=== PATIENT | male | born 1960 | race Caucasian/White ===

== ENCOUNTER → 2022-10-30 11:16 | Outpatient (CLI) | payer OTHER, SELFPAY ==
--- NOTE | ~2022-10-30 | XR_ITS ---
XR elbow RT min 3V 10/30/2022 11:43 Indication: Right lateral elbow pain Procedure: 4 views right elbow Comparison: No prior studies for comparison. Findings: There are enthesophytes originating from the proximal ulna. There is an osteophyte originat ing from the distal lateral humerus. No acute fracture or traumatic malalignment. No foreign bodies. Mild dorsal soft tissue swelling. Impression: 1: No acute fracture. Reviewed, dictated and finalized at location A. UMER STUDIES PROFESSOR Impression: 1: No acute fracture.
== END ==
PROVIDERS: PCP Internal Medicine; Visit Provider Internal Medicine
DX: M25.519 Pain in unspecified shoulder (principal)
CPT/HCPCS: 73080

== ENCOUNTER 2022-11-05 11:21 | Inpatient (IN) | payer OTHER, SELFPAY ==
--- NOTE | ~2022-11-05 | XR_ITS ---
EXAMINATION: XR chest 1V portable DATE: 11/08/2022 07:30 INDICATION: Leukocytosis. New sputum production. TECHNIQUE: A single frontal view of the chest was obtained. COMPARISON: CT abdomen and pelvis 11/05/2022 FINDINGS: There is mild atelectasis in left lower lung zone. No pleural effusion or pneumothorax. The heart size is normal. IMPRESSION: 1. Mild atelectasis in left lower lung zone. Reviewed, dictated and finalized at location A. ESSIONAL SYSTEM ADMINISTRATOR
--- NOTE | ~2022-11-05 | XR_ITS ---
EXAMINATION: XR abdomen obstructive series DATE: 11/09/2022 11:59 INDICATION: Bloody stools, postoperative ileus TECHNIQUE: Upright and supine views of the abdomen were obtained. COMPARISON: 11/08/2022 FINDINGS: The nasogastric tube is been removed. There are multiple dilated small bowel loops in the m idabdomen. No free intraperitoneal gas is identified. A surgical staple line is noted in the lower ab domen. There is a trace volume of gas in the colon. IMPRESSION: 1. Dilated small bowel loops of the abdomen, likely postoperative ileus. Reviewed, dictated and finalized at location A. SMISSIONS SYSTEMS OPERATOR
--- NOTE | ~2022-11-05 | CT_ITS ---
EXAMINATION: CT abdomen pelvis w con DATE: 11/05/2022 17:07 INDICATION: abd pain, vomiting TECHNIQUE: Computed tomography (CT) of the abdomen and pelvis was performed with 100 mL Omnipaque-350 intravenous contrast. Automated exposure control and iterative reconstruction technique were employe d. The dose-length product was 1605.89 mGy-cm. COMPARISON: None. FINDINGS: Lower thorax: Bilateral atelectasis. Liver: Enlarged Biliary/Gallbladder: Gallbladder is normal. No bile duct dilation. Pancreas: No mass or duct dilation. Spleen: Enlarged. Adrenals:No mass. Kidneys: Left upper pole simple cyst. Left lower pole calcification. No suspicious mass. No obstructi ng calcification. No hydronephrosis. GI tract: Distal esophageal and gastric wall edema. Multiple loops of dilated small bowel with wall e hanna in the upper and right mid abdomen. No large bowel dilation. Normal appendix. Mesentery/Peritoneum: 2.2 cm stellate mass in the right mid abdominal mesentery adjacent to loops of ileum, with adjacent desmoplastic reaction in the mesentery. Trace fluid in the right paracolic gutte r. No free air. Retroperitoneum: No mass. Pelvis: Surgically absent uterus. Bladder wall thickening and inflammation. Soft Tissues: Soft tissues and body wall unremarkable. Bones: No acute osseous finding. IMPRESSION: 1. 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 No definite evidence of hepatic or regional lymp h node metastasis. Sclerosing mesentery right as could appear similarly. Consider nonemergent octreot lam nuclear medicine scan for further evaluation. 2. CT findings suggestive of cystitis, correlate with urinalysis. 3. Hepatosplenomegaly. Reviewed, dictated and finalized at location K. IMPRESSION: 1. 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 No d efinite evidence of hepatic or regional lymph node metastasis. Sclerosing mesen debra right as could appear similarly. Consider nonemergent octreotide nuclear m edicine scan for further evaluation. 2. CT findings suggestive of cystitis, correlate with urinalysis. 3. Hepatosplenomegaly.
--- NOTE | ~2022-11-05 | XR_ITS ---
Supine and upright views of the abdomen Clinical history: Nausea, bloating Findings: Surgical anirudh are noted vertically in the midline. Multiple dilated loops of small bowel are present. No definite free air. No abnormal mass lesion or calcification is seen. Osseous structu res are intact. Impression: Multiple dilated loops of small bowel. Findings are suspicious for small bowel obstruction, versus po ssibly postoperative ileus given evidence of recent surgery. Reviewed, dictated and finalized at location [] RINARY POULTRY INSPECTOR Impression: Multiple dilated loops of small bowel. Findings are suspicious for small bowel obstruction, versus possibly postoperative ileus given evidence of recent surge ry.
--- NOTE | ~2022-11-05 | XR_ITS ---
EXAMINATION: XR abdomen NG/feed tube insert DATE: 11/08/2022 22:00 INDICATION: Nasogastric tube placement TECHNIQUE: A supine view of the abdomen and lower chest was obtained for evaluation of feeding tube placement. COMPARISON: 11/08/2022 at 10:51 AM FINDINGS: Nasogastric tube tip in proximal side port in the body of the stomach. No visualized gas-filled loops of bowel in the visualized upper abdomen. Lung bases are clear. Heart size is normal. IMPRESSION: 1. Gastric tube in the stomach. Reviewed, dictated and finalized at location A. BOOTH OPERATOR
[2022-11-05 11:34] VITALS: BP 152/89; PULSE 77; RESP 16; TEMP 36.1; O2SAT 97
[2022-11-05 12:31] LABS: Basophils Percent Auto 0.2 % (0.2-1.2); Eosinophils Absolute Auto 0.1 K/mm3 (0-0.3); Eosinophils Percent Auto 0.5 % (0-4.4); Hematocrit 46.8 % (42.0-52.0); Immature Granulocyte Absolute 0.09 K/mm3 (0.00-0.031); Immature Granulocyte Percent A 0.6 % (0-0.5); Lymphocytes Absolute Auto 1.66 K/mm3 (0.9-3.2); Lymphocytes Percent Auto 11.5 % (18.3-44.2); Mean Corpuscular HGB Conc 32.1 g/dl (32-36); Mean Corpuscular Hemoglobin 31.1 pg (26-34); Mean Corpuscular Volume 96.9 fl (80-100); Mean Platelet Volume 10.9 fl (7.4-10.4); Monocytes Absolute Auto 1.1 K/mm3 (0.1-0.6); Monocytes Percent Auto 7.7 % (2.6-8.5); Neutrophils Absolute Auto 11.5 K/mm3 (1.3-6.7); Neutrophils Percent Auto 79.5 % (45.5-73.1); Platelet Count Result 257 k/mm3 (150-375); Red Blood Count 4.83 M/mm3 (4.6-6.20); Red Cell Distribution Width 15.6 % (11.5-14.5); White Blood Count 14.5 K/mm3 (4.5-10.0)
[2022-11-05 12:33] LABS: Alanine Aminotransferase 28 U/L (6-50); Albumin Level 4.4 g/dL (3.5-5.1); Alkaline Phosphatase 79 U/L (38-126); Anion Gap 7 mmol/L (8-16); Aspartate Amino Transferase 21 U/L (17-59); Bilirubin,Total 0.6 mg/dL (0.2-1.3); Blood Urea Nitrogen 17 mg/dL (9-20); Calcium 9.1 mg/dL (8.4-10.2); Carbon Dioxide 25 mmol/L (22-30); Chloride 103 mmol/L (98-107); Estimated CRCL calculation 80 ml/min; Estimated Glomerular Filt Rate > 60; Glucose 103 mg/dL (65-110); Lipase 63 U/L (23-300); Potassium 3.8 mmol/L (3.4-5.0); Sodium 135 mmol/L (137-145)
[2022-11-05 15:34] LABS: Appearance Urine Cloudy (Clear); Bilirubin Urine 1+ (Negative); Blood Urine Negative (Negative); Color Urine Yellow (Yellow); Glucose Urine UA Negative (Negative); Ketones Urine 4+ mg/dL (Negative); Leukocyte Esterase Ur Negative LEU/UL (Negative); Nitrate Urine Negative (Negative); Protein Urine 1+ mg/dL (Negative); Specific Grav Ur 1.025 (1.001-1.035)
[2022-11-05 15:38] LABS: Mucus Urine Heavy /lpf; RBC Urine 0-2 /hpf (0-2); Squamous Epithelial Cell Urine Many /hpf (Few)
[2022-11-05 15:44] LABS: Add Urine Microscopic? YES
[2022-11-05] MEDS: SODIUM CHLORIDE 0.9% IV 1,000 ML 999 ML IV CONT (16:43)
--- NOTE | 2022-11-05 17:14 | ED.ABDPAIN ---
HPI - Abdominal Pain General Chief Complaint: Abdominal Pain Stated Complaint: vomiting/abd pain Time Seen by Provider: 11/05/22 16:16 Source: patient Mode of arrival: ambulatory Limitations: no limitations History of Present Illness HPI narrative: This is a 62 year old male that presents to the ER for abdominal pain ongoing over the last couple of days. Associated with nausea and vomiting. Reports some loose stools. Reports the pain is intermittent and crampy in nature. In the mid to left abdomen. Denies fever, dysuria or hematuria. Related Data Allergies Allergy/AdvReac Type Severity Reaction Status Date / Time No Known Allergies Allergy Verified 11/05/22 16:42 Review of Systems Review of Systems: CONSTITUTIONAL: Denies fever GASTROINTESTINAL: Reports abdominal pain, nausea, vomiting, and diarrhea. GENITOURINARY: Denies dysuria or hematuria. All systems reviewed & are unremarkable except as noted in HPI and below PMFSH Past Medical History Medical History (Updated 11/05/22 @ 18:51 by Louisa Sullivan PA-C) Hyperlipidemia Hypertension Hypothyroidism Social History Social History (Updated 11/05/22 @ 17:47 by Louisa Sullivan PA-C) Social History: Surrogate medical decision maker: Code status: Full code. Smoking status: Never smoker Additional living arrangements comments: Lives with spouse in [place]. Additional occupation/education comments: [employer]. Exam Narrative: GENERAL: Well-appearing, well-nourished, and in no acute distress. HEAD: Normocephalic, atraumatic. EYES: EOMI. CHEST: Clear to auscultation. No respiratory distress. No wheezes rales or rhonchi HEART: Regular rate and rhythm. No murmur heard. Normal peripheral pulses. ABDOMEN: Soft, nondistended, normal active bowel sounds. Tender to palpation in the mid-left abdomen, without guarding. No CVA tenderness EXTREMITIES: Normal range of motion. No edema. SKIN: Warm, dry, no rash. NEURO: No focal deficits. Alert and oriented x3. PSYCH: Normal mood and affect Course Course Emergency Course: Patient and family updated on work-up Consultations Consultation #1: Spoke with Dr. Salinas about patient and workup who will consult. As patient has not had any vomiting today and he has had a bowel movement. Okay to hold off on NG tube for now. Patient will remain NPO to allow bowel rest Date: 11/05/22 Consultation #2: Spoke with hospitalist about patient and workup who accepts admission Date: 11/05/22 Vital Signs Vital signs: Vital Signs Temperature 97 F L 11/05/22 11:34 Pulse Rate 77 11/05/22 11:34 Respiratory Rate 16 11/05/22 11:34 Blood Pressure 152/89 H 11/05/22 11:34 Pulse Oximetry 97 11/05/22 11:34 Temperature 97 F L 11/05/22 11:34 Pulse Rate 77 11/05/22 11:34 Respiratory Rate 16 11/05/22 11:34 Blood Pressure 152/89 H 11/05/22 11:34 Pulse Oximetry 97 11/05/22 11:34 MDM - Abdominal Pain MDM Narrative Medical decision making narrative: Patient presents the emergency department for mid abdominal pain, nausea and vomiting ongoing over the last couple of days. Also reports some loose stools. Patient is afebrile and nontoxic-appearing. His vitals are stable. CBC with leukocytosis to 14.5. Metabolic panel without concerning findings. UA without evidence of infection. Influenza and COVID screens are negative. 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 No evidence of hepatic or regional lymph node metastasis. CT evidence of cystitis. There is no evidence of cystitis on UA. Hepatosplenomegaly. Patient and family were updated on case findings. Spoke with Dr. Salinas about patient and workup who will consult. As patient has not had any vomiting today and he has had a bowel movement. Okay to hold off on NG tube for now. Patient will remain NPO to allow bowel rest. Spoke with
[2022-11-05 17:37] LABS: Influenza A QL RT-PCR Negative (Negative); Influenza B QL RT-PCR Negative (Negative); SARS-CoV-2 RNA PCR Negative
--- NOTE | 2022-11-05 19:00 | PM.IMHP ---
H&P: HPI History of Present Illness Date/Time: 11/05/22 19:00 Chief Complaint: Abdominal pain. Narrative: This is a very pleasant 62-year-old male with hypertension, hyperlipidemia, and hypothyroidism who presented to the emergency department for evaluation of abdominal pain for the past 2 days. A couple of hours after eating a hot dog for dinner on Saturday he developed pain in the right middle quadrant that is cramping and occasionally sharp in nature. The pain does not radiate and it seems to be worse with food. He has not noticed any significant alleviating factors. Associated symptoms include bloating, hiccups, nausea, a couple of episodes of emesis after attempting to eat pudding, and dry heaves. He has also had couple of loose stools. He had 2 similar episodes in September which were self-limiting and he came in for evaluation today as his symptoms were more persistent. He denies fever, chills, and sweats. He has not noticed any blood or mucus in his stools. He denies sick contacts and recent antibiotic use. No history of abdominal surgery. He has no known history of gallbladder disease, peptic ulcers, or pancreatitis. CT of the abdomen and pelvis done on arrival to ER showed findings of at least a partial small-bowel obstruction and a 2.2 centimeter adjacent area concerning for possible carcinoid tumor. He is being admitted in this setting for further treatment and observation. No history of colonoscopy though he had a normal Cologuard 3 years ago. Review of Systems Review of Systems: Twelve systems were reviewed and are negative except for as per HPI. [facility] Past Medical History Medical History (Updated 11/05/22 @ 22:31 by Jo [place] PA-C) Hyperlipidemia Hypertension Hypothyroidism Kidney stones Surgical History Surgical History (Updated 11/05/22 @ 22:31 by Jo [place] PA-C) History of laser assisted in situ keratomileusis Family History Family History (Updated 11/05/22 @ 22:31 by Jo [place] PA-C) Other Hypertension Social History Social History (Updated 11/05/22 @ 22:31 by Jo [place] PA-C) Social History: Surrogate medical decision maker: Emilee Higgins, spouse. Code status: Full code. Smoking status: Never smoker Additional living arrangements comments: Lives with spouse in [place]. Additional occupation/education comments: [employer]. Meds Home Medications and Allergies Allergies Allergy/AdvReac Type Severity Reaction Status Date / Time No Known Allergies Allergy Verified 11/05/22 16:42 Vital Signs Vital Signs - 24 hr 11/05/22 11:34 Temperature 97 F L Pulse Rate 77 Respiratory Rate 16 Blood Pressure 152/89 H Pulse Oximetry 97 Exam Const: Other: Pleasant, well-developed, nontoxic-appearing male in the semi-[place] position in bed. Weight: 140 kilograms. BMI: 49.8. HENMT: Other: Normocephalic, atraumatic. Nares pain bilaterally. Tacky mucous membranes. Eyes: Other: Pupils are reactive. Extraocular motions intact. Sclerae anicteric. Small, bilateral subconjunctival hemorrhages. Neck: Other: Supple. Exam limited due to neck circumference. No obvious lymphadenopathy. Resp: Other: Respirations are nonlabored and lungs are clear to auscultation. Cardio: Other: Regular rate and rhythm with normal S1-S2. GI: Other: Abdomen is soft and obese with positive bowel sounds. He is tender to palpation in the right middle quadrant without voluntary guarding or rebound tenderness. No obvious organomegaly. Skin: Other: Warm and dry. Neuro: Other: Alert. Cranial nerves 2-12 are grossly intact. No gross focal deficits to casual conversation. Extrem: Other: No cyanosis, clubbing, or significant edema. Peripheral pulses intact. Psych: Other: Pleasant and cooperative. Appropriate mood and affect. H&P: Results Labs Labs: Short CBC 11/05/22 Range/Units 12:10 WBC 14.5 H (4.5-10.0) K/mm3 Hgb 15.0 (14.0-
[2022-11-05 19:29] VITALS: BP 152/87; PULSE 67; RESP 18; O2SAT 96
[2022-11-05 23:23] VITALS: BP 131/76; PULSE 66; PULSE 92; RESP 20; RESP 64; O2SAT 95
[2022-11-05 23:30] VITALS: BP 143/83; PULSE 66; RESP 18; TEMP 36.1; O2SAT 95; BMI 49.3
[2022-11-05] MEDS: LACTATED RINGERS 1,000 ML 125 ML IV CONT (23:33)
--- NOTE | 2022-11-05 23:40 | ADMGEN ---
This patient, Mayur Higgins, was admitted to [facility] Room 309[facility]01. Patient/family oriented to hospital policies and general routines including ID bracelet, bed and alarms, visiting hours, pain management, procedures, bathroom and other care routines, personal items, smoking policy, room service/diet, and visiting hours. Information on how to activate the Rapid Response Team has been discussed. Patient/Family are encouraged to report perceived risks to care and to ask questions if they do not understand what they are told or what they should do.
[2022-11-06] VITALS (16 sets, daily range): BP systolic 129–175; BP diastolic 62–94; PULSE 69–89; RESP 14–28; TEMP 35.9–37.7; O2SAT 93–98
[2022-11-06 06:49] LABS: Alanine Aminotransferase 26 U/L (6-50); Albumin Level 3.9 g/dL (3.5-5.1); Alkaline Phosphatase 80 U/L (38-126); Anion Gap 6 mmol/L (8-16); Aspartate Amino Transferase 18 U/L (17-59); Bilirubin,Total 0.8 mg/dL (0.2-1.3); Blood Urea Nitrogen 17 mg/dL (9-20); Carbon Dioxide 29 mmol/L (22-30); Chloride 104 mmol/L (98-107); Estimated CRCL calculation 80 ml/min; Estimated Glomerular Filt Rate > 60; Glucose 89 mg/dL (65-110); Magnesium 1.9 mg/dL (1.6-2.3); Potassium 3.7 mmol/L (3.4-5.0); Sodium 139 mmol/L (137-145)
[2022-11-06] MEDS: LACTATED RINGERS 1,000 ML 125 ML IV CONT ×2 (08:29→23:38)
[2022-11-06 09:54] LABS: Hematocrit 42.7 % (42.0-52.0); Hemoglobin 13.6 g/dL (14.0-18.0); Mean Corpuscular HGB Conc 31.9 g/dl (32-36); Mean Corpuscular Volume 97.3 fl (80-100); Mean Platelet Volume 11.2 fl (7.4-10.4); Platelet Count Result 226 k/mm3 (150-375); Red Blood Count 4.39 M/mm3 (4.6-6.20); Red Cell Distribution Width 15.4 % (11.5-14.5); White Blood Count 12.1 K/mm3 (4.5-10.0)
--- NOTE | 2022-11-06 11:43 | PM.CNGS ---
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 He has not been vomiting since admission, so will still defer NG tube for now unless vomiting returns. No signs of bowel function today. Discussed the case with Dr. Salinas, who recommends proceeding with an exploratory laparotomy, possible bowel resection today, under general anesthesia. Discussed CT findings with the patient as well as description of the procedure, risks, benefits, and expected recovery. Patient agrees to proceed. Will plan to proceed to the OR later today. (2) Partial small bowel obstruction: Code(s): K56.600 - Partial intestinal obstruction, unspecified as to cause Status: Acute Assessment and Plan: Keep NPO with IV fluids, analgesics as needed. See plan above regarding surgery today. (3) Hypertension: Code(s): I10 - Essential (primary) hypertension Status: Acute (4) Hyperlipidemia: Code(s): E78.5 - Hyperlipidemia, unspecified Status: Acute (5) Hypothyroidism: Code(s): E03.9 - Hypothyroidism, unspecified Status: Acute (6) Obesity, morbid, BMI 40.0-49.9: Code(s): E66.01 - Morbid (severe) obesity due to excess calories Status: Acute Assessment and Plan: Increases risks of surgery. (7) RAJEEV (obstructive sleep apnea): Code(s): G47.33 - Obstructive sleep apnea (adult) (pediatric) Status: Acute Assessment and Plan: Increases risks of surgery. Plan I have discussed the patient's case and plan of care with Dr. Salinas. Thank you for allowing us to see the patient in consultation and we will continue to follow along with you. History of Present Illness Consult details Consult date: 11/06/22 Reason for consult: other (Mesenteric abdominal mass with at least partal small bowel obstruction) Requesting physician: Sonja Park PA-C Narrative: This is a 62-year-old man with a history of hypertension, hyperlipidemia, and hypothyroidism who presented to the emergency department yesterday for evaluation of abdominal pain for 2 days. He developed right-sided mid abdominal pain a few hours after eating a hot dog on Saturday. He describes the pain as cramping and sharp in nature. He additionally reports bloating, nausea, dry heaves, and a few episodes of vomiting. He also reports a few loose stools on Saturday. Since then, he has not been passing any gas or had any further bowel movements. He had 2 similar episodes of pain in September that were mild and self-limiting. His recent pain has been more severe and persistent, therefore he presented to the ER for evaluation. 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 He was admitted to the Hospitalist service. He was not vomiting in the ER or since admission, therefore NG tube has been deferred. Our service has been consulted for surgical evaluation of a mesenteric mass causing at least a partial small bowel obstruction. He is now seen on the medical floor. No previous abdominal surgeries. Still denies passing any flatus or any BMs since admission. Review of Systems Review of Systems: All systems reviewed & are unremarkable except as noted in HPI and below Constitutional: Constitutional: Reports no additional constitutional complaints, Denies chills, Denies fatigue, Denies fever(s) and Denies headache(s) Eyes: Eyes: Reports no additional eye complaints ENT: Reports system reviewed and no additional complaints, except as documented and Denies dizziness
--- NOTE | 2022-11-06 13:19 | PM.IMPN ---
Progress Note: A&P Assessment and Plan (1) Partial small bowel obstruction: Code(s): K56.600 - Partial intestinal obstruction, unspecified as to cause Status: Acute Assessment and Plan: Presented with abdominal pain, nausea, and dry heaves Imaging revealed 2.2 cm mass of the right mid mesentery concerning for carcinoid tumor adjacent to loops of ileum resulting in partial small-bowel obstruction No need for NG decompression at this time as patient has no vomiting Continue with NPO diet Planning for exploratory laparotomy today with possible bowel resection Appreciate general surgery consultation (2) Abdominal mass: Code(s): R19.00 - Intra-abdominal and pelvic swelling, mass and lump, unspecified site Status: Acute Assessment and Plan: See plan above (3) Hypertension: Code(s): I10 - Essential (primary) hypertension Status: Acute Assessment and Plan: Blood pressures are stable. Last BP 136/66 Home in a bubble all is on hold while NPO IV hydralazine available as needed for systolic BP >165 (4) Hypothyroidism: Code(s): E03.9 - Hypothyroidism, unspecified Status: Acute Assessment and Plan: TSH is within normal limits IV levothyroxine while NPO (5) Hyperlipidemia: Code(s): E78.5 - Hyperlipidemia, unspecified Status: Acute Assessment and Plan: LFTs are within normal limits Atorvastatin will be resumed when diet is advanced and patient is able to tolerate p.o. meds (6) RAJEEV (obstructive sleep apnea): Code(s): G47.33 - Obstructive sleep apnea (adult) (pediatric) Status: Acute Assessment and Plan: Patient reports history of mild RAJEEV and is not maintained on CPAP Reports he has been trying to lose weight to improve symptoms Subjective Date/time seen: 11/06/22 13:19 Interval history: Date of service: 11/06/2022 Mayur Higgins is a 62-year-old male with a history of hypertension, hyperlipidemia, hypothyroidism, and RAJEEV who is seen in follow-up for small bowel obstruction. Patient reports he is doing okay today. His pain is pretty controlled at this time. Currently rates his pain about 2/10 states it has been up to 5/10. Describes as a crampy abdominal discomfort. Denies nausea or vomiting. He denies flatus. States his last bowel movement was 2 days ago. He denies fever, chills, dizziness, lightheadedness. No issues with urinating. No shortness breath, cough, chest pain, wheezing. He notes he popped a blood vessel in both of his eyes when he was dry heaving but has no pain or visual changes. He admits to being anxious for surgical procedure today Review of Systems Review of Systems: All systems reviewed & are unremarkable except as noted in HPI and below Exam Narrative: General: Obese, well-appearing 62-year-old male, sitting up in bed, comfortable, NARD Neuro: awake, alert and oriented x4, speech clear, no focal neuro deficits noted HEENMT: normocephalic, atraumatic, EOMI, sclerae anicteric, subconjunctival hemorrhage of medial aspect of bilateral eyes Respiratory: clear to auscultation bilaterally, nonlabored breathing Cardio: regular rate, regular rhythm with S1-S2 Abdomen: Abdomen is distended, hypoactive bowel sounds, soft, nontender to palpation Extremities: no edema, erythema, or tenderness to palpation, DP pulses 2+ bilaterally Skin: no rashes or lesions, warm and dry Psych: appropriate mood and affect, judgment and insight intact Objective Data Vital Signs Vital Signs: Vital Signs - 24 hr 11/05/22 19:29 11/05/22 23:23 11/05/22 23:23 Temperature Pulse Rate 67 92 66 Respiratory Rate 18 64 H 20 Blood Pressure 152/87 H 131/76 Pulse Oximetry 96 95 Oxygen Delivery 11/05/22 23:57 11/05/22 23:30 11/06/22 06:00 Temperature 96.9 F L 96.6 F L Pulse Rate 66 71 Respiratory Rate 18 16 Blood Pressure 143/83 H 136/66 Pulse Oximetry 95 94 O
[2022-11-06] MEDS: LACTATED RINGERS 1,000 ML 30 ML IV CONT ×2 (14:10→17:18)
--- NOTE | 2022-11-06 14:21 | WPDANESEPPF ---
Anes - Initial Pre Proc Eval Procedure: Operation Date: 11/06/22 16:15 Proposed Procedures p Exploratory Laparotomy, Possible Bowel Resection - Torres Salinas DO Date/Time: 11/06/22 14:21 Surgeon: Teresa Draper PA-C Pre Op Diagnosis: Carcinoid tumor, SBO Patient Data Age: 62 Gender: M Height: 1.68 m Weight: 139.5 kg Last Vital Signs Temp 36.8 C 11/06/22 14:10 Pulse 73 11/06/22 14:10 Resp 16 11/06/22 14:10 BP 155/82 H 11/06/22 14:10 Pulse Ox 98 11/06/22 14:10 O2 Del Method Room Air 11/06/22 14:10 Allergies Allergy/AdvReac Type Severity Reaction Status Date / Time No Known Allergies Allergy Verified 11/05/22 16:42 Home Medications Medication Instructions Recorded Confirmed Type atorvastatin 10 mg tablet 10 mg PO DAILY 11/05/22 11/05/22 History levothyroxine 175 mcg tablet 175 mcg PO DAILY 11/05/22 11/05/22 History nebivolol 5 mg tablet 5 mg PO DAILY 11/05/22 11/05/22 History Laboratory Tests 11/05/22 11/05/22 11/06/22 14:35 16:37 05:59 WBC RBC Hgb Hct MCV MCH MCHC RDW Plt Count MPV Sodium 139 mmol/L mmol/L (137-145) Potassium 3.7 mmol/L mmol/L (3.4-5.0) Chloride 104 mmol/L mmol/L (98-107) Carbon Dioxide 29 mmol/L mmol/L (22-30) Anion Gap 6 mmol/L L mmol/L (8-16) BUN 17 mg/dL mg/dL (9-20) Creatinine 1.10 mg/dL mg/dL (0.7-1.3) Estim Creat Clear Calc 80 ml/min ml/min Estimated GFR > 60 (59 - ) Glucose 89 mg/dL mg/dL (65-110) Calcium 9.0 mg/dL mg/dL (8.4-10.2) Magnesium 1.9 mg/dL mg/dL (1.6-2.3) Total Bilirubin 0.8 mg/dL mg/dL (0.2-1.3) AST 18 U/L U/L (17-59) ALT 26 U/L U/L (6-50) Alkaline Phosphatase 80 U/L U/L (38-126) Total Protein 7.0 g/dL g/dL (6.3-8.2) Albumin 3.9 g/dL g/dL (3.5-5.1) TSH (Reflex) Urine Color Yellow (Yellow) Urine Appearance Cloudy H (Clear) Urine pH 6.0 (5.0-9.0) Ur Specific Stanford 1.025 (1.001-1.035) Urine Protein 1+ mg/dL H mg/dL (Negative) Urine Glucose (UA) Negative mg/dL mg/dL (Negative) Urine Ketones 4+ mg/dL H mg/dL (Negative) Ur Blood (Man) Negative (Negative) Urine Nitrate Negative (Negative) Urine Bilirubin 1+ H (Negative) Urine Urobilinogen 4.0 mg/dL H mg/dL (<2.0) Leukocyte Esterase Rfl Negative FOSTER/UL FOSTER/UL (Negative) Urine RBC 0-2 /hpf /hpf (0-2) Urine WBC 4-6 /hpf H /hpf Ur Squamous Epith Cells Many /hpf H /hpf (Few) Urine Mucus Heavy /lpf H /lpf Influenza A (RT-PCR) Negative (Negative) Influenza B (RT-PCR) Negative (Negative) SARS-CoV-2 RNA (RT-PCR) Negative 11/06/22 11/06/22 05:59 05:59 WBC 12.1 K/mm3 H K/mm3 (4.5-10.0) RBC 4.39 M/mm3 L M/mm3 (4.6-6.20) Hgb 13.6 g/dL L g/dL (14.0-18.0) Hct 42.7 % % (42.0-52.0) MCV 97.3 fl fl (80-100) MCH 31.0 pg pg (26-34) MCHC 31.9 g/dl L g/dl (32-36) RDW 15.4 % H % (11.5-14.5) Plt Count 226 k/mm3 k/mm3 (150-375) MPV 11.2 fl H fl (7.4-10.4) Sodium Potassium Chloride Carbon Dioxide Anion Gap BUN Creatinine Estim Creat Clear Calc Estimated GFR Glucose Calcium Magnesium Total Bilirubin AST ALT Alkaline Phosphatase Total Protein Albumin TSH (Reflex) 2.550 uIU/mL uIU/mL (0.465-4.68) Urine Color Urine Appearance Urine pH
--- NOTE | 2022-11-06 14:42 | PCNEURO ---
To OR per bed, IV saline locked. Report given to ALLA Del Real.
--- NOTE | 2022-11-06 15:13 | WPDHPUPDATE1 ---
History and Physical Update Update Date/Time: 11/06/22 15:13 History and Physical has been reviewed, including an updated exam of the patient. There are NO changes in the patient's condition. Risks, benefits, and alternatives have been discussed and questions answered. Patient agrees to proceed with procedure.
[2022-11-06] MEDS: ceFAZolin 3 GM/D5W 100 ML 100 ML IVPB (15:20)
--- NOTE | 2022-11-06 17:03 | W.PM.PROC2 ---
Procedure Note - Detailed Date of Procedure 11/06/22 Pre-op Diagnosis Abdominal mass, small bowel obstruction Post-op Diagnosis Same Procedure Performed Exploratory laparotomy, ileal resection with [id number] ileal anastomosis Surgeon Torres Salinas DO Sourcing Analyst Jimmie Dey MD Anesthesia General Indications This is a 62-year-old man who presented to the emergency department last night with abdominal pain with nausea and vomiting. He had experienced a few episodes like this over past 6 weeks. He was feeling very bloated and could tolerate eating. He had a bowel movement 2 days ago, but has not had bowel movement or passed any flatus since. A CT in the emergency department showed evidence of a small-bowel mesenteric mass causing at least a partial obstruction. He is admitted to the hospital for further treatment. Discussions were made with the patient about treatment options and decision was made to proceed with exploratory laparotomy with small-bowel resection. Findings Exploratory laparotomy was performed. The patient was found to have a mesenteric mass causing couple loops of small bowel to be tethered to this area and causing a small-bowel obstruction. This appeared to be about 20 cm proximal to the ileocecal valve. The small bowel proximal to this appeared dilated. The mass appeared to be right at the distal mesentery near the small, but there was some mesenteric thickening proximal to this. A small bowel resection was performed including the loops of bowel that were adherent at the mass. A [id number] ileal anastomosis was performed. Dr. Dey was assisting with the procedure with the mobilization of the mass as well as the resection and anastomosis. The specimen was sent to the lab for pathology. No other intra-abdominal abnormalities were noted. Description of Procedure Procedure as well as risks, benefits, and alternatives were discussed with the patient. Written consent was obtained and placed in chart prior to procedure. Patient was brought back to surgical suite. He was placed supine on operating table. Time-out was done to confirm patient and procedure. He was then intubated by the anesthesia department. His abdomen was prepped and draped in sterile fashion using chlorhexidine prep. A 15 cm vertical midline incision was made centered on the umbilicus using a 10 blade scalpel. Electrocautery was used for hemostasis and for dissection through the subcutaneous tissue. The linea alba was identified and incised with electrocautery. The peritoneum was then entered with electrocautery and the fascial incision was extended throughout the length of the skin incision. A large Armando wound protector was then placed and the abdomen was carefully inspected. The small bowel was identified and carefully traced to where the small bowel mass was. The mass was able to be delivered through the Armando wound protector. The small bowel proximal and distal to this was identified and appeared healthy and viable. A window was created in the mesentery just proximal and distal to the mass using hemostat and GINO 75 mm blue load staplers were then advanced across the small bowel proximal and distal to the mass. The staplers were fired to transect the bowel proximal and distal. The mesentery was then carefully taken down using LigaSure bipolar cautery. Hemostasis was achieved along the way. Care was taken to continue down the mesentery to resect the mesentery of the involved segment. The specimen was completely removed and sent to the lab for pathology. The mesentery was then carefully inspected and hemostasis appeared adequate. There was about 20 cm of distal ileum before the ileocecal valve. This was somewhat tethered to the pelvis making it difficult to bring up for the anastomosis, therefore some of the lateral peritoneal attachments to the terminal ileum were taken down to mobilize the further. This then allowed the 2 ends of the bowel to come
[2022-11-06] MEDS: fentaNYL CITRATE INJ (*CRX) 100 MCG/2 ML VIAL 25 MCG IV PUSH ×4 (17:18→17:37)
--- NOTE | 2022-11-06 18:29 | PC.NURSE ---
Return from OR per bed. Report received from ALLA Partida @ [id number].
[2022-11-06] MEDS: HYDROmorphone HCL INJ (*CRX) 1 MG/ML SYR IV PUSH ×2 (20:24→23:39)
[2022-11-06] MEDS: ceFAZolin 2 GM/D5W 50 ML 2 GM/50 ML BAG IVPB (22:06)
[2022-11-07] VITALS (8 sets, daily range): BP systolic 120–160; BP diastolic 60–82; PULSE 66–85; RESP 13–20; TEMP 36.1–37.6; O2SAT 92–96
[2022-11-07] MEDS: LEVOTHYROXINE SODIUM INJ 100 MCG/5 ML VIAL 87.5 MCG IV PUSH (05:58)
[2022-11-07] MEDS: ceFAZolin 2 GM/D5W 50 ML 2 GM/50 ML BAG IVPB ×2 (05:59→16:16)
[2022-11-07 06:58] LABS: Hematocrit 40.6 % (42.0-52.0); Hemoglobin 13.2 g/dL (14.0-18.0); Mean Corpuscular HGB Conc 32.5 g/dl (32-36); Mean Corpuscular Hemoglobin 31.1 pg (26-34); Mean Corpuscular Volume 95.5 fl (80-100); Mean Platelet Volume 11.2 fl (7.4-10.4); Platelet Count Result 220 k/mm3 (150-375); Red Blood Count 4.25 M/mm3 (4.6-6.20); White Blood Count 14.4 K/mm3 (4.5-10.0)
[2022-11-07 07:16] LABS: Anion Gap 5 mmol/L (8-16); Blood Urea Nitrogen 20 mg/dL (9-20); Calcium 8.6 mg/dL (8.4-10.2); Carbon Dioxide 28 mmol/L (22-30); Chloride 99 mmol/L (98-107); Estimated CRCL calculation 80 ml/min; Estimated Glomerular Filt Rate > 60; Glucose 106 mg/dL (65-110); Potassium 4.6 mmol/L (3.4-5.0); Sodium 132 mmol/L (137-145)
[2022-11-07] MEDS: HYDROmorphone HCL INJ (*CRX) 1 MG/ML SYR IV PUSH ×2 (08:53→13:55)
[2022-11-07] MEDS: ENOXAPARIN 40 MG/0.4 ML SYRINGE SUB-Q (09:40)
--- NOTE | 2022-11-07 10:15 | PM.IMPN ---
Progress Note: A&P Assessment and Plan (1) Partial small bowel obstruction: Code(s): K56.600 - Partial intestinal obstruction, unspecified as to cause Status: Acute Assessment and Plan: Presented with abdominal pain, nausea, and dry heaves Imaging revealed 2.2 cm mass of the right mid mesentery concerning for carcinoid tumor adjacent to loops of ileum resulting in partial small-bowel obstruction Surgery to advance diet tumor removal performed 11/06/22 Appreciate general surgery consultation (2) Abdominal mass: Code(s): R19.00 - Intra-abdominal and pelvic swelling, mass and lump, unspecified site Status: Acute Assessment and Plan: See plan above (3) Hypertension: Code(s): I10 - Essential (primary) hypertension Status: Acute Assessment and Plan: Blood pressures are stable. Last BP 140/78 Home nebivolol is on currently on hold IV hydralazine available as needed for systolic BP >165 (4) Hypothyroidism: Code(s): E03.9 - Hypothyroidism, unspecified Status: Acute Assessment and Plan: TSH is within normal limits IV levothyroxine while NPO (5) Hyperlipidemia: Code(s): E78.5 - Hyperlipidemia, unspecified Status: Acute Assessment and Plan: LFTs are within normal limits Atorvastatin will be resumed when diet is advanced and patient is able to tolerate p.o. meds (6) RAJEEV (obstructive sleep apnea): Code(s): G47.33 - Obstructive sleep apnea (adult) (pediatric) Status: Acute Assessment and Plan: Patient reports history of mild RAJEEV and is not maintained on CPAP Reports he has been trying to lose weight to improve symptoms Time Spent With Patient Time with patient: Greater than 35 minutes Subjective Date/time seen: 11/07/22 1015 Interval history: 11/07/22 1015 patient was resting in bed comfortably. Rai is draining a good amount a urine. Patient does have anirudh in his midline abdomen which dressing is dry and intact. Patient did state that he was still having some pain especially when he coughs. Did tell him to splint with a pillow. He denies any chest pain, shortness a breath, nausea, vomiting, weakness or fatigue. He did state that he has not had a bowel movement nor does he have any gas. But he does have some hypo bowel sounds on the left. 11/06/22? 13:19 Mayur Higgins is a 62-year-old male with a history of hypertension, hyperlipidemia, hypothyroidism, and RAJEEV who is seen in follow-up for small bowel obstruction.? Patient reports he is doing okay today.? His pain is pretty controlled at this time.? Currently rates his pain about 2/10 states it has been up to 5/10.? Describes as a crampy abdominal discomfort.? Denies nausea or vomiting.? He denies flatus.? States his last bowel movement was 2 days ago.? He denies fever, chills, dizziness, lightheadedness.? No issues with urinating.? No shortness breath, cough, chest pain, wheezing.? He notes he popped a blood vessel in both of his eyes when he was dry heaving but has no pain or visual changes.? He admits to being anxious for surgical procedure today 11/05/22? 19:00 This is a very pleasant 62-year-old male with hypertension, hyperlipidemia, and hypothyroidism who presented to the emergency department for evaluation of abdominal pain for the past 2 days. A couple of hours after eating a hot dog for dinner on Saturday he developed pain in the right middle quadrant that is cramping and occasionally sharp in nature. The pain does not radiate and it seems to be worse with food. He has not noticed any significant alleviating factors. Associated symptoms include bloating, hiccups, nausea, a couple of episodes of emesis after attempting to eat pudding, and dry heaves. He has also had couple of loose stools. He had 2 similar episodes in September which were self-limiting and he came in
--- NOTE | 2022-11-07 13:07 | WPDANESPN ---
Anes - Prog Note Post-Op Date/Time: 11/07/22 13:07 Vital Signs: Last Vital Signs Temp 37.1 C 11/07/22 08:06 Pulse 75 11/07/22 08:06 Resp 16 11/07/22 08:06 BP 135/60 11/07/22 08:06 Pulse Ox 93 11/07/22 10:40 O2 Del Method Room Air 11/07/22 10:40 O2 Flow Rate 2 11/06/22 18:18 Pain Score (VAS): 0 I/O: Intake & Output 11/06/22 11/07/22 11/07/22 23:59 07:59 15:59 Intake Total 1500 900 480 Output Total 30 700 1400 Balance 1470 200 -920 Laboratory Tests 11/07/22 06:22 11/07/22 06:22 11/07/22 11/07/22 06:22 06:22 WBC 14.4 H RBC 4.25 L Hgb 13.2 L Hct 40.6 L MCV 95.5 MCH 31.1 MCHC 32.5 RDW 15.0 H Plt Count 220 MPV 11.2 H Sodium 132 L Potassium 4.6 Chloride 99 Carbon Dioxide 28 Anion Gap 5 L BUN 20 Creatinine 1.10 Estim Creat Clear Calc 80 Estimated GFR > 60 Glucose 106 Calcium 8.6 Patient Feedback: Patient satisfied with anesthetic care.
--- NOTE | 2022-11-07 14:13 | PM.PNGS ---
Progress Note: A&P Assessment and Plan (1) Abdominal mass: Qualifiers: Abdominal location: unspecified location Qualified Code(s): R19.00 - Intra-abdominal and pelvic swelling, mass and lump, unspecified site Code(s): R19.00 - Intra-abdominal and pelvic swelling, mass and lump, unspecified site Status: Acute Assessment and Plan: Doing well POD#1. Continue clear liquids today. Increase activity, await return of bowel function. Pathology pending. (2) Partial small bowel obstruction: Code(s): K56.600 - Partial intestinal obstruction, unspecified as to cause Status: Acute (3) RAJEEV (obstructive sleep apnea): Code(s): G47.33 - Obstructive sleep apnea (adult) (pediatric) Status: Acute Subjective Subjective Date/Time Seen: 11/07/22 14:13 Interval history: Tolerating clears. No nausea or vomiting. Pain controlled. Exam GI: Inspection: incision (dressing dry) GI Palp: Yes Soft to palpation and Yes Tenderness to palpation present (GI) (incisional) Auscultation: Hypoactive bowel sounds present Objective Data Vital Signs Vital Signs: Vital Signs - 24 hr 11/06/22 14:24 11/06/22 17:06 11/06/22 17:21 Temperature 36.3 C L 37.0 C Pulse Rate 69 74 75 Respiratory Rate 26 H 20 24 H Blood Pressure 143/62 H 170/87 H 165/94 H Pulse Oximetry 94 96 98 Oxygen Delivery Simple Face Mask Simple Face Mask Oxygen Flow Rate 6 6 11/06/22 17:35 11/06/22 17:50 11/06/22 18:05 Temperature Pulse Rate 74 71 73 Respiratory Rate 23 H 24 H 22 H Blood Pressure 166/92 H 161/88 H 160/86 H Pulse Oximetry 93 95 97 Oxygen Delivery Nasal Cannula Nasal Cannula Nasal Cannula Oxygen Flow Rate 5 3 3 11/06/22 18:18 11/06/22 18:21 11/06/22 18:36 Temperature 36.1 C L 36.2 C L Pulse Rate 79 78 73 Respiratory Rate 20 28 H 28 H Blood Pressure 154/87 H 157/79 H 153/77 H Pulse Oximetry 95 94 96 Oxygen Delivery Nasal Cannula Oxygen Flow Rate 2 11/06/22 19:06 11/06/22 20:06 11/06/22 20:00 Temperature 36.3 C L 37.7 C H Pulse Rate 80 89 Respiratory Rate 26 H 14 Blood Pressure 158/77 H 175/90 H Pulse Oximetry 94 95 95 Oxygen Delivery Room Air Oxygen Flow Rate 11/06/22 21:00 11/06/22 23:36 11/07/22 00:02 Temperature 36.5 C 37.6 C Pulse Rate 70 Respiratory Rate 13 Blood Pressure 168/89 H 129/69 148/76 H Pulse Oximetry 93 Oxygen Delivery Oxygen Flow Rate 11/07/22 04:06 11/07/22 10:40 11/07/22 08:06 Temperature 37.1 C 37.1 C Pulse Rate 66 75 Respiratory Rate 14 16 Blood Pressure 120/76 135/60 Pulse Oximetry 96 93 95 Oxygen Delivery Room Air Oxygen Flow Rate Intake/Output Intake/Output: Intake & Output 11/04/22 11/05/22 11/06/22 11/07/22 23:59 23:59 23:59 23:59 Intake Total 1000 2600 1380 Output Total 30 2100 Balance 1000 2570 -720 Meds/Results Medications: Active Medications Generic Name Dose Route Start Last Admin Trade Name Freq PRN Reason Stop Dose Admin Enoxaparin Sodium 40 mg 11/07/22 09:00 11/07/22 09:40 Enoxaparin 40 Mg/0.4 Ml Syringe SUB-Q 40 mg DAILY PRIYANK Administration Hydralazine HCl 10 mg 11/06/22 09:42 Hydralazine Hcl 20 Mg/Ml Vial IV PUSH Q8H PRN Systolic BP >165 Hydromorphone HCl 0.5 mg 11/06/22 18:21 11/07/22 13:54 Hydromorphone Hcl Inj (*Crx) 1 Mg/Ml Syr IV PUSH 0.5 mg Q2H PRN Administration Pain Rated 4-6 Hydromorphone HCl 1 mg 11/06/22 18:21 11/07/22 08:53 Hydromorphone Hcl Inj (*Crx) 1 Mg/Ml Syr IV PUSH 1 mg Q2H PRN Administration Pain Rated 7-10 Lactated Ringer's 1,000 mls @ 75 mls/hr 11/05/22 22:40 11/06/22 23:38 Lr - Lactated Ringers Iv IV CONT 125 mls/hr .[id number] PRIYANK Administration Cefazolin Sodium 2 gm in 50 mls @ 100 mls/hr 11/06/22 23:00 11/07/22 06:29 Ancef 2 Gm/D5w 50 Ml IVPB 11/07/22 15:29 Infused Q8H PRIYANK Infusion Levothyroxine Sodium 87.5 mcg 11/07/22 06:30 11/07/22 05:58 Levothyroxin
[2022-11-07] MEDS: LACTATED RINGERS 1,000 ML 125 ML IV CONT (16:19)
[2022-11-07] MEDS: ONDANSETRON INJ 4 MG/2 ML VIAL IV PUSH (18:05)
[2022-11-07 19:24] LABS: Glucose Point of Care 108 mg/dl (65-105)
--- NOTE | 2022-11-07 20:05 | PC.NURSE ---
Pt had been tolerating clear liquid diet throughout day. Pt called out after eating dinner that he was feeling nauseated. Gave zofran. Pt also stated he felt dizzy. Checked pt vitals and charted. BP slightly high, told pt I would return to check on him in 15-30 minutes to see if nausea resolved and dizziness improved. At 1900, pt continues to feel dizzy. Vitals as charted. This RN working with another pt, oncoming RN saw pt. BS checked and was WNL. Pt c/o dizziness and not feeling right continues. Night RN states belly distended and firm. Pt also appears slightly sweaty. Gen surgery exchange called. All info relayed. Orders received from Tiburcio to change to NPO status. Continue fluids. No radiography at this time. Night RN returned to room, along with pulpwood buyer to relay info, as well as encourage pt to ambulate to help with potentially developing ileus. Night RN will continue to monitor.
--- NOTE | 2022-11-07 22:25 | PC.NURSE ---
Pt. with c/o of not feeling right at beginning of shift. Pt's belly distended, bowel sounds hypoactive and diaphoretic. oracle technical developer and this RN went to room to assess patient and discuss findings. Pt. encouraged to ambulate in hallways and sit up to chair to help promote return of bowel function. Pt. has been up to chair since 20:00 and has ambulated x1 down the hallway with walker and nurse assist. Pt. coughing up yellow sputum as more movement is performed and incentive spirometry encouraged. Pt. states he is feeling better than previously in the shift. Plan of care continues.
[2022-11-07] MEDS: HYDROmorphone HCL INJ (*CRX) 1 MG/ML SYR 0.5 MG IV PUSH (23:20)
--- NOTE | 2022-11-07 23:27 | PC.NURSE ---
Pt. ambulated again with RN and is now back in bed with alarms on. Pt. educated on IV fluid hydration, NPO status, ambulation, pain management, and blood pressure control. Pt. instructed to call nursing station if symptoms return.
[2022-11-08] VITALS (8 sets, daily range): BP systolic 157–168; BP diastolic 82–94; PULSE 78–90; RESP 18–23; TEMP 36.1–37.4; O2SAT 93–99
[2022-11-08] MEDS: LACTATED RINGERS 1,000 ML 75 ML IV CONT ×2 (05:26→17:03)
[2022-11-08] MEDS: LEVOTHYROXINE SODIUM INJ 100 MCG/5 ML VIAL 87.5 MCG IV PUSH (05:28)
[2022-11-08 06:40] LABS: Hematocrit 45.1 % (42.0-52.0); Hemoglobin 14.4 g/dL (14.0-18.0); Mean Corpuscular HGB Conc 31.9 g/dl (32-36); Mean Corpuscular Hemoglobin 30.8 pg (26-34); Mean Corpuscular Volume 96.6 fl (80-100); Mean Platelet Volume 10.9 fl (7.4-10.4); Platelet Count Result 238 k/mm3 (150-375); Red Blood Count 4.67 M/mm3 (4.6-6.20); Red Cell Distribution Width 15.4 % (11.5-14.5); White Blood Count 14.3 K/mm3 (4.5-10.0)
--- NOTE | 2022-11-08 06:46 | PC.NURSE ---
Pt. woke up with c/o of chills, hiccups, and heartburn. Ambulated pt x2 up and down nursing unit hallway with relief of symptoms. Pt. up to chair now and states to nurse that he just passed gas. Plan of care continues.
--- NOTE | 2022-11-08 08:30 | PM.IMPN ---
Progress Note: A&P Assessment and Plan (1) Partial small bowel obstruction: Code(s): K56.600 - Partial intestinal obstruction, unspecified as to cause Status: Acute Assessment and Plan: Presented with abdominal pain, nausea, and dry heaves Imaging revealed 2.2 cm mass of the right mid mesentery concerning for carcinoid tumor adjacent to loops of ileum resulting in partial small-bowel obstruction Abd xray indicated possible obstruction vs ileus Surgery to advance diet Diet decreased back to NPO Activity increased and encouraged tumor removal performed 11/06/22 Appreciate general surgery consultation (2) Abdominal mass: Code(s): R19.00 - Intra-abdominal and pelvic swelling, mass and lump, unspecified site Status: Acute Assessment and Plan: See plan above (3) Hypertension: Code(s): I10 - Essential (primary) hypertension Status: Acute Assessment and Plan: Blood pressures are stable. Last BP 167/94 Home nebivolol is on currently on hold IV hydralazine available as needed for systolic BP >165 (4) Hypothyroidism: Code(s): E03.9 - Hypothyroidism, unspecified Status: Acute Assessment and Plan: TSH is within normal limits IV levothyroxine while NPO (5) Hyperlipidemia: Code(s): E78.5 - Hyperlipidemia, unspecified Status: Acute Assessment and Plan: LFTs are within normal limits Atorvastatin will be resumed when diet is advanced and patient is able to tolerate p.o. meds (6) RAJEEV (obstructive sleep apnea): Code(s): G47.33 - Obstructive sleep apnea (adult) (pediatric) Status: Acute Assessment and Plan: Patient reports history of mild RAJEEV and is not maintained on CPAP Reports he has been trying to lose weight to improve symptoms (7) Leukocytosis: Code(s): D72.829 - Elevated white blood cell count, unspecified Status: Acute Assessment and Plan: WBC continued to be elevated at 14.3 Chest xray shows atelectasis Abd xray shows possible obstruction Continue to trend labs Consider antibiotics if continues to elevate Time Spent With Patient Time with patient: Greater than 35 minutes Subjective Date/time seen: 11/08/22829 Interval history: 11/08/22829 patient stated that he did not have a good night last night he stated that he got very hot and sweaty was having chills. He also stated that he got very nauseous. He did state that he had passed gas twice. His abdomen is hard and distended. He denies any chest pain, shortness of breath, vomiting, diarrhea, or constipation. He did state that he is having a new cough That he did state was productive. 11/07/22 1015 patient was resting in bed comfortably. Rai is draining a good amount a urine. Patient does have anirudh in his midline abdomen which dressing is dry and intact. Patient did state that he was still having some pain especially when he coughs. Did tell him to splint with a pillow. He denies any chest pain, shortness a breath, nausea, vomiting, weakness or fatigue. He did state that he has not had a bowel movement nor does he have any gas. But he does have some hypo bowel sounds on the left. 11/06/22? 13:19 Mayur Higgins is a 62-year-old male with a history of hypertension, hyperlipidemia, hypothyroidism, and RAJEEV who is seen in follow-up for small bowel obstruction.? Patient reports he is doing okay today.? His pain is pretty controlled at this time.? Currently rates his pain about 2/10 states it has been up to 5/10.? Describes as a crampy abdominal discomfort.? Denies nausea or vomiting.? He denies flatus.? States his last bowel movement was 2 days ago.? He denies fever, chills, dizziness, lightheadedness.? No issues with urinating.? No shortness breath, cough, chest pain, wheezing.? He notes he popped a blood vessel i
[2022-11-08] MEDS: ENOXAPARIN 40 MG/0.4 ML SYRINGE SUB-Q (09:02)
[2022-11-08] MEDS: ONDANSETRON INJ 4 MG/2 ML VIAL IV PUSH ×2 (09:05→17:06)
[2022-11-08 10:08] LABS: Anion Gap 7 mmol/L (8-16); Blood Urea Nitrogen 19 mg/dL (9-20); Calcium 9.4 mg/dL (8.4-10.2); Carbon Dioxide 28 mmol/L (22-30); Chloride 98 mmol/L (98-107); Estimated CRCL calculation 74 ml/min; Estimated Glomerular Filt Rate > 60; Glucose 120 mg/dL (65-110); Magnesium 1.8 mg/dL (1.6-2.3); Potassium 4.1 mmol/L (3.4-5.0); Sodium 133 mmol/L (137-145)
--- NOTE | 2022-11-08 10:41 | PM.PNGS ---
Progress Note: A&P Assessment and Plan (1) Abdominal mass: Qualifiers: Abdominal location: unspecified location Qualified Code(s): R19.00 - Intra-abdominal and pelvic swelling, mass and lump, unspecified site Code(s): R19.00 - Intra-abdominal and pelvic swelling, mass and lump, unspecified site Status: Acute Assessment and Plan: Last night began having nausea, bloating, and chills. Likely related to an ileus, but will get a KUB to evaluate. Keep NPO for now and increase IV fluids. Await return of bowel function, he did pass flatus this morning. Discussed with the patient that if he begins vomiting, then we may need to consider NG tube. Encouraged increasing activity and walking the halls today Pathology pending. (2) Partial small bowel obstruction: Code(s): K56.600 - Partial intestinal obstruction, unspecified as to cause Status: Acute (3) RAJEEV (obstructive sleep apnea): Code(s): G47.33 - Obstructive sleep apnea (adult) (pediatric) Status: Acute Plan I have discussed the patient's case and plan of care with Dr. Salinas. Subjective Subjective Date/Time Seen: 11/08/22 10:41 Post Op day: 2 (Ex lap, ileal resection) Patient reports: flatus, no bowel movement, nausea and afebrile Interval history: Patient seen and examined. He reports started around 6 pm last night he began having bloating, nausea, dizziness, and chills. He tried walking laps in the halls and felt better through the night. This morning his symptoms again worsened. He is complaining of bloating, nausea, hiccups, belching, and still chills. No vomiting and reports Zofran has helped his nausea. He has expected incisional pain but tolerable and not really generalized abdominal pain. Last dose of Dilaudid was around 2300 last night. He has been up and moving almost all morning and reports he has passed a good amount of flatus twice this morning. He also complains that he does not feel like he is emptying his bladder this morning. He was voiding well yesterday after Rai was removed, but through the night and into the morning he feels it has gotten worse and his urine is dark. No dysuria. Review of Systems Review of Systems: All systems reviewed & are unremarkable except as noted in HPI and below Constitutional: Constitutional: Reports as per HPI and Reports no additional constitutional complaints Cardiovascular: Cardiovascular: Reports no additional cardiovascular complaints and Denies chest pain Respiratory: Respiratory: Reports no additional respiratory complaints and Denies dyspnea Gastrointestinal: Gastrointestinal: Reports as per HPI and Reports no additional gastrointestinal complaints Exam Const: General: uncomfortable Nutritional Appearance: obese Orientation/consciousness: patient oriented x3 Resp: Effort & Inspection: normal respiratory effort Auscultation: clear to auscultation bilaterally Cardio: Rate: regular rate Rhythm: regular rhythm GI: Inspection: distended and incision (incision dry and intact) GI Palp: Yes Soft to palpation, Yes Tenderness to palpation present (GI) (incisional) and No Guarding due to palpation present (GI) Percussion: Yes tympanic to percussion Auscultation: Hypoactive bowel sounds present Neuro: General: moves all extremities and no focal motor deficits Extrem: General: no calf tenderness and no edema Psych: Mental Status: mental status grossly normal Insight: Good insight present (Psych) Objective Data Vital Signs Vital Signs: Vital Signs - 24 hr 11/07/22 12:06 11/07/22 18:08 11/07/22 19:02 Temperature 98.8 F 98.5 F 98.4 F Pulse Rate 73 76 81 Respiratory Rate 16 20 20 Blood Pressure 140/78 160/66 H 146/75 H Pulse Oximetry 92 92 94 Oxygen Delivery 11/07/22 20:00 11/07/22 22:00 11/08/22 08:00 Temperature 97 F L 98.1 F Pulse Rate 85 90 Respiratory Rate 16 23 H Blood Pressure 153/82 H 168/84 H Pulse Oximetry 94 94 Oxygen Delivery Arianna
[2022-11-08] MEDS: hydrALAZINE HCL 20 MG/ML VIAL 10 MG IV PUSH (14:19)
--- NOTE | 2022-11-08 19:53 | PC.NURSE ---
pt continue to feel nauseous vomited greenish bile, bp 162/86, 88, 20, 100% ra temp 97.6 day shift Rn Paradise called MD Bullock, Md Bullock returned call, dressing changed 1939 per Paradise no blood present on dressing. pt stated changed x3 on day shift. Md Bullock to access pt at bedside soon per Md Bullock.
--- NOTE | 2022-11-08 20:08 | PC.NURSE ---
at 530 HUMAN SERVICE WORKER told this nurse that pt was feeling nauseated. This nurse immediately assesses patient. Zofran was administered approx 1735. At 1800 pt states he has a bowel movement to the HUMAN SERVICE WORKER and HUMAN SERVICE WORKER tells nurse. Nurse assesses the bowel movement and notes that there is a small mount of formed stool and the water in the toilet has a small amount of bright red blood. At 1830, nurse hears pt dry heaving from his room. Nurse then called surgeon's cell phone number at approx 1840 to inform of these new findings. At approx 1900 nurse goes into pt room sees pt sitting on side of bed with emesis bag in hand. Nurse then notices pt has blood on the lower part on the front his gown and pt states he has some red vomit in his emesis bag. Nurse also notes there is a 6in diameter pool of blood on floor beneath pt. It is then assessed that the midline abdominal incision was leaking red/sersosanguinous fluid from incision, but anirudh intact. Nurse immediately calls the surgeon's exchange number and tell the rock drill operator what she has witnessed. Nurse tells rock drill operator that the manner is urgent. Nurse then gives bedside report to incoming night nurse. Day nurse then redresses midline incision and tells night nurse that she called the surgeon's exchange and night nurse should expect a call back from the exchange.
--- NOTE | 2022-11-08 20:10 | PM.PNGS ---
Progress Note: A&P Assessment and Plan (1) Partial small bowel obstruction: Code(s): K56.600 - Partial intestinal obstruction, unspecified as to cause Status: Acute Assessment and Plan: most likely postop ileus. Will have NG tube placed. Re-dress abdominal wound but bleeding is nothing significant. Continue postop care. (2) Obesity, morbid, BMI 40.0-49.9: Code(s): E66.01 - Morbid (severe) obesity due to excess calories Status: Acute Subjective Subjective Date/Time Seen: 11/08/22 20:10 Patient reports: vomiting, afebrile and other (Called to see patient for abdominal wound dressing bloody, vomitting, and bloody stools) Exam Const: General: no acute distress Nutritional Appearance: obese GI: Inspection: distended, incision ( minimal bloody drainage, no dehiscence or evisceration) and obesity ( extremely obese) GI Palp: Yes Firmness to palpation present (GI) and Yes Tenderness to palpation present (GI) Auscultation: absent bowel sounds Objective Data Vital Signs Vital Signs: Vital Signs - 24 hr 11/07/22 22:00 11/08/22 08:00 11/08/22 08:00 Temperature 36.1 C L 36.7 C Pulse Rate 85 90 Respiratory Rate 16 23 H Blood Pressure 153/82 H 168/84 H Pulse Oximetry 94 94 Oxygen Delivery Room Air 11/08/22 10:28 11/08/22 13:54 11/08/22 19:55 Temperature 36.6 C 36.1 C L 36.4 C Pulse Rate 78 88 Respiratory Rate 21 H 20 Blood Pressure 167/94 H 162/86 H Pulse Oximetry 95 99 Oxygen Delivery Intake/Output Intake/Output: Intake & Output 11/05/22 11/06/22 11/07/22 11/08/22 23:59 23:59 23:59 23:59 Intake Total 1000 2600 3600 2000 Output Total 30 2100 900 Balance 1000 2570 1500 1100 Meds/Results Medications: Active Medications Generic Name Dose Route Start Last Admin Trade Name Freq PRN Reason Stop Dose Admin Enoxaparin Sodium 40 mg 11/07/22 09:00 11/08/22 09:02 Enoxaparin 40 Mg/0.4 Ml Syringe SUB-Q 40 mg DAILY PRIYANK Administration Hydralazine HCl 10 mg 11/06/22 09:42 11/08/22 14:19 Hydralazine Hcl 20 Mg/Ml Vial IV PUSH 10 mg Q8H PRN Administration Systolic BP >165 Hydromorphone HCl 0.5 mg 11/06/22 18:21 11/07/22 23:20 Hydromorphone Hcl Inj (*Crx) 1 Mg/Ml Syr IV PUSH 0.5 mg Q2H PRN Administration Pain Rated 4-6 Hydromorphone HCl 1 mg 11/06/22 18:21 11/07/22 13:55 Hydromorphone Hcl Inj (*Crx) 1 Mg/Ml Syr IV PUSH 1 mg Q2H PRN Administration Pain Rated 7-10 Lactated Ringer's 1,000 mls @ 125 mls/hr 11/05/22 22:40 11/08/22 17:03 Lr - Lactated Ringers Iv IV CONT 75 mls/hr .Q8H PRIYANK Administration Levothyroxine Sodium 87.5 mcg 11/07/22 06:30 11/08/22 05:28 Levothyroxine Sodium Inj 100 Mcg/5 Ml Vial IV PUSH 87.5 mcg DAILY@0630 PRIYANK Administration Ondansetron HCl 4 mg 11/05/22 22:37 11/08/22 17:06 Ondansetron Inj 4 Mg/2 Ml Vial IV PUSH 4 mg Q6H PRN Administration Nausea And Vomiting Radiology Results: ITS Impressions Abdomen/Pelvis CT 11/05/22 17:11 IMPRESSION: 1. 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 No definite evidence of hepatic or regional lymph node metastasis. Sclerosing mesentery right as could appear similarly. Consider nonemergent octreotide nuclear medicine scan for further evaluation. 2. CT findings suggestive of cystitis, correlate with urinalysis. 3. Hepatosplenomegaly. Chest X-Ray 11/08/22 07:42 IMPRESSION: 1. Mild atelectasis in left lower lung zone. Abdomen X-Ray 11/08/22 11:02 Impression: Multiple dilated loops of small bowel. Findings are suspicious for small bowel obstruction, versus possibly postoperative ileus given evidence of recent surgery. Labs Labs: Laboratory Results - last 24 hr 11/08/22 11/08/22 06:07 09:38 WBC 14.3 H RBC 4.67 Hgb 14.4 Hct 45.1 MCV 96.6 MCH 30.8 MCHC 31
[2022-11-08] MEDS: HYDROmorphone HCL INJ (*CRX) 1 MG/ML SYR IV PUSH (20:24)
--- NOTE | 2022-11-08 21:32 | PC.NURSE ---
ng in place, KUB ordered to verify placement
--- NOTE | 2022-11-08 21:33 | PC.NURSE ---
informed xr of order for KUB for ng placement, will be up shortly for kub
[2022-11-08] MEDS: LORazepam INJ (*CRX) 2 MG/ML VIAL 0.5 MG IV PUSH (21:57)
[2022-11-09] MEDS: HYDROmorphone HCL INJ (*CRX) 1 MG/ML SYR IV PUSH ×5 (02:23→18:55)
[2022-11-09 04:01] VITALS: BP 157/86; PULSE 97; RESP 20; TEMP 36.8; O2SAT 91
[2022-11-09] MEDS: LEVOTHYROXINE SODIUM INJ 100 MCG/5 ML VIAL 87.5 MCG IV PUSH (05:42)
[2022-11-09 07:08] LABS: Basophils Percent Auto 0.1 % (0.2-1.2); Eosinophils Absolute Auto 0.1 K/mm3 (0-0.3); Eosinophils Percent Auto 0.3 % (0-4.4); Hematocrit 39.7 % (42.0-52.0); Hemoglobin 12.8 g/dL (14.0-18.0); Immature Granulocyte Absolute 0.08 K/mm3 (0.00-0.031); Immature Granulocyte Percent A 0.5 % (0-0.5); Lymphocytes Absolute Auto 0.73 K/mm3 (0.9-3.2); Lymphocytes Percent Auto 4.7 % (18.3-44.2); Mean Corpuscular HGB Conc 32.2 g/dl (32-36); Mean Corpuscular Hemoglobin 30.8 pg (26-34); Mean Corpuscular Volume 95.4 fl (80-100); Mean Platelet Volume 11.3 fl (7.4-10.4); Monocytes Absolute Auto 1.8 K/mm3 (0.1-0.6); Monocytes Percent Auto 11.4 % (2.6-8.5); Neutrophils Absolute Auto 12.8 K/mm3 (1.3-6.7); Platelet Count Result 207 k/mm3 (150-375); Red Blood Count 4.16 M/mm3 (4.6-6.20); Red Cell Distribution Width 15.2 % (11.5-14.5); White Blood Count 15.5 K/mm3 (4.5-10.0)
[2022-11-09 07:35] LABS: Alanine Aminotransferase 15 U/L (6-50); Albumin Level 3.5 g/dL (3.5-5.1); Alkaline Phosphatase 62 U/L (38-126); Anion Gap 4 mmol/L (8-16); Aspartate Amino Transferase 19 U/L (17-59); Bilirubin,Total 0.5 mg/dL (0.2-1.3); Blood Urea Nitrogen 20 mg/dL (9-20); Carbon Dioxide 33 mmol/L (22-30); Chloride 96 mmol/L (98-107); Estimated CRCL calculation 83 ml/min; Estimated Glomerular Filt Rate > 60; Glucose 108 mg/dL (65-110); Magnesium 1.7 mg/dL (1.6-2.3); Potassium 4.2 mmol/L (3.4-5.0); Sodium 133 mmol/L (137-145)
--- NOTE | 2022-11-09 09:45 | PM.IMPN ---
Progress Note: A&P Assessment and Plan (1) Partial small bowel obstruction: Code(s): K56.600 - Partial intestinal obstruction, unspecified as to cause Status: Acute Assessment and Plan: Presented with abdominal pain, nausea, and dry heaves Imaging revealed 2.2 cm mass of the right mid mesentery concerning for carcinoid tumor adjacent to loops of ileum resulting in partial small-bowel obstruction Abd xray indicated post surgical ileus Surgery to advance diet Diet decreased back to NPO with ice chips Activity increased and encouraged tumor removal performed 11/06/22 Appreciate general surgery consultation (2) Abdominal mass: Code(s): R19.00 - Intra-abdominal and pelvic swelling, mass and lump, unspecified site Status: Acute Assessment and Plan: See plan above (3) Hypertension: Code(s): I10 - Essential (primary) hypertension Status: Acute Assessment and Plan: Blood pressures are stable. Last BP 139/62 Home nebivolol is on currently on hold IV hydralazine available as needed for systolic BP >165 (4) Hypothyroidism: Code(s): E03.9 - Hypothyroidism, unspecified Status: Acute Assessment and Plan: TSH is within normal limits IV levothyroxine while NPO (5) Hyperlipidemia: Code(s): E78.5 - Hyperlipidemia, unspecified Status: Acute Assessment and Plan: LFTs are within normal limits Atorvastatin will be resumed when diet is advanced and patient is able to tolerate p.o. 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 Did get a call from the nurses stated that he did pull out his NG tube. Talked to surgery who stated they will get a small-bowel follow-through which looks to be like he still has ileus. Patient is also complaining of back pain that is new thinking that is kidney stones however has been relieved with pain medicine. White count is up to 15.5. Currently patient denies any chest pain, shortness a breath, nausea, vomiting, diarrhea or constipation. While I was in there patient did have a loose bowel movement. 11/08/22 0830 patient stated that he did not have a good night last night he stated that he got very hot and sweaty was having chills. He also stated that he got very nauseous. He did state that he had passed gas twice. His abdomen is hard and distended. He denies any chest pain, shortness of breath, vomiting, diarrhea, or constipation. He did state that he is having a new cough That he did state was productive. 11/07/22 1015 patient was resting in bed comfortab
--- NOTE | 2022-11-09 09:45 | P.PNIM_ITS ---
Progress Note: A&P Assessment and Plan (1) Partial small bowel obstruction: Code(s): K56.600 - Partial intestinal obstruction, unspecified as to cause Status: Acute Assessment and Plan: * Presented with abdominal pain, nausea, and dry heaves * Imaging revealed 2.2 cm mass of the right mid mesentery concerning for carcinoid tumor adjacent to loops of ileum resulting in partial small-bowel obstruction * Abd xray indicated post surgical ileus * Surgery to advance diet * Diet decreased back to NPO with ice chips * Activity increased and encouraged * tumor removal performed 11/06/22 * Appreciate general surgery consultation (2) Abdominal mass: Code(s): R19.00 - Intra-abdominal and pelvic swelling, mass and lump, unspecified site Status: Acute Assessment and Plan: See plan above (3) Hypertension: Code(s): I10 - Essential (primary) hypertension Status: Acute Assessment and Plan: * Blood pressures are stable. Last BP 139/62 * Home nebivolol is on currently on hold * IV hydralazine available as needed for systolic BP >165 (4) Hypothyroidism: Code(s): E03.9 - Hypothyroidism, unspecified Status: Acute Assessment and Plan: TSH is within normal limits * IV levothyroxine while NPO (5) Hyperlipidemia: Code(s): E78.5 - Hyperlipidemia, unspecified Status: Acute Assessment and Plan: LFTs are within normal limits * Atorvastatin will be resumed when diet is advanced and patient is able to tolerate p.o. 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 Did get a call from the nurses stated that he did pull out his NG tube. Talked to surgery who stated they will get a small- bowel follow-through which looks to be like he still has ileus. Patient is also complaining of back pain that is new thinking that is kidney stones however has been relieved with pain medicine. White count is
[2022-11-09] MEDS: ENOXAPARIN 40 MG/0.4 ML SYRINGE SUB-Q (10:15)
--- NOTE | 2022-11-09 11:40 | PM.PNGS ---
Progress Note: A&P Assessment and Plan (1) Primary malignant neuroendocrine tumor of small intestine: Code(s): C7A.8 - Other malignant neuroendocrine tumors Status: Acute Assessment and Plan: pathology shows T4 N1 neuroendocrine tumor with 4/20 lymph nodes positive bowels moving, will get obstructive series today, possibly resume clear liquids today unsure if back pain is bowel related, musculoskeletal, or urinary--could consider repeat imaging if pain persists (2) Partial small bowel obstruction: Code(s): K56.600 - Partial intestinal obstruction, unspecified as to cause Status: Acute (3) RAJEEV (obstructive sleep apnea): Code(s): G47.33 - Obstructive sleep apnea (adult) (pediatric) Status: Acute (4) Hypertension: Code(s): I10 - Essential (primary) hypertension Status: Acute Subjective Subjective Date/Time Seen: 11/09/22 11:40 Interval history: NG placed overnight do to persistent nausea and having dry heaves. NG came out accidentally this morning. Patient is moving his bowels now. Mostly complaining of mid lower back pain. Urinating without difficulty. No fevers. No more nausea or vomiting. Exam GI: Inspection: non-distended and incision ( Serosanguinous drainage from incision, no redness or purulence drainage) GI Palp: Yes Soft to palpation, Yes Tenderness to palpation present (GI) ( incisional) and No Guarding due to palpation present (GI) Objective Data Vital Signs Vital Signs: Vital Signs - 24 hr 11/08/22 13:54 11/08/22 19:55 11/08/22 19:40 Temperature 36.1 C L 36.4 C 36.4 C Pulse Rate 78 88 88 Respiratory Rate 21 H 20 20 Blood Pressure 167/94 H 162/86 H 162/86 H Pulse Oximetry 95 99 99 Oxygen Delivery Room Air 11/08/22 21:44 11/08/22 20:00 11/08/22 22:38 Temperature 36.4 C 37.4 C Pulse Rate 88 86 Respiratory Rate 20 18 Blood Pressure 162/86 H 157/82 H Pulse Oximetry 99 99 93 Oxygen Delivery Room Air Room Air 11/09/22 04:01 Temperature 36.8 C Pulse Rate 97 Respiratory Rate 20 Blood Pressure 157/86 H Pulse Oximetry 91 Oxygen Delivery Intake/Output Intake/Output: Intake & Output 11/06/22 11/07/22 11/08/22/16/22 23:59 23:59 23:59 23:59 Intake Total 2600 3600 2000 Output Total 30 2100 900 1352 Balance 2570 1500 1100 -1352 Meds/Results Medications: Active Medications Generic Name Dose Route Start Last Admin Trade Name Freq PRN Reason Stop Dose Admin Enoxaparin Sodium 40 mg 11/07/22 09:00 11/09/22 10:15 Enoxaparin 40 Mg/0.4 Ml Syringe SUB-Q 40 mg DAILY PRIYANK Administration Hydralazine HCl 10 mg 11/06/22 09:42 11/08/22 14:19 Hydralazine Hcl 20 Mg/Ml Vial IV PUSH 10 mg Q8H PRN Administration Systolic BP >165 Hydromorphone HCl 0.5 mg 11/06/22 18:21 11/07/22 23:20 Hydromorphone Hcl Inj (*Crx) 1 Mg/Ml Syr IV PUSH 0.5 mg Q2H PRN Administration Pain Rated 4-6 Hydromorphone HCl 1 mg 11/06/22 18:21 11/09/22 10:51 Hydromorphone Hcl Inj (*Crx) 1 Mg/Ml Syr IV PUSH 1 mg Q2H PRN Administration Pain Rated 7-10 Lactated Ringer's 1,000 mls @ 125 mls/hr 11/05/22 22:40 11/08/22 17:03 Lr - Lactated Ringers Iv IV CONT 75 mls/hr .Q8H PRIYANK Administration Levothyroxine Sodium 87.5 mcg 11/07/22 06:30 11/09/22 05:42 Levothyroxine Sodium Inj 100 Mcg/5 Ml Vial IV PUSH 87.5 mcg DAILY@0630 PRIYANK Administration Ondansetron HCl 4 mg 11/05/22 22:37 11/08/22 17:06 Ondansetron Inj 4 Mg/2 Ml Vial IV PUSH 4 mg Q6H PRN Administration Nausea And Vomiting Radiology Results: ITS Impressions Abdomen/Pelvis CT 11/05/22 17:11 IMPRESSION: 1. 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 No definite evidence of hepatic or regional lymph node metastasis. Sclerosing mesentery right as could appear similarly. Consider nonemergent octreotide
[2022-11-09 14:00] VITALS: BP 139/62; PULSE 85; RESP 18; TEMP 36.6; O2SAT 92
[2022-11-09] MEDS: IBUPROFEN IV 800 MG/200 ML 800 MG/200 ML BAG 400 MG IVPB ×2 (15:48→20:19)
[2022-11-09] MEDS: LACTATED RINGERS 1,000 ML 75 ML IV CONT (15:48)
[2022-11-09] MEDS: BENZONATATE 100 MG CAPSULE 200 MG PO (17:24)
--- NOTE | 2022-11-09 17:53 | PDONCCN ---
HPI - Date of Consult Date/Time: 11/09/22 17:53 Requesting Physician: Teresa Draper PA-C Primary Care Provider: Ye Novak, - Consult Narrative Reason for consult: Neuroendocrine tumor Narrative: Mayur Higgins is a 62 year old obese male with history of hypertension, hyperlipidemia and hypothyroidism came into the hospital with abdominal pain and cramping for last couple of days along with dry heaves. He has constipation for 3 days as well. He denies any previous history of malignancy. He lost about [address] abdomen and pelvis done in the ER showed partial small bowel obstruction with 2.2 cm just an area concerning for possible carcinoid tumor. He did not have any previous colonoscopy. Patient had exploratory laparotomy with the ileal resection and [id number] ileal anastomosis done on November 06, 2022 and pathology showed well differentiated neuroendocrine tumor. Are grade 1 with Ki 67 of less than 3%. Lymphovascular and perineural invasion was present. /20 lymph node had metastatic disease. He was diagnosed with T4 N1 M0 disease. He is recovering well from the surgery. He denies any diarrhea and facial flushing. Denies any other new complaints. Review of Systems - Review of Systems All systems reviewed & are unremarkable except as noted in HPI and bel - Neurologic Reports system reviewed and no additional complaints, except as documented, Denies abnormal gait, Denies headache(s), Denies focal weakness, Denies numbness, Denies tingling PMFSH Medical History: Medical History (Last Reviewed 11/06/22 @ 14:23 by Mata Pro MD) Hyperlipidemia Hypertension Hypothyroidism Kidney stones RAJEEV (obstructive sleep apnea) Reports having mild RAJEEV but has never required a CPAP Surgical History: Surgical History (Last Reviewed 11/06/22 @ 14:23 by Mata Pro MD) History of laser assisted in situ keratomileusis Family History: Family History (Last Reviewed 11/06/22 @ 14:23 by Mata Pro MD) Sibling Diabetes mellitus Bladder cancer - Social History Social History: Social History (Last Reviewed 11/06/22 @ 14:23 by Mata Pro MD) Alcohol Use: Alcohol intake: never Substance Use: Substance use: never Others: Spiritual care concerns: No Smoking Status: Smoking status: Never smoker Social Determinants of Health: Has the Lack of Transportation Kept You From Medical Appointments or From Getting Medications?: No Within the Past 12 Months, Were You Worried Whether Your Food Would Run Out Before You Got Money to Buy More?: Never True What is Your Housing Situation Today?: I Have Housing Are You Worried That in the Next 2 Months, You May Not Have Your Own Housing to Live In?: No Do You Have Trouble Paying Your Heating Or Electricity Bill?: No Do You Have Trouble Paying For Medicines?: No Are You Currently Unemployed and Looking for Work?: No Highest Level of Education Completed: High School Diploma/GED Do You Have Trouble With Childcare or the Care of a Family Member?: No Exam - Vital Signs Vital Signs - 24 hr 11/08/22 19:55 11/08/22 19:40 11/08/22 21:44 Temperature 36.4 C 36.4 C 36.4 C Pulse Rate 88 88 88 Respiratory Rate 20 20 20 Blood Pressure 162/86 H 162/86 H 162/86 H Pulse Oximetry 99 99 99 Oxygen Delivery Room Air Room Air 11/08/22 20:00 11/08/22 22:38 11/09/22 04:01 Temperature 37.4 C 36.8 C Pulse Rate 86 97 Respiratory Rate 18 20 Blood Pressure 157/82 H 157/86 H Pulse Oximetry 99 93 91 Oxygen Delivery Room Air 11/09/22 09:50 11/09/22 14:00 Temperature 36.6 C Pulse Rate 85 Respiratory Rate 18 Blood Pressure 139/62 Pulse Oximetry 92 Oxygen Delivery Room Air - Exam HEENT: PERRLA, sclera clear Neck: supple. No: JVD Lungs: clear to auscultation, normal air movement Heart: no murmurs, gallops, or rubs, regular rhythm, r
[2022-11-09 21:11] VITALS: BP 124/70; PULSE 74; RESP 20; TEMP 36.2; O2SAT 96
[2022-11-10] MEDS: IBUPROFEN IV 800 MG/200 ML 800 MG/200 ML BAG 400 MG IVPB ×4 (02:27→22:06)
[2022-11-10] MEDS: LACTATED RINGERS 1,000 ML 125 ML IV CONT ×2 (02:27→16:10)
[2022-11-10] MEDS: HYDROmorphone HCL INJ (*CRX) 1 MG/ML SYR IV PUSH ×3 (02:28→18:09)
[2022-11-10 06:00] VITALS: BP 127/63; PULSE 71; RESP 20; TEMP 36.3; O2SAT 94
[2022-11-10] MEDS: LEVOTHYROXINE SODIUM INJ 100 MCG/5 ML VIAL 87.5 MCG IV PUSH (06:02)
[2022-11-10 06:16] LABS: Hematocrit 35.7 % (42.0-52.0); Hemoglobin 11.3 g/dL (14.0-18.0); Mean Corpuscular HGB Conc 31.7 g/dl (32-36); Mean Corpuscular Hemoglobin 30.8 pg (26-34); Mean Corpuscular Volume 97.3 fl (80-100); Mean Platelet Volume 11.2 fl (7.4-10.4); Platelet Count Result 175 k/mm3 (150-375); Red Blood Count 3.67 M/mm3 (4.6-6.20); Red Cell Distribution Width 15.1 % (11.5-14.5); White Blood Count 12.5 K/mm3 (4.5-10.0)
[2022-11-10 06:34] LABS: Anion Gap 2 mmol/L (8-16); Blood Urea Nitrogen 21 mg/dL (9-20); Calcium 8.7 mg/dL (8.4-10.2); Carbon Dioxide 34 mmol/L (22-30); Chloride 96 mmol/L (98-107); Estimated CRCL calculation 83 ml/min; Estimated Glomerular Filt Rate > 60; Glucose 95 mg/dL (65-110); Sodium 132 mmol/L (137-145)
[2022-11-10] MEDS: ENOXAPARIN 40 MG/0.4 ML SYRINGE SUB-Q (09:37)
[2022-11-10] MEDS: BENZONATATE 100 MG CAPSULE 200 MG PO ×3 (09:37→20:02)
--- NOTE | 2022-11-10 10:45 | PM.IMPN ---
Progress Note: A&P Assessment and Plan (1) Partial small bowel obstruction: Code(s): K56.600 - Partial intestinal obstruction, unspecified as to cause Status: Acute Assessment and Plan: Presented with abdominal pain, nausea, and dry heaves Imaging revealed 2.2 cm mass of the right mid mesentery concerning for carcinoid tumor adjacent to loops of ileum resulting in partial small-bowel obstruction Abd xray indicated post surgical ileus Surgery to advance diet Diet increased to clear liquid, increase per general surgery Activity increased and encouraged tumor removal performed 11/06/22 Appreciate general surgery consultation (2) Abdominal mass: Code(s): R19.00 - Intra-abdominal and pelvic swelling, mass and lump, unspecified site Status: Acute Assessment and Plan: See plan above (3) Hypertension: Code(s): I10 - Essential (primary) hypertension Status: Acute Assessment and Plan: Blood pressures are stable. Last BP 127/63 Home nebivolol is on currently on hold IV hydralazine available as needed for systolic BP >165 (4) Hypothyroidism: Code(s): E03.9 - Hypothyroidism, unspecified Status: Acute Assessment and Plan: TSH is within normal limits IV levothyroxine while NPO (5) Hyperlipidemia: Code(s): E78.5 - Hyperlipidemia, unspecified Status: Acute Assessment and Plan: LFTs are within normal limits Atorvastatin will be resumed when diet is advanced and patient is able to tolerate p.o. meds (6) RAJEEV (obstructive sleep apnea): Code(s): G47.33 - Obstructive sleep apnea (adult) (pediatric) Status: Acute Assessment and Plan: Patient reports history of mild RAJEEV and is not maintained on CPAP Reports he has been trying to lose weight to improve symptoms (7) Leukocytosis: Code(s): D72.829 - Elevated white blood cell count, unspecified Status: Acute Assessment and Plan: WBC down to t 12.5 Chest xray shows atelectasis Abd xray shows post obstructive ileus Continue to trend labs Consider antibiotics if continues to elevate (8) Primary malignant neuroendocrine tumor of small intestine: Code(s): C7A.8 - Other malignant neuroendocrine tumors Status: Acute Assessment and Plan: pathology revealed tumor as a metastatic neuroendocrine tumor in 4 of 20 lymph nodes consult oncology Will need to follow up with oncology outpatient (9) Cough: Code(s): R05.9 - Cough, unspecified Status: Acute Assessment and Plan: Noted productive cough WBCs are trending down Tessalon Perles add azithromycin added sputum culture ordered Time Spent With Patient Time with patient: Greater than 35 minutes Subjective Date/time seen: 11/10/221044 Interval history: 11/10/221044 Patient seems to be doing well. His and a friend of his was present. He is tolerating clear liquids however he is clammy he is having a pain proximal the gluteal cleft. Reassured him that this is not kidney stones as the kidneys are mostly the middle of the back. Also explained that the surgery was lower. Talked to them about oncologist also explained to them next steps going forward. Currently patient denies any chest pain, shortness a breath, nausea, vomiting, diarrhea, constipation, weakness fatigue. Patient did state that his cough is better and that the Tessalon Perles are working. Reviewed labs with the who is a nurse 11/09/22 [id number] patient seems to be doing okay. Did get a call from the nurses stated that he did pull out his NG tube. Talked to surgery who stated they will get a small-bowel follow-through which looks to be like he still has ileus. Patient is also complaining of back pain that is new thinking that is kidney stone
--- NOTE | 2022-11-10 10:45 | P.PNIM_ITS ---
Progress Note: A&P Assessment and Plan (1) Partial small bowel obstruction: Code(s): K56.600 - Partial intestinal obstruction, unspecified as to cause Status: Acute Assessment and Plan: * Presented with abdominal pain, nausea, and dry heaves * Imaging revealed 2.2 cm mass of the right mid mesentery concerning for carcinoid tumor adjacent to loops of ileum resulting in partial small-bowel obstruction * Abd xray indicated post surgical ileus * Surgery to advance diet * Diet increased to clear liquid, increase per general surgery * Activity increased and encouraged * tumor removal performed 11/06/22 * Appreciate general surgery consultation (2) Abdominal mass: Code(s): R19.00 - Intra-abdominal and pelvic swelling, mass and lump, unspecified site Status: Acute Assessment and Plan: See plan above (3) Hypertension: Code(s): I10 - Essential (primary) hypertension Status: Acute Assessment and Plan: * Blood pressures are stable. Last BP 127/63 * Home nebivolol is on currently on hold * IV hydralazine available as needed for systolic BP >165 (4) Hypothyroidism: Code(s): E03.9 - Hypothyroidism, unspecified Status: Acute Assessment and Plan: TSH is within normal limits * IV levothyroxine while NPO (5) Hyperlipidemia: Code(s): E78.5 - Hyperlipidemia, unspecified Status: Acute Assessment and Plan: LFTs are within normal limits * Atorvastatin will be resumed when diet is advanced and patient is able to tolerate p.o. meds (6) RAJEEV (obstructive sleep apnea): Code(s): G47.33 - Obstructive sleep apnea (adult) (pediatric) Status: Acute Assessment and Plan: Patient reports history of mild RAJEEV and is not maintained on CPAP * Reports he has been trying to lose weight to improve symptoms (7) Leukocytosis: Code(s): D72.829 - Elevated white blood cell count, unspecified Status: Acute Assessment and Plan: * WBC down to t 12.5 * Chest xray shows atelectasis * Abd xray shows post obstructive ileus * Continue to trend labs * Consider antibiotics if continues to elevate (8) Primary malignant neuroendocrine tumor of small intestine: Code(s): C7A.8 - Other malignant neuroendocrine tumors Status: Acute Assessment and Plan: * pathology revealed tumor as a metastatic neuroendocrine tumor in 4 of 20 lymph nodes * consult oncology * Will need to follow up with oncology outpatient (9) Cough: Code(s): R05.9 - Cough, unspecified Status: Acute Assessment and Plan: * Noted productive cough * WBCs are trending down * Grey Ritter add * azithromycin added * sputum culture ordered Time Spent With Patient Time with patient: Greater than 35 minutes Subjective Date/time seen: 11/10/221044 Interval history: 11/10/221044 Patient seems to be doing well. His and a friend of his was present. He is tolerating clear liquids however he is clammy he is having a pain proximal the gluteal cleft. Reassured him that this is not kidney stones as the kidneys are mostly the middle of the back. Also explained that the surge
--- NOTE | 2022-11-10 11:18 | PM.PNGS ---
Progress Note: A&P Assessment and Plan (1) Primary malignant neuroendocrine tumor of small intestine: Code(s): C7A.8 - Other malignant neuroendocrine tumors Status: Acute Assessment and Plan: s/p resection, ileus resolving, will ADAT, encourage OOB/IS Subjective Subjective Date/Time Seen: 11/10/22 11:18 feels better, vane clears, +bowel fxn Review of Systems Review of Systems: All systems reviewed & are unremarkable except as noted in HPI and below Exam Const: General: cooperative, comfortable and no acute distress Resp: Auscultation: clear to auscultation bilaterally Cardio: Rate: regular rate Rhythm: regular rhythm GI: Inspection: normal to inspection, distended and incision GI Palp: Yes abdominal tenderness, Yes Soft to palpation, Yes Tenderness to palpation present (GI), No Guarding due to palpation present (GI) and No Rigid due to palpation Objective Data Vital Signs Vital Signs: Vital Signs - 24 hr 11/09/22 14:00 11/09/22 21:11 11/09/22 20:00 Temperature 36.6 C 36.2 C L Pulse Rate 85 74 Respiratory Rate 18 20 Blood Pressure 139/62 124/70 Pulse Oximetry 92 96 Oxygen Delivery Room Air 11/10/22 06:00 Temperature 36.3 C L Pulse Rate 71 Respiratory Rate 20 Blood Pressure 127/63 Pulse Oximetry 94 Oxygen Delivery Intake/Output Intake/Output: Intake & Output 11/07/22 11/08/22 11/09/22 11/10/22 23:59 23:59 23:59 23:59 Intake Total 3600 2000 2150 1410 Output Total 2100 900 2227 400 Balance 1500 1100 -77 1010 Meds/Results Medications: Active Medications Generic Name Dose Route Start Last Admin Trade Name Freq PRN Reason Stop Dose Admin Benzonatate 200 mg 11/09/22 17:00 11/10/22 09:37 Benzonatate 100 Mg Capsule PO 200 mg TID PRIYANK Administration Enoxaparin Sodium 40 mg 11/07/22 09:00 11/10/22 09:37 Enoxaparin 40 Mg/0.4 Ml Syringe SUB-Q 40 mg DAILY PRIYANK Administration Hydralazine HCl 10 mg 11/06/22 09:42 11/08/22 14:19 Hydralazine Hcl 20 Mg/Ml Vial IV PUSH 10 mg Q8H PRN Administration Systolic BP >165 Hydromorphone HCl 0.5 mg 11/06/22 18:21 11/07/22 23:20 Hydromorphone Hcl Inj (*Crx) 1 Mg/Ml Syr IV PUSH 0.5 mg Q2H PRN Administration Pain Rated 4-6 Hydromorphone HCl 1 mg 11/06/22 18:21 11/10/22 09:52 Hydromorphone Hcl Inj (*Crx) 1 Mg/Ml Syr IV PUSH 1 mg Q2H PRN Administration Pain Rated 7-10 Lactated Ringer's 1,000 mls @ 125 mls/hr 11/05/22 22:40 11/10/22 09:38 Lr - Lactated Ringers Iv IV CONT Not Given .Q8H PRIYANK Ibuprofen 800 mg in 200 mls @ 400 mls/hr 11/09/22 14:50 11/10/22 09:36 Caldolor 800 Mg/200 Ml IVPB 11/10/22 21:19 400 mls/hr Q6H PRIYANK Administration Azithromycin 500 mg in 250 mls @ 250 mls/hr 11/09/22 17:00 11/09/22 18:24 Zithromax IVPB Infused Q24H PRIYANK Infusion Levothyroxine Sodium 87.5 mcg 11/07/22 06:30 11/10/22 06:02 Levothyroxine Sodium Inj 100 Mcg/5 Ml Vial IV PUSH 87.5 mcg DAILY@0630 PRIYANK Administration Ondansetron HCl 4 mg 11/05/22 22:37 11/08/22 17:06 Ondansetron Inj 4 Mg/2 Ml Vial IV PUSH 4 mg Q6H PRN Administration Nausea And Vomiting Radiology Results: ITS Impressions Abdomen/Pelvis CT 11/05/22 17:11 IMPRESSION: 1. 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 No definite evidence of hepatic or regional lymph node metastasis. Sclerosing mesentery right as could appear similarly. Consider nonemergent octreotide nuclear medicine scan for further evaluation. 2. CT findings suggestive of cystitis, correlate with urinalysis. 3. Hepatosplenomegaly. Chest X-Ray 11/08/22 07:42 IMPRESSION: 1. Mild atelectasis in left lower lung zone. Abdomen X-Ray 11/09/22 12:03 IMPRESSION: 1. Dilated small bowel loops of the abdomen, likely postoperative ileus. Labs Labs: Laboratory Results - la
[2022-11-10 14:00] VITALS: BP 128/62; PULSE 68; RESP 14; TEMP 35.9; O2SAT 94
[2022-11-10 20:00] VITALS: PULSE 65; RESP 18; O2SAT 94
[2022-11-10 21:55] VITALS: BP 124/70; PULSE 65; RESP 18; TEMP 36.2; O2SAT 94
[2022-11-11] MEDS: LACTATED RINGERS 1,000 ML 125 ML IV CONT (02:56)
[2022-11-11 06:00] VITALS: BP 147/80; PULSE 71; RESP 19; TEMP 36.2; O2SAT 94
[2022-11-11 08:17] LABS: Hematocrit 34.1 % (42.0-52.0); Mean Corpuscular HGB Conc 32.3 g/dl (32-36); Mean Corpuscular Hemoglobin 30.4 pg (26-34); Mean Corpuscular Volume 94.2 fl (80-100); Mean Platelet Volume 11.3 fl (7.4-10.4); Platelet Count Result 173 k/mm3 (150-375); Red Blood Count 3.62 M/mm3 (4.6-6.20); White Blood Count 8.8 K/mm3 (4.5-10.0)
[2022-11-11 08:34] LABS: Anion Gap 2 mmol/L (8-16); Blood Urea Nitrogen 16 mg/dL (9-20); Calcium 8.7 mg/dL (8.4-10.2); Carbon Dioxide 34 mmol/L (22-30); Chloride 98 mmol/L (98-107); Estimated CRCL calculation 89 ml/min; Estimated Glomerular Filt Rate > 60; Glucose 87 mg/dL (65-110); Potassium 3.7 mmol/L (3.4-5.0); Sodium 134 mmol/L (137-145)
[2022-11-11] MEDS: LEVOTHYROXINE SODIUM INJ 100 MCG/5 ML VIAL 87.5 MCG IV PUSH (09:16)
[2022-11-11] MEDS: BENZONATATE 100 MG CAPSULE 200 MG PO ×3 (09:16→17:58)
[2022-11-11] MEDS: ENOXAPARIN 40 MG/0.4 ML SYRINGE SUB-Q (09:16)
[2022-11-11] MEDS: HYDROmorphone HCL INJ (*CRX) 1 MG/ML SYR IV PUSH (10:18)
--- NOTE | 2022-11-11 10:30 | PM.IMPN ---
Progress Note: A&P Assessment and Plan (1) Partial small bowel obstruction: Code(s): K56.600 - Partial intestinal obstruction, unspecified as to cause Status: Acute Assessment and Plan: Presented with abdominal pain, nausea, and dry heaves Imaging revealed 2.2 cm mass of the right mid mesentery concerning for carcinoid tumor adjacent to loops of ileum resulting in partial small-bowel obstruction Abd xray indicated post surgical ileus Surgery to advance diet Diet increased to full liquid, increase per general surgery Activity increased and encouraged tumor removal performed 11/06/22 Appreciate general surgery consultation (2) Abdominal mass: Code(s): R19.00 - Intra-abdominal and pelvic swelling, mass and lump, unspecified site Status: Acute Assessment and Plan: See plan above (3) Hypertension: Code(s): I10 - Essential (primary) hypertension Status: Acute Assessment and Plan: Blood pressures are stable. Last BP 147/80 Home nebivolol continued since diet has been advanced IV hydralazine available as needed for systolic BP >165 (4) Hypothyroidism: Code(s): E03.9 - Hypothyroidism, unspecified Status: Acute Assessment and Plan: TSH is within normal limits IV levothyroxine DC, and converted to PO since diet has been advanced (5) Hyperlipidemia: Code(s): E78.5 - Hyperlipidemia, unspecified Status: Acute Assessment and Plan: LFTs are within normal limits Atorvastatin resumed (6) RAJEEV (obstructive sleep apnea): Code(s): G47.33 - Obstructive sleep apnea (adult) (pediatric) Status: Acute Assessment and Plan: Patient reports history of mild RAJEEV and is not maintained on CPAP Reports he has been trying to lose weight to improve symptoms (7) Leukocytosis: Code(s): D72.829 - Elevated white blood cell count, unspecified Status: Acute Assessment and Plan: WBC down to 8.8 Chest xray shows atelectasis Abd xray shows post obstructive ileus Continue to trend labs convert azithromycin to PO resolved (8) Primary malignant neuroendocrine tumor of small intestine: Code(s): C7A.8 - Other malignant neuroendocrine tumors Status: Acute Assessment and Plan: pathology revealed tumor as a metastatic neuroendocrine tumor in 4 of 20 lymph nodes consult oncology Will need to follow up with oncology outpatient (9) Cough: Code(s): R05.9 - Cough, unspecified Status: Acute Assessment and Plan: Noted productive cough WBCs are trending down Tatiannasalon Stone add azithromycin changed to PO sputum culture ordered Time Spent With Patient Time with patient: Greater than 35 minutes Subjective Date/time seen: 11/11/22 103 Interval history: 11/11/22 103 Patient stated that he has been a bowel movement overnight. He did state that he still having that pain in the lower middle back. He denies any chest pain or shortness of breath. He does still have a cough however he did state that was better. He also is on full liquids and doing well with liquids at this time. He denies any other sweats, fevers, chills, nausea or vomiting. 11/10/22 104 Patient seems to be doing well. His and a friend of his was present. He is tolerating clear liquids however he is clammy he is having a pain proximal the gluteal cleft. Reassured him that this is not kidney stones as the kidneys are mostly the middle of the back. Also explained that the surgery was lower. Talked to them about oncologist also explained to them next steps going forward. Currently patient denies any chest pain, shortness a breath, nausea, vomiting, diarrhea, constipation, weakness fatigue. Patient did state that his cough is better and that the Tatiannasalon Alie
--- NOTE | 2022-11-11 10:30 | P.PNIM_ITS ---
Progress Note: A&P Assessment and Plan (1) Partial small bowel obstruction: Code(s): K56.600 - Partial intestinal obstruction, unspecified as to cause Status: Acute Assessment and Plan: * Presented with abdominal pain, nausea, and dry heaves * Imaging revealed 2.2 cm mass of the right mid mesentery concerning for carcinoid tumor adjacent to loops of ileum resulting in partial small-bowel obstruction * Abd xray indicated post surgical ileus * Surgery to advance diet * Diet increased to full liquid, increase per general surgery * Activity increased and encouraged * tumor removal performed 11/06/22 * Appreciate general surgery consultation (2) Abdominal mass: Code(s): R19.00 - Intra-abdominal and pelvic swelling, mass and lump, unspecified site Status: Acute Assessment and Plan: See plan above (3) Hypertension: Code(s): I10 - Essential (primary) hypertension Status: Acute Assessment and Plan: * Blood pressures are stable. Last BP 147/80 * Home nebivolol continued since diet has been advanced * IV hydralazine available as needed for systolic BP >165 (4) Hypothyroidism: Code(s): E03.9 - Hypothyroidism, unspecified Status: Acute Assessment and Plan: TSH is within normal limits * IV levothyroxine DC, and converted to PO since diet has been advanced (5) Hyperlipidemia: Code(s): E78.5 - Hyperlipidemia, unspecified Status: Acute Assessment and Plan: LFTs are within normal limits * Atorvastatin resumed (6) RAJEEV (obstructive sleep apnea): Code(s): G47.33 - Obstructive sleep apnea (adult) (pediatric) Status: Acute Assessment and Plan: Patient reports history of mild RAJEEV and is not maintained on CPAP * Reports he has been trying to lose weight to improve symptoms (7) Leukocytosis: Code(s): D72.829 - Elevated white blood cell count, unspecified Status: Acute Assessment and Plan: * WBC down to 8.8 * Chest xray shows atelectasis * Abd xray shows post obstructive ileus * Continue to trend labs * convert azithromycin to PO * resolved (8) Primary malignant neuroendocrine tumor of small intestine: Code(s): C7A.8 - Other malignant neuroendocrine tumors Status: Acute Assessment and Plan: * pathology revealed tumor as a metastatic neuroendocrine tumor in 4 of 20 lymph nodes * consult oncology * Will need to follow up with oncology outpatient (9) Cough: Code(s): R05.9 - Cough, unspecified Status: Acute Assessment and Plan: * Noted productive cough * WBCs are trending down * Grey Ritter add * azithromycin changed to PO * sputum culture ordered Time Spent With Patient Time with patient: Greater than 35 minutes Subjective Date/time seen: 11/11/22 103 Interval history: 11/11/221029 Patient stated that he has been a bowel movement overnight. He did state that he still having that pain in the lower middle back. He denies any chest pain or shortness of breath. He does still have a cough however he did state that was better. He also is on full liquids and doing well with liquids at this time. He de
[2022-11-11 12:19] VITALS: PULSE 71
[2022-11-11] MEDS: ATORVASTATIN 10 MG TABLET PO (12:19)
[2022-11-11] MEDS: NEBIVOLOL HCL 5 MG TABLET PO (12:19)
--- NOTE | 2022-11-11 12:23 | PM.PNGS ---
Progress Note: A&P Assessment and Plan (1) Primary malignant neuroendocrine tumor of small intestine: Code(s): C7A.8 - Other malignant neuroendocrine tumors Status: Acute Assessment and Plan: benign exam, vane clears, +bowel fxn, ADAT, encourage OOB/IS Subjective Subjective Date/Time Seen: 11/11/22 12:23 feels better today, bowel movt yest, vane clears Review of Systems Review of Systems: All systems reviewed & are unremarkable except as noted in HPI and below Exam Const: General: cooperative, comfortable and no acute distress GI: Inspection: normal to inspection, distended and incision GI Palp: Yes abdominal tenderness, Yes Soft to palpation, Yes Tenderness to palpation present (GI), No Guarding due to palpation present (GI) and No Rigid due to palpation Objective Data Vital Signs Vital Signs: Vital Signs - 24 hr 11/10/22 14:00 11/10/22 21:55 11/10/22 20:00 Temperature 35.9 C L 36.2 C L Pulse Rate 68 65 65 Respiratory Rate 14 18 18 Blood Pressure 128/62 124/70 Pulse Oximetry 94 94 94 Oxygen Delivery Room Air 11/11/22 06:00 11/11/22 09:15 11/11/22 12:19 Temperature 36.2 C L Pulse Rate 71 71 Respiratory Rate 19 Blood Pressure 147/80 H Pulse Oximetry 94 Oxygen Delivery Room Air Intake/Output Intake/Output: Intake & Output 11/08/22 11/09/22 11/10/22 11/11/22 23:59 23:59 23:59 23:59 Intake Total 1999 2150 3940 1240 Output Total 900 2227 1300 300 Balance 1100 -77 2640 940 Meds/Results Medications: Active Medications Generic Name Dose Route Start Last Admin Trade Name Freq PRN Reason Stop Dose Admin Hydrocodone Bitart/Acetaminophen 1 tab 11/11/22 10:36 Hydrocodone/Acetaminophen (*Crx) 5-325 Mg Tablet PO Q4H PRN Pain Rated 4-6 Atorvastatin Calcium 10 mg 11/11/22 09:35 11/11/22 12:19 Atorvastatin 10 Mg Tablet PO 10 mg DAILY PRIYANK Administration Azithromycin 500 mg 11/11/22 17:00 Azithromycin 250 Mg Tablet PO DAILY@1700 [facility] Benzonatate 200 mg 11/09/22 17:00 11/11/22 12:13 Benzonatate 100 Mg Capsule PO 200 mg TID PRIYANK Administration Enoxaparin Sodium 40 mg 11/07/22 09:00 11/11/22 09:16 Enoxaparin 40 Mg/0.4 Ml Syringe SUB-Q 40 mg DAILY PRIYANK Administration Levothyroxine Sodium 100 mcg 11/12/22 06:30 Levothyroxine Sodium 100 Mcg Tablet PO DAILY@0630 PRIYANK Levothyroxine Sodium 75 mcg 11/12/22 06:30 Levothyroxine Sodium 75 Mcg Tablet PO DAILY@0630 [facility] Nebivolol 5 mg 11/11/22 09:35 11/11/22 12:19 Nebivolol Hcl 5 Mg Tablet PO 5 mg DAILY PRIYANK Administration Ondansetron HCl 4 mg 11/05/22 22:37 11/08/22 17:06 Ondansetron Inj 4 Mg/2 Ml Vial IV PUSH 4 mg Q6H PRN Administration Nausea And Vomiting Radiology Results: ITS Impressions Abdomen/Pelvis CT 11/05/22 17:11 IMPRESSION: 1. 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 No definite evidence of hepatic or regional lymph node metastasis. Sclerosing mesentery right as could appear similarly. Consider nonemergent octreotide nuclear medicine scan for further evaluation. 2. CT findings suggestive of cystitis, correlate with urinalysis. 3. Hepatosplenomegaly. Chest X-Ray 11/08/22 07:42 IMPRESSION: 1. Mild atelectasis in left lower lung zone. Abdomen X-Ray 11/09/22 12:03 IMPRESSION: 1. Dilated small bowel loops of the abdomen, likely postoperative ileus. Labs Labs: Laboratory Results - last 24 hr 11/11/22 11/11/22 07:37 07:37 WBC 8.8 RBC 3.62 L Hgb 11.0 L Hct 34.1 L MCV 94.2 MCH 30.4 MCHC 32.3 RDW 15.0 H Plt Count 173 MPV 11.3 H Sodium 134 L Potassium 3.7 Chloride 98 Carbon Dioxide 34 H Anion Gap 2 L BUN 16 Creatinine 1.00 Estim Creat Clear Calc 89 Estimated GFR > 60 Glucose 87 Calcium 8.7
[2022-11-11 14:00] VITALS: BP 144/71; PULSE 68; RESP 18; TEMP 36.7; O2SAT 95
[2022-11-11] MEDS: HYDROcodone/acetaminophen (*CRX) 5-325 MG TABLET 1 TAB PO ×2 (16:15→20:42)
[2022-11-11] MEDS: AZITHROMYCIN 250 MG TABLET 500 MG PO (17:57)
[2022-11-11 19:59] VITALS: O2SAT 95
[2022-11-11 22:00] VITALS: BP 145/70; PULSE 78; RESP 18; TEMP 36.8; O2SAT 94
[2022-11-12] MEDS: LEVOTHYROXINE SODIUM 75 MCG TABLET PO (05:14)
[2022-11-12] MEDS: HYDROcodone/acetaminophen (*CRX) 5-325 MG TABLET 1 TAB PO (05:14)
[2022-11-12] MEDS: LEVOTHYROXINE SODIUM 100 MCG TABLET PO (05:14)
[2022-11-12 06:00] VITALS: BP 136/74; PULSE 68; RESP 20; TEMP 35.8; O2SAT 96
[2022-11-12 06:40] LABS: Hematocrit 36.3 % (42.0-52.0); Hemoglobin 11.6 g/dL (14.0-18.0); Mean Corpuscular Hemoglobin 30.8 pg (26-34); Mean Corpuscular Volume 96.3 fl (80-100); Mean Platelet Volume 11.5 fl (7.4-10.4); Platelet Count Result 196 k/mm3 (150-375); Red Blood Count 3.77 M/mm3 (4.6-6.20); White Blood Count 10.9 K/mm3 (4.5-10.0)
[2022-11-12 07:18] LABS: Anion Gap 3 mmol/L (8-16); Blood Urea Nitrogen 12 mg/dL (9-20); Carbon Dioxide 32 mmol/L (22-30); Chloride 98 mmol/L (98-107); Estimated CRCL calculation 81 ml/min; Estimated Glomerular Filt Rate > 60; Glucose 101 mg/dL (65-110); Potassium 3.6 mmol/L (3.4-5.0); Sodium 133 mmol/L (137-145)
[2022-11-12 09:08] VITALS: PULSE 72
[2022-11-12] MEDS: ATORVASTATIN 10 MG TABLET PO (09:08)
[2022-11-12] MEDS: NEBIVOLOL HCL 5 MG TABLET PO (09:08)
[2022-11-12] MEDS: BENZONATATE 100 MG CAPSULE 200 MG PO ×3 (09:08→17:37)
[2022-11-12] MEDS: ENOXAPARIN 40 MG/0.4 ML SYRINGE SUB-Q (09:09)
--- NOTE | 2022-11-12 09:55 | PM.PNGS ---
Progress Note: A&P Assessment and Plan (1) Primary malignant neuroendocrine tumor of small intestine: Code(s): C7A.8 - Other malignant neuroendocrine tumors Status: Acute Assessment and Plan: Bowels moving. Having regular diet for breakfast. OK to discharge today or tomorrow if tolerating solid diet. f/u in office in 1 week for staple removal and wound check. Subjective Subjective Date/Time Seen: 11/12/22 09:55 Interval history: Bowels moved last night even though nothing charted for the past 3 days. Tolerating diet. No nausea or vomiting. Still c/o low back pain but improving. Exam GI: Inspection: non-distended, incision (scant serosanguinous drainage, anirudh intact), Pannus present and obesity GI Palp: Yes Soft to palpation, Yes Tenderness to palpation present (GI) (incisional) and No Guarding due to palpation present (GI) Objective Data Vital Signs Vital Signs: Vital Signs - 24 hr 11/11/22 12:19 11/11/22 14:00 11/11/22 19:59 Temperature 36.7 C Pulse Rate 71 68 Respiratory Rate 18 Blood Pressure 144/71 H Pulse Oximetry 95 95 Oxygen Delivery Room Air 11/11/22 22:00 11/12/22 06:00 11/12/22 09:08 Temperature 36.8 C 35.8 C L Pulse Rate 78 68 72 Respiratory Rate 18 20 Blood Pressure 145/70 H 136/74 Pulse Oximetry 94 96 Oxygen Delivery Intake/Output Intake/Output: Intake & Output 11/09/22 11/10/22 11/11/22 11/12/22 23:59 23:59 23:59 23:59 Intake Total 2150 3940 1970 Output Total 2227 1300 300 Balance -77 2640 1670 Meds/Results Medications: Active Medications Generic Name Dose Route Start Last Admin Trade Name Freq PRN Reason Stop Dose Admin Hydrocodone Bitart/Acetaminophen 1 tab 11/11/22 10:36 11/12/22 05:14 Hydrocodone/Acetaminophen (*Crx) 5-325 Mg Tablet PO 1 tab Q4H PRN Administration Pain Rated 4-6 Atorvastatin Calcium 10 mg 11/11/22 09:35 11/12/22 09:08 Atorvastatin 10 Mg Tablet PO 10 mg DAILY PRIYANK Administration Azithromycin 500 mg 11/11/22 17:00 11/11/22 17:57 Azithromycin 250 Mg Tablet PO 500 mg DAILY@1700 PRIYANK Administration Benzonatate 200 mg 11/09/22 17:00 11/12/22 09:08 Benzonatate 100 Mg Capsule PO 200 mg TID PRIYANK Administration Enoxaparin Sodium 40 mg 11/07/22 09:00 11/12/22 09:09 Enoxaparin 40 Mg/0.4 Ml Syringe SUB-Q 40 mg DAILY PRIYANK Administration Levothyroxine Sodium 100 mcg 11/12/22 06:30 11/12/22 05:14 Levothyroxine Sodium 100 Mcg Tablet PO 100 mcg DAILY@0630 PRIYNAK Administration Levothyroxine Sodium 75 mcg 11/12/22 06:30 11/12/22 05:14 Levothyroxine Sodium 75 Mcg Tablet PO 75 mcg DAILY@0630 PRIYANK Administration Nebivolol 5 mg 11/11/22 09:35 11/12/22 09:08 Nebivolol Hcl 5 Mg Tablet PO 5 mg DAILY PRIYANK Administration Ondansetron HCl 4 mg 11/05/22 22:37 11/08/22 17:06 Ondansetron Inj 4 Mg/2 Ml Vial IV PUSH 4 mg Q6H PRN Administration Nausea And Vomiting Radiology Results: ITS Impressions Abdomen/Pelvis CT 11/05/22 17:11 IMPRESSION: 1. 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 No definite evidence of hepatic or regional lymph node metastasis. Sclerosing mesentery right as could appear similarly. Consider nonemergent octreotide nuclear medicine scan for further evaluation. 2. CT findings suggestive of cystitis, correlate with urinalysis. 3. Hepatosplenomegaly. Chest X-Ray 11/08/22 07:42 IMPRESSION: 1. Mild atelectasis in left lower lung zone. Abdomen X-Ray 11/09/22 12:03 IMPRESSION: 1. Dilated small bowel loops of the abdomen, likely postoperative ileus. Labs Labs: Laboratory Results - last 24 hr 11/12/22 11/12/22 05:57 06:58 WBC 10.9 H RBC 3.77 L Hgb 11.6 L Hct 36.3 L MCV 96.3 MCH 30.8 MCHC 32.0 RDW 15.0 H Plt Count 196 MPV 11.5 H Sodium 133 L
--- NOTE | 2022-11-12 10:15 | P.DS_ITS ---
DS: Admitting Diagnosis Discharge Date 11/12/22 1015 Admitting Diagnosis Small-bowel obstruction related to intra-abdominal mass DS: Discharge Diagnosis Discharge Diagnosis (1) Partial small bowel obstruction: Code(s): K56.600 - Partial intestinal obstruction, unspecified as to cause Status: Acute Assessment and Plan: * Presented with abdominal pain, nausea, and dry heaves * Imaging revealed 2.2 cm mass of the right mid mesentery concerning for carcinoid tumor adjacent to loops of ileum resulting in partial small-bowel obstruction * Abd xray indicated post surgical ileus * Surgery to advance diet * Diet increased to heart healthy and is able to tolerate * Activity increased and encouraged * tumor removal performed 11/06/22 * Appreciate general surgery consultation (2) Abdominal mass: Code(s): R19.00 - Intra-abdominal and pelvic swelling, mass and lump, unspecified site Status: Acute Assessment and Plan: See plan above (3) Hypertension: Code(s): I10 - Essential (primary) hypertension Status: Acute Assessment and Plan: * Blood pressures are stable. Last BP 136/74 * Home nebivolol continued since diet has been advanced * IV hydralazine available as needed for systolic BP >165 (4) Hypothyroidism: Code(s): E03.9 - Hypothyroidism, unspecified Status: Acute Assessment and Plan: TSH is within normal limits * IV levothyroxine DC, and converted to PO since diet has been advanced (5) Hyperlipidemia: Code(s): E78.5 - Hyperlipidemia, unspecified Status: Acute Assessment and Plan: LFTs are within normal limits * Atorvastatin resumed (6) RAJEEV (obstructive sleep apnea): Code(s): G47.33 - Obstructive sleep apnea (adult) (pediatric) Status: Acute Assessment and Plan: Patient reports history of mild RAJEEV and is not maintained on CPAP * Reports he has been trying to lose weight to improve symptoms (7) Leukocytosis: Code(s): D72.829 - Elevated white blood cell count, unspecified Status: Acute Assessment and Plan: * WBC down to 8.8 * Chest xray shows atelectasis * Abd xray shows post obstructive ileus * Continue to trend labs * convert azithromycin to PO * resolved (8) Primary malignant neuroendocrine tumor of small intestine: Code(s): C7A.8 - Other malignant neuroendocrine tumors Status: Acute Assessment and Plan: * pathology revealed tumor as a metastatic neuroendocrine tumor in 4 of 20 lymph nodes * consult oncology * Will need to follow up with oncology outpatient (9) Cough: Code(s): R05.9 - Cough, unspecified Status: Acute Assessment and Plan: * Noted productive cough * WBCs are trending down * Grey Ritter add * azithromycin changed to PO * sputum culture ordered DS: Summary Hospital Course Hospital Course: patient is a 62-year-old male with past medical history of hypertension, hyperlipidemia, hypothyroidism presented the ED for complaints of abdominal pain that has been present for [address] of the abdomen and pelvis did show a 2.2 cm mass concerning for carcinoid tumor along wi
--- NOTE | 2022-11-12 10:15 | PM.DS ---
DS: Admitting Diagnosis Discharge Date 11/12/22 1015 Admitting Diagnosis Small-bowel obstruction related to intra-abdominal mass DS: Discharge Diagnosis Discharge Diagnosis (1) Partial small bowel obstruction: Code(s): K56.600 - Partial intestinal obstruction, unspecified as to cause Status: Acute Assessment and Plan: Presented with abdominal pain, nausea, and dry heaves Imaging revealed 2.2 cm mass of the right mid mesentery concerning for carcinoid tumor adjacent to loops of ileum resulting in partial small-bowel obstruction Abd xray indicated post surgical ileus Surgery to advance diet Diet increased to heart healthy and is able to tolerate Activity increased and encouraged tumor removal performed 11/06/22 Appreciate general surgery consultation (2) Abdominal mass: Code(s): R19.00 - Intra-abdominal and pelvic swelling, mass and lump, unspecified site Status: Acute Assessment and Plan: See plan above (3) Hypertension: Code(s): I10 - Essential (primary) hypertension Status: Acute Assessment and Plan: Blood pressures are stable. Last BP 136/74 Home nebivolol continued since diet has been advanced IV hydralazine available as needed for systolic BP >165 (4) Hypothyroidism: Code(s): E03.9 - Hypothyroidism, unspecified Status: Acute Assessment and Plan: TSH is within normal limits IV levothyroxine DC, and converted to PO since diet has been advanced (5) Hyperlipidemia: Code(s): E78.5 - Hyperlipidemia, unspecified Status: Acute Assessment and Plan: LFTs are within normal limits Atorvastatin resumed (6) RAJEEV (obstructive sleep apnea): Code(s): G47.33 - Obstructive sleep apnea (adult) (pediatric) Status: Acute Assessment and Plan: Patient reports history of mild RAJEEV and is not maintained on CPAP Reports he has been trying to lose weight to improve symptoms (7) Leukocytosis: Code(s): D72.829 - Elevated white blood cell count, unspecified Status: Acute Assessment and Plan: WBC down to 8.8 Chest xray shows atelectasis Abd xray shows post obstructive ileus Continue to trend labs convert azithromycin to PO resolved (8) Primary malignant neuroendocrine tumor of small intestine: Code(s): C7A.8 - Other malignant neuroendocrine tumors Status: Acute Assessment and Plan: pathology revealed tumor as a metastatic neuroendocrine tumor in 4 of 20 lymph nodes consult oncology Will need to follow up with oncology outpatient (9) Cough: Code(s): R05.9 - Cough, unspecified Status: Acute Assessment and Plan: Noted productive cough WBCs are trending down Grey Ritter add azithromycin changed to PO sputum culture ordered DS: Summary Hospital Course Hospital Course: patient is a 62-year-old male with past medical history of hypertension, hyperlipidemia, hypothyroidism presented the ED for complaints of abdominal pain that has been present for [address] of the abdomen and pelvis did show a 2.2 cm mass concerning for carcinoid tumor along with a partial small-bowel obstruction. general surgery was consulted and patient was taken OR for mass removal. Upon arrival back to the floor the patient was able to eat however then the abdomen started getting very hard and patient was reversed back to NPO and NG tube was placed for intermittent suction. Patient had done well and diet has been increased slowly. Currently patient is on a heart healthy diet is tolerating well. He also had a bowel movement yesterday and stated that he felt better afterwards. He was also complaining of a pain in his lower mid back that comes with gas or when he has to have a bowel movement goes away after the gas is releas
[2022-11-12 14:05] VITALS: BP 143/68; PULSE 57; RESP 16; TEMP 36.4; O2SAT 96
[2022-11-12] MEDS: AZITHROMYCIN 250 MG TABLET 500 MG PO (15:38)
[2022-11-25 16:01] LABS: Serotonin 125 ng/mL (56-244)
== END 2022-11-12 17:50 | disposition home or self-care (01) | DRG 330 ==
LOC: ANHED 18:51 → ANH3MEDSUR 22:54
PROVIDERS: Emergency Medicine; Internal Medicine Hematology & Oncology; Physician Assistant; Surgery; Admitting Provider Family Medicine; Emergency Provider Emergency Medicine; PCP Internal Medicine; Visit Provider Nurse Practitioner
PROC: 0DBB0ZZ Excision of Ileum, Open Approach (ICD-10-PCS; CPT 49000; principal; 2022-11-06 16:15)
DX: K56.600 Partial intestinal obstruction, unspecified as to cause (principal); C7A.8 Other malignant neuroendocrine tumors; Z68.43 Body mass index [BMI] 50.0-59.9, adult; I10 Essential (primary) hypertension; E03.9 Hypothyroidism, unspecified; E78.5 Hyperlipidemia, unspecified; E66.01 Morbid (severe) obesity due to excess calories; G47.33 Obstructive sleep apnea (adult) (pediatric); Z20.822 Contact with and (suspected) exposure to COVID-19
CPT/HCPCS: 36415; 71045; 74018; 74019; 74177; 80048; 80053; 81001; 82948; 83690; 83735; 84260; 84443; 85025; 85027; 86316; 87636; 88309; 96360; 96361; 96365; 99285; A9270; G0378; J0131; J0330; J0360; J0456; J0690; J1100; J1170; J1650; J1741; J2060; J2405; J2704; J3010; J7030; J7120; Q9967

== ENCOUNTER → 2023-06-05 09:08 | Outpatient (CLI) | payer OTHER, SELFPAY ==
--- NOTE | ~2023-06-05 | CT_ITS ---
EXAMINATION: CT abdomen pelvis w con INDICATION: Metastatic neuroendocrine tumor of the small bowel TECHNIQUE: Computed tomographic images of the abdomen and pelvis were obtained after the administrati on of 100 cc of Omnipaque 350 intravenous contrast. The dose-length product (DLP) was 1097.73 mGy-cm. Automated exposure control and iterative reconstruction technique were employed. COMPARISON: 11/05/2022 FINDINGS: Minimal dependent atelectasis is present in the lung bases. The heart size is normal. The l iver, spleen, pancreas, gallbladder, and adrenal glands are normal. There is an 8 mm nonobstructing s tone of the left kidney lower pole. The right kidney is unremarkable. There has been interval resecti on of the previously described mass of the small bowel mesentery. There is a midline infraumbilical v entral hernia containing nonobstructed sigmoid colon and small bowel. No pathologically enlarged abdo shiela or pelvic lymph nodes are identified. No free intraperitoneal gas or evidence of bowel obstruct ion. There are bilateral inguinal hernias containing fat. There is mild lumbar spondylosis. IMPRESSION: 1. Interval resection of the previously described mass of the small bowel mesentery. No metastatic di sease identified. 2. Midline infraumbilical ventral hernia containing nonobstructed sigmoid colon and small bowel. 3. Nonobstructing left nephrolithiasis. Reviewed, dictated and finalized at location B. IMPRESSION: 1. Interval resection of the previously described mass of the small bowel mesen debra. No metastatic disease identified. 2. Midline infraumbilical ventral hernia containing nonobstructed sigmoid colon and small bowel. 3. Nonobstructing left nephrolithiasis.
[2023-06-05 09:29] LABS: Estimated Glomerular Filt Rate 56
== END ==
PROVIDERS: PCP Internal Medicine; Visit Provider Internal Medicine Medical Oncology
DX: C7A.8 Other malignant neuroendocrine tumors (principal); C7B.8 Other secondary neuroendocrine tumors; N20.0 Calculus of kidney
CPT/HCPCS: 74177; Q9967

== ENCOUNTER 2023-11-07 07:54 | Outpatient (CLI) | payer OTHER, SELFPAY ==
--- NOTE | ~2023-11-07 | CT_ITS ---
CT of the Abdomen and Pelvis: Indication: Neuroendocrine tumor small intestine Technique: 2.5 mm axial scans were obtained through the abdomen and pelvis following intravenous adm inistration of 100 cc of Omnipaque 350. Dose reduction technique was used on this scan by utilizing a utomated exposure control and iterative reconstruction technique. The dose-length product (DLP) was 1 629.64 mGy-cm. COMPARISON: 06/05/2023 Findings: Scans through the lung bases are unremarkable. There is probable diffuse fatty infiltration of liver. The spleen, pancreas, gallbladder, adrenals an d right kidney are within normal limits. Nonobstructing left lower pole renal stone is unchanged. No evidence of aortic aneurysm. No lymphadenopathy. There is a large ventral hernia just inferior to the umbilicus, containing portion of redundant sigmo id colon as well as small bowel loops. No bowel wall thickening or obstruction seen. No abnormal mass lesion identified. Images through the pelvis were performed. Urinary bladder unremarkable. No pelvic mass seen. No ascit es. Impression: No change from prior exam. No evidence for active malignancy or metastatic disease. Large ventral hernia containing sigmoid colon and small bowel loops. No bowel obstruction or bowel wa ll thickening. Stable nonobstructing left nephrolithiasis. Probable diffuse hepatic steatosis. Reviewed, dictated and finalized at location . ER CLEANER Impression: No change from prior exam. No evidence for active malignancy or metastatic dise ase. Large ventral hernia containing sigmoid colon and small bowel loops. No bowel o bstruction or bowel wall thickening. Stable nonobstructing left nephrolithiasis. Probable diffuse hepatic steatosis.
[2023-11-07 08:22] LABS: Estimated Glomerular Filt Rate 51
== END 2023-11-07 07:55 | disposition home or self-care (01) ==
LOC: ANHIMG 07:55
PROVIDERS: PCP Internal Medicine; Visit Provider Internal Medicine Medical Oncology
DX: C7A.8 Other malignant neuroendocrine tumors (principal); C7B.8 Other secondary neuroendocrine tumors; K43.9 Ventral hernia without obstruction or gangrene; N20.0 Calculus of kidney
CPT/HCPCS: 74177; Q9967

== ENCOUNTER 2023-12-11 09:40 | Outpatient (CLI) | payer OTHER, SELFPAY ==
--- NOTE | ~2023-12-11 | US_ITS ---
EXAMINATION: US venous doppler [facility] DATE: 12/11/2023 10:12 INDICATION: Left lower limb pain, swelling and erythema TECHNIQUE: Grayscale ultrasound images without and with compression and Doppler ultrasound images of the left lower extremity veins were obtained. COMPARISON: None. FINDINGS: The visualized portions of left common femoral vein, profunda (deep) femoral vein, femoral vein, popl iteal vein, peroneal veins, posterior tibial veins, gastrocnemius vein and greater saphenous vein out flow are patent. There is a 1.9 x 1.7 x 1.3 cm heterogeneously hypoechoic mass within one of the musc les at the medial left lower leg. There is no evident internal vascular flow or surrounding hyperemia on color Doppler. IMPRESSION: 1. No deep venous thrombosis in the left lower limb. 2. Nonspecific 1.9 x 1.7 x 1.3 cm hypoechoic intramuscular mass at the medial left lower leg with dif ferential including neoplasm either benign or malignant, hematoma or abscess in the appropriate clini juan pablo setting. Consider pre and postcontrast MRI for further evaluation. Dr. Herr discussed these f indings with Dr. Salinas at 11:00 AM. Reviewed, dictated and finalized at location A. OPERATOR IMPRESSION: 1. No deep venous thrombosis in the left lower limb. 2. Nonspecific 1.9 x 1.7 x 1.3 cm hypoechoic intramuscular mass at the medial l eft lower leg with differential including neoplasm either benign or malignant, hematoma or abscess in the appropriate clinical setting. Consider pre and postc ontrast MRI for further evaluation. Dr. Herr discussed these findings with Dr. Salinas at 11:00 AM.
== END 2023-12-11 09:41 ==
PROVIDERS: PCP Internal Medicine Medical Oncology; Visit Provider Surgery
DX: M79.89 Other specified soft tissue disorders (principal)
CPT/HCPCS: 93971

== ENCOUNTER 2023-12-20 15:39 | Outpatient (CLI) | payer OTHER, SELFPAY ==
--- NOTE | ~2023-12-20 | MR_ITS ---
EXAMINATION: MR lower leg LT wo/w con DATE: 12/20/2023 17:03 INDICATION: Other specified soft tissue disorders. Mass in left lower leg. TECHNIQUE: Magnetic resonance imaging (MRI) of the left lower leg was performed without and with 20 m L MultiHance intravenous contrast. COMPARISON: Ultrasound 12/11/23 FINDINGS: Bone alignment is normal. No fracture. In the medial head of gastrocnemius, there is a 19 m m mass that demonstrates heterogenous signal intensity including increased T1-weighted signal intensi ty and ring enhancement. IMPRESSION: 1. 19 mm mass in medial head of gastrocnemius, consistent with a subacute hematoma. Reviewed, dictated and finalized at location E. DING MOTHER IMPRESSION: 1. 19 mm mass in medial head of gastrocnemius, consistent with a subacute hemat david.
== END 2023-12-20 15:40 | disposition home or self-care (01) ==
PROVIDERS: PCP Internal Medicine Medical Oncology; Visit Provider Surgery
DX: M79.89 Other specified soft tissue disorders (principal)
CPT/HCPCS: 73720; A9577

== ENCOUNTER 2024-02-24 09:41 | Outpatient (CLI) | payer OTHER, SELFPAY ==
--- NOTE | ~2024-02-24 | CT_ITS ---
EXAMINATION: CT abdomen pelvis w con DATE: 02/24/2024 11:18 INDICATION: Primary malignant neuroendocrine tumor of small intestine TECHNIQUE: Computed tomography (CT) of the abdomen and pelvis was performed with 100 CC Omnipaque 350 intravenous contrast. Automated exposure control and iterative reconstruction technique were employe d. Exam dose: 1570.41 mGy-cm total exam DLP. COMPARISON: 11/07/2023 CT abdomen pelvis FINDINGS: There is a small fat-containing left foramen of Bochdalek hernia Adjacent mild atelectasis at the left lung base, left lower lobe. The lung bases are otherwise clear. Cardiomegaly. No pericardial or pleural effusion. Diffuse hepatic steatosis. No hepatic, splenic, pancreatic, adrenal space-occupying mass lesion. The gallbladder is present. No bile duct or pancreatic duct dilatation. Approximately 7 mm upper pole left renal cyst. Approximately 4 x 9 mm nonobstructing lower pole left renal calculus. No other urinary tract calculus or hydroureteronephrosis is evident. The urinary blad tomas is relatively evacuated which may account for mild diffuse prominence of the bladder wall. The pr ostate gland is unremarkable. There is an up to 11.8 cm wide 11.5 cm vertical up to 6.3 cm deep umbilical hernia containing nonobst ructed nonstrangulated sigmoid colon and small bowel. Postoperative changes noted at the right colon with an ileocolic anastomosis. No bowel obstruction, bowel wall thickening, pneumatosis or intraperit ortega free air is detected. Normal caliber of the abdominal aorta. No intraperitoneal or retroperitoneal or pelvic mass lesion or adenopathy or ascites. Diffuse idiopathic skeletal hyperostosis of the thoracic spine. No suspicious osteolytic or osteoblas tic lesions are noted. IMPRESSION: Large nonobstructed bowel containing umbilical hernia Ileocolic anastomosis; no bowel obstruction or free air Hepatic steatosis 7 mm left renal cyst 4 x 9 mm nonobstructing lower pole left renal calculus Diffuse thickening of the urinary bladder wall; cystitis is not excluded Cardiomegaly Reviewed, dictated and finalized at Location A. Reviewed, dictated and finalized at location B.
[2024-02-25 08:54] LABS: Estimated Glomerular Filt Rate > 60
== END 2024-02-24 09:42 | disposition home or self-care (01) ==
LOC: ANHIMG 09:44
PROVIDERS: PCP Internal Medicine Medical Oncology; Visit Provider Internal Medicine Medical Oncology
DX: C7A.8 Other malignant neuroendocrine tumors (principal); K76.0 Fatty (change of) liver, not elsewhere classified; N28.1 Cyst of kidney, acquired; N20.0 Calculus of kidney; I51.7 Cardiomegaly; K42.9 Umbilical hernia without obstruction or gangrene
CPT/HCPCS: 74177; Q9967

== ENCOUNTER 2024-04-01 08:36 | Outpatient (CLI) | payer OTHER, SELFPAY ==
--- NOTE | 2024-04-01 | ECHO_ITS ---
Patient Info Name: Mayur Higgins Age: 63 years : 1960 Gender: Male Ht: 66 in Wt: 300 lbs BSA: 2.60 m2 HR: 63 bpm BP: 161 / 90 mmHg Technical Quality: Fair Exam Date: 04/01/2024 8:56 AM Exam Location: Echo Lab Patient Status: Outpatient Admit Date: 04/01/2024 Staff Ordering Physician: Hamlet, Devan Birmingham DO Stunt Double: Axel Franco RDCS Attending Provider: Hamlet, Devan Birmingham DO Referring Physician: Hamlet CHÁVEZ; Exam Type: CA echo dop color flow w con Study Info Indications I51.7 - Cardiomegaly Complete two-dimensional, color flow and Doppler transthoracic echocardiogram is performed with contrast to opacify the left ventricle and to improve the deliniation of the left ventricle endocardial borders. Contrast/Agitated Saline Contrast/Ag. Saline: Definity Amount: 3.00 ml IV Access Condition: patent with no signs of infiltration Summary 1. Definity contrast administered improved wall motion interpretation. 2. Left ventricular chamber dimension is normal. 3. Left ventricular systolic function is normal, estimated at 65-70%. 4. The left ventricular diastolic function is grade I diastolic dysfunction. 5. E/e' 10 is mildly elevated. 6. There is mild mitral valve regurgitation. 7. No pulmonary hypertension, estimated pulmonary arterial systolic pressure is 27 mmHg. Left Ventricle E/e' 10 is mildly elevated. Definity contrast administered improved wall motion interpretation. Left ventricular chamber dimension is normal. Left ventricular systolic function is normal, estimated at 65-70%. The left ventricular diastolic function is grade I diastolic dysfunction. Right Ventricle Right ventricular systolic function is normal and with normal TAPSE 1.9 cm. Right ventricular chamber dimension is normal. Left Atria Left atrial chamber dimension is normal. Right Atria Right atrial chamber dimension is normal. Aortic Valve The aortic valve is trileaflet. There is no aortic valve stenosis. There is no aortic valve regurgitation. Pulmonic Valve There is no pulmonic regurgitation. Mitral Valve There is no mitral valve stenosis. There is mild mitral valve regurgitation. Tricuspid Valve There is no tricuspid valve regurgitation. No pulmonary hypertension, estimated pulmonary arterial systolic pressure is 27 mmHg. Pericardium/Pleural There is no pericardial effusion. Inferior Vena Cava Normal inferior vena cava with >50% collapse upon inspiration consistent with normal right atrial pressure, 5 mmHg. Aorta The aortic root size at the sinus of Valsalva is normal. Left Ventricular Outflow Tract Name Value Normal LVOT 2D LVOT Diameter 2.02 cm LVOT Doppler LVOT Peak Gradient 5 mmHg LVOT Mean Gradient 2 mmHg LVOT VTI 25.44 cm LVOT VTI/AV VTI Ratio 0.95 LVOT Stroke Volume 81.41 ml LVOT CO 4.77 l/min LVOT CI 1.84 L/min/m2 Pulmonic Valve Name
[2024-04-01] MEDS: PERFLUTREN LIPID MICROSPHERES 1.5 ML VIAL DILUTED TO 10 ML TOTAL VOLUME IV PUSH (09:40)
--- NOTE | 2024-04-01 10:40 | IVDEFINITY ---
Prior to administration of IV Definity the patient was educated on the risks and benefits of the imaging enhancing agent including potential adverse side effects. The patient verbalized understanding. Allergies were verified. No exclusion criteria were identified and at least one of the following inclusion criteria were met: 1) physician request, 2) patient technically difficult to image (per the [place] [employer]ch[employer] guidelines of two or more segments not discernable within the apical view), or 3) questionable left ventricular function. ?
== END 2024-04-01 08:37 | disposition home or self-care (01) ==
LOC: ANHCARD 08:37
PROVIDERS: PCP Internal Medicine; Visit Provider Internal Medicine Medical Oncology
DX: I51.89 Other ill-defined heart diseases (principal)
CPT/HCPCS: C8929; Q9957

== ENCOUNTER 2024-05-29 11:19 | Outpatient (CLI) | payer OTHER, SELFPAY ==
--- NOTE | ~2024-05-29 | CT_ITS ---
CT abdomen pelvis w con Ordering provider: Devan Mcnulty, DO History: 63 years Male with . Restaging of metastatic neuroendocrine ca . Comparison: February 24, 2024 Technique: CT abdomen and pelvis with IV and without oral contrast. Automated exposure control and it erative reconstruction technique were employed. The dose-length product was 1112.93 mGy-cm. 100 mL of Omnipaque 350 was given IV. Findings: VISUALIZED LOWER CHEST: Dependent atelectatic changes UPPER ABDOMINAL ORGANS: Liver: Fat infiltration. Hepatomegaly. Gallbladder: Normal. Spleen: Normal. Stomach/duodenum: Normal. Pancreas: Normal. Adrenals: Tiny nodule in the left adrenal gland measuring 1 cm. Kidneys: Tiny cyst in the left kidney upper pole. Stone in the left kidney lower pole measuring 0.9 c m. PELVIC ORGANS: The bladder is normal. BOWEL AND MESENTERY: Colon: No evidence of diverticulitis. Appendix is not demonstrated. Small Bowel: Normal. No obstruction. Postoperative changes in the small bowel. Peritoneum/mesentery: No free air or free fluid. No mesenteric lymphadenopathy. RETROPERITONEUM: Normal aorta. No retroperitoneal lymphadenopathy. MUSCULOSKELETAL: Superficial soft tissues: Anterior abdominal wall hernia with bowel content which measures 11 cm. Oth erwise The superficial soft tissues are normal. Bones: Age appropriate degenerative changes of the spine. Bilateral sacroiliacs. IMPRESSION: 1. Anterior abdominal wall with bowel content. No evidence of strangulation or obstruction or incarc eration. 2. Left kidney lower pole a stone. 3. Tiny nodule in the left adrenal. 4. Fat infiltration of the liver with hepatomegaly. Reviewed, dictated and finalized at location A. IMPRESSION: 1. Anterior abdominal wall with bowel content. No evidence of strangulation or obstruction or incarceration. 2. Left kidney lower pole a stone. 3. Tiny nodule in the left adrenal. 4. Fat infiltration of the liver with hepatomegaly.
[2024-05-29 12:06] LABS: Estimated Glomerular Filt Rate > 60
== END 2024-05-29 11:20 ==
LOC: MICIMG 11:20
PROVIDERS: PCP Internal Medicine; Visit Provider Internal Medicine Medical Oncology
DX: C7A.8 Other malignant neuroendocrine tumors (principal); C7B.8 Other secondary neuroendocrine tumors
CPT/HCPCS: 74177; Q9967

== ENCOUNTER 2024-08-31 09:40 | Outpatient (CLI) | payer OTHER, SELFPAY ==
--- NOTE | ~2024-08-31 | CT_ITS ---
CLINICAL INDICATION: Personal history of small bowel neuroendocrine tumor. COMPARISON: Examination was compared with multiple prior studies, performed most recently on 05/29/2024 and dating back to 11/05/2022 TECHNIQUE: Computed tomography (CT) of the abdomen and pelvis was performed with 100 CC Omnipaque 35 0 intravenous contrast. Automated exposure control and iterative reconstruction technique were employ ed. Exam dose: 1588 mGy-cm total exam DLP. FINDINGS/OBSERVATIONS: Visualized lower thorax:Trace left basilar atelectasis persists, unchanged from prior. No discrete nodularity is present within the visualized lung bases. The heart is of normal size, without pericardial effusion. Liver: The liver is enlarged measuring 20 cm in longitudinal dimension. Increased attenuation within the liver, suggesting fatty infiltration. The liver enhances homogeneously, without a discrete mass. Gallbladder and biliary system: Multiple stones are identified within the gallbladder, which is other gann unremarkable. Pancreas: The pancreas enhances homogeneously, without ductal dilatation. Spleen: The spleen enhances homogeneously, but remains enlarged measuring 14 cm in longitudinal dimen archie. Kidneys: No hydronephrosis or obstructing renal calculi. Redemonstration of a 9 mm calculus within the lower pole of the left kidney. Interval development of a 2 to 3 mm calculus within the interpolar region of the left kidney, also no nobstructing. Redemonstration of a subcentimeter focus of decreased attenuation within the upper pole of the left k idney, measuring 9.4 mm on the previous study, now measuring 10 mm, likely related to patient positio romeo within the gantry, and statistically a cyst. Adrenal glands: Trace enlargement of the medial limb of the left adrenal gland, measuring 9.6 mm, unc hanged from prior. Remainder of the bilateral adrenal glands are unremarkable in course and contour. Gastrointestinal tract: Colonic diverticulosis without surrounding inflammatory change. Enteric staple line to the right of midline, consistent with patient's history. Appendix:The appendix is not visualized. Vasculature: The abdominal aorta is nonaneurysmal. Lymph nodes: Scattered nonpathologically enlarged or morphologically suspicious lymph nodes within th e bilateral groins, the retroperitoneum and the root of the mesentery. Pelvic structures:The bladder is decompressed, and otherwise unremarkable. Bones: No lytic or blastic lesions are identified within the visualized osseous structures. Body wall and musculoskeletal: Bowel containing, nonobstructing infraumbilical hernia, which projects to the right of midline. Fat-containing right inguinal hernia. Multiple reniform shaped foci within the soft tissues of the bilateral flanks, unchanged from prior. IMPRESSION: Persistent hepatosplenomegaly. Stable left adrenal nodule. Stable focus of decreased attenuation within the upper pole of the left kidney. Two nonobstructing left renal calculi. Cholelithiasis. No cross-sectional imaging evidence of recurrent or residual disease. Reviewed, dictated and finalized at location A.
[2024-08-31 10:20] LABS: Estimated Glomerular Filt Rate 55
== END 2024-08-31 09:41 | disposition home or self-care (01) ==
PROVIDERS: PCP Internal Medicine; Visit Provider Internal Medicine Medical Oncology
DX: C7A.8 Other malignant neuroendocrine tumors (principal); K80.20 Calculus of gallbladder without cholecystitis without obstruction; D35.02 Benign neoplasm of left adrenal gland; N20.0 Calculus of kidney
CPT/HCPCS: 74177; Q9967

== ENCOUNTER 2024-11-27 09:14 | Outpatient (CLI) | payer OTHER, SELFPAY ==
--- NOTE | ~2024-11-27 | CT_ITS ---
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 Automated exposure control and iterative reconstruction technique were employe d. The dose-length product was 1112.93 mGy-cm. COMPARISON: None FINDINGS: Mild dependent atelectasis in bilateral lower lungs. Heart size is normal. No pericardial or pleural effusion. Peripherally calcified gallstone in the dependent aspect of the normal-appearing gallbladde r. Liver, spleen, pancreas, bilateral adrenal glands and right kidney are normal. 1 cm nonobstructing stone at a lower pole calyx of the left kidney. Bladder is normal. Portions of the sigmoid colon and the couple loops of small bowel extend into a [place] moderate-sized ventral hernia. No bowel obst ruction. Ileocolic anastomosis in the right lower quadrant. No free intraperitoneal gas or fluid. No pathologically enlarged abdominal or pelvic lymphadenopathy. Moderate thoracic and mild lumbar spondy losis. IMPRESSION: 1. Cholelithiasis. 2. Nonobstructing 1 cm left renal stone. 3. Moderate-sized widemouthed ventral hernia containing nonobstructed bowel. Reviewed, dictated and finalized at location B. TENSION TESTER
[2024-11-27 09:42] LABS: Estimated Glomerular Filt Rate 55
== END 2024-11-27 09:15 | disposition home or self-care (01) ==
PROVIDERS: PCP Internal Medicine; Visit Provider Internal Medicine Medical Oncology
DX: C7A.8 Other malignant neuroendocrine tumors (principal); C7B.8 Other secondary neuroendocrine tumors; N20.0 Calculus of kidney; K43.9 Ventral hernia without obstruction or gangrene
CPT/HCPCS: 74177; Q9967

== ENCOUNTER 2025-02-11 02:05 | Day surgery (SDC) | payer OTHER, SELFPAY ==
[2025-02-05 09:49] VITALS: BMI 49.2
--- OUTSIDE RECORDS SUMMARY | 2025-02-11 02:09 | XMS_ITS | Clinical Summary ---
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
--- OUTSIDE RECORDS SUMMARY | 2025-02-11 02:09 | XMS_ITS | Data Portability ---
Author Organization [place] - [employer], Main Office Address [address] [place] [address] Care Team Providers Care Nuclear Medicine Officer Name Role Phone LUCILA NOVAK Primary Care Provider [phone] Assessment Encounter Date Assessment Date Assessment LastModified by Organization Details LastModified Time 03/18/2023 03/18/2023 Blood work ordered continue current therapy follow-up in 3 months [email or web address] Not available 03/18/2023 20:57:21 06/17/2023 06/17/2023 Continue current therapy follow-up in 4 months caloric restriction regular exercise Not available 06/22/2023 14:46:25 10/07/2023 10/07/2023 Blood work ordered continue current therapy appears to be doing well continues to follow with specialist see me back 4 months he states he will call to make appointment [email or web address] Not available 10/07/2023 22:21:13 Plan of Treatment Reminders Order Date Submit Date Provider Last Modified By Organization Details Last Modified Time Details Appointments None recorded . Lab PSA, total, serum or plasma 023 10/07/[address], [address] [place] [address], [address], 4 18:49:16 T3, free, serum or plasma 023 10/07/[address], [address] [place] [address], [address], 4 18:49:15 TSH, serum or plasma 023 10/07/[address], [address] [place], [address], 4 18:49:15 T4, free, serum 023 10/07/[address], [address] [place], [address], 4 18:49:15 CMP, serum or plasma 023 10/07/[address], [address] [place], [address], 4 18:49:16 CBC w/ auto diff 023 10/07/[address], [address] [place], [address], 4 18:49:16 lipid panel, serum 023 10/07/20 23 [facility], [address] [place], [address], 3 10:45:44 T4, free, serum 023 03/18/20 23 [facility] (Lab), [address] [place], [address], 3 09:23:04 TSH, serum or plasma 023 03/18/20 23 [facility] (Lab), [address] [place], [address], 3 09:23:04 lipid panel, serum 023 03/18/20 23 [facility] (Lab), [address] [place], [address], 3 09:22:48 CMP, serum or plasma 023 03/18/20 23 [facility] (Lab), [address] [place], [address], 3 09:23:04 CBC w/ auto diff 023 03/18/20 [facility] (Lab), [address] [place], [address], 3 09:23:04 T3, free, serum or plasma 023 03/18/20 [facility] (Lab), [address] [place], [address], 3 09:23:05 Referral None recorded . Procedures None recorded . Surgeries None recorded . Imaging None recorded . Medication Orders None recorded . Patient TargetsNo targets recorded. Patient InstructionsNo instructions recorded. Reason for Referral None Reported. Results Created Date Observation Date Name Description Value Unit Range Abnormal Flag Note LastModifiedBy Organization Detail LastModifiedTime 10/30/20 22 10/30/2022 XR, elbow , 3 or more view No observ ation record ed. MIGRATION. [facility] [address], [place], [address], 01/23/2023 03:26:14 10/30/20 22 10/30/2022 XR, elbow , 3 or more view No observ ation record ed. MIGRATION. [facility] [address], [place], [address], 01/23/2023 03:26:14 11/05/20 22 11/05/2022 CT, abdom en + pelvi s, w/ contr ast No observ ation record ed. MIGRATION. [address], [place], [address], 01/23/2023 03:26:14 11/08/20 22 11/08/2022 XR, abdom en No observ ation record ed. MIGRATION. [address], [place], [address], 01/23/2023 03:26:14 11/08/20 22 11/08/2022 XR, chest No observ ation record ed. [id number], [place], [address], 01/23/2023 03:26:14 11/08/20 22 11/08/2022 XR, kidne y + urete r + bladd er No observ ation record ed. [id number], [place], [address], 01/23/2023 03:26:14 11/09/20 22 11/09/2022 XR, abdom en No observ ation record ed. [id number] [address], [place], [address], 01/23/2023 03:26:14 12/28/19 23 12/17/2022 PET-C T, skull base to mid-t high scan No observ ation record ed. [id number] Not Available 01/23/2023 03:26:14 06/05/20 23 06/05/2023 CT, abdom en + pelvi s, w/ contr ast No observ ation record ed. [email or web address] [facility] [address], [place], [address], 06/18/2023 09:28:06 06/05/20 23 06/05/2023 CT, abdom en + pelvi s, w/ contr ast No observ ation record ed. [email or web address] [facility] [address], [place], [address], 06/18/2023 09:28:30 11/07/20 23 11/07/2023 CT, abdom en + pelvi s, w/ contr ast No observ ation record ed. [address], [place], [address], 11/20/2023 08:54:09 05/30/20 24 05/29/2024 CT, abdom en + pelvi s, w/ contr ast No observ ation record ed. [email or web address] [facility] [address], [place], [address], 06/07/2024 10:53:47 Result Notes None recorded. Problems Name Problem SNOMED Code Status Onset Date Resolution Date Notes Provider Name and Address Organization Details Recorded Time Hyperlipid emia 31505697 Active 2022 Taya Flanagan null, [facility] 3 12:50:42 Foot pain 46661183 Active 2022 Taya Flanagan null, [facility] 3 12:52:34 Pain of left wrist 3260717306775 02 Active 2022 Hui Coronado RN null, [facility] 3 10:56:48 Benign essential hypertensi on 8495297 Active Not Available [facility] 3 03:16:26 Rectal hemorrhage 39225724 Active Not Available [facility] 3 03:16:26 Hyperchole sterolemia 54297573 Active Not Available [facility] 3 03:16:26 Disorder of thyroid gland 11690413 Active Not Available [facility] 3 03:16:26 Standard chest X-ray abnormal 569026598 Active 2021 Not Available [facility] 3 03:16:27 Abdominal pain 62513962 Active Not Available [facility] 3 03:16:27 Venous insufficie ncy of leg 064986013 Active 2017 Not Available [facility] 3 03:16:27 Morbid obesity 064519754 Active Not Available [facility] 3 03:16:27 Left Achilles tendinitis 7669459149074 02 Active 2018 Not Available [facility] 3 03:16:27 Pain in left foot 8946692073775 07 Active 2022 Not Available [facility] 3 03:16:27 Pain in right foot 2101969887372 07 Active 2022 Not Available [facility] 3 03:16:27 Hypertensi ve disorder 97027284 Active 2021 Not Available [facility] 3 03:16:27 Osteoarthr itis 663463011 Active Not Available [facility] 3 03:16:27 Hypothyroi dism 71976308 Active Not Available [facility] 3 03:16:27 Shoulder pain 96765005 Active 2021 Not Available [facility] 3 03:16:27 Cough 93524791 Active 2021 Not Available [facility] 3 03:16:27 Hand pain 51309779 Active Not Available [facility] 3 03:16:27 Essential hypertensi on 16325085 Active 2021 Not Available [facility] 3 03:16:27 Hypercalce josé 85903592 Active Not Available [facility] 3 03:16:28 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 Not Available [facility] 3 03:16:28 Epicondyli tis 63968989 Active Not Available [facility] 3 03:16:28 Pain in elbow 26803059 Active 2021 Not Available [facility] 3 03:16:28 Obstructiv e sleep apnea syndrome 31045402 Active Not Available [facility] 3 03:16:28 Fatigue 69280736 Active Not Available [facility] 3 03:16:28 Skin lesion 53779730 Active 2021 Not Available [facility] 3 03:16:28 Hyperglyce josé 40924821 Active 2022 Sendy healy, [facility] 3 13:38:20 Arthritis 1798557 Active 2022 PAULA Hammond, [facility] 3 11:24:41 Notes:Medical History: Obesi ty with mild OSAHS, AHI = 10, 06/27/22, on autoCPAP c/o [employer] Hypothyroidism Hyperlipidemia Hypertension Left hemidiaphragm eventration Mild thoracic dextroscoliosis Thoracic degenerative disc disease. 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 Procedures Surgical History Date Name Laterality Status Provider Name and Address Organization Details Recorded Time Lasik completed Not Available [facility] 11/2022 03:08:08 Imaging Results Imaging Date Name Status LastModified by Organiz ation Details LastModified Time 11/08/2022 XR, abdomen completed [id number] [facility], [place], [address], 01/23/2023 03:26:14 11/09/2022 XR, abdomen completed [id number] [facility], [place], [address], 01/23/2023 03:26:14 11/08/2022 XR, chest completed [id number] [facility], [place], [address], 01/23/2023 03:26:14 11/08/2022 XR, kidney + ureter + bladder completed [id number] [facility], [place], [address], 01/23/2023 03:26:14 12/17/2022 PET-CT, skull base to mid-thigh scan completed [id number] Information not available 01/23/2023 03:26:14 11/05/2022 CT, abdomen + pelvis, w/ contrast completed [id number], [place], [address], 01/23/2023 03:26:14 10/30/2022 XR, elbow, 3 or more view completed [id number] [facility] [address], [place], [address], 01/23/2023 03:26:14 10/30/2022 XR, elbow, 3 or more view completed [id number] [facility] [address], [place], [address], 01/23/2023 03:26:14 06/05/2023 CT, abdomen + pelvis, w/ contrast completed [email or web address] [facility] [address], [place], [address], 06/18/2023 09:28:06 06/05/2023 CT, abdomen + pelvis, w/ contrast completed [email or web address] [facility] [address], [place], [address], 06/18/2023 09:28:30 11/07/2023 CT, abdomen + pelvis, w/ contrast completed [facility] [address], [place], [address], 11/20/2023 08:54:09 05/29/2024 CT, abdomen + pelvis, w/ contrast completed [email or web address] [facility] [address], [place], [address], 06/07/2024 10:53:47 Procedure Notes None recorded. Medical Equipment None Reported. Allergies Allergen ID Allergen Name Allergen Category Reaction Reaction Severity Criticality Documentation Date Start Date Code Code System Note Provider Name and Address Organization Details Recorded Time 5806 nifedipin e medicatio n rash Not available Not available 01/23/2023 7417 RxNorm Not Available [facility] 3 03:25:46 5807 lisinopri l medicatio n facial swelling Not available Not available 01/23/2023 32565 RxNorm Not Available [facility] 3 03:25:46 5808 Coreg medicatio n rash Not available Not available 01/23/2023 09173 1 RxNorm Not Available [facility] 3 03:25:46 Medications Name Sig Start Date Stop Date Status Note LastModified by Organization Details LastModified Time cyclobenz aprine 10 mg tablet TK 1 T PO QHS 05/20 completed Not Available Not Available Not Available levothyro xine 175 mcg tablet TAKE 1 TABLET BY MOUTH ONCE DAILY active Not Available Not Available No t Available doxycycli ne hyclate 100 mg capsule Take 1 capsule twice a day by oral route for 7 days. active Not Available Not Available No t Available atorvasta tin 10 mg tablet TAKE 1 TABLET BY MOUTH ONCE DAILY active Not Available Not Available No t Available azithromy eleanor 250 mg tablet TAKE 2 TABLETS (500 MG) BY ORAL ROUTE ONCE DAILY FOR 1 DAY THEN 1 TABLET (250 MG) BY ORAL ROUTE ONCE DAILY FOR 4 DAYS 04/12 completed Not Available Not Available Not Available benzonata te 200 mg capsule Take 1 capsule 3 times a day by oral route for 7 days. active Not Available Not Available No t Available hydrocodo ne 5 mg-acetam inophen 325 mg tablet TAKE 1 TABLET BY MOUTH EVERY 4 HOURS NEEDED FOR PAIN RATED 4-6 11/30 completed Not Available Not Available Not Available prednison e 20 mg tablet Take 2 tablets every day by oral route for 5 days. active Not Available Not Available No t Available nifedipin e ER 30 mg tablet,ex tended release Take 1 tablet every day by oral route. active Not Available Not Available No t Available acetamino phen 300 mg-codein e 30 mg tablet TK 1 T PO Q 4-6 H PRN 09/14 completed Not Available Not Available Not Available tramadol 50 mg tablet TAKE 1 TABLET BY MOUTH EVERY 4 TO 6 HOURS NEEDED FOR PAIN 06/17 completed Not Available Not Available Not Available Diovan 320 mg tablet one tablet qd 12/29 completed Not Available Not Available Not Available carvedilo l 3.125 mg tablet Take 1 tablet twice a day by oral route. 10/11 completed Not Available Not Available Not Available Mobic 15 mg tablet Take 1 tablet every day by oral route with meals for 30 days. active Not Available Not Available No t Available amoxicill in 875 mg tablet TAKE 1 TABLET BY MOUTH NOW 1 TWICE DAILY UNTIL GONE 06/17 completed Not Available Not Available Not Available benzonata te 100 mg capsule TAKE 2 CAPSULES BY MOUTH THREE TIMES DAILY 12/28 completed Not Available Not Available Not Available hydrocodo ne 7.5 mg-acetam inophen 325 mg tablet TAKE 1 TABLET BY MOUTH EVERY 4 TO 6 HOURS NEEDED FOR PAIN 06/17 completed Not Available Not Available Not Available cephalexi n 500 mg capsule TAKE 1 CAPSULE BY MOUTH EVERY 12 HOURS FOR 10 DAYS 11/30 completed Not Available Not Available Not Available levothyro xine 125 mcg tablet take one tablet qd 06/15 completed Not Available Not Available Not Available levothyro xine 150 mcg tablet TAKE 1 TABLET BY MOUTH EVERY DAY 02/24 completed Not Available Not Available Not Available diclofena c sodium 75 mg tablet,de layed release Take 1 tablet twice a day by oral route. active Not Available Not Available No t Available cephalexi n 500 mg tablet TAKE 1 TABLET BY MOUTH THREE TIMES DAILY active Not Available Not Available No t Available levothyro xine 200 mcg tablet TAKE 1 TABLET BY MOUTH ONCE DAILY active Not Available Not Available No t Available hydrochlo rothiazid e 25 mg tablet TAKE 1 TABLET BY MOUTH ONCE DAILY active Not Available Not Available No t Available methylpre dnisolone 4 mg tablets in a dose pack TAKE BY MOUTH DIRECTED ON INSIDE OF PACKAGE active Not Available Not Available No t Available albuterol sulfate HFA 90 mcg/actua tion aerosol inhaler INHALE 2 PUFFS BY MOUTH EVERY 4 HOURS 03/18 completed Not Available Not Available Not Available lisinopri l 40 mg tablet TAKE 1 TABLET BY MOUTH TWICE DAILY 09/[address] Novak stoped med and started him on nifedipi ne Not Available Not Available Not Available amoxicill in 875 mg-potass ium clavulana te 125 mg tablet TK 1 T PO Q 12 H active Not Available Not Available No t Available tobramyci n 0.3 %-dexamet hasone 0.1 % eye drops,pam pension 06/15 completed Not Available Not Available Not Available Crestor 10 mg tablet 01/20 completed changed from crestor Not Available Not Available Not Available lanreotid e 120 mg/0.5 mL subcutane ous syringe Inject 0.5 mL every 4 weeks by subcutan eous route. 05/07 completed Not Available Not Available Not Available nebivolol 10 mg tablet Take 1 tablet every day by oral route. 10/07 completed Not Available Not Available Not Available nebivolol 5 mg tablet TAKE 2 TABLETS BY MOUTH ONCE DAILY active Not Available Not Available No t Available Besivance 0.6 % eye drops,pam pension active Not Available Not Available Not Available Prolensa 0.07 % eye drops active Not Available Not Available No t Available Lotemax SM 0.38 % eye gel drops active Not Available Not Available Not Available Vitals Date Recorded Heart rate Systolic blood pressure Diastolic blood pressure Provider Name and Address Organization Details Last Updated DateTime 02/21/2023 63 /min 138 mm[Hg] 82 mm[Hg] PAULA Hammond [place] [employer] [facility] [employer] [facility] 02/21/2023 11:27:40 Date Recorded Body height Body mass index (BMI) Body weight Body temperature Heart rate Systolic blood pressure Diastolic blood pressure Provider Name and Address Organization Details Last Updated DateTime 3 167.64 cm 48.4 kg/m2 649800. 71 g 97.9 [degF] 61 /min 130 mm[Hg] 86 mm[Hg] PAULA Hammond [employer] [facility] [employer] [facility] 3 14:10:21 Date Recorded Heart rate Heart rate Systolic blood pressure Diastolic blood pressure Systolic blood pressure Diastolic blood pressure Provider Name and Address Organization Details Last Updated DateTime 3 60 /min 60 /min 152 mm[Hg] 90 mm[Hg] 150 mm[Hg] 82 mm[Hg] PAULA Hammond [employer] [facility] 3 16:20:05 Date Recorded Body height Body mass index (BMI) Body weight Body temperature Heart rate Systolic blood pressure Diastolic blood pressure Provider Name and Address Organization Details Last Updated DateTime 3 167.64 cm 47.6 kg/m2 226734. 75 g 98.3 [degF] 73 /min 126 mm[Hg] 72 mm[Hg] Hui acevedo RN [facility] [employer] [facility] 3 14:31:29 Date Recorded Body height Body mass index (BMI) Body weight Body temperature Heart rate Systolic blood pressure Diastolic blood pressure Provider Name and Address Organization Details Last Updated DateTime 3 167.64 cm 48.3 kg/m2 222782. 12 g 97.8 [degF] 63 /min 128 mm[Hg] 86 mm[Hg] PAULA Hammond [place] [employer] [facility] [employer] [facility] 3 10:39:26 Date Recorded Body mass index (BMI) Body height Heart rate Body temperature Body weight Systolic blood pressure Diastolic blood pressure Provider Name and Address Organization Details Last Updated DateTime 3 47.9 kg/m2 167.64 cm 70 /min 97.6 [degF] 733193. 93 g 122 mm[Hg] 86 mm[Hg] Not Available [facility] 3 03:14:42 Date Recorded Body mass index (BMI) Body height Heart rate Body temperature Body weight Systolic blood pressure Diastolic blood pressure Provider Name and Address Organization Details Last Updated DateTime 3 48.4 kg/m2 167.64 cm 68 /min 97.6 [degF] 621480. 71 g 120 mm[Hg] 80 mm[Hg] Not Available [facility] 3 03:14:42 Social History Question Answer Notes LastModified by Organization Details LastModified Time Tobacco Smoking Status Never Smoker Not Available [facility] 01/23/2023 03:04:50 Do You Have An Advance Directive? No [id number].[id number] [id number] Information not available 01/23/2023 What Is Your Level Of Alcohol Consumption? None MIGRATION.0301 [id number] Information not available 01/23/2023 Are You Blind Or Do You Have Difficulty Seeing? No Information not available 06/17/2023 What Is Your Level Of Caffeine Consumption? Occasional [id number].0301 [id number] Information not available 01/23/2023 How Much Tobacco Do You Chew? None MIGRATION.0301 [id number] Information not available 01/23/2023 In The 14 Days Before Symptom Onset, Have You Had Close Contact With A Laboratory-confi rmed COVID-19 While That Case Was Ill? No MIGRATION.0301 [id number] Information not available 01/23/2023 In The 14 Days Before Symptom Onset, Have You Had Close Contact With A Person Who Is Under Investigation For COVID-19 While That Person Was Ill? No MIGRATION.0301 [id number] Information not available 01/23/2023 Are You Currently Employed? Yes Information not available 06/17/2023 Are You Deaf Or Do You Have Serious Difficulty Hearing? No Information not available 06/17/2023 What Type Of Diet Are You Following? REGULAR MIGRATION.0301 [id number] Information not available 01/23/2023 Which Illicit Or Recreational Drugs Have You Used? None MIGRATION.0301 [id number] Information not available 01/23/2023 Do You Or Have You Ever Used E-cigarettes Or Vape? Never Used Electronic Cigarettes MIGRATION.0301 [id number] Information not available 01/23/2023 What Is The Highest Grade Or Level Of School You Have Completed Or The Highest Degree You Have Received? 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 No MIGRATION.0301 [id number] Information not available 01/23/2023 What Is The Fluoride Status Of Your Home? Unknown MIGRATION.0301 [id number] Information not available 01/23/2023 Are There Any Guns Present In Your Home? No MIGRATION.0301 [id number] Information not available 01/23/2023 Do You Use Insect Repellent Routinely? No MIGRATION.0301 [id number] Information not available 01/23/2023 Where Do You Live? [facility] MIGRATION.0301 [id number] Information not available 01/23/2023 Do You Have A Medical Power Of Tube Laser Operator? No MIGRATION.0301 204420 Information not available 01/23/2023 What Was The Date Of Your Most Recent Tobacco Screening? 10/07/2023 Information not available 10/07/2023 Do You Have Any Pets? Yes MIGRATION.0301 [id number] Information not available 01/23/2023 What Is Your Relationship Status? Information not available 06/17/2023 Do You Use Your Seat Belt Or Car Seat Routinely? Yes MIGRATION.0301 [id number] Information not available 01/23/2023 Do You Have Smoke And Carbon Monoxide Detectors In Your Home? Yes MIGRATION.0301 [id number] Information not available 01/23/2023 Are You Passively Exposed To Smoke? No MIGRATION.0301 851006 Information not available 01/23/2023 Do You Or Have You Ever Used Smokeless Tobacco? Never Used Smokeless Tobacco MIGRATION.0301 974140 Information not available 01/23/2023 Are There Any Smokers In Your House? No MIGRATION.0301 235039 Information not available 01/23/2023 How Much Tobacco Do You Smoke? No MIGRATION.0301 046074 Information not available 01/23/2023 What Types Of Sporting Activities Do You Participate In? None MIGRATION.0301 [id number] Information not available 01/23/2023 Do You Feel Stressed (tense, Restless, Nervous, Or Anxious, Or Unable To Sleep At Night)? [id number] MIGRATION.0301 [id number] Information not available 01/23/2023 Do You Use Any Illicit Or Recreational Drugs? No MIGRATION.0301 934878 Information not available 01/23/2023 Do You Use Sunscreen Routinely? No MIGRATION.0301 351950 Information not available 01/23/2023 Has Tobacco Cessation Counseling Been Provided? No Not Needed-ne guy Smoked MIGRATION.0301 059117 Information not available 01/23/2023 How Many Years Have You Smoked Tobacco? 0 MIGRATION.0301 034045 Information not available 01/23/2023 Have You Recently Traveled Abroad? No MIGRATION.0301 [id number] Information not available 01/23/2023 Do You Have Any Dietary Restrictions? No MIGRATION.0301 [id number] Information not available 01/23/2023 Do You Or Have You Ever Used Any Other Forms Of Tobacco Or Nicotine? No MIGRATION.0301 277861 Information not available 01/23/2023 Sex: Male Functional Status Question Answer Note LastModified by Organizat ion Details LastModified Time Do you have difficulty walking or climbing stairs? No Information not available 06/17/2023 Do you have transportation difficulties? No Information not available 06/17/2023 Are you able to walk? YESWOREST Information not available 06/17/2023 Do you have difficulty doing errands alone? No Information not available 06/17/2023 Are you able to care for yourself? Yes Information n ot available 06/17/2023 Do you have difficulty dressing or bathing? No Information not available 06/17/2023 What is your exercise level? Occasional [id number] 026 Information not available 01/23/2023 Mental Status Question Answer Note LastModified by Organization D etails LastModified Time Do you have difficulty concentrating, remembering or making decisions? No Information no t available 06/17/2023 Family History Relationship Description Onset Age of this Age Resolved Age Notes LastModified by Organization Details LastModified Time Father Dementia [id number] Not available 01/23/2023 03:08:14 Mother Rheumatoid arthritis [id number].637 [id number] Not available 01/23/2023 03:08:14 Brother Carcinoma of urinary bladder MIGRATION.589 [id number] Not available 01/23/2023 03:08:15 Medical History Condition Response BLINDNESS N NERVE DISEASE N RHEUMATIC FEVER N BLADDER PROBLEMS N KIDNEY STONES N MRSA N OTHER # 1 Y POLIO N LUNG DISEASE/DISORDER N RADIATION / CHEMOTHERAPY N COPD N Other # 2 Y BLOOD DISEASES N SURGERY N EAR OR HEARING PROBLEMS N MUMPS N BOWEL PROBLEMS N DEPRESSION (INCLUDING POST ) N STROKE/TIA N ULCERS N BENIGN PROSTATIC HYPERPLASIA N MEASLES N MYOCARDIAL INFARCTION N OBESITY Y GERD/NAUSEA N ANEURYSM N URINARY/BLADDER/KIDNEY PROBLEMS N CORONARY ARTERY DISEASE (CAD) N ADDICTION CONCERNS N Impotence N ENDOMETRIOSIS N USE OF BLOOD THINNERS N SKIN PROBLEMS N GASTROINTESTINAL DISORDER N PERIPHERAL VASCULAR DISEASE N MUSCLE,JOINT OR BONE PROBLEMS N GASTROINTESTINAL BLEEDING N BLOOD CLOTS N ASTHMA N CATARACTS N ERECTILE DYSFUNCTION N VARICOSITIES N GI PROBLEMS N Low Testosterone N INFERTILITY N AIDS/HIV N CHEMOTHERAPY / RADIATION N LIVER DISEASE N MALE HYPOGONADISM N HYPERTENSION Y Deficiency N ANXIETY DISORDER N BLOOD TRANSFUSION N ANEMIA/BLOOD DISORDER N CHRONIC EAR INFECTIONS N BRONCHITIS N TUBERCULOSIS N GLAUCOMA N FOOT PROBLEM N DIVERTICULITIS N SLEEP APNEA Y CHICKENPOX N INFECTIOUS DISEASE N PROSTATE N HEART ARRHYTHMIA N INSOMNIA N HIGH CHOLESTEROL / HYPERLIPIDEMIA Y EYE PROBLEMS N HYPERTHYROIDISM N NEUROLOGICAL PROBLEMS N EDEMA N CHRONIC PAIN SYNDROME N HYPOTHYROIDISM Y CAROTID BLOCKAGE N CONSTIPATION N BACK / NECK PROBLEMS N HAVE YOU BEEN HOSPITALIZED OR SEEN IN [facility] IN THE PAST YEAR ? N ATHEROSCLEROSIS N BREAST PROBLEMS N DIALYSIS N ECZEMA N OSTEOPOROSIS N ARTHRITIS N NO SIGNIFICANT PAST MEDICAL HISTORY N APPENDICITIS N DIABETES, TYPE N BAD TEETH N ENT N HEARTBURN / REFLUX N AUTISM SPECTRUM DISORDER (ASD) N HEPATITIS / LIVER DISEASE N GOUT N SLEEP DISORDER N ALZHEIMER'S DISEASE N Brain Problems N DEMENTIA N HERPES N SEIZURES/EPILEPSY N HEADACHES/MIGRAINES N VASCULAR DISEASE N PACEMAKER N Blood Disorder N DIZZINESS N HEART DISEASE/HEART PROBLEMS N KIDNEY DISEASE N MULTIPLE SCLEROSIS N CANCER: SPECIFY N CARDIAC ARRHYTHMIA N ATRIAL FIBRILLATION N Gall Stones N PULMONARY EMBOLISM N AUTOIMMUNE DISEASE N Past Encounters Encounter ID Performer Location Encounter Start Date Encounter Closed Date Diagnosis/Indication Diagnosis SNOMED-CT Code Diagnosis ICD10 Code Diagnosis Note [id number] [facility] Masha talamantes [address] [facility] keon [address], [place] [address] 04/27/2021 00:00:00 04/27/2021 21:12:10 [id number] [facility] [address] , [address] [address] 10/30/2021 00:00:00 11/26/2021 12:39:32 [id number] [facility] Masha talamantes [address] [facility], [place] [address] 04/12/2022 00:00:00 05/05/2022 16:01:50 [id number] [facility] [address], [address] [address] 04/19/2022 00:00:00 04/19/2022 17:14:39 [id number] [facility] [address], [address] [address] 06/22/2022 00:00:00 06/22/2022 18:11:36 [id number] [facility] [address], [address] [address] 07/20/2022 00:00:00 07/21/2022 18:20:36 [id number] [facility] Pulmonolo [address] [address] 07/26/2022 00:00:00 07/26/2022 16:13:54 [id number] [facility] [address] [address] 09/13/2022 00:00:00 09/13/2022 22:51:56 [id number] [facility] [address] [address] 10/30/2022 00:00:00 11/17/2022 09:25:40 [id number] [facility] Internal Med [facility] [address] [place], [place] [address]e., [address] [address] 11/30/2022 00:00:00 12/02/2022 16:22:06 [id number] S_G Internal Med [facility] [address] [place], [place] [address]e., [address] [address] 12/28/2022 00:00:00 12/28/2022 23:11:52 [id number] Lucila Novak MD [facility] Internal Med [facility] [address] [place], [place] [address]., [address] [address] 03/18/2023 13:57:52 03/18/2023 14:55:39 Benign essential hypertension 3592535 I10 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 Venous ins ufficiency of leg 371373598 I87.2 Hyperlipidemia 95334172 E78.5 [id number] Lucila Novak MD [facility] Internal Med [facility] [address] [address] 06/17/2023 14:18:04 06/17/2023 14:53:13 Venous insufficiency of leg 342633330 I87.2 Benign ess ential hypertension 8360680 I10 Hypercholesterolemia 136 84952 E78.00 Hypothyroidism 24554583 E03.9 Morbid obesity 509948904 E66.01 [id number] Lucila Novak MD [facility] Internal Med [facility] [address] [place] [address] [address] [address] 10/07/2023 10:24:47 10/07/2023 11:26:25 Benign essential hypertension 2268352 I10 Screening for malignant neoplasm of prostate 855524967 Z12.5 Venous ins ufficiency of leg 909779240 I87.2 Health Concerns Section Related Observation LastModified by Organization Detai ls LastModified Time None Recorded Concern Status LastModified by Organization Details LastModified Time None Recorded Advance Directives Directive N: Payers Encounter Date Sequence Insurance Name Policy Number Policy Garcia Covered Member ID Garcia Member ID Guarantor Name 03/18/2023 1 [facility] [id number] Mayur Higgins [id number] Mayur Higgins 06/17/2023 1 [facility] [id number] Mayur Higgins [id number] Mayur Higgins 10/07/2023 1 [facility] [id number] Mayur Higgins [id number] 1 Mayur Higgins 10/07/2023 2 [place] Mayur Higgins [id number] Mayur Higgins Notes Date Note Type Note Provider Name and Address Organization Details Recorded Time 3 text/html Interval history his in her sleep he is doing as good as can be expectedNeuroendocrine neoplasm of appendix following with Oncology no abdominal painHypertension no headache no dizzinessVenous insufficiency legs about the sameHyperlipidemia trying to watch diet Lucila Novak MD [address], [place], [address], [employer] 03/18/2023 20:57:44 3 text/html Hypertension no headache no dizziness. Dyslipidemia try to lose weight. Hypothyroid: Dullness. Heart obesity try to cut back on calories. Venous insufficiency legs he tries to stay active. Neuro endocrine tumor GI tract follows with specialist Lucila Novak MD [address], [place], [address], [employer] 06/22/2023 14:46:54 3 text/html Hypertension no headache or dizziness sleep apnea using CPAP venous insufficiency about the same. Obesity trying to lose weight foot pain from spur Lucila Novak MD [address], [place], [address], [employer] 10/07/2023 22:21:32
--- OUTSIDE RECORDS SUMMARY | 2025-02-11 02:09 | XMS_ITS | Referral Summary ---
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); 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) 12/02/2024 1:30 PM PHYSICIAN ASSISTANT CERTIFIED Office Visit [facility] On[facility] [address] [place] [address] [address] [place] [address] Devan Mcnulty DO 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); 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) 12/01/2024 Orders Only [facility] [address] [place] [phone] Provider, MD Nick from Last 3 Months Allergies Active Allergy Reactions Criticality Noted Date Comments Lisinopril Swelling Medium 09/16/2023 Medications atorvastatin (LIPITOR) 10 mg tablet atorvastatin 10 mg tablet TAKE 1 TABLET BY MOUTH DAILY Active levothyroxine (SYNTHROID) 150 mcg tablet levothyroxine 150 mcg tablet TK 1 T PO QD 5 Active NIFEdipine CC 30 mg 24 hr tablet Take 1 tablet (30 mg total) by mouth daily 2 Active hydroCHLOROthi azide (HYDRODIURIL) 25 mg tablet Take 1 tablet (25 mg total) by mouth daily 3 Active nebivoloL (BYSTOLIC) 5 mg tablet Take 2 tablets (10 mg total) by mouth daily 4 Active Active Problems Problem Noted Date Diagnosed Date Primary malignant neuroendocrine tumor of small intestine 12/06/2022 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 Monthly or less 12/08/2022 Q2: How many drinks containi ng alcohol do you have on a typical day when you are drinking? 1 or 2 12/08/2022 Q3: How often do you have si x or more drinks on one occasion? 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 Not on file Not on file Not on file Last Filed Vital Signs Vital Sign Reading Time Taken Comments Blood Pressure 146/83 12/02/2024 1:35 PM PHYSICIAN ASSISTANT CERTIFIED Pulse 59 12/02/2024 1:35 PM PHYSICIAN ASSISTANT CERTIFIED Temperature 36.7 C (98 F) 12/02/2024 1:35 PM PHYSICIAN ASSISTANT CERTIFIED Respiratory Rate 16 12/02/2024 1:35 PM PHYSICIAN ASSISTANT CERTIFIED Oxygen Saturation 97% 12/02/2024 1:35 PM PHYSICIAN ASSISTANT CERTIFIED Inhaled Oxygen Concentration - - Weight 142.4 kg (314 lb) 12/02/2024 1:35 PM PHYSICIAN ASSISTANT CERTIFIED Height 167.6 cm (5' 6 ) 06/03/2024 12:59 PM CDT Body Mass Index 50.68 06/03/2024 12:59 PM CDT Plan of Treatment Not on file Procedures Procedure Name Priority Date/Time Associated Diagnosis Comments EGFR Routine 12/02/2024 1:20 PM PHYSICIAN ASSISTANT CERTIFIED 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) DIFFERENTIAL AUTO Routine 12/02/2024 1:2 0 PM PHYSICIAN ASSISTANT CERTIFIED 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) CBC WITH AUTO DIFFERENTIAL Routine 12/02/2024 1:20 PM PHYSICIAN ASSISTANT CERTIFIED 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) COMPREHENSIVE METABOLIC PANEL Routine 12/02/2024 1:20 PM PHYSICIAN ASSISTANT CERTIFIED 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 73 m2 Comment: Interpretive Data Reference Interval Normal >/= 90 mL/min/1.73m2 Mildly decreased* 60 - 89 mL/min/1.73m2 Mildly to moderately decreased 45 - 59 mL/min/1.73m2 Moderately to severely decreased 30 - 44 mL/min/1.73m2 Severely decreased 15 - 29 mL/min/1.73m2 Kidney Failure < 15 mL/min/1.73m2 *Relative to young adult level Estimated glomerular filtration rate is determined by the 2020 CKD-EPI equation recommended by the National Kidney Foundation (A Unifying Approach to GFR Estimation: Recommendations of the NKF-ASK Task Force on Reassessing the Inclusion of Race in Diagnosing Kidney Disease, JASN 2020). The CKD-EPI equation should not be used for patients with unstable renal function and has not been validated in children and those over 70. Current interpretive data was last reviewed 2021. Testing performed by: [address] [address] Blood 12/02/2024 1:20 PM PHYSICIAN ASSISTANT CERTIFIED 12/02/2024 1:26 PM PHYSICIAN ASSISTANT CERTIFIED Nahun [facility] LAB BLOOD ORDERABLES Ashley l Result [facility] [address] [facility] Department [place] [address] * (ABNORMAL) Differential, auto (12/02/2024 1:20 PM PHYSICIAN ASSISTANT CERTIFIED) Neutrophil abs 7.1(H) 1.5 - 6.5 K/cumm Comment:Testing performed by : [address] [address] Imm gran abs 0.0 0.0 - 0.1 K/cumm TIO Comment:Testing performed by : [address] [address] Lymphocyte abs 1.4 0.8 - 3.3 K/cumm TIO Comment:Testing performed by : [address] [address] Monocyte abs 0.9(H) 0.2 - 0.8 K/cumm TIO Comment:Testing performed by : [address] [address] Eosinophil abs 0.0 0.0 - 0.5 K/cumm TIO Comment:Testing performed by : [address] [address] Basophil abs 0.0 0.0 - 0.1 K/cumm TIO Comment:Testing performed by : [address] [address] Neutrophil pct 75.1 % TIO Comment: Interpretive Data Percent cell count reference ranges are not reported, since discordance with absolute values may lead to misinterpretation of CBC data. Current Interpretive Data was last revised on 2018. Testing performed by: [address] [address] Imm gran pct 0.3 % [facility] Comment: Interpretive Data Percent cell count reference ranges are not reported, since discordance with absolute values may lead to misinterpretation of CBC data. Current Interpretive Data was last revised on 2018. Testing performed by: [address] [address] Lymphocyte pct 15.2 % [facility] Comment: Interpretive Data Percent cell count reference ranges are not reported, since discordance with absolute values may lead to misinterpretation of CBC data. Current Interpretive Data was last revised on 2018. Testing performed by: [address] [address] Monocyte pct 9.0 % [facility] Comment: Interpretive Data Percent cell count reference ranges are not reported, since discordance with absolute values may lead to misinterpretation of CBC data. Current Interpretive Data was last revised on 2018. Testing performed by: [address] [address] Eosinophil pct 0.2 % [facility] Comment: Interpretive Data Percent cell count reference ranges are not reported, since discordance with absolute values may lead to misinterpretation of CBC data. Current Interpretive Data was last revised on 2018. Testing performed by: [address] [address] Basophil pct 0.2 % [facility] Comment: Interpretive Data Percent cell count reference ranges are not reported, since discordance with absolute values may lead to misinterpretation of CBC data. Current Interpretive Data was last revised on 2018. Testing performed by: [address] [address] Blood 12/02/2024 1:20 PM PHYSICIAN ASSISTANT CERTIFIED 12/02/2024 1:26 PM PHYSICIAN ASSISTANT CERTIFIED Nahun [facility] BLOOD ORDERABLES Ashley l Result [facility] [address] [facility] Department [place] [address] * Chromogranin A (12/02/2024 1:20 PM PHYSICIAN ASSISTANT CERTIFIED) Pathologist [facility] Chromogranin A 80 <93 ng/mL [place] [facility] Comment: ADDITIONAL INFORMATION The testing method is a homogeneous time-resolved immunofluorescent assay manufactured by [employer] and performed on the [employer] Kryptor Compact Plus. Values obtained with different assay methods or kits may be different and cannot be used interchangeably. Test results cannot be interpreted as absolute evidence for the presence or absence of malignant disease. In some immunoassays, the presence of unusually high concentrations of analyte may result in a high-dose hook effect. This may result in a lower or even normal measured analyte concentration. If the reported result is inconsistent with the clinical presentation, the laboratory should be alerted for troubleshooting. For diagnostic purposes, these immunoassay results should always be assessed in conjunction with the patients medical history, clinical examination and other findings. Test Performed by: [place] [address] Dock Supervisor: Marissa Campbell Ph.D.; CLIA# [id number] Testing performed by: [address] [address] Blood 12/02/2024 1:20 PM PHYSICIAN ASSISTANT CERTIFIED 12/02/2024 1:26 PM PHYSICIAN ASSISTANT CERTIFIED Nahun [facility] LAB BLOOD ORDERABLES Ashley l Result Performing Organization Address City/State/[facility] Co de Phone Number [facility] [address] [facility] Department [place] [address] [facility] * CBC with auto differential (12/02/2024 1:20 PM PHYSICIAN ASSISTANT CERTIFIED) Pathologist [facility] WBC 9.5 3.8 - 9.9 K/cumm Comment:Testing performed by : [address] [address] Hgb 14.3 13.0 - 17.5 g/dL [facility] Comment:Testing performed by : [address] [address] Hct 42.6 38.9 - 50.3 % [facility] Comment:Testing performed by : [address], [address] Plt 169 150 - 400 K/cumm TIO Comment:Testing performed by : [address] [address] MPV 11.4 9.1 - 12.3 fL [facility]IO Comment:Testing performed by : [address] [address] RBC 4.81 4.30 - 5.80 M/cumm TIO Comment:Testing performed by : [address] [address] MCV 88.6 81.3 - 96.4 fL [facility] Comment:Testing performed by : [address] [address] MCH 29.7 27.1 - 33.3 pg [facility]IO Comment:Testing performed by : [address] [address] MCHC 33.6 32.3 - 35.7 g/dL [facility] Comment:Testing performed by : [address], [address] RDW CV 13.9 11.1 - 14.9 % [facility]IO Comment:Testing performed by : [address], [address] RDW SD 45.1 35.7 - 48.1 fL [facility] Comment:Testing performed by : [address] [address] NRBC abs 0.00 0.00 - 0.01 K/cumm TIO Comment:Testing performed by : [address] [address] Blood 12/02/2024 1:20 PM PHYSICIAN ASSISTANT CERTIFIED 12/02/2024 1:26 PM PHYSICIAN ASSISTANT CERTIFIED us Nahun [facility] LAB BLOOD ORDERABLES Ashley l Result [facility] [address] [facility] Department [place] [address] * Comprehensive metabolic panel (12/02/2024 1:20 PM PHYSICIAN ASSISTANT CERTIFIED) Sodium 140 135 - 145 mmol/L Comment:Testing performed by : [address] [address] Potassium, pl 4.2 3.3 - 4.9 mmol/L [facility] Comment:Testing performed by : [address] [address] Chloride 105 97 - 110 mmol/L [facility] Comment:Testing performed by : [address], [place]., [address] CO2 24 22 - 32 mmol/L [facility] Comment:Testing performed by : [address] [address] Anion gap 11 2 - 15 mmol/L [facility] Comment:Testing performed by : [address] [address] BUN 15 6 - 25 mg/dL [facility] Comment:Testing performed by : [address], [place]., [address] Creatinine 1.10 0.80 - 1.30 mg/dL [facility] Comment:Testing performed by : [address] [address] Glucose 99 70 - 199 mg/dL [facility] Comment: Interpretive Data Fasting glucose >/= 126 mg/dl is diagnostic for diabetes. Fasting is defined as no caloric intake for at least 8 hours. Fasting glucose between 100 mg/dl to 125 mg/dl is diagnostic of prediabetes. In a patient with classic symptoms of hyperglycemia or hyperglycemic crisis, a random glucose >/= 200 mg/dl is diagnostic for diabetes. In the absence of unequivocal hyperglycemia, results should be confirmed by repeat testing. The classification and Diagnosis of Diabetes Diabetes Care 202; 46: S19-S40. Current interpretive data was last revised 2022. Testing performed by: [address] [address] Calcium 9.3 8.5 - 10.3 mg/dL [facility] Comment:Testing performed by : [address] [address] Bilirubin, total 0.5 0.1 - 1.2 mg/dL [facility] Comment:Testing performed by : [address] [address] Protein, pl 7.4 6.5 - 8.5 g/dL [facility] Comment:Testing performed by : [address] [address] Albumin 4.2 3.5 - 5.0 g/dL [facility] Comment:Testing performed by : [address] [address] Alk phos 88 40 - 130 Units/L [facility] Comment:Testing performed by : [address] [address] ALT 34 7 - 55 Units/L [facility] Comment:Testing performed by : [address] [address] AST 27 10 - 50 Units/L [facility] Comment:Testing performed by : [address] [address] Blood 12/02/2024 1:20 PM PHYSICIAN ASSISTANT CERTIFIED 12/02/2024 1:26 PM PHYSICIAN ASSISTANT CERTIFIED Nahun [facility] LAB BLOOD ORDERABLES Ashley l Result Performing Organization Address [facility]/State/[facility] Co de Phone Number [facility] [address] [facility] Department [place] [address] * CT Abdomen Pelvis W Contrast (11/27/2024 10:30 AM PHYSICIAN ASSISTANT CERTIFIED) Anatomical Region Laterality Modality Body N/A Computed Tomogra phy Historical Provider MD [place] CT PROCEDURES Final R esult from Last 3 Months Insurance [employer] P[employer] Care Teams Reach Truck Operator Relationship Specialty Start Date End Date Ye Novak MD [address] [facility] [address] [place] [address] PCP - General Internal Medicine 12/06/22 Devan Mcnulty DO [address] [place] [address] MEDICAL ONCOLOGY, [facility] [address] [place] [address] Medical Oncologist/Turnstile Attendant Hematology and Oncology 12/06/22 Torres Salinas DO [address] [facility] [address] [place], [place] [id number] Surgeon Surgery 12/06/22
--- OUTSIDE RECORDS SUMMARY | 2025-02-11 02:09 | XMS_ITS | Data Portability ---
Author Organization [facility] Address [address] [place] [address] Care Team Providers Care Scarfer Name Role Phone LUCILA NOVAK Primary Care Provider Unavailabl e Assessment Encounter Date Assessment Date Assessment LastModified by Organization Details LastModified Time 01/30/2024 01/30/2024 Pressures up to some family crisis going on with regards to custody of a grandchild. I will try to get him GLP-1 agent to get some of this weight off other medicines will continue caloric restriction regular exercise follow-up 4 months. [email or web address] Not available 02/09/2024 18:27:42 09/09/2024 09/09/2024 blood pressure controlled. Healthy lifestyle care instructions. Dyslipidemia atorvastatin. Hypothyroid levothyroxine. We will follow up with me in 4 months. [email or web address] Not available 10/03/2024 21:37:20 01/13/2025 01/13/2025 blood pressure controlled he will continue with the hydrochlorothiazide and nebivolol. Clinically euthyroid levothyroxine we will continue .dyslipidemia atorvastatin .stay active regular walking see me back in about 4 months with regards to neuroendocrine tumor he follows with Oncology [email or web address] Not available 01/13/2025 22:30:43 Plan of Treatment Reminders Order Date Submit Date Provider Last Modified By Organization Details Last Modified Time Details Appointments ANY 15 2024 02:30P Judd Novak MD Not available Not available Not available Lab HbA1c (hemoglob in A1c), blood 2023 0307/ 024 [facility], [address] [address], [place], [address], 01/31/2024 08:28:39 CBC w/ auto diff 2023 024 [facility], [address], [place], [address], 01/31/2024 08:28:41 lipid panel, serum 2023 024 [place] [facility], [address], [place], [address], 01/31/2024 08:28:38 CMP, serum or plasma 2023 024 [facility], [address], [place], [address], 01/31/2024 08:28:39 TSH, ultra-sen sitive, serum 2023 [facility], [address], [place], [address], 01/31/2024 08:28:40 T4, free, serum 2023 024 [facility], [address], [place], [address], 01/31/2024 08:28:42 T3, free, serum or plasma 2023 [facility], [address], [place], [address], 01/31/2024 08:28:42 Referral None recorded. Procedures None recorded. Surgeries None recorded. Imaging None recorded. Medication Orders Zepbound 2.5 mg/0.5 mL subcutane ous pen injector 2023 024 [facility] [address] [place], [address], 10/03/2024 21:32:09 Patient TargetsNo targets recorded. Patient Instructions Encounter Date Encounter Id Patient Instructions Last Modified By Organization Details Last Modified Time 09/09/2024 [id number] A healthy lifestyle: care instructions Not available 10/03/2024 21:37:56 01/13/2025 [id number] A healthy lifestyle: care instructions [email or web address] Not available 01/13/2025 21:09:31 Reason for Referral None Reported. Results Created Date Observation Date Name Description Value Unit Range Abnormal Flag Note LastModifiedBy Organization Detail LastModifiedTime 01/30/20 24 01/31/2024 LIPID PANEL cholesterol, total 106 mg/dL 100-19 9 Not Available [facility] ([facility]) [address] [place], [address], 01/31/2024 08:28:38 01/30/20 24 01/31/2024 LIPID PANEL triglyceride s 88 mg/dL 0-149 Not Available [facility] ([facility]) [address] [place], [address], 01/31/2024 08:28:38 01/30/20 24 01/31/2024 LIPID PANEL HDL cholesterol 40 mg/dL >39 Not Available [facility] [address] [place], [address], 01/31/2024 08:28:38 01/30/20 24 01/31/2024 LIPID PANEL VLDL cholesterol juan pablo 17 mg/dL 5-40 Not Available [facility] ([facility]) [address] [place], [address], 01/31/2024 08:28:38 01/30/20 24 01/31/2024 LIPID PANEL LDL chol calc ([facility]) 49 mg/dL 0-99 Not Available [facility]) [address] [place], [address], 01/31/2024 08:28:38 01/30/20 24 01/31/2024 COMP. METAB OLIC PANEL (14) glucose 98 mg/dL 70-99 Not Available [facility] ([facility]) [address] [place], [address], 01/31/2024 08:28:38 01/30/20 24 01/31/2024 COMP. METAB OLIC PANEL (14) BUN 17 mg/dL 8-27 Not Available [facility] ([facility]) [address] [place], [address], 01/31/2024 08:28:38 01/30/20 24 01/31/2024 COMP. METAB OLIC PANEL (14) creatinine 1.21 mg/dL 0.76-1 .27 Not Available [facility] ([facility]) [address] [place], [address], 01/31/2024 08:28:38 01/30/20 24 01/31/2024 COMP. METAB OLIC PANEL (14) eGFR 66 mL/mi n/1.7 3 >59 Not Available [facility] ([facility]) [address] [place], [address], 01/31/2024 08:28:38 01/30/20 24 01/31/2024 COMP. METAB OLIC PANEL (14) BUN/creatini ne ratio 14 10-24 Not Available [facility] ([facility]) [address] [facility], [place], [address], 01/31/2024 08:28:38 01/30/20 24 01/31/2024 COMP. METAB OLIC PANEL (14) sodium 143 mmol/ L 134-14 4 Not Available [facility] ([facility]) [address] [facility] [place], [address], 01/31/2024 08:28:38 01/30/20 24 01/31/2024 COMP. METAB OLIC PANEL (14) potassium 4.6 mmol/ L 3.5-5. 2 Not Available [facility] ([facility]) [address] [facility] [place], [address], 01/31/2024 08:28:38 01/30/20 24 01/31/2024 COMP. METAB OLIC PANEL (14) chloride 105 mmol/ L 96-106 Not Available [facility] ([facility]) [address] [place], [address], 01/31/2024 08:28:38 01/30/20 24 01/31/2024 COMP. METAB OLIC PANEL (14) carbon dioxide, total 25 mmol/ L 20-29 Not Available [facility] ([facility]) [address] [place], [address], 01/31/2024 08:28:38 01/30/20 24 01/31/2024 COMP. METAB OLIC PANEL (14) calcium 9.1 mg/dL 8.6-10 .2 Not Available [facility] ([facility]) [address] [place], [address], 01/31/2024 08:28:38 01/30/20 24 01/31/2024 COMP. METAB OLIC PANEL (14) protein, total 7.0 g/dL 6.0-8. 5 Not Available [facility] ([facility]) [address] [place], [address], 01/31/2024 08:28:38 01/30/20 24 01/31/2024 COMP. METAB OLIC PANEL (14) albumin 4.4 g/dL 3.9-4. 9 Not Available [facility] ([facility]) [address] [place], [address], 01/31/2024 08:28:38 01/30/20 24 01/31/2024 COMP. METAB OLIC PANEL (14) globulin, total 2.6 g/dL 1.5-4. 5 Not Available [facility] ([facility]) [address] [place], [address], 01/31/2024 08:28:38 01/30/20 24 01/31/2024 COMP. METAB OLIC PANEL (14) A/G ratio 1.7 1.2-2. 2 Not Available [facility] ([facility]) [address] [place], [address], 01/31/2024 08:28:38 01/30/20 24 01/31/2024 COMP. METAB OLIC PANEL (14) bilirubin, total 0.4 mg/dL 0.0-1. 2 Not Available [facility] ([facility]) [address] [place], [address], 01/31/2024 08:28:38 01/30/20 24 01/31/2024 COMP. METAB OLIC PANEL (14) alkaline phosphatase 80 IU/L 44-121 Not Available [facility]) [address] [facility], [place], [address], 01/31/2024 08:28:38 01/30/20 24 01/31/2024 COMP. METAB OLIC PANEL (14) AST (SGOT) 25 IU/L 0-40 Not Available [facility] ([facility]) [address] [facility], [place], [address], 01/31/2024 08:28:38 01/30/20 24 01/31/2024 COMP. METAB OLIC PANEL (14) ALT (SGPT) 27 IU/L 0-44 Not Available [facility] ([facility]) [address] [place], [address], 01/31/2024 08:28:38 01/30/20 24 01/31/2024 HEMOG LOBIN A1C hemoglobin A1C 6.5 % 4.8-5. 6 above high normal Predi abete s: 5.7 - 6.4 Diabe asif: >6.4 Glyce ciro contr ol for adult s with diabe asif: <7.0 Not Available [facility] ([facility]) [address] [place], [address], 01/31/2024 08:28:39 01/30/20 24 01/31/2024 TSH TSH 4.260 uIU/m L 0.450- 4.500 Not Available [facility] ([facility]) [address] [facility], [place], [address], 01/31/2024 08:28:40 01/30/20 24 01/31/2024 CBC WITH DIFFE RENTI AL/PL ATELE T WBC 9.2 x10e3 /uL 3.4-10 .8 Not Available [facility] ([facility]) [address] [facility], [place], [address], 01/31/2024 08:28:41 01/30/20 24 01/31/2024 CBC WITH DIFFE RENTI AL/PL ATELE T RBC 4.47 x10e6 /uL 4.14-5 .80 Not Available [facility] ([facility]) [address] [facility], [place], [address], 01/31/2024 08:28:41 01/30/20 24 01/31/2024 CBC WITH DIFFE RENTI AL/PL ATELE T hemoglobin 13.6 g/dL 13.0-1 7.7 Not Available [facility] ([facility]) [address] [facility], [place], [address], 01/31/2024 08:28:41 01/30/20 24 01/31/2024 CBC WITH DIFFE RENTI AL/PL ATELE T hematocrit 41.8 % 37.5-5 1.0 Not Available [facility] ([facility]) [address] [facility], [place], [address], 01/31/2024 08:28:41 01/30/20 24 01/31/2024 CBC WITH DIFFE RENTI AL/PL ATELE T MCV 94 fL 79-97 Not Available [facility] ([facility]) [address] [facility], [place], [address], 01/31/2024 08:28:41 01/30/20 24 01/31/2024 CBC WITH DIFFE RENTI AL/PL ATELE T MCH 30.4 pg 26.6-3 3.0 Not Available [facility] ([facility]) [address] [facility], [place], [address], 01/31/2024 08:28:41 01/30/20 24 01/31/2024 CBC WITH DIFFE RENTI AL/PL ATELE T MCHC 32.5 g/dL 31.5-3 5.7 Not Available [facility] ([facility]) [address] [facility], [place], [address], 01/31/2024 08:28:41 01/30/20 24 01/31/2024 CBC WITH DIFFE RENTI AL/PL ATELE T RDW 14.9 % 11.6-1 5.4 Not Available [facility] ([facility]) [address] [facility], [place], [address], 01/31/2024 08:28:41 01/30/20 24 01/31/2024 CBC WITH DIFFE RENTI AL/PL ATELE T platelets 163 x10e3 /uL 150-45 0 Not Available [facility] ([facility]) [address] [place], [address], 01/31/2024 08:28:41 01/30/20 24 01/31/2024 CBC WITH DIFFE RENTI AL/PL ATELE T neutrophils 72 % notest ab. Not Available [facility] ([facility]) [address] [place], [address], 01/31/2024 08:28:41 01/30/20 24 01/31/2024 CBC WITH DIFFE RENTI AL/PL ATELE T lymphs 17 % notest ab. Not Available [facility] ([facility]) [address] [place], [address], 01/31/2024 08:28:41 01/30/20 24 01/31/2024 CBC WITH DIFFE RENTI AL/PL ATELE T monocytes 10 % notest ab. Not Available [facility] ([facility]) [address] [facility], [place], [address], 01/31/2024 08:28:41 01/30/20 24 01/31/2024 CBC WITH DIFFE RENTI AL/PL ATELE T eos 1 % notest ab. Not Available [facility] ([facility]) [address] [facility], [place], [address], 01/31/2024 08:28:41 01/30/20 24 01/31/2024 CBC WITH DIFFE RENTI AL/PL ATELE T basos 0 % notest ab. Not Available [facility] ([facility]) [address] [facility], [place], [address], 01/31/2024 08:28:41 01/30/20 24 01/31/2024 CBC WITH DIFFE RENTI AL/PL ATELE T neutrophils (absolute) 6.6 x10e3 /uL 1.4-7. 0 Not Available [facility] ([facility]) [address] [facility], [place], [address], 01/31/2024 08:28:41 01/30/20 24 01/31/2024 CBC WITH DIFFE RENTI AL/PL ATELE T lymphs (absolute) 1.6 x10e3 /uL 0.7-3. 1 Not Available [facility] ([facility]) [address] [place], [address], 01/31/2024 08:28:41 01/30/20 24 01/31/2024 CBC WITH DIFFE RENTI AL/PL ATELE T monocytes(ab solute) 0.9 x10e3 /uL 0.1-0. 9 Not Available [facility] ([facility]) [address] [facility], [place], [address], 01/31/2024 08:28:41 01/30/20 24 01/31/2024 CBC WITH DIFFE RENTI AL/PL ATELE T eos (absolute) 0.1 x10e3 /uL 0.0-0. 4 Not Available [facility] ([facility]) [address] [place], [address], 01/31/2024 08:28:41 01/30/20 24 01/31/2024 CBC WITH DIFFE RENTI AL/PL ATELE T baso (absolute) 0.0 x10e3 /uL 0.0-0. 2 Not Available [facility] ([facility]) [address] [place], [address], 01/31/2024 08:28:41 01/30/20 24 01/31/2024 CBC WITH DIFFE RENTI AL/PL ATELE T immature granulocytes 0 % notest ab. Not Available [facility] ([facility]) [address] [place], [address], 01/31/2024 08:28:41 01/30/20 24 01/31/2024 CBC WITH DIFFE RENTI AL/PL ATELE T immature grans (abs) 0.0 x10e3 /uL 0.0-0. 1 Not Available [facility] ([facility]) [address] [place], [address], 01/31/2024 08:28:41 01/30/20 24 01/31/2024 TRIIO DOTHY AFSHAN E (T3), FREE triiodothyro nine (T3), free 2.6 pg/mL 2.0-4. 4 Not Available [facility] ([facility]) [address] [place], [address], 01/31/2024 08:28:42 01/30/20 24 01/31/2024 T4,FR EE(DI RECT) T4,free(dire ct) 1.16 NG/dL 0.82-1 .77 Not Available [facility] ([facility]) [address] [place], [address], 01/31/2024 08:28:42 10/16/20 24 10/16/2024 COLOG UARD cologuard result reportable POSITI VE negati ve abnormal POSIT JERSON TEST RESUL T. A posit jerson Colog uard resul t shoul d be follo wed with a colon oscop y or visua l exami natio n of the colon . The jesus l value (refe rence range ) for this assay is negat jerson. TEST DESCR IPTIO N: [facility] site algor ithmi c fernando sis of stool DNA-b ioblanche bolivar with hemog lobin immun oassa y. Quant itati ve value s of indiv idual bioma rkers are not repor table and are not assoc iated with [facility] idual bioma rker resul t refer ence range s. Colog uard is inten ded for color ectal cance r scree romeo of adult s of eithe r sex, 45 years or older , who are at [facility] for color ectal cance r (CRC) . Colog uard has been appro jasmeet for use by the U.[place]. FDA. The perfo rmanc e of Colog uard was estab lishe d in a cross secti onal study of [facility] adult s aged 50-84 . Colog uard perfo rmanc e in patie nts ages 45 to 49 years was estim ated by sub-g roup fernando sis of near- age group s. Colon oscop ies perfo rmed for a posit jerson resul t may find as the most clini katherin signi dayanna t lesio n: color ectal cance r [4.0% ], advan eva adeno ma (incl uding sessi le kemar ramses polyp s great er than or equal to 1cm diame ter) [20%] or non- advan eva adeno ma [31%] ; or no color ectal neopl malou [45%] . These estim ates are deriv ed from a prosp ectiv e cross -sect ional scree romeo study of 10,00 0 indiv idual s at [facility] risk for color ectal cance r who were scree leonora with both Colog uard and colon oscop y. (Wilner Garcia et al, N Engl J Med 2014; 370(1 4):12 86-12 97.) Colog uard may produ ce a false negat jerson or false posit jerson resul t (no color ectal cance r or preca ncero us polyp prese nt at colon oscop y follo w up). A negat jerson Colog uard test resul t does not guara ntee the absen ce of CRC or advan eva adeno ma (pre- cance r). The curre nt Colog uard scree romeo inter kermit is every 3 years . (Amer ican Cance r Socie ty and U.S. Multi -Soci ety Task Force ). Colog uard perfo rmanc e data in a 10,00 0 patie nt pivot al study using colon oscop y as the refer ence metho d can be acces sed at the follo wing locat ion: www.e xactl abs.c om/re kianna . Addit ional descr iptio n of the Colog uard test proce ss, warni ngs and preca ution s can be found at www.c ologu pedro.c om. Not Available [facility] (Cologuard Orders Only) [address] [facility] [address], [place], [address], 10/25/2024 22:10:33 04/01/20 24 04/01/2024 US, echoc ardio gram, trans thora cic, compl ete, w/ color flow No observ ation record ed. [facility] [address], [place], [address], 04/03/2024 14:13:58 05/29/20 24 05/29/2024 CT, abdom en + pelvi s, w/ contr ast No observ ation record ed. [facility] [address], [place], [address], 06/09/2024 17:04:33 08/31/20 24 08/31/2024 CT, abdom en + pelvi s, w/ contr ast No observ ation record ed. [email or web address] [facility] [address], [place], [address], 09/02/2024 22:40:06 11/28/19 25 11/27/2024 CT, abdom en + pelvi s, w/ contr ast No observ ation record ed. [facility] [address], [place], [address], 12/15/2024 13:28:38 Result Notes None recorded. Problems Name Problem SNOMED Code Status Onset Date Resolution Date Notes Provider Name and Address Organization Details Recorded Time Essential hypertension 80453384 Active 2023 Lucila Novak MD Attn: Darian stone,[address] [facility], [place], [address], [place] [facility] 21:37:20 Obesity 386134458 Active 2023 Lucila Novak MD Attn: Darian ritter,[address] [facility], [place], [address], [place] [facility] 21:37:23 Hyperlipidemia 69404566 Active 2023 Lucila Novak MD Attn: Darian ritter,[address] [facility], [place], [address], [place] [facility] 4 21:37:26 Peripheral venous insufficiency 19728453 Active 2023 Lucila Novak MD Attn: Darian g,[address] [facility], [place], [address], [place] [facility] 4 21:37:27 Neuroendocrine neoplasm, malignant Active 2023 Lucila Novak MD Attn: Darian g,[address] [facility], [place], [address], [place] [facility] 4 21:37:28 Umbilical hernia 056843186 Active 2023 Lucila Novak MD Attn: Darian g,[address] [facility], [place], [address], [place] [facility] 21:37:31 Problem Notes None recorded. Procedures Surgical History Date Name Laterality Status Provider Name and Address Organization Details Recorded Time Cataract surg w/iol 1 stage completed Donna Pickett [place] - [facility] 01/30/2024 11:51:19 Imaging Results Imaging Date Name Status LastModified by Organiz ation Details LastModified Time 04/01/2024 US, echocardiogra m, transthoracic , complete, w/ color flow completed [address] [facility] [address], [place], [address], 04/03/2024 14:13:58 05/29/2024 CT, abdomen + pelvis, w/ contrast completed [facility] [address], [place], [address], 06/09/2024 17:04:33 08/31/2024 CT, abdomen + pelvis, w/ contrast completed [address] [id number] [facility] [address], [place], [address], 09/02/2024 22:40:06 11/27/2024 CT, abdomen + pelvis, w/ contrast completed [facility] [address], [place], [address], 12/15/2024 13:28:38 Procedure Notes None recorded. Medical Equipment None Reported. Allergies Allergen ID Allergen Name Allergen Category Reaction Reaction Severity Criticality Documentation Date Start Date Code Code System Note Provider Name and Address Organization Details Recorded Time 059102 lisinopri l medicatio n rash moderate Not available 01/30/2024 73097 RxNorm Not Available Not Available Not Available Medications Name Sig Start Date Stop Date Status Note LastModified by Organization Details LastModified Time levothyroxi ne 175 mcg tablet Take 1 tablet by mouth once daily 2024 active Not Available Not Available Not Avai lable atorvastati n 10 mg tablet Take 1 tablet by mouth once daily 2024 active Not Available Not Available Not Avai lable hydrocodone 5 mg-acetamin ophen 325 mg tablet TAKE 1 TABLET BY MOUTH EVERY 4 TO 6 HOURS NEEDED FOR PAIN 10/03 completed Not Available Not Available Not Available tramadol 50 mg tablet TAKE 1 TABLET BY MOUTH EVERY 4 TO 6 HOURS NEEDED FOR PAIN 01/29 completed Not Available Not Available Not Available amoxicillin 875 mg tablet TAKE 1 TABLET BY MOUTH NOW, THEN 1 TAB TWICE DAILY UNTIL ALL TAKEN. 10/03 completed Not Available Not Available Not Available hydrocodone 7.5 mg-acetamin ophen 325 mg tablet TAKE 1 TABLET BY MOUTH EVERY 4 TO 6 HOURS NEEDED FOR PAIN 10/03 completed Not Available Not Available Not Available levothyroxi ne 200 mcg tablet TAKE 1 TABLET BY MOUTH ONCE DAILY 01/29 completed Not Available Not Available Not Available hydrochloro thiazide 25 mg tablet take 1 tablet by mouth once daily 2023 active Not Available Not Available Not Avai lable methylpredn isolone 4 mg tablets in a dose pack TAKE BY MOUTH DIRECTED ON INSIDE OF PACKAGE 01/29 completed Not Available Not Available Not Available nebivolol 5 mg tablet TAKE 2 TABLETS BY MOUTH ONCE DAILY active Not Available Not Available No t Available Lotemax SM 0.38 % eye gel drops 01/29 completed Not Available Not Available Not Available Zepbound 2.5 mg/0.5 mL subcutaneou s pen injector inject 2.5wkly for 4wks then go to 5mg weekly for 4wks 10/03 completed Not Available Not Available Not Available Vitals Date Recorded Body weight Body mass index (BMI) Body height Body temperature Oxygen saturation Oxygen saturation in Arterial blood by Pulse oximetry Heart rate Systolic blood pressure Diastolic blood pressure Provider Name and Address Organization Details Last Updated DateTime 4 319474. 3 g 48.6 kg/m2 167.64 cm 97.9 [degF] 97 % 97 % 62 /min 154 mm[Hg] 82 mm[Hg] Donna Pickett [place] - [facility] 4 11:57:46 Date Recorded Body height Body mass index (BMI) Body weight Heart rate Oxygen saturation Oxygen saturation in Arterial blood by Pulse oximetry Systolic blood pressure Diastolic blood pressure Provider Name and Address Organization Details Last Updated DateTime 4 167.64 cm 50.5 kg/m2 751626. 41 g 64 /min 96 % 96 % 128 mm[Hg] 68 mm[Hg] Donna Valentine KOMAL [place] - [facility] 4 14:31:43 Date Recorded Body height Body mass index (BMI) Body weight Heart rate Oxygen saturation Oxygen saturation in Arterial blood by Pulse oximetry Systolic blood pressure Diastolic blood pressure Provider Name and Address Organization Details Last Updated DateTime 5 167.64 cm 51.5 kg/m2 691247. 25 g 66 /min 96 % 96 % 130 mm[Hg] 80 mm[Hg] Patria KOMAL [place] - [facility] 5 14:57:57 Social History Question Answer Notes LastModified by Organizat ion Details LastModified Time Tobacco Smoking Status Never Smoker Donna Pickett MA [place], [place] - [facility] 01/30/2024 11:48:11 Do You Have An Advance Directive? No Information n ot available 01/30/2024 What Is Your Level Of Alcohol Consumption? Occasional Information not available 01/30/2024 Are You Blind Or Do You Have Difficulty Seeing? No Information n ot available 01/30/2024 What Is Your Level Of Caffeine Consumption? Heavy Soda Information not available 01/30/2024 In The 14 Days Before Symptom Onset, Have You Had Close Contact With A Laboratory-confirm ed COVID-19 While That Case Was Ill? No Information n ot available 01/13/2025 In The 14 Days Before Symptom Onset, Have You Had Close Contact With A Person Who Is Under Investigation For COVID-19 While That Person Was Ill? No Information not available 01/13/2025 Have You Been To An Area Known To Be High Risk For COVID-19? No Information not available 01/13/2025 Are You Currently Employed? Yes Information not available 01/30/2024 Are You Deaf Or Do You Have Serious Difficulty Hearing? No Information not available 01/30/2024 What Type Of Diet Are You Following? 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 01/13/2025 Information not available 01/13/2025 What Is Your Relationship Status? Information not available 01/30/2024 Do You Use Your Seat Belt Or Car Seat Routinely? Yes Information not available 01/30/2024 Do You Have Smoke And Carbon Monoxide Detectors In Your Home? Yes Information not available 01/30/2024 Do You Use Any Illicit Or Recreational Drugs? No Information not available 01/30/2024 Do You Use Sunscreen Routinely? No Information not available 01/30/2024 Has Tobacco Cessation Counseling Been Provided? Yes Information not available 01/30/2024 On What Date Was Tobacco Cessation Counseling Provided? 09/09/2024 [email or web address] Information not available 09/09/2024 Do You Or Have You Ever Used Any Other Forms Of Tobacco Or Nicotine? No Information not available 01/30/2024 Sex: Male Functional Status Question Answer Note LastModified by Organizat ion Details LastModified Time Are you able to care for yourself? Yes Information not available 01/30/2024 What is your exercise level? Occasional Information not available 01/30/2024 Mental Status None recorded. Family History Relationship Description Onset Age of this Age Resolved Age Notes LastModified by Organization Details LastModified Time Brother Diabetes mellitus [email or web address] Not available 05/2024 11:47:14 Brother Suspected malignant neoplasm of urinary bladder [email or web address] Not available 05/2024 11:47:28 Medical History Condition Response Coronary Artery Disease N High Blood Pressure Y Atrial Fibrillation N Kidney or Bladder Problems N Thyroid Problems Y Blood Clots N COPD N Depression N GI Problems N Anemia N Heart Attack ([place]) N Anxiety Disorder N Diabetes N Seizures/Epilepsy N Cancer Y Stroke N Asthma N Allergies N High Cholesterol Y Hepatitis N Liver Disease N Heart Failure N Past Encounters Encounter ID Performer Location Encounter Start Date Encounter Closed Date Diagnosis/Indication Diagnosis SNOMED-CT Code Diagnosis ICD10 Code Diagnosis Note [id number] Lucila Novak MD [facility] (Adult Med) [address] [place] [phone] 01/30/2024 11:33:03 01/30/2024 12:50:10 Essential hypertension 69115212 I10 Overweight 797301581 E66 .3 Hyperlipidemia 43311819 E78.5 Obesity 239782240 E66.9 Peripheral venous insufficiency 73057652 I87.2 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 [id number] MD [facility] (Adult Med) [address] [place] [phone] 09/09/2024 14:19:07 09/09/2024 15:20:08 Body mass index 30+ - obesity 827322858 Z68.43 Obesity 107882301 E66.9 Essential hypertension 01278561 I10 Hyperlipidemia 34912271 E78.5 Peripheral venous insufficiency 87419217 I87.2 Neuroendoc rine neoplasm, malignant 9221928990 C7A.8 Umbilical hernia 0235878 07 K42.9 [id number] MD [facility] (Adult Med) [address] [place] [address] [phone] 01/13/2025 14:25:18 01/13/2025 15:13:17 Body mass index 40+ - severely obese 190268502 Z68.43 Morbid obesity 435429720 E66.01 Essential hypertension 43225685 I10 Hyperlipidemia 26846487 E78.5 Obesity 395020698 E66.9 Peripheral venous insufficiency 12231980 I87.2 Health Concerns Section Related Observation LastModified by Organization Detai ls LastModified Time None Recorded Concern Status LastModified by Organization Details LastModified Time None Recorded Advance Directives Directive N: Payers Encounter Date Sequence Insurance Name Policy Number Policy Garcia Covered Member ID Garcia Member ID Guarantor Name 01/30/2024 1 [facility] [id number] Mayur Higgins [id number] Mayur Hendricksonervefren 01/30/2024 2 [place] Mayur Higgins [id number] Mayur Higgins 09/09/2024 1 *SELF PAY* Th omas Tinervia 01/13/2025 1 *SELF PAY* Th omas Tinervia Notes Date Note Type Note Provider Name and Address Organization Details Recorded Time 01/30/2024 text/html Hypertension no headache or dizziness. Hypothyroid no heat or cold intolerance hyperlipidemia to do better with diet venous insufficiency legs needs to wear his compression socks carcinoid tumor followed by Dr. Mcnulty has been getting good check ups Lucila Novak MD Attn: Accounting,[address], [place], [address], [place] [facility] 02/09/2024 18:28:54 09/09/2024 text/html hypertension no headache no dizziness. Hyperlipidemia does try to follow low-fat diet peripheral venous insufficiency needs to wear his stockings more hypothyroid denies heat or cold intolerance neuroendocrine tumor GI tract follows with Oncology Lucila Novak MD Attn: Accounting,[address], [place], [address], [place] [facility] 10/03/2024 21:37:59 01/13/2025 text/html hypertension blo od pressure controlled hypothyroid no heat or cold intolerance dyslipidemia he was taking the atorvastatin but he is not really losing a whole lot of weight . Venous insufficiency he is about the same still reluctant to go to pursue any GLP 1 agents for weight loss Lucila Novak MD Attn: Accounting,[address], [place], [address], [place] [facility] 01/13/2025 22:31:03
--- OUTSIDE RECORDS SUMMARY | 2025-02-11 02:09 | XMS_ITS | Encounter Summary ---
Author Organization [facility] Address [address] [place] [address] Phone Care Team Providers Care Cell Room Operator Name Role Phone Devan Mcnulty DO Unavailable [phone] Torres Salinas DO Unavailable [phone] Ye Novak MD Primary Care Provider [phone] Encounter Details Date Type Department Care Team (Late st Contact Info) Description 02/10/2025 Telephone [facility] Physicians [facility] Oncology [address] [facility] [address] [place] [phone] Deyanira Polanco CMA Social History Tobacco Use Types Packs/Day Years Used Date Smoking Tobacco: Never AUDIT-C Answer Date Recorded Q1: How often [...] on file Legal Sex Male 1:35 PM QUARRYING SPECIALIST Gender Identity Not on file Sexual Orientation Not on file 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 Not on file Not on file documented as of this encounter Miscellaneous Notes * Telephone Encounter - Deyanira Polanco CMA - 02/10/2025 3:42 PM CDT Patient called, [facility] rescheduled his CT scan to 03/22/2025 so needs to reschedule his lab/ROV with Dr Mcnulty; rescheduled from 03/04/2025 to 03/25/2025 documented in this encounter Plan of Treatment Not on file documented as of this encounter Visit Diagnoses Not on filedocumented in this encounter Care Teams Cell Room Operator Relationship Specialty Start Date End Date Ye Novak MD [address] [place] [address] PCP - General Internal Medicine 12/06/22 Devan Mcnulty DO [address] [place] [address] MEDICAL ONCOLOGY, [facility] [address] [place] [address] Medical Oncologist/Peanut Roaster Hematology and Oncology 12/06/22 Torres Salinas DO [address] [place] [address] Surgeon Surgery 12/06/22 documented as of this encounter
--- OUTSIDE RECORDS SUMMARY | 2025-02-11 02:09 | XMS_ITS | Clinical Summary ---
Author Organization [facility] Address [address] [place] [address] Care Team Providers Care Fancy Stitcher Name Role Phone Unavailable Primary Care Provider Unavailabl e Source Comments [facility],non-owned Affiliates and Associated Physician Practices is amultiple site organization consisting of ambulatory clinics and hospital sitesin [place], [place], [place] and [place]. This disclosure is being madepursuant to the Care Everywhere program and may not contain all information available regarding this patient. Last updated 18.[facility] [employer] Social History Tobacco Use Types Packs/Day Years Used Date Smoking Tobacco: Never Assessed Sex and Gender Information Value Date Recorded Sex Assigned at Not on file Gender Identity Not on file Sexual Orientation Not on file Plan of Treatment Health Maintenance Due Date Last Done Comments COLOGUARD (AGES 45-75) - COL ON CA SCREENING 1958 COLON MONITORING 1958 COLONOSCOPY - COLON CA SCREENING 1958 CT COLONOGRAPHY - COLON CA SCREENING 1958 Colorectal Cancer Screening 1958 FIT - COLON CA SCREENING 1958 FLEX SIG - COLON CA SCREENING 1958 LIPID TESTING 1958 HEPATITIS C SCREENING 06/11/1976 DTAP/TDAP/TD VACCINES (1 - Tdap) 1977 PNEUMOCOCCAL VACCINE 50+ (1 of 1 - PCV) 2008 ZOSTER VACCINE (1 of 2) 2008 COVID-19 VACCINE ( - 2023-2 5 season) 2024 INFLUENZA VACCINE (#1) 2024 DEPRESSION SCREENING 11/25/2024 Respiratory Syncytial Virus (RSV) Vaccine Pt: or over 60 yrs (1 - 1-dose 75+ series) 2033 HEPATITIS B VACCINE Aged Out No longe r eligible based on patient's age to complete this topic HIB VACCINE Aged Out No longer eligi ble based on patient's age to complete this topic HPV VACCINE Aged Out No longer eligi ble based on patient's age to complete this topic MENINGOCOCCAL (Group B) VACC INE SHARED DECISION-MAKING Aged Out No longer eligibl e based on patient's age to complete this topic MENINGOCOCCAL GROUPS A/C/Y/W VACCINE Aged Out No longer eligible b ased on patient's age to complete this topic
--- OUTSIDE RECORDS SUMMARY | 2025-02-11 02:10 | XMS_ITS | Clinical Summary ---
Author Organization [facility] Address [address] [place] [address] Care Team Providers Care Human Resources Recruiter Name Role Phone Devan Mcnulty DO Unavailable [phone] BradTorres Jairo DO Unavailable [phone] Ye Novak MD Primary Care Provider [phone] Allergies Active Allergy Reactions Criticality Noted Date [...] neuroendocrine tumor to lym ph node 12/06/2022 Encounters Date Type Department Care Team Description 02/10/2025 Telephone [facility] Oncology [address] [place] [phone] Deyanira Polanco CMA 12/02/2024 1:30 PM POWDERER Office Visit [facility] Oncology [address] [facility] [address] [place] [phone] Devan Mcnulty, DO 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); 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) 12/02/2024 1:00 PM POWDERER Lab [facility] [address] [place] [address] 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); 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) 12/01/2024 Orders Only [facility] Physicians [facility] Oncology [facility] [facility] [address] [place] [phone] Provider, MD Nick from Last 3 Months Surgical History Surgery Date Site/Laterality Comments BOWEL RESECTION Medical History Medical History Date Comments Hypercholesteremia Hypertension Family History Medical History Relation Name Comments Bladder Cancer Brother Alzheimer's disease Father No Known Problems Maternal Grandfather No Known Problems Maternal Grandmother Septic shock Mother No Known Problems Paternal Grandfather Skin cancer Paternal Grandmother No Known Problems Sister Relation Name Status Comments Brother Alive Father Maternal Grandfather Maternal Grandmother Mother Paternal Grandfather Paternal Grandmother Sister Alive Social History Tobacco Use Types Packs/Day Years [...] on file Legal Sex Male 1:35 PM POWDERER Gender Identity Not on file Sexual Orientation Not on file 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 Not on file Not on file Obstetrics History Last Filed Vital Signs Vital Sign Reading Time Taken Comments Blood Pressure 146/83 12/02/2024 1:35 PM POWDERER Pulse 59 12/02/2024 1:35 PM POWDERER Temperature 36.7 C (98 F) 12/02/2024 1:35 PM POWDERER Respiratory Rate 16 12/02/2024 1:35 PM POWDERER Oxygen Saturation 97% 12/02/2024 1:35 PM POWDERER Inhaled Oxygen Concentration - - Weight 142.4 kg (314 lb) 12/02/2024 1:35 PM POWDERER Height 167.6 cm (5' 6 ) 06/03/2024 12:59 PM CDT Body Mass Index 50.68 06/03/2024 12:59 PM CDT Plan of Treatment Health Maintenance Due Date Last Done Comments Colon Cancer Screening-Colonoscopy 1958 Depression Screening 1958 Fall Risk Assessment 1958 Hepatitis C Screening 1958 Prostate Cancer Screening-PSA 1958 DTaP/Tdap/Td Vaccine (1 - Tdap) 1969 Hepatitis B Screening 1976 Pneumococcal vaccine 65+ (1 of 2 - PCV) 1977 Zoster Vaccine (1 of 2) 1977 Well Visit 65+ 2023 Influenza Vaccine (#1) 2024 Procedures Procedure Name Priority Date/Time Associated Diagnosis Comments EGFR Routine 12/02/2024 1:20 PM POWDERER 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) DIFFERENTIAL AUTO Routine 12/02/2024 1:2 0 PM POWDERER 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) CBC WITH AUTO DIFFERENTIAL Routine 12/02/2024 1:20 PM POWDERER 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 73 m2 Comment: [...] was last reviewed 2021. Testing performed by: [address] [address] Blood 12/02/2024 1:20 PM POWDERER 12/02/2024 1:26 PM POWDERER Nahun [facility] BLOOD ORDERABLES Ashley l Result [facility] [address] [facility] Department [place] [address] * (ABNORMAL) Differential, auto (12/02/2024 1:20 PM POWDERER) Neutrophil abs 7.1(H) 1.5 - 6.5 K/cumm Comment:Testing performed by : [address] [address] Imm gran abs 0.0 0.0 - 0.1 K/cumm TIO Comment:Testing performed by : [address] [address] Lymphocyte abs 1.4 0.8 - 3.3 K/cumm TOI Comment:Testing performed by : [address] [address] Monocyte abs 0.9(H) 0.2 - 0.8 K/cumm TIO Comment:Testing performed by : [address] [address] Eosinophil abs 0.0 0.0 - 0.5 K/cumm TIO Comment:Testing performed by : [address] [address] Basophil abs 0.0 0.0 - 0.1 K/cumm [facility] Comment:Testing performed by : [address] [address] Neutrophil pct 75.1 % [facility] Comment: Interpretive Data Percent cell count reference ranges are not reported, since discordance with absolute values may lead to misinterpretation of CBC data. Current Interpretive Data was last revised on 2018. Testing performed by: [address] [address] Imm gran pct 0.3 % [facility] Comment: Interpretive Data Percent cell count reference ranges are not reported, since discordance with absolute values may lead to misinterpretation of CBC data. Current Interpretive Data was last revised on 2018. Testing performed by: [address] [address] Lymphocyte pct 15.2 % [facility] Comment: Interpretive Data Percent cell count reference ranges are not reported, since discordance with absolute values may lead to misinterpretation of CBC data. Current Interpretive Data was last revised on 2018. Testing performed by: [address] [address] Monocyte pct 9.0 % [facility] Comment: Interpretive Data Percent cell count reference ranges are not reported, since discordance with absolute values may lead to misinterpretation of CBC data. Current Interpretive Data was last revised on 2018. Testing performed by: [address] [address] Eosinophil pct 0.2 % [facility] Comment: Interpretive Data Percent cell count reference ranges are not reported, since discordance with absolute values may lead to misinterpretation of CBC data. Current Interpretive Data was last revised on 2018. Testing performed by: [address] [address] Basophil pct 0.2 % [facility] Comment: Interpretive Data Percent cell count reference ranges are not reported, since discordance with absolute values may lead to misinterpretation of CBC data. Current Interpretive Data was last revised on 2018. Testing performed by: [address] [address] Blood 12/02/2024 1:20 PM POWDERER 12/02/2024 1:26 PM POWDERER us Nahun [facility] BLOOD ORDERABLES Ashley acevedo Result [facility] [address] [facility] Department [place] [address] * Chromogranin A (12/02/2024 1:20 PM POWDERER) Chromogranin A 80 <93 ng/mL [facility] Comment: ADDITIONAL INFORMATION The testing method is a homogeneous time-resolved immunofluorescent assay manufactured by [employer] and performed on the Morning [employer] Kryptor Compact Plus. Values obtained with different [...] examination and other findings. Test Performed by: [address] [address] Paper Box Maker: Marissa Campbell Ph.D.; CLIA# [id number] Testing performed by: [address] [place]., [address] Blood 12/02/2024 1:20 PM POWDERER 12/02/2024 1:26 PM POWDERER Nahun [facility] BLOOD ORDERABLES Ashley kristina Result [facility] [address] [facility] Department [place] [address] [facility] * CBC with auto differential (12/02/2024 1:20 PM POWDERER) WBC 9.5 3.8 - 9.9 K/cumm Comment:Testing performed by : [address] [address] Hgb 14.3 13.0 - 17.5 g/dL TIO Comment:Testing performed by : [address] [address] Hct 42.6 38.9 - 50.3 % [facility] Comment:Testing performed by : [address] [address] Plt 169 150 - 400 K/cumm [facility] Comment:Testing performed by : [address] [address] MPV 11.4 9.1 - 12.3 fL [facility] Comment:Testing performed by : [address] [address] RBC 4.81 4.30 - 5.80 M/cumm [facility] Comment:Testing performed by : [address] [address] MCV 88.6 81.3 - 96.4 fL [facility] Comment:Testing performed by : [address] [address] MCH 29.7 27.1 - 33.3 pg [facility] Comment:Testing performed by : [address] [address] MCHC 33.6 32.3 - 35.7 g/dL [facility] Comment:Testing performed by : [address] [address] RDW CV 13.9 11.1 - 14.9 % [facility]IO Comment:Testing performed by : [address] [address] RDW SD 45.1 35.7 - 48.1 fL [facility] Comment:Testing performed by : [address], [place]., [address] NRBC abs 0.00 0.00 - 0.01 K/cumm [facility] Comment:Testing performed by : [address] [address] Blood 12/02/2024 1:20 PM POWDERER 12/02/2024 1:26 PM POWDERER Nahun [facility] BLOOD ORDERABLES Ashley l Result [facility] Department [place] [address] * Comprehensive metabolic panel (12/02/2024 1:20 PM POWDERER) Sodium 140 135 - 145 mmol/L Comment:Testing performed by : [address] [address] Potassium, pl 4.2 3.3 - 4.9 mmol/L [facility] Comment:Testing performed by : [address] [address] Chloride 105 97 - 110 mmol/L [facility] Comment:Testing performed by : [address] [address] CO2 24 22 - 32 mmol/L TIO Comment:Testing performed by : [address] [address] Anion gap 11 2 - 15 mmol/L [facility] Comment:Testing performed by : [address] [address] BUN 15 6 - 25 mg/dL [facility] Comment:Testing performed by : [address] [address] Creatinine 1.10 0.80 - 1.30 mg/dL [facility] Comment:Testing performed by : [address] [address] Glucose 99 70 - 199 mg/dL [facility] Comment: Interpretive Data Fasting glucose >/= 126 [...] classification and Diagnosis of Diabetes Diabetes Care 2021; 46: S19-S40. Current interpretive data was last revised 2022. Testing performed by: [address] [address] Calcium 9.3 8.5 - 10.3 mg/dL [facility] Comment:Testing performed by : [address] [address] Bilirubin, total 0.5 0.1 - 1.2 mg/dL [facility] Comment:Testing performed by : [address] [address] Protein, pl 7.4 6.5 - 8.5 g/dL [facility]IO Comment:Testing performed by : [address] [address] Albumin 4.2 3.5 - 5.0 g/dL TIO Comment:Testing performed by : [address] [address] Alk phos 88 40 - 130 Units/L TIO Comment:Testing performed by : [address] [address] ALT 34 7 - 55 Units/L [facility]IO Comment:Testing performed by : [address] [address] AST 27 10 - 50 Units/L TIO Comment:Testing performed by : [address] [address] Blood 12/02/2024 1:20 PM POWDERER 12/02/2024 1:26 PM POWDERER Nahun [facility] BLOOD ORDERABLES Ashley l Result [facility] [address] [facility] Department [place] [address] * CT Abdomen Pelvis W Contrast (11/27/2024 10:30 AM POWDERER) Anatomical Region Laterality Modality Body N/A Computed Tomogra phy Historical Provider MD [facility] CT PROCEDURES Final R esult from Last 3 Months Insurance [employer] PPO Member Subscriber Plan / Payer (Ef fective 2024-Present) Name:Mayur Higgins Relation to Subscriber:Self Name:Mayur Higgins Payer ID:[id number] (NAIC) Type:MEDICARE RISK OTHER Address: [place] [id number] [employer] PPO Member Subscriber Plan / Payer (Ef fective 2024-Present) Name:Mayur Higgins Relation to Subscriber:Self Name:Mayur Higgins Payer ID:[id number] (NAIC) Type:MEDICARE RISK OTHER Address: [place] [phone] Care Teams Human Resources Recruiter Relationship Specialty Start Date End Date Ye Novak MD [address] [facility] [[email or web address] [address] [place] [address] PCP - General Internal Medicine 12/06/22 Devan Mcnulty DO [facility]8 [facility], [facility] [[email or web address]] [address] [place] [address] Medical Oncologist/Grades 7 And 8 Teacher Hematology and Oncology 12/06/22 Torres Salinas DO [address] [facility] [[email or web address]] [address] [place] [address] Surgeon Surgery 12/06/22
--- OUTSIDE RECORDS SUMMARY | 2025-02-11 02:10 | XMS_ITS | Clinical Summary ---
Author Organization [facility] Address [address] [place] [address] Care Team Providers Care Emblem Drawer In Name Role Phone Joey Mccarty MD Primary Care Pro vider Social History Tobacco Use Types Packs/Day Years Used Date Smoking Tobacco: Never Assessed Sex and Gender Information Value Date Recorded Sex Assigned at Not on file Legal Sex Male 8:15 PM CDT Gender Identity Not on file Sexual Orientation Not on file Plan of Treatment Health Maintenance Due Date Last Done Comments Colorectal Cancer Screening Colonoscopy (10 Years) 1958 Hepatitis C 1976 DTaP, Tdap and Td Vaccines ( 1 - Tdap) 1977 Zoster Vaccines (1 of 2) 2008 Pneumococcal Vaccine: 65+ Ye ars (1 of 1 - PCV) 2023 COVID-19 Vaccine ( - 2023-2 5 season) 2024 Influenza Adult (#1) 2024 RSV Immunization or 60+ Years (1 - 1-dose 75+ series) 2033 Meningococcal B Vaccine Aged Out No l onger eligible based on patient's age to complete this topic Meningococcal Vaccine Aged Out No sherry yudy eligible based on patient's age to complete this topic RSV Immunizations Under 20 Months Aged Out No longer eligible based on patient's age to complete this topic Care Teams Emblem Drawer In Relationship Specialty Start Date End Date Joey Mccarty MD PCP - General 05/05/12
--- OUTSIDE RECORDS SUMMARY | 2025-02-11 02:10 | XMS_ITS ---
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 Past Treatment and Therapy Plans Oncology Chemotherapy Treatment Plan Name Start Date Discontinue Date Treatment Medications Discontinue Reason Plan Provider Cycles Lanreotide 28 Day Cycles - Carcinoid 3 03/04/2024 lanreotide (SOMATULINE DEPOT) Therapy Complete Devan Mcnulty DO 13 of 16 cycles started
[2025-02-11 10:18] VITALS: BP 141/76; PULSE 62; RESP 20; TEMP 36.2; O2SAT 96
--- NOTE | 2025-02-11 10:21 | P.PNAN_ITS ---
Anes - Initial Pre Proc Eval Procedure: Operation Date: 02/11/25 11:30 Proposed Procedures p Colonoscopy - Jan Coon MD Date/Time: 02/11/25 10:21 Surgeon: Jan Coon MD Pre Op Diagnosis: hx of cancer, fecal abnormalities Patient Data Age: 64 Gender: M Height: 1.68 m Weight: 141.8 kg Last Vital Signs Temp 36.2 C L 02/11/25 10:18 Pulse 62 02/11/25 10:18 Resp 20 02/11/25 10:18 BP 141/76 H 02/11/25 10:18 Pulse Ox 96 02/11/25 10:18 O2 Del Method Room Air 02/11/25 10:18 Allergies Allergy/AdvReac Type Severity Reaction Status Date / Time No Known Allergies Allergy Verified 02/11/25 10:17 Home Medications ?Medication ?Instructions ?Recorded ?Confirmed ?Type atorvastatin 10 mg tablet 10 mg PO DAILY 11/05/22 02/11/25 History levothyroxine 175 mcg tablet 175 mcg PO DAILY 11/05/22 02/11/25 History nebivolol 5 mg tablet 5 mg PO DAILY 11/05/22 02/11/25 History Patient hx anesthesia problems: none Family hx anesthesia problems: none Results Review: All pre-operative results and documents have been reviewed as part of the pre- operative evaluation. [facility] Past Medical History Medical History RAJEEV (obstructive sleep apnea) Reports having mild RAJEEV but has never required a CPAP Kidney stones Hypothyroidism Hyperlipidemia Hypertension Surgical History Surgical History History of exploratory laparotomy 11/06/22 Exploratory laparotomy, ileal resection with [id number] ileal anastomosis History of laser assisted in situ keratomileusis Family History Family History Sibling Diabetes mellitus Bladder cancer Social History Social History Social History: Surrogate medical decision maker: Emilee Higgins, spouse. Code status: Full code. Smoking status: Never smoker Alcohol intake: never Substance use: never Substance use type: does not use Lack of Transportation: No Lack of Food: Never True Current Housing: I Have Housing Concerned About Future Housing: No Difficulty Paying Gas/Electric Bills: No Difficulty Paying for Meds: No Currently Unemployed: No Education: High School Diploma/GED Difficulty w/ Childcare or Family Care: No Living arrangements: with family Additional living arrangements comments: Lives with spouse in [place]. Additional occupation/education comments: [employer]. Spiritual care concerns: No Anes - Eval Final PreProcedure Day of Procedure 02/11/25 10:21 Patient weight: super morbidly obese Heart: regular rate and rhythm Lungs: decreased breath sounds Airway: Mallampati scale class III Neurological: alert and oriented Last oral intake: >/= 8 hours ASA classification: III Emergent: no Anesthetic plan: proceed Anesthesia type and monitoring: general GIVS and standard monitoring Results Review: All pre-operative results and documents have been reviewed as part of the pre- operative evaluation. Informed Consent: The patient's anesthetic plan and its attendant risks and benefits were discussed with the patient/family/POA. Questions were solicited and answers provided to the satisfaction of the patient/family/POA.
[2025-02-11 10:25] VITALS: BP 109/57; PULSE 71; RESP 35; O2SAT 94
[2025-02-11] MEDS: LACTATED RINGERS 1,000 ML 150 ML IV CONT (10:30)
--- NOTE | 2025-02-11 11:02 | P.HP_ITS ---
History of Present Illness History of Present Illness Consent: Risks, benefits, and alternatives have been discussed and questions answered. Patient agrees to proceed with procedure. Chief complaint: hx of cancer, fecal abnormalities Narrative: Mayur Higgins is a 64 year old male here for first colonoscopy, had + cologuard. 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 Review of Systems Review of Systems: All systems reviewed & are unremarkable except as noted in HPI and below PMFSH Past Medical History Medical History (Updated 02/11/25 @ 11:04 by Jan Coon MD) Positive colorectal cancer screening using Cologuard test RAJEEV (obstructive sleep apnea) Reports having mild RAJEEV but has never required a CPAP Kidney stones Hypothyroidism Hyperlipidemia Hypertension Surgical History Surgical History History of exploratory laparotomy 11/06/22 Exploratory laparotomy, ileal resection with [id number] ileal anastomosis History of laser assisted in situ keratomileusis Family History Family History Sibling Diabetes mellitus Bladder cancer Social History Social History Social History: Surrogate medical decision maker: Emilee Higgins, spouse. Code status: Full code. Smoking status: Never smoker Alcohol intake: never Substance use: never Substance use type: does not use Lack of Transportation: No Lack of Food: Never True Current Housing: I Have Housing Concerned About Future Housing: No Difficulty Paying Gas/Electric Bills: No Difficulty Paying for Meds: No Currently Unemployed: No Education: High School Diploma/GED Difficulty w/ Childcare or Family Care: No Living arrangements: with family Additional living arrangements comments: Lives with spouse in [place]. Additional occupation/education comments: [employer]. Spiritual care concerns: No Meds Home Medications and Allergies Home Medications ?Medication ?Instructions ?Recorded ?Confirmed ?Type atorvastatin 10 mg tablet 10 mg PO DAILY 11/05/22 02/11/25 History levothyroxine 175 mcg tablet 175 mcg PO DAILY 11/05/22 02/11/25 History nebivolol 5 mg tablet 5 mg PO DAILY 11/05/22 02/11/25 History Allergies Allergy/AdvReac Type Severity Reaction Status Date / Time No Known Allergies Allergy Verified 02/11/25 10:17 Vital Signs Vital Signs - 24 hr 02/11/25 10:18 Temperature 97.1 F L Pulse Rate 62 Respiratory Rate 20 Blood Pressure 141/76 H Pulse Oximetry 96 Oxygen Delivery Room Air Exam Const: General: comfortable and no acute distress HENMT: Face/Nose/Sinus: Normal nares present Eyes: General: appearance normal, both eyes and all related structures Neck: Neck: no JVD Resp: Auscultation: clear to auscultation bilaterally Cardio: Rate: regular rate Rhythm: regular rhythm GI: Inspection: non-distended GI Palp: Yes Soft to palpation Skin: General skin exam: normal color Neuro: Speech: normal speech Extrem: General: normal to inspection Psych: Mental Status: mental status grossly normal Assessment and Plan Assessment and plan (1) Positive colorectal cancer screening using Cologuard test: Code(s): R19.5 - Other fecal abnormalities Status: Acute Assessment and Plan: colonoscopy
[2025-02-11 11:35] VITALS: BP 105/56; PULSE 68; RESP 22; O2SAT 96
[2025-02-11 11:45] VITALS: BP 125/80; PULSE 75; RESP 22; O2SAT 96
== END 2025-02-11 11:51 | disposition home or self-care (01) ==
PROVIDERS: PCP Internal Medicine; Referring Provider Internal Medicine; Visit Provider Internal Medicine Gastroenterology
PROC: 0DJD8ZZ Inspection of Lower Intestinal Tract, Via Natural or Artificial Opening Endoscopic (ICD-10-PCS; CPT 45378; principal; 2025-02-11 11:30)
DX: R19.5 Other fecal abnormalities (principal); E03.9 Hypothyroidism, unspecified; E78.5 Hyperlipidemia, unspecified; I10 Essential (primary) hypertension; G47.33 Obstructive sleep apnea (adult) (pediatric); E66.01 Morbid (severe) obesity due to excess calories; Z68.43 Body mass index [BMI] 50.0-59.9, adult; Z98.890 Other specified postprocedural states; Z90.49 Acquired absence of other specified parts of digestive tract; Z98.0 Intestinal bypass and anastomosis status; Z87.442 Personal history of urinary calculi; Z85.038 Personal history of other malignant neoplasm of large intestine; Z80.52 Family history of malignant neoplasm of bladder
CPT/HCPCS: 45378; J2003; J2704; J7120

== ENCOUNTER 2025-03-22 13:41 | Outpatient (CLI) | payer OTHER, SELFPAY ==
--- NOTE | ~2025-03-22 | CT_ITS ---
CT of the Abdomen and Pelvis: Indication: Metastatic neuroendocrine tumor Technique: 2.5 mm axial scans were obtained through the abdomen and pelvis following intravenous adm inistration of 100 cc of Omnipaque 350. Dose reduction technique was used on this scan by utilizing a utomated exposure control and iterative reconstruction technique. The dose-length product (DLP) was 1 112.93 mGy-cm. COMPARISON: 325 Findings: Scans through the lung bases are unremarkable. The liver, spleen, pancreas, adrenals and right kidney are within normal limits. Cholelithiasis noted . 10 mm nonobstructing left renal stone present. No evidence of aortic aneurysm. No lymphadenopathy. Large umbilical hernia present, containing a portion of the mid sigmoid colon as well as small bowel loops and mesenteric fat. No bowel obstruction or bowel wall thickening. Small bowel anastomosis note d. Images through the pelvis were performed. Urinary bladder unremarkable. No pelvic mass seen. No ascit es. Impression: No evidence for active malignancy or metastatic disease. Large umbilical hernia containing large and small bowel. No bowel obstruction or bowel wall thickenin g. Cholelithiasis and nephrolithiasis, as detailed above. Reviewed, dictated and finalized at location . Impression: No evidence for active malignancy or metastatic disease. Large umbilical hernia containing large and small bowel. No bowel obstruction o r bowel wall thickening. Cholelithiasis and nephrolithiasis, as detailed above.
[2025-03-22 14:01] LABS: Estimated Glomerular Filt Rate 55
== END 2025-03-22 13:42 | disposition home or self-care (01) ==
LOC: MICIMG 13:42
PROVIDERS: PCP Internal Medicine; Visit Provider Nurse Practitioner Family
DX: C7A.8 Other malignant neuroendocrine tumors (principal); C7B.8 Other secondary neuroendocrine tumors; K42.9 Umbilical hernia without obstruction or gangrene; K80.20 Calculus of gallbladder without cholecystitis without obstruction
CPT/HCPCS: 74177; Q9967

== ENCOUNTER 2025-08-02 13:46 | Outpatient (CLI) | payer OTHER, SELFPAY ==
--- NOTE | ~2025-08-02 | CT_ITS ---
EXAMINATION: CT abdomen pelvis w con DATE: 08/02/2025 14:19 INDICATION: Primary malignant neuroendocrine tumor of small intestine. TECHNIQUE: Computed tomography (CT) of the abdomen and pelvis was performed with 100 mL Omnipaque 350 intravenous contrast. Automated exposure control and iterative reconstruction technique were employed. The dose-length product was 1150.95 mGy-cm. COMPARISON: CT abdomen and pelvis 03/22/2025 FINDINGS: The visualized portions of the lung bases demonstrate mild atelectasis. No pleural effusion. Cardiomegaly is noted. No pericardial effusion. The liver and spleen are normal. There is a gallstone in the gallbladder, which is normal in size. The pancreas, adrenal glands, and right kidney are normal. There is an 8 mm cyst in left kidney. There is a 10 mm stone in left kidney. The prostate is mildly enlarged. There is an infraumbilical ventral hernia containing nonobstructed large and small bowel. There is an anastomosis in the distal small bowel. The appendix is not visualized. There are no pathologically enlarged lymph nodes. There is no free intraperitoneal fluid. There are bilateral inguinal hernias containing fat. There is mild thoracic and lumbar spondylosis. IMPRESSION: 1. No evidence of metastatic disease. 2. Infraumbilical ventral hernia containing nonobstructed small and large bowel. Reviewed, dictated and finalized at location E. IMPRESSION: 1. No evidence of metastatic disease. 2. Infraumbilical ventral hernia containing nonobstructed small and large bowel .
[2025-08-02 14:09] LABS: Estimated Glomerular Filt Rate 55
== END 2025-08-02 13:47 | disposition home or self-care (01) ==
LOC: MICIMG 13:47
PROVIDERS: PCP Internal Medicine; Visit Provider Internal Medicine Medical Oncology
DX: C7A.8 Other malignant neuroendocrine tumors (principal); C7B.8 Other secondary neuroendocrine tumors; K42.9 Umbilical hernia without obstruction or gangrene; K43.9 Ventral hernia without obstruction or gangrene
CPT/HCPCS: 74177; Q9967

== ENCOUNTER 2025-10-05 18:58 | Inpatient (IN) | payer OTHER, SELFPAY ==
--- OUTSIDE RECORDS SUMMARY | 2013-07-18 03:30 | XMS_ITS | Continuity of Care Document ---
Author Organization [employer] [facility] Address [address] [place] [address] Dr Dykes [address] [place] [phone] Phone Care Team Providers Care Manager Game Name Role Phone Marah OD OD, Link Unavailable Unavailabl e Allergies, Adverse Reactions, Alerts Substance Reaction Status Criticality No Known allergies Medications Medication Instructions Dosage Effective Dates (start - stop) Status Comments Diovan 40 mg tablet take 1 tablet (40MG) by oral route 2 times every day 40 MG - Active Procedures Procedure Date Office/outpatient Visit, Est Refraction Visual Field Examination(s) SCODI, Posterior Segment VEP Testing Special Eye Evaluation QuantifEye/Optomap Office/outpatient Visit, Est Visual Field Examination(s) SCODI, Posterior Segment Special Eye Evaluation Fundus Photography W/ Report Refraction QuantifEye Eye Exam Established Pt Eye [facility] Supplements Medical Tax Eye Exam Established Pt Eye Exam & Treatment Refraction QuantifEye/Optomap [facility] Tax - Medical QuantifEye Post-op Follow-up Visit Post-op Follow-up Visit Corneal Topography Post-op Follow-up Visit Corneal Topography Post-op Follow-up Visit Post-op Follow-up Visit Aug- Post-op Follow-up Visit Post-op Follow-up Visit Post-op Follow-up Visit Post-op Follow-up Visit Post-op Follow-up Visit Post-op Follow-up Visit Post-op Follow-up Visit Post-op Follow-up Visit Post-op Follow-up Visit Post-op Follow-up Visit Autonomous -Lasik Comanaged Autonomous -Lasik Comanaged No Charge Refractive Evaluation 007 [employer] Sales Tax Advance Directives Directive Yes / No Effective Date File Name Resuscitation Not Answered N/A N/A Life Support Not Answered N/A N/A Intubation Not Answered N/A N/A Antibiotics Not Answered N/A N/A IV Fluid Support Not Answered N/A N/A Tube Feed Not Answered N/A N/A Other Directive N/A N/A WARNING:The information contained in this section is historical and is provided for information only and does not constitute a legal document or any assurance that the information is still accurate. Please verify the information with the maynard of the legal document before using it for clinical purposes. Encounters Encounter Description Practice Location Reason(s) For Visit Diagnoses Date Provider Providers Copied on Encounter Office/outpat ient Visit, Est [facility], [address], [place], [place], [id number], [place] tel:[phone] [facility] [place] CUPPING OF OPTIC DISCOPN ANGL W BORDERLN FIND Low Risk Marah Maza. [address] [place], [place], [address], [place]. tel:[phone] Referring Provider: Link Combs, [address] [place], [address] . tel:[phone] Office/outpat ient Visit, Est [facility], [address], [place], [place], [address], [place] tel:[phone] [facility] [place] No Information Amory OD Link. [address] [facility], [place], [place], [address], [place]. tel:[phone] Referring Provider: Link Crystal OD P, [address] [facility], [place], [address] . tel:[phone] [facility], [address], [place], [place], [address], [place] tel:[phone] [facility] [place] No Information Amory OD Link. [address], [place], [address], [place]. tel:[phone] Referring Provider: Link Crystal OD P, [address] [facility], [place], [address] . tel:[phone] [facility], [address], [place], [place], [address], [place] tel:[phone] [facility] [place] No Information Romaneny OD Link. [address] [facility], [place], [place], [address], [place]. tel:[phone] Referring Provider: Link Crystal OD P, [address] [facility], [place], [address] . tel:[phone] [facility], [address], [place], [place], [address], [place] tel:[phone] [facility] [place] No Information Amory OD Link. [address] [facility], [place], [place], [address], [place]. tel:[phone] Referring Provider: Link Crystal OD P, [address] [facility], [place], [address] . tel:[phone] [facility], [address], [place], [place], [address], [place] tel:[phone] SEC [place] [facility] No Information Romaneny OD Link. [address] [facility], [place], [id number], [place]. tel:[phone] Referring Provider: Link Crystal OD P, [address] [facility], [place], [address] . tel:[phone] [facility], [address], [place], [place], [address], [place] tel:[phone] [facility] [place] No Information Romaneny OD Link. [address] [facility], [place], [address], [place]. tel:[phone] Referring Provider: Link Crystal OD P, [address] [facility], [place], [address] . tel:[phone] [facility], [address], [place], [place], [address], [place] tel:[phone] [facility] [place] No Information Hermesqueeny OD Link. [address] [facility], [place], [address], [place]. tel:[phone] Referring Provider: Link Crystal OD P, [address] [facility], [place], [address] . tel:[phone] [facility], [address], [place], [place], [address], [place] tel:[phone] [facility] No Information Mulqueeny OD Link. [address] [facility], [place], [place], [address], [place]. tel:[phone] Referring Provider: Link Crystal OD P, [address] [facility], [place], [address] . tel:[phone] [facility], [address], [place], [place], [address], [place] tel:[phone] [facility] No Information Romaneny OD Link. [address] [place], [place], [address], [place]. tel:[phone] Referring Provider: Link Crystal OD P, [address] [place], [address] . tel:[phone] [facility], [address], [place], [place], [address], [place] tel:[phone] [facility] No Information Romaneny OD Link. [address] [facility], [place], [place], [address], [place]. tel:[phone] Referring Provider: Link Crystal OD P, [address] [facility], [place], [address] . tel:[phone] [facility], [address], [place], [place], [address], [place] tel:[phone] [facility] No Information Hermesqueeny OD Link. [address] [place], [place], [address], [place]. tel:[phone] [facility], [address], [place], [place], [address], [place] tel:[phone] [facility] No Information Mulqueeny OD Link. [address] [place], [place], [address], [place]. tel:[phone] [facility], [address], [place], [place], [address], [place] tel:[phone] [facility] No Information Mulqueeny OD Link. [address] [facility], [place], [place], [address], [place]. tel:[phone] [facility], [address], [place], [place], [address], [place] tel:[phone] [facility] No Information Mulqueeny OD Link. [address] [place], [place], [address], [place]. tel:[phone] [facility], [address], [place], [place], [address], [place] tel:[phone] [facility] No Information Mulqueeny OD Link. [address] [place], [place], [address], [place]. tel:[phone] [facility], [address], [place], [place], [address], [place] tel:[phone] [facility] No Information Mulqueeny OD Link. [address] [place], [place], [address], [place]. tel:[phone] [facility], [address], [place], [place], [address], [place] tel:[phone] [facility] No Information Mulqueeny OD Link. [address] [place], [place], [address], [place]. tel:[phone] [facility], [address], [place], [place], [address], [place] tel:[phone] [facility] No Information Marah OD Link. [address] [place], [place], [address], [place]. tel:[phone] [facility], [address], [place], [place], [address], [place] tel:[phone] [facility] No Information Marah OD Link. [address], [place], [address], [place]. tel:[phone] [facility], [address], [place], [place], [address], [place] tel:[phone] [facility] No Information Amory OD Link. [address] [place], [place], [address], [place]. tel:[phone] [facility], [address], [place], [place], [address], [place] tel:[phone] [facility] No Information [facility] . [address] [place], [place], [address], [place]. tel:[phone] Referring Provider: Link Crystal OD P, [address] [place], [address] . tel:[phone] [facility], [address], [place], [place], [address], [place] tel:[phone] [facility] No Information Marah OD Link. [address] [facility] [place], [place], [address], [place]. tel:[phone] Family History Family Member Type Diagnosis Age At Onset Brother Problem (finding) diabetes brandoni maryann in first degree relative Payers Payer name Insurance type Covered democrat ID Lennie grewal(s) KATHERINE BERRY Out Of State BL [id number] Social History Type Description Quantity Date Captured Comments Alcohol Use Details No Caffeine Use Details No Tobacco Use Status No Information Smoking Status Never smoker Non-Smoking Tobacco Use Details : No Details Available : No Details Available Sex Male Chief Complaint And Reason For Visit No Information Reason For Referral Reason For Referral No Information History Of Present Illness Encounter Date Complaint History Of Prese nt Illness No Information Functional Status Date Functional Assessmen t No Information Instructions Date Instruction Additional Infor matheus - Repeat visual field in 1 year OU. Related to Central 24-2 test performed. MJ FAST strategy used. Fixation losses within normal limit. - Return in 1 year w isabela Crystal O.D. for Complete Exam. Related to OPN ANGL W BORDERLN FIND Low Risk CUPPING OF OPTIC DIS C OPN ANGL W BORDERLN FIND Low Risk - disc findingsrec annual monitoring due to lg cd ratiocont at prn ou-Systane Balance givendisc potential MELODY in futurerepeat VEP at next CEE. unreliable today. Related to OPN ANGL W BORDERLN FIND Low Risk Assessments Type Assessment Date No Information Patient Care Teams Name Effective Dates (start - stop) Status Members No Information
--- NOTE | ~2025-10-05 | XR_ITS ---
EXAM/PROCEDURE: XR abdomen/kub 1V HISTORY: SBO COMPARISON: None available. TECHNIQUE: KUB IMPRESSION: 1. Nonspecific bowel gas pattern with scattered loops of gas dilated bowel throughout the abdomen and pelvis with mildly distended small bowel in the right hemiabdomen. 2. No large amount of free air. 3. Gastric catheter in the upper body or fundal portion of the stomach. Reviewed, dictated and finalized at location A. SURE STEAMER TENDER IMPRESSION: 1. Nonspecific bowel gas pattern with scattered loops of gas dilated bowel thro ughout the abdomen and pelvis with mildly distended small bowel in the right he miabdomen. 2. No large amount of free air. 3. Gastric catheter in the upper body or fundal portion of the stomach.
--- NOTE | ~2025-10-05 | XR_ITS ---
Examination: XR abdomen gastric tube insert Clinical History: ng placement Comparison: CT abdomen pelvis earlier same day Technique: Portable AP upright abdomen Findings/impression: 1. NG tube within gastric fundus. 2. Persistent gaseous dilated small bowel loops. Reviewed, dictated and finalized at location R. [employer]
--- NOTE | ~2025-10-05 | CT_ITS ---
CT abdomen pelvis w con INDICATION:lower abd pain, n/v/d, hx partial colectomy . COMPARISON: None. TECHNIQUE: Axial images of the abdomen and pelvis were obtained following infusion of 100 mL Isovue 300. Dose optimization technique was utilized. FINDINGS: The lung bases are clear. The liver parenchyma is unremarkable. No intrahepatic mass or ductal dilatation is evident. Cholelithiasis is noted. There is no CT evidence of acute cholecystitis. The pancreas and spleen are normal in appearance. The adrenal glands are symmetric in size. Kidneys enhance symmetrically. Nonobstructive left intrarenal stone is noted. No cystic mass is evident. 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 There is no hydronephrosis. Fluid-filled distended proximal small bowel loops with decompressed distal small bowel loops suggestive of a partial to early small bowel obstruction with transition point in the ventral wall hernia. Prior partial colectomy with anastomotic suture in the right lower quadrant of the abdomen. Bladder is unremarkable. No free intraperitoneal fluid or air is evident. There is no significant retroperitoneal lymphadenopathy. The aorta, visceral vessels and renal arteries demonstrate normal caliber and patency. The lower thoracic and lumbar vertebrae are in normal alignment. IMPRESSION: Findings suggestive of a partial to early small bowel obstruction with transition The ventral wall hernia. Cholelithiasis without evidence of acute cholecystitis. All CT scans at this facility are performed using low dose modulation techniques as appropriate to perform exam including the following: automated exposure control; use of iterative reconstruction technique; adjustment of the mA and/or kV according to patient size (this includes techniques or standardized protocols for targeted exams where dose is matched to indication/reason for exam). Reviewed, dictated and finalized at location S. CORE ASSEMBLER IMPRESSION: Findings suggestive of a partial to early small bowel obstruction with transiti on The ventral wall hernia. Cholelithiasis without evidence of acute cholecystitis. All CT scans at this facility are performed using low dose modulation techniqu es as appropriate to perform exam including the following: automated exposure c ontrol; use of iterative reconstruction technique; adjustment of the mA and/or kV according to patient size (this includes techniques or standardized protocol s for targeted exams where dose is matched to indication/reason for exam).
--- NOTE | ~2025-10-05 | XR_ITS ---
EXAM/PROCEDURE: XR sm bowel follow through WS HISTORY: SBO COMPARISON: CT examination from yesterday TECHNIQUE: Standard technique for small bowel follow-through was performed Gastrografin used. 350 mL of Gastrografin use. Number of images: 11 FINDINGS: On the forestry engineer image, gastric catheter is present as well as distended loops of small bowel. Following administration of contrast, contrast is seen in the distal portion of the duodenum almost immediately. On the 15 minute image, contrast is present through the mid jejunum. On the 30 minute image, contrast extends to the ileum. Contrast appears to be in the large bowel within 1 hour. On the 1.5 hour images, contrast is seen throughout the large intestine. No extravasation of contrast seen. No large amount of free air seen. IMPRESSION: No evidence of obstruction. Contrast extends throughout the large bowel at 1.5 hours. RECOMMENDATION: Correlate with follow-up KUB later this evening or tomorrow morning. Reviewed, dictated and finalized at location A. RVISOR INSPECTION ROOM IMPRESSION: No evidence of obstruction. Contrast extends throughout the large bowel at 1.5 hours. RECOMMENDATION: Correlate with follow-up KUB later this evening or tomorrow gabriela demarco
--- NOTE | ~2025-10-05 | XR_ITS ---
EXAM/PROCEDURE: XR abdomen/kub 1V HISTORY: SBO COMPARISON: October 06 TECHNIQUE: KUB FINDINGS: Multiple loops of significantly distended small bowel remain in the abdomen and pelvis. Small amount of contrast is present in the rectosigmoid region. No large amount of free air seen. Bones appear intact. Lung bases appear stable. IMPRESSION: Numerous loops of distended small bowel again noted. Correlate with follow-up CT of the abdomen and pelvis examination as clinically indicated. Reviewed, dictated and finalized at location A. CHER IMPRESSION: Numerous loops of distended small bowel again noted. Correlate with follow-up C T of the abdomen and pelvis examination as clinically indicated.
[2025-10-05 19:07] VITALS: BP 141/77; PULSE 74; RESP 20; TEMP 36.6; O2SAT 97
[2025-10-05 19:47] VITALS: BP 130/78; PULSE 71; RESP 24; O2SAT 94
[2025-10-05 19:47] LABS: Hematocrit 47.5 % (42.0-52.0); Hemoglobin 15.4 g/dL (14.0-18.0); Immature Granulocyte Percent A 0.4 % (0-0.5); Lymphocytes Absolute Auto 1.05 K/mm3 (0.9-3.2); Mean Corpuscular HGB Conc 32.4 g/dl (32-36); Mean Corpuscular Hemoglobin 29.4 pg (26-34); Mean Corpuscular Volume 90.6 fl (80-100); Nucleated Red Blood Cells Absolute Auto 0.000 K/mm3 (0.0-0.012); Nucleated Red Blood Cells Perc 0.0 % (0.0-0.2); Platelet Count Result 197 k/mm3 (150-375); Red Blood Count 5.24 M/mm3 (4.6-6.20); White Blood Count 12.8 K/mm3 (4.5-10.0)
[2025-10-05 19:58] LABS: Alanine Aminotransferase 35 U/L (6-50); Albumin Level 4.5 g/dL (3.5-5.1); Alkaline Phosphatase 98 U/L (38-126); Anion Gap 7 mmol/L (4-12); Aspartate Amino Transferase 30 U/L (17-59); Bilirubin,Total 0.9 mg/dL (0.2-1.3); Blood Urea Nitrogen 16 mg/dL (9-20); Calcium 9.2 mg/dL (8.4-10.2); Carbon Dioxide 27 mmol/L (22-30); Chloride 104 mmol/L (98-107); Estimated CRCL calculation 74 ml/min; Estimated Glomerular Filt Rate > 60; Glucose 115 mg/dL (65-110); Lipase 57 U/L (23-300); Potassium 4.1 mmol/L (3.4-5.0); Sodium 138 mmol/L (137-145); Total Protein 8.2 g/dL (6.3-8.2)
--- OUTSIDE RECORDS SUMMARY | 2025-10-05 20:18 | XMS_ITS | Data Portability ---
Author Organization [place] - S [employer], Main Office Address [address] [place] [address] Care Team Providers Care Personal Loan Specialist Name Role Phone LUCILA NOVAK Primary Care Provider [phone] Assessment Encounter Date Assessment Date Assessment LastModified by Organization Details LastModified Time 03/18/2023 03/18/2023 Blood work ordered continue current therapy follow-up in 3 months [email or web address] Not available 03/18/2023 20:57:21 06/17/2023 06/17/2023 Continue current therapy follow-up in 4 months caloric restriction regular exercise [email or web address] Not available 06/22/2023 14:46:25 10/07/2023 10/07/2023 Blood work ordered continue current therapy appears to be doing well continues to follow with specialist see me back 4 months he states he will call to make appointment [email or web address] Not available 10/07/2023 22:21:13 Plan of Treatment Reminders Order Date Submit Date Provider Last Modified By Organization Details Last Modified Time Details Appointments None recorded . Lab PSA, total, serum or plasma 023 10/07/[address], [address] [place] [address], [address], 4 18:49:16 T3, free, serum or plasma 023 10/07/[address], [address] [place] [address], [address], 4 18:49:15 TSH, serum or plasma 023 10/07/[address], [address] [place] [address], [address], 4 18:49:15 T4, free, serum 023 10/07/[address], [address] [place], [address], 4 18:49:15 CMP, serum or plasma 023 10/07/[address], [address] [place], [address], 4 18:49:16 CBC w/ auto diff 023 10/07/[address], [address] [place], [address], 4 18:49:16 lipid panel, serum 023 10/07/20 23 [facility], [address] [place], [address], 3 10:45:44 T4, free, serum 023 03/18/20 23 [facility] (Lab), [address] [place], [address], 3 09:23:04 TSH, serum or plasma 023 03/18/20 23 [facility] (Lab), [address] [place], [address], 3 09:23:04 lipid panel, serum 023 03/18/20 23 [facility] (Lab), [address] [place], [address], 3 09:22:48 CMP, serum or plasma 023 03/18/20 23 [facility] (Lab), [address] [place], [address], 3 09:23:04 CBC w/ auto diff 023 03/18/20 [facility] (Lab), [address] [place], [address], 3 09:23:04 T3, free, serum or plasma 023 03/18/20 [facility] (Lab), [address] [place], [address], 3 09:23:05 Referral None recorded . Procedures [...] view No observ ation record ed. MIGRATION. [facility] [address], [place], [address], 01/23/2023 03:26:14 10/30/20 22 10/30/2022 XR, elbow , 3 or more view No observ ation record ed. MIGRATION. [facility] [address], [place], [address], 01/23/2023 03:26:14 11/05/20 22 11/05/2022 CT, abdom en + pelvi s, w/ contr ast No observ ation record ed. [id number], [place], [address], 01/23/2023 03:26:14 11/08/20 22 11/08/2022 XR, abdom en No observ ation record ed. [id number], [place], [address], 01/23/2023 03:26:14 11/08/20 22 11/08/2022 XR, chest No observ ation record ed. [id number], [place], [address], 01/23/2023 03:26:14 11/08/20 22 11/08/2022 XR, kidne y + urete r + bladd er No observ ation record ed. [id number], [place], [address], 01/23/2023 03:26:14 11/09/20 22 11/09/2022 XR, abdom en No observ ation record ed. [id number] [place] [address] [address], [place], [address], 01/23/2023 03:26:14 12/28/19 23 12/17/2022 PET-C T, skull base to mid-t high scan No observ ation record ed. [id number] Not Available 01/23/2023 03:26:14 06/05/20 23 06/05/2023 CT, abdom en + pelvi s, w/ contr ast No observ ation record ed. [email or web address] [facility] [address], [place], [address], 06/18/2023 09:28:06 06/05/20 23 06/05/2023 CT, abdom en + pelvi s, w/ contr ast No observ ation record ed. [email or web address] [facility] [address], [place], [address], 06/18/2023 09:28:30 11/07/20 23 11/07/2023 CT, abdom en + pelvi s, w/ contr ast No observ ation record ed. [address], [place], [address], 11/20/2023 08:54:09 05/30/20 24 05/29/2024 CT, abdom en + pelvi s, w/ contr ast No observ ation record ed. [email or web address] [facility] [address], [place], [address], 06/07/2024 10:53:47 Result Notes None recorded. Problems Name Problem SNOMED Code Status Onset Date Resolution Date Notes Provider Name and Address Organization Details Recorded Time Benign essential hypertensi on 2385080 Active Not Available [facility] 3 03:16:26 Rectal hemorrhage 53078926 Active Not Available [facility] 3 03:16:26 Hyperchole sterolemia 38363781 Active Not Available [facility] 3 03:16:26 Disorder of thyroid gland 31579339 Active Not Available [facility] 3 03:16:26 Abdominal pain 28625483 Active Not Available [facility] 3 03:16:27 Morbid obesity 795379896 Active Not Available [facility] 3 03:16:27 Osteoarthr itis 426735042 Active Not Available [facility] 3 03:16:27 Hypothyroi dism 40708005 Active Not Available [facility] 3 03:16:27 Hand pain 91918192 Active Not Available [facility] 3 03:16:27 Hypercalce josé 72173158 Active Not Available [facility] 3 03:16:28 Elbow tendinopat hy 90101615 Active Not Available [facility] 3 03:16:28 Obstructiv e sleep apnea syndrome 98629223 Active Not Available [facility] 3 03:16:28 Fatigue 47106406 Active Not Available [facility] 3 03:16:28 Venous insufficie ncy of lower limb 188188199 Active 2017 Not Available [facility] 3 03:16:27 Left Achilles tendinitis 9542195960727 02 Active 2018 Not Available [facility] 3 03:16:27 Cough 75089093 Active 2021 Not Available [facility] 3 03:16:27 Standard chest X-ray abnormal 488688703 Active 2021 Not Available [facility] 3 03:16:27 Skin lesion 33831174 Active 2021 Not Available [facility] 3 03:16:28 Hypertensi ve disorder 51609177 Active 2021 Not Available [facility] 3 03:16:27 Essential hypertensi on 72524605 Active 2021 Not Available [facility] 3 03:16:27 Pain of shoulder region 96359611 Active 2021 Not Available [facility] 3 03:16:27 Pain of elbow region 31259515 Active 2021 Not Available [facility] 3 03:16:28 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 Not Available [facility] 3 03:16:28 Pain in left foot 3448705257906 07 Active 2022 Not Available [facility] 3 03:16:27 Pain in right foot 5137455266140 07 Active 2022 Not Available [facility] 3 03:16:27 Hyperlipid emia 71929187 Active 2022 Taya Flanagan null, [place] [facility] [place] [facility] 3 12:50:42 Foot pain 94530182 Active 2022 Taya Flanagan null, [place] [facility] [place] [facility] 3 12:52:34 Pain of left wrist 4098581722186 02 Active 2022 Hui Coronado RN null, [place] [facility] 3 10:56:48 Hyperglyce josé 40330220 Active 2022 Sendy Briggs null, [place] [facility] 3 13:38:20 Arthritis 5774622 Active 2022 PAULA Hammond null, [place] [facility] 3 11:24:41 Notes:Medical History: Obesi ty with mild OSAHS, AHI = 10, 06/27/22, on autoCPAP c/o [employer] Hypothyroidism Hyperlipidemia Hypertension Left hemidiaphragm eventration Mild thoracic dextroscoliosis Thoracic degenerative disc disease. 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 Procedures Surgical History Date Name Laterality Status Provider Name and Address Organization Details Recorded Time Lasik completed Not Available [facility] 11/2022 03:08:08 Imaging Results None recorded. Procedure Notes None recorded. Medical Equipment None Reported. Allergies Allergen ID Allergen Name Allergen Category Reaction Reaction Severity Criticality Documentation Date Start Date Code Code System Note Provider Name and Address Organization Details Recorded Time 5806 nifedipin e medicatio n rash Not available Not available 01/23/2023 7417 RxNorm Not Available [facility] 3 03:25:46 5807 lisinopri l medicatio n facial swelling Not available Not available 01/23/2023 72685 RxNorm Not Available [facility] 3 03:25:46 5808 Coreg medicatio n rash Not available Not available 01/23/2023 59637 1 RxNorm Not Available [facility] 3 03:25:46 Medications Name Sig Start [...] No t Available Besivance 0.6 % eye drops,[facility] active Not Available Not Available Not Available Prolensa 0.07 % eye drops active Not Available Not Available No t Available Lotemax SM 0.38 % eye gel drops active Not Available Not Available Not Available Vitals Date Recorded Body mass index (BMI) Body height Heart rate Body temperature Body weight Systolic And Diastolic Provider Name and Address Organization Details Last Updated DateTime 3 47.9 kg/m2 167.64 cm 70 /min 97.6 [degF] 468368. 93 g 122/86 mm[Hg] Not Available [facility] 3 03:14:42 Date Recorded Body mass index (BMI) Body height Heart rate Body temperature Body weight Systolic And Diastolic Provider Name and Address Organization Details Last Updated DateTime 3 48.4 kg/m2 167.64 cm 68 /min 97.6 [degF] 159958. 71 g 120/80 mm[Hg] Not Available [facility] 3 03:14:42 Date Recorded Heart rate Systolic And Diastolic Provider Name and Address Organization Details Last Updated DateTime 02/21/2023 63 /min 138/82 mm[Hg] Virginia Alvarado [facility] [employer] [facility] 02/21/2023 11:27:40 Date Recorded Body height Body mass index (BMI) Body weight Body temperature Heart rate Systolic And Diastolic Provider Name and Address Organization Details Last Updated DateTime 3 167.64 cm 48.4 kg/m2 318836. 71 g 97.9 [degF] 61 /min 130/86 mm[Hg] Virginia Alvarado JACINTALiana [facility] [employer] [facility] 3 14:10:21 Date Recorded Heart rate Heart rate Systolic And Diastolic Systolic And Diastolic Provider Name and Address Organization Details Last Updated DateTime 05/21/2023 60 /min 60 /min 152/90 mm[Hg] 150/82 mm[Hg] Virginia Alvarado [facility] [employer] [facility] 05/21/2023 16:20:05 Date Recorded Body height Body mass index (BMI) Body weight Body temperature Heart rate Systolic And Diastolic Provider Name and Address Organization Details Last Updated DateTime 3 167.64 cm 47.6 kg/m2 972089. 75 g 98.3 [degF] 73 /min 126/72 mm[Hg] Hui acevedo RN [facility] [employer] [facility] 3 14:31:29 Date Recorded Body height Body mass index (BMI) Body weight Body temperature Heart rate Systolic And Diastolic Provider Name and Address Organization Details Last Updated DateTime 3 167.64 cm 48.3 kg/m2 866335. 12 g 97.8 [degF] 63 /min 128/86 mm[Hg] Virginia Alvarado Liana [facility] [employer] [facility] 3 10:39:26 Social History Question Answer Notes LastModified by Organizat ion Details LastModified Time Tobacco Smoking Status Never Smoker Not Available [facility] 01/23/2023 03:04:50 Do You Have An Advance Directive? No [id number].46371 [id number] Information not available 01/23/2023 Are You Blind Or Do You Have Difficulty Seeing? No Information not available 06/17/2023 What Is Your Level Of Caffeine Consumption? Occasional MIGRATION.81213 54948 Information not available 01/23/2023 How Much Tobacco Do You Chew? None MIGRATION.39805 18150 Information not available 01/23/2023 In The 14 Days Before Symptom Onset, Have You Had Close Contact With A Laboratory-confi rmed COVID-19 While That Case Was Ill? No MIGRATION.37596 09795 Information not available 01/23/2023 In The 14 Days Before Symptom Onset, Have You Had Close Contact With A Person Who Is Under Investigation For COVID-19 While That Person Was Ill? No MIGRATION.81181 85309 Information not available 01/23/2023 Are You Deaf Or Do You Have Serious Difficulty Hearing? No Information not available 06/17/2023 What Type Of Diet Are You Following? REGULAR MIGRATION.25720 83444 Information not available 01/23/2023 Which Illicit Or Recreational Drugs Have You Used? None MIGRATION.39884 84306 Information not available 01/23/2023 What Is The Highest Grade Or Level Of School You Have Completed Or The Highest Degree You Have Received? [id number] MIGRATION.21814 48078 Information not available 01/23/2023 Have There Been Any Changes To Your Family Or Social Situation? No MIGRATION.78460 29971 Information not available 01/23/2023 What Is The Fluoride Status Of Your Home? Unknown MIGRATION.34539 28582 Information not available 01/23/2023 Are There Any Guns Present In Your Home? No MIGRATION.47643 72244 Information not available 01/23/2023 Do You Use Insect Repellent Routinely? No MIGRATION.78948 59853 Information not available 01/23/2023 Where Do You Live? [place] MIGRATION.81761 76947 Information not available 01/23/2023 Do You Have A Medical Power Of Tooth Cutter Spur? No MIGRATION.74147 91146 Information not available 01/23/2023 What Was The Date Of Your Most Recent Tobacco Screening? 10/07/2023 [email or web address] Information not available 10/07/2023 Do You Have Any Pets? Yes MIGRATION.18134 87272 Information not available 01/23/2023 What Is Your Relationship Status? Information not available 06/17/2023 Do You Use Your Seat Belt Or Car Seat Routinely? Yes MIGRATION.61848 04856 Information not available 01/23/2023 Do You Have Smoke And Carbon Monoxide Detectors In Your Home? Yes MIGRATION.54880 28714 Information not available 01/23/2023 Are You Passively Exposed To Smoke? No MIGRATION.36217 76342 Information not available 01/23/2023 Are There Any Smokers In Your House? No MIGRATION.39544 11474 Information not available 01/23/2023 How Much Tobacco Do You Smoke? No MIGRATION.73054 77175 Information not available 01/23/2023 What Types Of Sporting Activities Do You Participate In? None MIGRATION.51690 57129 Information not available 01/23/2023 Do You Use Sunscreen Routinely? No MIGRATION.95784 04183 Information not available 01/23/2023 Has Tobacco Cessation Counseling Been Provided? No Not Needed-ne guy Smoked MIGRATION.61229 85417 Information not available 01/23/2023 How Many Years Have You Smoked Tobacco? 0 MIGRATION.15772 88594 Information not available 01/23/2023 Have You Recently Traveled Abroad? No MIGRATION.25914 28404 Information not available 01/23/2023 Do You Have Difficulty Walking Or Climbing Stairs? No Information not available 06/17/2023 Do You Have Any Dietary Restrictions? No MIGRATION.80496 65557 Information not available 01/23/2023 Sex: Male Functional Status Question Answer Note LastModified by Organizat ion Details LastModified Time Do you or have you ever used smokeless tobacco? Never used smokeless tobacco MIGRATION.749614 0353 Information not available 01/23/2023 Are you currently employed? Yes Information not available 06/17/2023 Do you have transportation difficulties? No Information not available 06/17/2023 Are you able to care for yourself independently? Yes Information not available 06/17/2023 Do you have difficulty dressing, bathing, grooming, or toileting? No Information not available 06/17/2023 Do you or have you ever used e-cigarettes or vape? Never used electronic cigarettes MIGRATION.320804 9567 Information not available 01/23/2023 What is your exercise level? Occasional MIGRATION.385377 9921 Information not available 01/23/2023 Do you use any illicit or recreational drugs? No MIGRATION.509678 6331 Information not available 01/23/2023 Do you or have you ever used any other forms of tobacco or nicotine? No MIGRATION.953288 3250 Information not available 01/23/2023 What is your level of alcohol consumption? None MIGRATION.573054 7936 Information not available 01/23/2023 Are you able to walk independently without assistance or assistive devices? YESWOREST Information not available 06/17/2023 Do you have difficulty doing errands alone? 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 [id number] MIGRATION.[id number] 26 Information not available 01/23/2023 Do you have difficulty concentrating, remembering or making decisions? No Information no t available 06/17/2023 Family History Relationship Description Onset Age of this Age Resolved Age Notes LastModified by Organization Details LastModified Time Father Dementia MIGRATION.591 [id number] Not available 01/23/2023 03:08:14 Mother Rheumatoid arthritis MIGRATION.746 [id number] Not available 01/23/2023 03:08:14 Brother Carcinoma of urinary bladder MIGRATION.048 [id number] Not available 01/23/2023 03:08:15 Medical History Condition Response NERVE DISEASE N BLINDNESS N RHEUMATIC FEVER N KIDNEY STONES N BLADDER PROBLEMS N MRSA N OTHER # 1 Y POLIO N LUNG DISEASE/DISORDER N COPD N RADIATION / CHEMOTHERAPY N Other # 2 Y BLOOD DISEASES N SURGERY N EAR OR HEARING PROBLEMS N MUMPS N DEPRESSION (INCLUDING POST ) N BOWEL PROBLEMS N STROKE/TIA N ULCERS N BENIGN PROSTATIC [...] INSOMNIA N HIGH CHOLESTEROL / HYPERLIPIDEMIA Y HYPERTHYROIDISM N EYE PROBLEMS N NEUROLOGICAL PROBLEMS N EDEMA N CHRONIC PAIN SYNDROME N HYPOTHYROIDISM Y CONSTIPATION N CAROTID BLOCKAGE N BACK / NECK PROBLEMS N HAVE YOU BEEN HOSPITALIZED OR SEEN IN [facility] ER IN THE PAST YEAR ? N ATHEROSCLEROSIS N BREAST PROBLEMS N DIALYSIS N ECZEMA N OSTEOPOROSIS N ARTHRITIS N NO SIGNIFICANT PAST MEDICAL HISTORY N APPENDICITIS N DIABETES, TYPE N BAD TEETH N ENT N HEARTBURN / REFLUX N AUTISM SPECTRUM DISORDER (ASD) N HEPATITIS / LIVER DISEASE N GOUT N SLEEP DISORDER N ALZHEIMER'S DISEASE N Brain Problems N HERPES N DEMENTIA N SEIZURES/EPILEPSY N HEADACHES/MIGRAINES N VASCULAR DISEASE N PACEMAKER N Blood Disorder N DIZZINESS N KIDNEY DISEASE N HEART DISEASE/HEART PROBLEMS N MULTIPLE SCLEROSIS N CARDIAC ARRHYTHMIA N CANCER: SPECIFY N Gall Stones N ATRIAL FIBRILLATION N PULMONARY EMBOLISM N AUTOIMMUNE DISEASE N Past Encounters Encounter ID Performer Location Encounter Start Date Encounter Closed Date Diagnosis/Indication Diagnosis SNOMED-CT Code Diagnosis ICD10 Code Diagnosis IMO Codes Diagnosis Note [id number] Lucila Novak MD [facility] Internal Med [facility] [address] [place] [address] [place] [place] [address] 04/27/2021 00:00:00 04/27/2021 21:12:[id number] [facility] Internal Med [facility] [address] [address] 10/30/2021 00:00:00 11/26/2021 12:39:[id number] [facility] Internal Med Masha ash [address] [place] [address] [place] [address] 04/12/2022 00:00:00 05/05/2022 16:01:[id number] [facility] Internal Med [facility] [address] [address] 04/19/2022 00:00:00 04/19/2022 17:14:39 [id number] Lucila Novak MD [facility] Internal Med [facility] [address] [place], [place] [address]., [address] [address] 06/22/2022 00:00:00 06/22/2022 18:11:36 [id number] Lucila Novak MD [facility] Internal Med [facility] [address] [place] [address], [address] [address] 07/20/2022 00:00:00 07/21/2022 18:20:36 [id number] Dawood Franco [facility] [address] [place] [address] 07/26/2022 00:00:00 07/26/2022 16:13:54 [id number] Lucila Novak MD [facility] Internal Med [facility] [address] [place] [address], [address] [address] 09/13/2022 00:00:00 09/13/2022 22:51:56 [id number] Lucila Novak MD [facility] Internal Med [facility] [address] [place] [address], [address] [address] 10/30/2022 00:00:00 11/17/2022 09:25:40 [id number] Lucila Novak MD [facility] Internal Med [facility] [address] [place] [address], [address] [address] 11/30/2022 00:00:00 12/02/2022 16:22:06 [id number] Lucila Novak MD [facility] Internal Med [facility] [address] [place] [address], [address] [address] 12/28/2022 00:00:00 12/28/2022 23:11:52 [id number] Lucila Novak MD [facility] Internal Med [facility] [address] [place] [address]., [address] [address] 03/18/2023 13:57:52 03/18/2023 14:55:39 Benign essential hypertension 7258715 I10 Neuroendoc rine neoplasm of appendix 946234393 D3A.8 Venous ins ufficiency of lower limb 014467398 I87.2 Hyperlipidemia 61740671 E78.[id number] [facility] Internal Med [facility] [address] [facility] [address] [address] [place] [address] 06/17/2023 14:18:04 06/17/2023 14:53:13 Venous insufficiency of lower limb 623615527 I87.2 Benign ess ential hypertension 6357154 I10 Hypercholesterolemia 136 63847 E78.00 Hypothyroidism 00311314 E03.9 Morbid obesity 347353850 E66.[id number] [facility] Internal Med [facility] [address] [facility], [facility] [address] [place] [address] 10/07/2023 10:24:47 10/07/2023 11:26:25 Benign essential hypertension 7309561 I10 Screening for malignant neoplasm of prostate 227211136 Z12.5 Venous ins ufficiency of lower limb 290388509 I87.2 Health Concerns Section Related Observation LastModified by Organization Detai ls LastModified Time None Recorded Concern Status LastModified by Organization Details LastModified Time None Recorded Advance Directives Directive N: Payers Insurance Date Sequence Insurance Name Policy Number Policy Garcia Covered Member ID Garcia Member ID Guarantor Name 10/04/2023 1 [facility] [id number] Mayur Lomas Tinervia [id number] Mayur Lomas Tinervia 10/07/2023 2 MEDICARE-ND (MEDICARE) Mayur Lomas Tinervia [id number] Mayur Lomas Tinervia Notes Date Note Type Note Provider Name and Address Organization Details Recorded Time 3 text/html Interval history his in her sleep he is doing as good as can be expectedNeuroendocrine neoplasm of appendix following with Oncology no abdominal painHypertension no headache no dizzinessVenous insufficiency legs about the sameHyperlipidemia trying to watch diet Lucila Novak MD [address] [facility], [address], [place], [address], [place] - [place] [employer] 03/18/2023 20:57:44 3 text/html Hypertension no headache no dizziness. Dyslipidemia try to lose weight. Hypothyroid: Dullness. Heart obesity try to cut back on calories. Venous insufficiency legs he tries to stay active. Neuro endocrine tumor GI tract follows with specialist Lucila Novak MD [address], [place], [address], [employer] [facility] 06/22/2023 14:46:54 3 text/html Hypertension no headache or dizziness sleep apnea using CPAP venous insufficiency about the same. Obesity trying to lose weight foot pain from spur Lucila Novak MD [address], [place], [address], [employer] [facility] 10/07/2023 22:21:32
--- OUTSIDE RECORDS SUMMARY | 2025-10-05 20:18 | XMS_ITS | Clinical Summary ---
Author Organization [facility] Address [address] [place] [address] Care Team Providers Care Consulting Actuary Name Role Phone Unavailable Primary Care Provider Unavailabl e Source Comments [facility],non-owned Affiliates and Associated Physician Practices is amultiple site organization consisting of ambulatory clinics and hospital sitesin [place], [place], [place] and [place]. This disclosure is being madepursuant to the Care Everywhere program and may not contain all information available regarding this patient. 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
--- OUTSIDE RECORDS SUMMARY | 2025-10-05 20:19 | XMS_ITS ---
Author Organization [facility] Address [address] [place] [address] Care Team Providers Care Manufacturing Applications Engineer Name Role Phone Devan Mcnulty DO Unavailable [phone] Torres Salinas DO Unavailable [phone] Ye Novak MD Primary Care Provider [phone] Active Problems Problem Noted Date Diagnosed Date [...]
--- OUTSIDE RECORDS SUMMARY | 2025-10-05 20:19 | XMS_ITS | Clinical Summary ---
Author Organization [facility] Address [address] [place] [address] Care Team Providers Care Head Counselor Name Role Phone Devan Mcnulty DO Unavailable [phone] BradTorres DO Unavailable [phone] Ye Novak MD Primary Care Provider [phone] Allergies Active Allergy Reactions Criticality Noted Date Comments Lisinopril Swelling,Rash Medium 09/16/2023 Medications atorvastatin (LIPITOR) 10 mg [...] Encounters Date Type Department Care Team Description 09/02/2025 Telephone 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); 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) 08/11/2025 [facility] [address] [place] [address] [address] [place] [phone] Myranda Leon RN 08/11/2025 Orders Only [facility] [address] [place] [address] [address] [place] [phone] Nick Champagne MD 08/02/2025 - 08/02/2025 11:59 PM CDT Hospital Encounter [facility] [employer] [address] [place] [address] Discharge Disposition: Discharge to home or self care 08/02/2025 Orders Only [facility] [address] [place] [address] [address] [place] [address] Nick Champagne MD 07/15/2025 Telephone [facility] [address] [place] [address] [address] [place] [phone] Yulisa Roche, KELLY from Last 3 Months Surgical History Surgery [...] Given: Not Answered AUDIT-C Answer Date Recorded Frequency of Alcohol Consumption Not on file 08/11/2025 Q2: How many drinks containi ng alcohol do you have on a typical day when you are drinking? 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 Not on file Not on file Not on file Last Filed Vital Signs Vital Sign Reading Time Taken Comments Blood Pressure 145/79 08/11/2025 10:14 AM CDT Pulse 59 08/11/2025 10:14 AM CDT Temperature 36.6 C (97.8 F) 08/11/2025 10:14 AM CDT Respiratory Rate 18 08/11/2025 10:1 4 AM CDT Oxygen Saturation 94% 08/11/2025 10: 14 AM CDT Inhaled Oxygen Concentration - - Weight 144.6 kg (318 lb 12.6 oz) 2024 10:14 AM CDT Height 165.1 cm (5' 5) 03/25/2025 10:5 8 AM CDT no shoes Body Mass Index 53.05 03/25/2025 10:58 AM CDT Plan of Treatment Health Maintenance Due Date Last Done Comments Colon Cancer Screening-Colonoscopy 1958 Depression Screening 1958 Fall Risk Assessment 1958 Hepatitis C Screening 1958 Prostate Cancer Screening-PSA 1958 DTaP/Tdap/Td Vaccine (1 - Tdap) 1969 Hepatitis B Screening 1976 Pneumococcal vaccine 65+ (1 of 2 - PCV) 1977 Zoster Vaccine (1 of 2) 1977 Well Visit 65+ 2023 Influenza Vaccine (#1) 2025 Procedures Procedure Name Priority Date/Time Associated Diagnosis Comments EGFR Routine 08/11/2025 9:28 AM CDT 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) DIFFERENTIAL AUTO Routine 08/11/2025 9:2 8 AM CDT 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) CBC WITH AUTO DIFFERENTIAL Routine 08/11/2025 9:28 AM CDT 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) COMPREHENSIVE METABOLIC PANEL Routine 08/11/2025 9:28 AM CDT 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 73 m2 Comment: Interpretive Data [...] was last reviewed 2021. Testing performed by: [facility], [address] [place] [address]., [address] Blood 08/11/2025 9:28 AM CDT 08/11/2025 9:30 AM CDT Devan Mcnulty DO LAB BLOOD ORDERABLES Final R esult [facility] [address] [facility] Department [place] [address] * (ABNORMAL) Differential, auto (08/11/2025 9:28 AM CDT) Neutrophil abs 7.42(H) 1.50 - 6.50 K/cumm Comment:Testing performed by : [address] [address] Imm gran abs 0.03 0.00 - 0.10 K/cumm TIO Comment:Testing performed by : [address] [address] Lymphocyte abs 1.31 0.80 - 3.30 K/cumm TIO Comment:Testing performed by : [address] [address] Monocyte abs 0.83(H) 0.20 - 0.80 K/cumm TIO Comment:Testing performed by : [address] [address] Eosinophil abs 0.04 0.00 - 0.50 K/cumm TIO Comment:Testing performed by : [address] [address] Basophil abs 0.02 0.00 - 0.10 K/cumm TIO Comment:Testing performed by : [address] [address] Neutrophil pct 76.9 % TIO Comment: Interpretive Data Percent cell count reference ranges are not reported, since discordance with absolute values may lead to misinterpretation of CBC data. Current Interpretive Data was last revised on 2018. Testing performed by: [address] [address] Imm gran pct 0.3 % TIO Comment: Interpretive Data Percent cell count reference ranges are not reported, since discordance with absolute values may lead to misinterpretation of CBC data. Current Interpretive Data was last revised on 2018. Testing performed by: [address] [address] Lymphocyte pct 13.6 % TIO Comment: Interpretive Data Percent cell count reference ranges are not reported, since discordance with absolute values may lead to misinterpretation of CBC data. Current Interpretive Data was last revised on 2018. Testing performed by: [address] [address] Monocyte pct 8.6 % TIO Comment: Interpretive Data Percent cell count reference ranges are not reported, since discordance with absolute values may lead to misinterpretation of CBC data. Current Interpretive Data was last revised on 2018. Testing performed by: [address] [address] Eosinophil pct 0.4 % TIO Comment: Interpretive Data Percent cell count reference ranges are not reported, since discordance with absolute values may lead to misinterpretation of CBC data. Current Interpretive Data was last revised on 2018. Testing performed by: [address] [address] Basophil pct 0.2 % TIO Comment: Interpretive Data Percent cell count reference ranges are not reported, since discordance with absolute values may lead to misinterpretation of CBC data. Current Interpretive Data was last revised on 2018. Testing performed by: [address] [address] Blood 08/11/2025 9:28 AM CDT 08/11/2025 9:30 AM CDT us Devan Mcnulty DO LAB BLOOD ORDERABLES Final R esult [facility] [address] [facility] Department [place] [address] * Chromogranin A (08/11/2025 9:28 AM CDT) Chromogranin A 87 <93 ng/mL [facility] ref Lab Comment: ADDITIONAL INFORMATION The testing method is a homogeneous time-resolved immunofluorescent assay manufactured by [employer] and performed on the [employer] Kryptor Compact Plus. Values obtained with different [...] examination and other findings. Test Performed by: [place] [address] Harbor Tug Captain: Marissa Campbell Ph.D.; CLIA# [id number] Testing performed by: [address] [address] Blood 08/11/2025 9:28 AM CDT 08/11/2025 9:30 AM CDT us Devan Mcnulty DO LAB BLOOD ORDERABLES Final R esult [facility] [address] [facility] Department [place] [address] [facility] * (ABNORMAL) CBC with auto differential (08/11/2025 9:28 AM CDT) Pathologist [facility] WBC 9.65 3.80 - 9.90 K/cumm Comment:Testing performed by : [address] [address] Hgb 13.7 13.0 - 17.5 g/dL [facility] Comment:Testing performed by : [address] [address] Hct 41.2 38.9 - 50.3 % TIO Comment:Testing performed by : [address] [address] Plt 169 150 - 400 K/cumm TIO Comment:Testing performed by : [address] [address] MPV 11.5 9.1 - 12.3 fL TIO Comment:Testing performed by : [address] [address] RBC 4.61 4.30 - 5.80 M/cumm TIO Comment:Testing performed by : [address] [address] MCV 89.4 81.3 - 96.4 fL TIO Comment:Testing performed by : [address] [address] MCH 29.7 27.1 - 33.3 pg TIO Comment:Testing performed by : [address] [address] MCHC 33.3 32.3 - 35.7 g/dL TIO Comment:Testing performed by : [address] [address] RDW CV 14.6 11.1 - 14.9 % TIO Comment:Testing performed by : [address] [address] RDW SD 47.1 35.7 - 48.1 fL TIO Comment:Testing performed by : [address] [address] NRBC abs 0.00 0.00 - 0.01 K/cumm TIO Comment:Testing performed by : [address] [address] ANC Prelim 7.42(H) 1.50 - 6.50 K/cumm TIO Comment: Interpretive Data The rapid ANC is a preliminary automated count and may vary from the final ANC (Neut Abs) reported in the WBC differential that follows. Current interpretive data was last revised 2025. Testing performed by: [address], [address] Blood 08/11/2025 9:28 AM CDT 08/11/2025 9:30 AM CDT Devan Mcnulty DO LAB BLOOD ORDERABLES Final R esult [facility] [address] [facility] Department [place] [address] * Comprehensive metabolic panel (08/11/2025 9:28 AM CDT) Sodium 140 135 - 145 mmol/L Comment:Testing performed by : [address] [address] Potassium, pl 3.7 3.3 - 4.9 mmol/L TIO Comment:Testing performed by : [address] [address] Chloride 107 97 - 110 mmol/L TIO Comment:Testing performed by : [address] [address] CO2 22 22 - 32 mmol/L TIO Comment:Testing performed by : [address] [address] Anion gap 11 2 - 15 mmol/L TIO Comment:Testing performed by : [address] [address] BUN 17 6 - 25 mg/dL TIO Comment:Testing performed by : [address] [address] Creatinine 1.20 0.80 - 1.30 mg/dL TIO Comment:Testing performed by : [address] [address] Glucose 117 70 - 199 mg/dL TIO Comment: Interpretive [...] was last revised 2022. Testing performed by: [address] [address] Calcium 9.0 8.5 - 10.3 mg/dL TIO Comment:Testing performed by : [address] [address] Bilirubin, total 0.5 0.1 - 1.2 mg/dL TIO Comment:Testing performed by : [address] [address] Protein, pl 7.2 6.5 - 8.5 g/dL TIO Comment:Testing performed by : [address] [address] Albumin 4.1 3.5 - 5.0 g/dL TIO Comment:Testing performed by : [address] [address] Alk phos 93 40 - 130 Units/L TIO Comment:Testing performed by : [address] [address] ALT 23 7 - 55 Units/L TIO Comment:Testing performed by : [address] [address] AST 20 10 - 50 Units/L [facility] Comment:Testing performed by : [address] [address] Blood 08/11/2025 9:28 AM CDT 08/11/2025 9:30 AM CDT Devan Mcnulty DO LAB BLOOD ORDERABLES Final R esult [facility] [address] [facility] Department [place] [address] * POCT creatinine for contrast evaluation (08/02/2025 3:27 PM CDT) Blood Historical Provider POINT OF CARE TEST ORDERA BLES Final Result * CT Abdomen Pelvis W Contrast (08/02/2025 10:45 AM CDT) Anatomical Region Laterality Modality Body N/A Computed Tomogra phy Historical Provider MD IMG CT PROCEDURES Final R esult * CT Body Outside Reference (08/02/2025 12:00 AM CDT) Narrative EMANUEL_MHB_MHE - 08/12/2025 12:00 PM CDT This order has been auto-finalized and does not contain a result. us Provider Transcribed Order IMG CT PROCEDURES Fin al Result RAD_MARIA ALEJANDRA_MHB_MHE from Last 3 Months Insurance Schoology PPO Schoology PPO Care Teams Head Counselor Relationship Specialty Start Date End Date Ye Novak MD [address] [facility] [address] [facility] [address] [place] [address] PCP - General Internal Medicine 12/06/22 Devan Mcnulty DO [address] [place] [address] MEDICAL ONCOLOGY, [address] [address] Medical Oncologist/Paleontology Teacher Hematology and Oncology 12/06/22 Torres Salinas DO [address] [facility] [address] [facility] [address] [place] [address] Surgeon Surgery 12/06/22
--- OUTSIDE RECORDS SUMMARY | 2025-10-05 20:19 | XMS_ITS | Clinical Summary ---
Author Organization [facility] Address [address] [place] [address] Care Team Providers Care Professor/Nurse Anesthetist Name Role Phone Joey Mccarty MD Primary [...] Td Vaccines ( 1 - Tdap) 1977 Pneumococcal Vaccine: 50+ Ye ars (1 of 1 - PCV) 2008 Zoster Vaccines (1 of 2) 2008 COVID-19 Vaccine (1 - 2024-2 6 season) 2025 Influenza Adult (#1) 2025 RSV Immunization or 60+ Years (1 - 1-dose 75+ series) 2033 Hepatitis A Vaccines Aged Out No long er eligible based on patient's age to complete this topic Meningococcal B Vaccine Aged Out No l onger eligible based on patient's age to complete this topic Meningococcal Vaccine Aged Out No sherry yudy eligible based on patient's age to complete this topic RSV Immunizations Under 20 Months Aged Out No longer eligible based on patient's age to complete this topic Care Teams Professor/Nurse Anesthetist Relationship Specialty Start Date End Date Joey Mccarty MD PCP - General 05/05/12
--- NOTE | 2025-10-05 20:27 | ED.NAVMDI ---
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 Patient reports he has been having intermittent cramping pain throughout his abdomen for the past 1 month. Has also been having persistent diarrhea for the past 1 month. Last had a bowel movement this morning. States he has not been passing any gas throughout the day today since his last BM. Began having nausea, vomiting around 10 a.m. which has persisted throughout the day today. Has been unable to keep down any food or drink. Denies rectal bleeding, melena, hematemesis, fevers. <SELINA Solano Last Filed: 10/06/25 00:49> Related Data Home medications: Home Medications ?Medication ?Instructions ?Recorded ?Confirmed ?Last Taken ?Type atorvastatin 10 mg tablet 10 mg PO DAILY 11/05/22 10/06/25 10/05/25 History levothyroxine 175 mcg tablet 175 mcg PO DAILY 11/05/22 10/06/25 10/05/25 History nebivolol 5 mg tablet 5 mg PO DAILY 11/05/22 10/06/25 10/05/25 History <SELINA Solano Last Filed: 10/06/25 00:49> Allergies/Adverse reactions: Allergies Allergy/AdvReac Type Severity Reaction Status Date / Time lisinopril Allergy Intermediate Rash Verified 10/06/25 01:02 <Sonja Park PA-C - Last Filed: 10/06/25 00:49> Review of Systems Review of Systems: All systems reviewed & are unremarkable except as noted in HPI. 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) RAJEEV (obstructive sleep apnea) Reports having mild RAJEEV but has never required a CPAP Kidney stones Hypothyroidism Hyperlipidemia Hypertension <Sonja Park PA-C - Last Filed: 10/06/25 00:49> Surgical History Surgical History: Surgical History History of exploratory laparotomy 11/06/22 Exploratory laparotomy, ileal resection with [id number] ileal anastomosis History of laser assisted in situ keratomileusis <Sonja Park PA-C - Last Filed: 10/06/25 00:49> Family History Family History: Family History Sibling Diabetes mellitus Bladder cancer <Sonja Park PA-C - Last Filed: 10/06/25 00:49> Social History Social History: Social History (Updated 10/06/25 @ 07:33 by Anushka Givens DO) Social History: He lives with his of 40 years. They have 2 sons. He is a lifelong nonsmoker and does not drink alcohol. He denies illicit substance use. Surrogate medical decision maker: Emilee Higgins, spouse. Code status: Full code. Smoking status: Never smoker Second hand tobacco smoke exposure: No Alcohol intake: never Substance use: never Substance use type: does not use Do You Feel Safe in your Home?: Yes Lack of Transportation: No Lack of Food: Never True Current Housing: I Have Housing Concerned About Future Housing: No Difficulty Paying Gas/Electric Bills: No Difficulty Paying for Meds: No Currently Unemployed: No Education: High School Diploma/GED Difficulty w/ Childcare or Family Care: No Living arrangements: with family Additional living arrangements comments: Lives with spouse in [place]. Additional occupation/education comments: [employer]. Spiritual care concerns: No <Sonja Park PA-C - Last Filed: 10/06/25 00:49> Exam Narrative: GENERAL: Well appearing, morbidly obese with BMI of 49.9, non-toxic, in no acute distress. HEAD: Normocephalic, atraumatic. RESPIRATORY: Airway patent, respirations nonlabored. Clear to auscultation bilaterally, no rales, rhonchi, wheezing. CARDIOVASCULAR: Regular rate and rhythm without murmurs, rubs, or gallops. ABDOMINAL: Soft, large ventral wall hernia with diffuse tenderness in mid abdomen, nondistended. Hyperactive BS. MUSCULOSKELETAL: Moves all extremities. No gross deformities. SKIN: Warm, dry, normal color. NEURO: A&O X3. Speech clear. Cranial nerves II-XII grossly intact. Steady gait. No ataxic movements. PSYCHIATRIC: Appropriate mood and affect. Normal interaction. <Sonja Park PA-C - Last Filed: 10/06/25 00:49> Course FRENCH EDGE OPERATOR/PA Physician Supervision I was aware this patient was being admitted for diagnosis listed. Physician temporary administrative assistant discussing patient general surgeon hospitalist admission. Dose of consultation patient was in the emergency department but did not directly assess them and was not directly involved in their care otherwise. <Rhiannon Perez MD - Last Filed: 10/06/25 18:00> Vital Signs Vital signs: Vital Signs Temperature 97.9 F 10/05/25 19:07 Pulse Rate 74 10/05/25 19:07 Respiratory Rate 20 10/05/25 19:07 Blood Pressure 141/77 H 10/05/25 19:07 Pulse Oximetry 97 10/05/25 19:07 Oxygen Delivery Room Air 10/05/25 19:07 Temperature 97.5 F L 10/06/25 15:48 Pulse Rate 75 10/06/25 15:48 Respiratory Rate 20 10/06/25 15:48 Blood Pressure 151/82 H 10/06/25 15:48 Pulse Oximetry 94 10/06/25 15:48 Oxygen Delivery Room Air 10/06/25 08:00 <Sonja Park PA-C - Last Filed: 10/06/25 00:49> Vital Signs Temperature 97.9 F 10/05/25 19:07 Pulse Rate 74 10/05/25 19:07 Respiratory Rate 20 10/05/25 19:07 Blood Pressure 141/77 H 10/05/25 19:07 Pulse Oximetry 97 10/05/25 19:07 Oxygen Delivery Room Air 10/05/25 19:07 Temperature 97.5 F L 10/06/25 15:48 Pulse Rate 75 10/06/25 15:48 Respiratory Rate 20 10/06/25 15:48 Blood Pressure 151/82 H 10/06/25 15:48 Pulse Oximetry 94 10/06/25 15:48 Oxygen Delivery Room Air 10/06/25 08:00 <Rhiannon Perez MD - Last Filed: 10/06/25 18:00> MDM - Nausea/Vomiting/Diarrhea MDM Narrative Medical decision making narrative: Patient presented to ED with abdominal pain, nausea, vomiting, diarrhea. Vital signs are stable upon arrival. Patient is in no acute distress. History of carcinoid tumor which required small bowel resection via ex lap in 2021. Laboratory studies here show white blood cell count of 12.8. Neutrophil predominance. No bandemia. CMP is unremarkable. Kidney function stable. Lactic acid 1.0. UA with trace ketones, no signs of infection. CT scan of abdomen/pelvis was obtained: IMPRESSION: Findings suggestive of a partial to early small bowel obstruction with transition point in the ventral wall hernia. On exam, ventral wall hernia is very large, not able to be reduced. Discussed lab and imaging findings with patient. This is consistent with clinical picture. Discussed case with Dr. Salinas, gen surg, advised to admit to hospitalist, will consult, recommended NG tube. Patient in agreement this plan and admission. Discussed case with Dr. Givens, hospitalist, accepted patient for admission. <WINSTON SolanoC - Last Filed: 10/06/25 00:49> Medical Records Attestation: I reviewed the patient's medical records. <Sonja Park PA-C - Last Filed: 10/06/25 00:49> Lab Data Attestation: I reviewed the patient's lab results. <Sonja Park PA-C - Last Filed: 10/06/25 00:49> Result diagrams: 10/05/25 19:42 10/05/25 19:42 <Sonja Park PA-C - Last Filed: 10/06/25 00:49> Labs: Lab Results 10/05/25 10/05/25 Range/Units 19:42 20:35 WBC 12.8 H (4.5-10.0) K/mm3 RBC 5.24 (4.6-6.20) M/mm3 Hgb 15.4 D (14.0-18.0) g/dL Hct 47.5 (42.0-52.0) % MCV 90.6 (80-100) fl MCH 29.4 (26-34) pg MCHC 32.4 (32-36) g/dl RDW 14.6 H (11.5-14.5) % Plt Count 197 (150-375) k/mm3 MPV 10.8 H (7.4-10.4) fl Immature Gran % (Auto) 0.4 (0-0.5) % Neut % (Auto) 85.2 H (45.5-73.1) % Lymph % (Auto) 8.2 L (18.3-44.2) % [place] % (Auto) 5.8 (2.6-8.5) % Eos % (Auto) 0.2 (0-4.4) % Baso % (Auto) 0.2 (0.2-1.2) % Lymph # (Auto) 1.05 (0.9-3.2) K/mm3 [place] # (Auto) 0.7 H (0.1-0.6) K/mm3 Eos # (Auto) 0.0 (0-0.3) K/mm3 Baso # (Auto) 0.0 (0.0-0.1) K/mm3 Abs Immat Gran (auto) 0.05 H (0.00-0.031) K/mm3 Absolute Neuts (auto) 10.9 H (1.3-6.7) K/mm3 Absolute Nucleated RBC 0.000 (0.0-0.012) K/mm3 Nucleated RBC % 0.0 (0.0-0.2) % Sodium 138 (137-145) mmol/L Potassium 4.1 (3.4-5.0) mmol/L Chloride 104 (98-107) mmol/L Carbon Dioxide 27 (22-30) mmol/L Anion Gap 7 (4-12) mmol/L BUN 16 (9-20) mg/dL Creatinine 1.15 (0.7-1.3) mg/dL Estim Creat Clear Calc 74 ml/min Estimated GFR > 60 (59 - ) Glucose 115 H (65-110) mg/dL Lactic Acid 1.0 (0.7-2.0) mmol/L Calcium 9.2 (8.4-10.2) mg/dL Total Bilirubin 0.9 (0.2-1.3) mg/dL AST 30 (17-59) U/L ALT 35 (6-50) U/L Alkaline Phosphatase 98 (38-126) U/L Total Protein 8.2 (6.3-8.2) g/dL Albumin 4.5 (3.5-5.1) g/dL Lipase 57 (23-300) U/L Urine Color Dark yellow (Yellow) Urine Appearance Cloudy H (Clear) Urine pH 5.5 (5.0-9.0) Ur Specific [place] 1.027 (1.001-1.035) Urine Protein 3+ H (Negative) mg/dL Urine Glucose (UA) Negative (Negative) mg/dL Urine Ketones Trace H (Negative) mg/dL Ur Blood (Man) Negative (Negative) Urine Nitrate Negative (Negative) Urine Bilirubin Negative (Negative) Urine Urobilinogen 1.0 (<2.0) mg/dL Leukocyte Esterase Rfl Negative (Negative) FOSTER/UL Urine RBC 0-2 (0-2) /hpf Urine WBC 0-5 (0-3) /hpf Ur Squamous Epith Cells None seen (Few) /hpf Urine Bacteria None seen /hpf Urine Casts 3-5 <Sonja Park PA-C - Last Filed: 10/06/25 00:49> Lab Results 10/05/25 10/05/25 Range/Units 19:42 20:35 WBC 12.8 H (4.5-10.0) K/mm3 RBC 5.24 (4.6-6.20) M/mm3 Hgb 15.4 D (14.0-18.0) g/dL Hct 47.5 (42.0-52.0) % MCV 90.6 (80-100) fl MCH 29.4 (26-34) pg MCHC 32.4 (32-36) g/dl RDW 14.6 H (11.5-14.5) % Plt Count 197 (150-375) k/mm3 MPV 10.8 H (7.4-10.4) fl Immature Gran % (Auto) 0.4 (0-0.5) % Neut % (Auto) 85.2 H (45.5-73.1) % Lymph % (Auto) 8.2 L (18.3-44.2) % [place] % (Auto) 5.8 (2.6-8.5) % Eos % (Auto) 0.2 (0-4.4) % Baso % (Auto) 0.2 (0.2-1.2) % Lymph # (Auto) 1.05 (0.9-3.2) K/mm3 [place] # (Auto) 0.7 H (0.1-0.6) K/mm3 Eos # (Auto) 0.0 (0-0.3) K/mm3 Baso # (Auto) 0.0 (0.0-0.1) K/mm3 Abs Immat Gran (auto) 0.05 H (0.00-0.031) K/mm3 Absolute Neuts (auto) 10.9 H (1.3-6.7) K/mm3 Absolute Nucleated RBC 0.000 (0.0-0.012) K/mm3 Nucleated RBC % 0.0 (0.0-0.2) % Sodium 138 (137-145) mmol/L Potassium 4.1 (3.4-5.0) mmol/L Chloride 104 (98-107) mmol/L Carbon Dioxide 27 (22-30) mmol/L Anion Gap 7 (4-12) mmol/L BUN 16 (9-20) mg/dL Creatinine 1.15 (0.7-1.3) mg/dL Estim Creat Clear Calc 74 ml/min Estimated GFR > 60 (59 - ) Glucose 115 H (65-110) mg/dL Lactic Acid 1.0 (0.7-2.0) mmol/L Calcium 9.2 (8.4-10.2) mg/dL Total Bilirubin 0.9 (0.2-1.3) mg/dL AST 30 (17-59) U/L ALT 35 (6-50) U/L Alkaline Phosphatase 98 (38-126) U/L Total Protein 8.2 (6.3-8.2) g/dL Albumin 4.5 (3.5-5.1) g/dL Lipase 57 (23-300) U/L Urine Color Dark yellow (Yellow) Urine Appearance Cloudy H (Clear) Urine pH 5.5 (5.0-9.0) Ur Specific [place] 1.027 (1.001-1.035) Urine Protein 3+ H (Negative) mg/dL Urine Glucose (UA) Negative (Negative) mg/dL Urine Ketones Trace H (Negative) mg/dL Ur Blood (Man) Negative (Negative) Urine Nitrate Negative (Negative) Urine Bilirubin Negative (Negative) Urine Urobilinogen 1.0 (<2.0) mg/dL Leukocyte Esterase Rfl Negative (Negative) FOSTER/UL Urine RBC 0-2 (0-2) /hpf Urine WBC 0-5 (0-3) /hpf Ur Squamous Epith Cells None seen (Few) /hpf Urine Bacteria None seen /hpf Urine Casts 3-5 <Rhiannon Perez MD - Last Filed: 10/06/25 18:00> Imaging Data Attestation: I personally reviewed and interpreted this imaging study as follows: <Sonja Park PA-C - Last Filed: 10/06/25 00:49> Radiologist's impression: ITS Impressions Abdomen/Pelvis CT 10/05/25 20:52 IMPRESSION: Findings suggestive of a partial to early small bowel obstruction with transition The ventral wall hernia. Cholelithiasis without evidence of acute cholecystitis. All CT scans at this facility are performed using low dose modulation techniques as appropriate to perform exam including the following: automated exposure control; use of iterative reconstruction technique; adjustment of the mA and/or kV according to patient size (this includes techniques or standardized protocols for targeted exams where dose is matched to indication/reason for exam). <Sonja Park PA-C - Last Filed: 10/06/25 00:49> Discharge Plan Discharge Clinical Impression: Small bowel obstruction, Ventral hernia with bowel obstruction <Sonja Park PA-C - Last Filed: 10/06/25 00:49> Patient Disposition: Still a Patient <SELINA Solano Last Filed: 10/06/25 00:49> Condition: Stable <SELINA Solano Last Filed: 10/06/25 00:49>
[2025-10-05 20:45] LABS: Add Urine Microscopic? YES; Appearance Urine Cloudy (Clear); Glucose Urine UA Negative (Negative); Leukocyte Esterase Ur Negative LEU/UL (Negative); Nitrate Urine Negative (Negative); Specific Grav Ur 1.027 (1.001-1.035)
[2025-10-05] MEDS: SODIUM CHLORIDE 0.9% IV 1,000 ML 999 ML IV CONT (20:58)
[2025-10-05 21:32] VITALS: BP 116/61; PULSE 70; RESP 22; O2SAT 95
[2025-10-05] MEDS: SODIUM CHLORIDE 0.9% IV 1,000 ML 100 ML IV CONT (23:52)
[2025-10-06 00:04] VITALS: BP 135/85; PULSE 67; RESP 24; O2SAT 98
--- NOTE | 2025-10-06 00:17 | WPCEDHO ---
ED Hand Off Checklist All vitals saved:yes IV Site documented:yes All med administrations documented:yes Triage Note Triage Note PATIENT C/O VOMITING WHICH 10/05/25 19:25 STARTED TODAY. C/O A LOT OF DIARRHEA. C/O MID ABDOMEN CRAMPING. UNKNOWN FEVER. agree with triage. Pt states he has lower abd surgical hernia. Allergies lisinopril Allergy (Intermediate, Verified 10/05/25 19:16) Rash Family History (Last Reviewed 10/05/25 @ 21:12 by Sonja Park PA-C) Sibling Diabetes mellitus Bladder cancer Active Medications including assessments/comments Sodium Chloride (Normal Saline Iv) 1,000 mls @ 100 mls/hr IV CONT .Q10H PRIYANK Last Admin: 10/05/25 23:52 Dose: 100 mls/hr Documented By: LIA Infusion/Titration Document 10/05/25 23:52 DANNIW (Rec: 10/05/25 23:52 EMW [id number]) Intake IV Site Peripheral Access Left Antecubital Container Volume 1,000 Waste Amount 0 Dosing Infusion Rate 100 Cumulative Dose Not Applicable Increase/Decrease Started Elapsed Time Elapsed Time ( 0m minutes) Ondansetron HCl (Ondansetron Inj 4 Mg/2 Ml Vial) 4 mg IV PUSH Q4H PRN PRN Reason: Nausea Last Admin: 10/06/25 00:00 Dose: 4 mg Documented By: EMW Administered/Completed Medications Discontinued Medications Sodium Chloride (Normal Saline Iv) 1,000 mls @ 999 mls/hr IV CONT .Q1H1M STA Stop: 10/05/25 21:28 Last Infusion: 10/05/25 22:39 Dose: Infused Documented By: Admin: 10/05/25 20:58 Dose: 999 mls/hr Documented By: EMW Interventions/Assessments IV / Saline Lock, Insert Start: 10/05/25 19:41 Freq: STAT Status: Active Protocol: Document 10/05/25 19:49 EMW (Rec: 10/05/25 19:49 EMW [id number]) IV Assessment Peripheral Access Left Antecubital IV Catheter Access Initiated IV Insertion Date 10/05/25 IV Insertion Time 19:49 Catheter Gauge 18 IV Site Assessment WNL IV Care and WNL Maintenance PA: Gastrointestinal Assessment Start: 10/05/25 18:58 Freq: Status: Active Protocol: Document 10/05/25 19:24 EMW (Rec: 10/05/25 19:25 EMW [id number]) Nausea/Vomiting Assessment Nausea Frequency Intermittent Emesis Frequency Intermittent GI Assessment Gastrointestinal Appetite Changes,Cramping,Nausea,Pain,Vomiting Symptoms Description Round,Tender Pattern Diarrhea Last Vital Signs Temperature 97.9 F 10/05/25 19:07 Pulse Rate 67 10/06/25 00:04 Respiratory Rate 24 H 10/06/25 00:04 Pulse Oximetry 98 10/06/25 00:04 Blood Pressure 135/85 10/06/25 00:04 Blood Pressure Mean 101 10/06/25 00:04 Blood Pressure Position Sitting 10/06/25 00:04 Oxygen Delivery Room Air 10/05/25 19:07 Weight 140.1 kg 10/05/25 19:25 Last Result - Abnormals Only WBC 12.8 K/mm3 (4.5-10.0) H 10/05/25 19:42 RDW 14.6 % (11.5-14.5) H 10/05/25 19:42 MPV 10.8 fl (7.4-10.4) H 10/05/25 19:42 Neut % (Auto) 85.2 % (45.5-73.1) H 10/05/25 19:42 Lymph % (Auto) 8.2 % (18.3-44.2) L 10/05/25 19:42 [place] # (Auto) 0.7 K/mm3 (0.1-0.6) H 10/05/25 19:42 Abs Immat Gran (auto) 0.05 K/mm3 (0.00-0.031) H 10/05/25 19:42 Absolute Neuts (auto) 10.9 K/mm3 (1.3-6.7) H 10/05/25 19:42 Glucose 115 mg/dL (65-110) H 10/05/25 19:42 Urine Appearance Cloudy (Clear) H 10/05/25 20:35 Urine Protein 3+ mg/dL (Negative) H 10/05/25 20:35 Urine Ketones Trace mg/dL (Negative) H 10/05/25 20:35 Most Recent Suicide Severity Rating Suicide Severity Rating NO RISK INDICATED 10/05/25 19:25
[2025-10-06 00:22] VITALS: BMI 49.8
--- NOTE | 2025-10-06 00:22 | ADMGEN ---
This patient, Mayur Higgins, was admitted to [facility] Surg Room 321-01. Patient/family oriented to hospital policies and general routines including ID bracelet, bed and alarms, visiting hours, pain management, procedures, bathroom and other care routines, personal items, smoking policy, room service/diet, and visiting hours. Information on how to activate the Rapid Response Team has been discussed. Patient/Family are encouraged to report perceived risks to care and to ask questions if they do not understand what they are told or what they should do.
[2025-10-06 00:42] VITALS: BP 134/85; PULSE 68; RESP 24; O2SAT 100
[2025-10-06 00:57] VITALS: BP 148/77; PULSE 75; RESP 18; TEMP 36.7; O2SAT 93
[2025-10-06 05:13] VITALS: BP 152/82; PULSE 68; TEMP 36.6; O2SAT 91
[2025-10-06] MEDS: MORPHINE SULFATE (*CRX) 4 MG/ML INJ IV PUSH ×2 (05:25→15:52)
--- NOTE | 2025-10-06 06:23 | PM.IMHP ---
H&P: HPI History of Present Illness Date/Time: 10/06/25 06:23 Chief Complaint: Vomiting and ?a lot of diarrhea? Narrative: 65-year-old male with a past medical history of morbid obesity, obstructive sleep apnea, essential hypertension, hypothyroidism and prior bowel resection for carcinoid to mild with subsequent ventral wall hernia presented to the ER with vomiting and a lot of diarrhea. The patient reported mid abdominal cramping just above the area of his ventral wall hernia. He has been having intermittent episodes of cramping in this area that would occur an hour so after eating for the last month or so. It would be accompanied by intermittent diarrheal watery stools. It would be interspersed with intervals of normal bowel movements. He was not all that worried about the symptoms and just attributed to his hernia until yesterday morning. At that time he began having vomiting with bilious emesis and multiple watery brown stools. He reported that the pain that he usually has in abdomen with his diarrhea is usually at 3/6 out of 10 or less. But his pain became acutely worse in was a 6/10 in intensity. He also noticed significant a ?gurgling? from his abdomen. He reports that the symptoms were similar to when he had his 1st bowel obstruction requiring resection of metastatic carcinoid tumor in October of 2022. He reports that he has had a hernia at is umbilicus that developed a few months after the his initial surgery. His biggest complaint is that he cannot sleep with the NG in his nose. He is already asking for when the NG will be removed. He denies any chest pain or shortness of breath. He has not had any fevers or chills. He denies any recent ill contacts. He reports that he has obstructive sleep apnea but states that the symptoms are not that bad since he sleeps in a adjustable bed. He does not use a CPAP or BiPAP. He reports that his urine has been darker than usual for the last 24 hours. He denies any dysuria, hematuria changes in urinary frequency or sensation of incomplete bladder emptying. Review of Systems Review of Systems: 12 systems were reviewed with pertinent positives and negatives per HPI. Except as documented in the HPI, all other systems were reviewed and are negative. 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 They have 2 sons. He is a lifelong nonsmoker and does not drink alcohol. He denies illicit substance use. Surrogate medical decision maker: Emilee Higgins, spouse. Code status: Full code. Second hand tobacco smoke exposure: No Alcohol intake: never Substance use: never Substance use type: does not use Do You Feel Safe in your Home?: Yes Lack of Transportation: No Lack of Food: Never True Current Housing: I Have Housing Concerned About Future Housing: No Difficulty Paying Gas/Electric Bills: No Difficulty Paying for Meds: No Currently Unemployed: No Education: High School Diploma/GED Difficulty w/ Childcare or Family Care: No Living arrangements: with family Additional living arrangements comments: Lives with spouse in [place]. Additional occupation/education comments: [employer]. Spiritual care concerns: No Meds Home Medications and Allergies Home Medications ?Medication ?Instructions ?Recorded ?Confirmed ?Type atorvastatin 10 mg tablet 10 mg PO DAILY 11/05/22 10/06/25 History levothyroxine 175 mcg tablet 175 mcg PO DAILY 11/05/22 10/06/25 History nebivolol 5 mg tablet 5 mg PO DAILY 11/05/22 10/06/25 History Allergies Allergy/AdvReac Type Severity Reaction Status Date / Time lisinopril Allergy Intermediate Rash Verified 10/06/25 01:02 Vital Signs Vital Signs - 24 hr 10/05/25 19:07 10/05/25 19:47 10/05/25 21:32 Temperature 97.9 F Pulse Rate 74 71 70 Respiratory Rate 20 24 H 22 H Blood Pressure 141/77 H 130/78 116/61 Pulse Oximetry 97 94 95 Oxygen Delivery Room Air 10/06/25 00:04 10/06/25 00:42 10/06/25 00:57 Temperature 98.1 F Pulse Rate 67 68 75 Respiratory Rate 24 H 24 H 18 Blood Pressure 135/85 134/85 148/77 H Pulse Oximetry 98 100 93 Oxygen Delivery 10/06/25 05:13 Temperature 97.9 F Pulse Rate 68 Respiratory Rate Blood Pressure 152/82 H Pulse Oximetry 91 Oxygen Delivery Exam Narrative: Weight 140 kg BMI 49.8 Const: Other: No acute distress, morbidly obese, disheveled HENMT: Other: NG in the right nares with bilious drainage, 200 mL in the VAC canister, head is normocephalic atraumatic, mucous membranes are tacky, no oral pharyngeal erythema, crowded posterior oropharynx Eyes: Other: Pupils are equal and reactive, no scleral icterus, no conjunctival pallor Neck: Other: Large neck circumference, no JVD Resp: Other: Clear to auscultation bilaterally, no increased work of breathing Cardio: Other: Regular rate, regular rhythm, 2+ bilateral radial pedal pulses, no murmur GI: Other: Distended abdomen with generalized tenderness to palpation, hypoactive bowel sounds, ventral abdominal hernia with somewhat soft palpable bowel, when pressure is applied to the area of hernia bowel does seem to reduce partially Skin: Other: Normal temperature to touch, non jaundice, no pallor Neuro: Other: Alert oriented, speech is clear, no facial asymmetry Extrem: Other: Chronic venous stasis changes bilateral lower extremities, no clubbing, no cyanosis Psych: Other: Appropriate mood and affect, pleasant and cooperative, judgment and insight H&P: Results Labs Labs: Laboratory Tests 10/05/25 19:42 10/05/25 19:42 10/05/25 10/05/25 19:42 20:35 WBC 12.8 H RBC 5.24 Hgb 15.4 D Hct 47.5 MCV 90.6 MCH 29.4 MCHC 32.4 RDW 14.6 H Plt Count 197 MPV 10.8 H Immature Gran % (Auto) 0.4 Neut % (Auto) 85.2 H Lymph % (Auto) 8.2 L [place] % (Auto) 5.8 Eos % (Auto) 0.2 Baso % (Auto) 0.2 Lymph # (Auto) 1.05 [place] # (Auto) 0.7 H Eos # (Auto) 0.0 Baso # (Auto) 0.0 Abs Immat Gran (auto) 0.05 H Absolute Neuts (auto) 10.9 H Absolute Nucleated RBC 0.000 Nucleated RBC % 0.0 Sodium 138 Potassium 4.1 Chloride 104 Carbon Dioxide 27 Anion Gap 7 BUN 16 Creatinine 1.15 Estim Creat Clear Calc 74 Estimated GFR > 60 Glucose 115 H Lactic Acid 1.0 Calcium 9.2 Total Bilirubin 0.9 AST 30 ALT 35 Alkaline Phosphatase 98 Total Protein 8.2 Albumin 4.5 Lipase 57 Urine Color Dark yellow Urine Appearance Cloudy H Urine pH 5.5 Ur Specific [place] 1.027 Urine Protein 3+ H Urine Glucose (UA) Negative Urine Ketones Trace H Ur Blood (Man) Negative Urine Nitrate Negative Urine Bilirubin Negative Urine Urobilinogen 1.0 Leukocyte Esterase Rfl Negative Urine RBC 0-2 Urine WBC 0-5 Ur Squamous Epith Cells None seen Urine Bacteria None seen Urine Casts 3-5 Impressions Abdomen/Pelvis CT 10/05/25 20:52 IMPRESSION: Findings suggestive of a partial to early small bowel obstruction with transition The ventral wall hernia. Cholelithiasis without evidence of acute cholecystitis. Assessment and Plan Assessment and plan (1) Ventral hernia with bowel obstruction: Code(s): K43.6 - Other and unspecified ventral hernia with obstruction, without gangrene Status: Acute (2) Incisional hernia with obstruction: Code(s): K43.0 - Incisional hernia with obstruction, without gangrene Status: Acute (3) Dehydration: Code(s): E86.0 - Dehydration Status: Acute (4) Leukocytosis: Qualifiers: Leukocytosis type: leukemoid reaction Qualified Code(s): D72.823 - Leukemoid reaction Code(s): D72.829 - Elevated white blood cell count, unspecified Status: Acute (5) Hypothyroidism: Qualifiers: Hypothyroidism type: acquired Qualified Code(s): E03.9 - Hypothyroidism, unspecified Code(s): E03.9 - Hypothyroidism, unspecified Status: Acute Plan The patient has incisional/ventral hernia with small-bowel obstruction without evidence of ischemia. Patient has NG tube in place to low intermittent suction. General surgery has been consulted. Will repeat KUB in a.m. to re-evaluate bowel gas pattern. Patient does have some ketones in his urine and some hemoconcentration of his labs with mild leukocytosis and elevated hemoglobin above baseline. He did receive 1 L fluid bolus in the ER. Will continue IV fluid hydration with normal saline at 100 mL an hour and will repeat CBC and electrolyte panel in a.m.. Will provide incentive spirometry pulmonary toilet. Morphine 4 mg q.4 hours has been ordered for severe pain and Zofran as needed for nausea. Will also provide Protonix for ulcer prophylaxis. Will transition patient to IV levothyroxine while NPO. Patient has been admitted as observation status. MEDICAL DECISION MAKING NARRATIVE -Spoke with the ED provider in detail regarding patient's evaluation, workup and management -Patient seen and examined at bedside -Collaborated with patient's nurse at the bedside in detail and addressed all concerns -Labs, electrolytes, radiology, investigations and test results personally reviewed and interpreted unless otherwise specified -ED/Consult/Nursing/Ancilliary notes on the chart reviewed and appreciated -Spoke with patient at bedside and diagnosis and plan of care was discussed. All questions answered. Quality VTE Prophylaxis VTE prophylaxis: pharmacologic ordered (Lovenox 40 mg subQ daily.) Hospitalist [facility] Advance Care Plan I have confirmed that the patient's Advanced Care Plan is present, code status is documented, or surrogate decision maker is listed in patient medical record.: Yes Medication Reconciliation I have utilized all available resources to obtain, update and review the patients current medications (includes all prescriptions, OTC, herbals, cannabis, and nutritional supplements).: Yes
--- NOTE | 2025-10-06 08:25 | P.PNIM_ITS ---
Progress Note: A&P Assessment and Plan (1) Ventral hernia with bowel obstruction: Code(s): K43.6 - Other and unspecified ventral hernia with obstruction, without gangrene Status: Acute Assessment and Plan: - presented with nausea, vomiting, intermittent diarrhea - CT A/P with finding suggestive partial to early small-bowel obstruction with transition point in the ventral hernia - WBC 12 - likely reactive - NG to LIWS -continue IV fluids, pain control, NPO. - general surgery consulted - planning to continue NG suction and IV fluids. Small bowel series ordered. (2) Dehydration: Code(s): E86.0 - Dehydration Status: Acute Assessment and Plan: - continue IV fluids (3) Hypothyroidism: Qualifiers: Hypothyroidism type: acquired Qualified Code(s): E03.9 - Hypothyroidism, unspecified Code(s): E03.9 - Hypothyroidism, unspecified Status: Acute Assessment and Plan: - Synthroid held. Resume IV Synthroid is patient is NPO for prolonged period of time. Plan DVT prophylaxis: Lovenox Code status: full code Dispo: home in 2-3 days pending surgical recs Subjective Date/time seen: 10/06/25 08:25 Interval history: Patient seen and examined up in chair. Patient reports improvement in abdominal pain and nausea this AM. No BM or flatus yet. NG in place and tolerating well. Discussed plan of care with general surgery SELINA, Margie Llanos. Review of Systems Review of Systems: All systems reviewed & are unremarkable except as noted in HPI and below Exam Narrative: General: NAD Eyes: EOMI ENT: neck supple Cardiovascular: Regular rate and rhythm Respiratory: Clear to auscultation, respirations even and unlabored on RA Gastrointestinal: Soft, non tender, ventral hernia reduced, NG tube in place with bilious output, Bowel sounds hypoactive Genitourinary: no suprapubic tenderness Musculoskeletal: No edema Skin: warm, dry Neuro: Alert. Psych: Mood appropriate Objective Data Vital Signs Vital Signs: Vital Signs - 24 hr 10/05/25 19:07 10/05/25 19:47 10/05/25 21:32 Temperature 97.9 F Pulse Rate 74 71 70 Respiratory Rate 20 24 H 22 H Blood Pressure 141/77 H 130/78 116/61 Pulse Oximetry 97 94 95 Oxygen Delivery Room Air 10/06/25 00:04 10/06/25 00:42 10/06/25 00:57 Temperature 98.1 F Pulse Rate 67 68 75 Respiratory Rate 24 H 24 H 18 Blood Pressure 135/85 134/85 148/77 H Pulse Oximetry 98 100 93 Oxygen Delivery 10/06/25 05:13 Temperature 97.9 F Pulse Rate 68 Respiratory Rate Blood Pressure 152/82 H Pulse Oximetry 91 Oxygen Delivery Intake/Output Intake/Output: Intake & Output 10/03/25 10/04/25 10/05/25 10/06/25 23:59 23:59 23:59 23:59 Intake Total 1000 0 Output Total 25 700 Balance 975 -700 Meds/Results Medications: Active Medications Generic Name Dose Route Start Last Admin Trade Name Freq PRN Reason Stop Dose Admin Acetaminophen 650 mg 10/05/25 23:35 Acetaminophen 650 Mg Suppository RECTAL Q6H PRN Mild Pain (1-3) or Fever Enoxaparin Sodium 40 mg 10/06/25 09:00 Enoxaparin 40 Mg/0.4 Ml Syringe SUB-Q DAILY PRIYANK Sodium Chloride 1,000 mls @ 100 mls/hr 10/05/25 23:35 10/05/25 23:52 Normal Saline Iv IV CONT 100 mls/hr .Q10H [facility] Administration Levothyroxine Sodium 87.5 mcg 10/06/25 06:30 Levothyroxine Sodium Inj 100 Mcg/5 Ml Vial IV PUSH DAILY@0630 [facility] Morphine Sulfate 4 mg 10/06/25 07:48 Morphine Sulfate (*Crx) 4 Mg/Ml Inj IV PUSH Q4H PRN Pain Rated 7-10 Ondansetron HCl 4 mg 10/05/25 23:35 10/06/25 00:00 Ondansetron Inj 4 Mg/2 Ml Vial IV PUSH 4 mg Q4H PRN Administration Nausea Pantoprazole Sodium 40 mg 10/06/25 09:00 Pantoprazole Sodium Iv 40 Mg Vial IV PUSH QAM [facility] Radiology Results: ITS Impressions Abdomen/Pelvis CT 10/05/25 20:52 IMPRESSION: Findings suggestive of a partial to early small bowel obstruction with transition The ventral wall hernia. Cholelithiasis without evidence of acute cholecystitis. All CT scans at this facility are performed using low dose modulation techniques as appropriate to perform exam including the following: automated exposure control; use of iterative reconstruction technique; adjustment of the mA and/or kV according to patient size (this includes techniques or standardized protocols for targeted exams where dose is matched to indication/reason for exam). Abdomen X-Ray 10/06/25 08:10 IMPRESSION: 1. Nonspecific bowel gas pattern with scattered loops of gas dilated bowel throughout the abdomen and pelvis with mildly distended small bowel in the right hemiabdomen. 2. No large amount of free air. 3. Gastric catheter in the upper body or fundal portion of the stomach. Labs Labs: Laboratory Results - last 24 hr 10/05/25 10/05/25 19:42 20:35 WBC 12.8 H RBC 5.24 Hgb 15.4 D Hct 47.5 MCV 90.6 MCH 29.4 MCHC 32.4 RDW 14.6 H Plt Count 197 MPV 10.8 H Immature Gran % (Auto) 0.4 Neut % (Auto) 85.2 H Lymph % (Auto) 8.2 L [place] % (Auto) 5.8 Eos % (Auto) 0.2 Baso % (Auto) 0.2 Lymph # (Auto) 1.05 [place] # (Auto) 0.7 H Eos # (Auto) 0.0 Baso # (Auto) 0.0 Abs Immat Gran (auto) 0.05 H Absolute Neuts (auto) 10.9 H Absolute Nucleated RBC 0.000 Nucleated RBC % 0.0 Sodium 138 Potassium 4.1 Chloride 104 Carbon Dioxide 27 Anion Gap 7 BUN 16 Creatinine 1.15 Estim Creat Clear Calc 74 Estimated GFR > 60 Glucose 115 H Lactic Acid 1.0 Calcium 9.2 Total Bilirubin 0.9 AST 30 ALT 35 Alkaline Phosphatase 98 Total Protein 8.2 Albumin 4.5 Lipase 57 Urine Color Dark yellow Urine Appearance Cloudy H Urine pH 5.5 Ur Specific [place] 1.027 Urine Protein 3+ H Urine Glucose (UA) Negative Urine Ketones Trace H Ur Blood (Man) Negative Urine Nitrate Negative Urine Bilirubin Negative Urine Urobilinogen 1.0 Leukocyte Esterase Rfl Negative Urine RBC 0-2 Urine WBC 0-5 Ur Squamous Epith Cells None seen Urine Bacteria None seen Urine Casts 3-5 Quality VTE Prophylaxis VTE prophylaxis: pharmacologic ordered (Lovenox 40 mg subQ daily.)
[2025-10-06] MEDS: LEVOTHYROXINE SODIUM INJ 100 MCG/5 ML VIAL 87.5 MCG IV PUSH (08:50)
[2025-10-06] MEDS: ENOXAPARIN 40 MG/0.4 ML SYRINGE SUB-Q (08:50)
[2025-10-06] MEDS: SODIUM CHLORIDE 0.9% IV 1,000 ML 100 ML IV CONT (08:51)
[2025-10-06] MEDS: PANTOPRAZOLE SODIUM IV 40 MG VIAL IV PUSH (08:51)
--- NOTE | 2025-10-06 10:04 | P.CONGS_ITS ---
Assessment and Plan Assessment and plan (1) Ventral hernia with bowel obstruction: Code(s): K43.6 - Other and unspecified ventral hernia with obstruction, without gangrene Status: Acute Assessment and Plan: Patient presented to the ED yesterday with cramping abdominal pain and diarrhea x1 month, with associated nausea and vomiting that started yesterday. Symptoms felt similar to a previous small-bowel obstruction in 2021 after patient was diagnosed with a carcinoid tumor. He underwent a small-bowel resection and shortly after developed a ventral hernia. CT imaging revealed fluid-filled distended small bowel loops within ventral wall hernia. NG tube was placed and is functioning properly. Upon exam, hernia is easily reducible. Minimal abdominal pain. Hypoactive bowel sounds. Patient has not passed any gas or had a bowel movement since yesterday. * Continue NG suction and IV fluids. Will order small bowel series for this afternoon. (2) Hypertension: Code(s): I10 - Essential (primary) hypertension Status: Acute (3) Hyperlipidemia: Code(s): E78.5 - Hyperlipidemia, unspecified Status: Acute (4) Obesity, morbid, BMI 40.0-49.9: Code(s): E66.01 - Morbid (severe) obesity due to excess calories Status: Acute (5) RAJEEV (obstructive sleep apnea): Code(s): G47.33 - Obstructive sleep apnea (adult) (pediatric) Status: Acute (6) History of neuroendocrine cancer: Code(s): Z85.89 - Personal history of malignant neoplasm of other organs and systems Status: Acute Plan Discussed patient's case and plan of care with Dr. Salinas. History of Present Illness Consult details Consult date: 10/06/25 Reason for consult: other (SBO, ventral wall hernia) Requesting physician: Sonja Park PA-C Narrative: Patient is a 65-year-old male with history of obesity, RAJEEV, hypertension, hypothyroidism, peripheral venous insufficiency, and carcinoid tumor (s/p SBO and ileal resection [address] Salinas) who we have been asked to see in surgical consultation for a small bowel obstruction and ventral wall hernia. Patient is well known to the general surgery service as he has been seen multiple times in the office for incisional hernia and instructed to lose weight before proceeding with hernia repair. Last seen in office in April 2025 with BMI of 53.2 and weight of 320 lbs. Given goal weight of 275 and goal BMI of 45. Today, patient's BMI is 49.8. His weight is roughly 308 pounds. Patient presented to the emergency department yesterday with complaints of abdominal pain and vomiting. He states that he has had cramping abdominal pain and diarrhea for the past month. Yesterday he began vomiting and had 3 episodes of emesis before presenting to the emergency department. Upon arrival, labs revealed a slightly elevated white blood cell count of 12.8. Afebrile. CT demonstrated findings suggestive of a partial tear early small-bowel obstruction with transition point in the ventral wall hernia. General surgery team consulted at this time. NG tube was placed. Patient has history of small-bowel resection in 2021 after being diagnosed with carcinoid tumor that led to a small bowel obstruction. He states that he developed the hernia very shortly after the surgery. He has never had any issues with it. He has not had a small bowel obstruction since this time. He does state that symptoms feel similar to last episode. Patient did have a soft bowel movement yesterday, but denies any flatus or bowel movement since this time. Had some mild urinary burning after administration of IV fluids, but denies any other urinary symptoms. He last ate a [employer] turnover yesterday, which he was not able to keep down. Denies any other abdominal surgeries. Minimal abdominal pain upon interview this morning. Roughly 700 mL of gastric drainage out of NG overnight. 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 They have 2 sons. He is a lifelong nonsmoker and does not drink alcohol. He denies illicit substance use. Surrogate medical decision maker: Emilee Higgins, spouse. Code status: Full code. Smoking status: Never smoker Second hand tobacco smoke exposure: No Alcohol intake: never Substance use: never Substance use type: does not use Do You Feel Safe in your Home?: Yes Lack of Transportation: No Lack of Food: Never True Current Housing: I Have Housing Concerned About Future Housing: No Difficulty Paying Gas/Electric Bills: No Difficulty Paying for Meds: No Currently Unemployed: No Education: High School Diploma/GED Difficulty w/ Childcare or Family Care: No Living arrangements: with family Additional living arrangements comments: Lives with spouse in [place]. Additional occupation/education comments: [employer]. Spiritual care concerns: No Meds Home Medications and Allergies Home Medications ?Medication ?Instructions ?Recorded ?Confirmed ?Type atorvastatin 10 mg tablet 10 mg PO DAILY 11/05/2209/25 History levothyroxine 175 mcg tablet 175 mcg PO DAILY 11/05/22 10/06/25 History nebivolol 5 mg tablet 5 mg PO DAILY 11/05/2210/06 History Allergies Allergy/AdvReac Type Severity Reaction Status Date / Time lisinopril Allergy Intermediate Rash Verified 10/06/25 01:02 Vital Signs Vital Signs - 24 hr 10/05/25 19:07 10/05/25 19:47 10/05/25 21:32 Temperature 97.9 F Pulse Rate 74 71 70 Respiratory Rate 20 24 H 22 H Blood Pressure 141/77 H 130/78 116/61 Pulse Oximetry 97 94 95 Oxygen Delivery Room Air 10/06/25 00:04 10/06/25 00:42 10/06/25 00:57 Temperature 98.1 F Pulse Rate 67 68 75 Respiratory Rate 24 H 24 H 18 Blood Pressure 135/85 134/85 148/77 H Pulse Oximetry 98 100 93 Oxygen Delivery 10/06/25 05:13 Temperature 97.9 F Pulse Rate 68 Respiratory Rate Blood Pressure 152/82 H Pulse Oximetry 91 Oxygen Delivery Exam 2 Const: General: comfortable and no acute distress Eyes: General: appearance normal, both eyes and all related structures Neck: Neck: supple Resp: Effort & Inspection: normal respiratory effort Cardio: Rate: regular rate GI: Inspection: non-distended, Pannus present, obesity and visible herniation (Large ventral hernia to supraumbilical region. Easily reducible.) GI Palp: No abdominal tenderness and Yes Soft to palpation Auscultation: Hypoactive bowel sounds present Rectal Exam: deferred Skin: General skin exam: normal color and no rashes or lesions noted Neuro: Speech: normal speech Sensory Exam: normal sensation Extrem: General: normal to inspection Psych: Mental Status: mental status grossly normal Results Labs 10/05/25 19:42 10/05/25 19:42 Labs: Abnormal lab results 10/05/25 10/05/25 Range/Units 19:42 20:35 WBC 12.8 H (4.5-10.0) K/mm3 RDW 14.6 H (11.5-14.5) % MPV 10.8 H (7.4-10.4) fl Neut % (Auto) 85.2 H (45.5-73.1) % Lymph % (Auto) 8.2 L (18.3-44.2) % [place] # (Auto) 0.7 H (0.1-0.6) K/mm3 Abs Immat Gran (auto) 0.05 H (0.00-0.031) K/mm3 Absolute Neuts (auto) 10.9 H (1.3-6.7) K/mm3 Glucose 115 H (65-110) mg/dL Urine Appearance Cloudy H (Clear) Urine Protein 3+ H (Negative) mg/dL Urine Ketones Trace H (Negative) mg/dL Diabetes panel 10/05/25 Range/Units 19:42 Sodium 138 (137-145) mmol/L Potassium 4.1 (3.4-5.0) mmol/L Chloride 104 (98-107) mmol/L Carbon Dioxide 27 (22-30) mmol/L BUN 16 (9-20) mg/dL Creatinine 1.15 (0.7-1.3) mg/dL Glucose 115 H (65-110) mg/dL Calcium 9.2 (8.4-10.2) mg/dL AST 30 (17-59) U/L ALT 35 (6-50) U/L Alkaline Phosphatase 98 (38-126) U/L Total Protein 8.2 (6.3-8.2) g/dL Albumin 4.5 (3.5-5.1) g/dL Calcium panel 10/05/25 Range/Units 19:42 Calcium 9.2 (8.4-10.2) mg/dL Albumin 4.5 (3.5-5.1) g/dL Pituitary panel 10/05/25 Range/Units 19:42 Sodium 138 (137-145) mmol/L Potassium 4.1 (3.4-5.0) mmol/L Chloride 104 (98-107) mmol/L Carbon Dioxide 27 (22-30) mmol/L BUN 16 (9-20) mg/dL Creatinine 1.15 (0.7-1.3) mg/dL Glucose 115 H (65-110) mg/dL Calcium 9.2 (8.4-10.2) mg/dL Adrenal panel 10/05/25 Range/Units 19:42 Sodium 138 (137-145) mmol/L Potassium 4.1 (3.4-5.0) mmol/L Chloride 104 (98-107) mmol/L Carbon Dioxide 27 (22-30) mmol/L BUN 16 (9-20) mg/dL Creatinine 1.15 (0.7-1.3) mg/dL Glucose 115 H (65-110) mg/dL Calcium 9.2 (8.4-10.2) mg/dL Total Bilirubin 0.9 (0.2-1.3) mg/dL AST 30 (17-59) U/L ALT 35 (6-50) U/L Alkaline Phosphatase 98 (38-126) U/L Total Protein 8.2 (6.3-8.2) g/dL Albumin 4.5 (3.5-5.1) g/dL All other labs normal.
[2025-10-06] MEDS: LACTATED RINGERS 1,000 ML 100 ML IV CONT (15:00)
[2025-10-06] MEDS: ONDANSETRON INJ 4 MG/2 ML VIAL IV PUSH ×2 (15:47)
[2025-10-06 15:48] VITALS: BP 151/82; PULSE 75; RESP 20; TEMP 36.4; O2SAT 94
[2025-10-06 21:10] VITALS: BP 128/71; PULSE 71; RESP 20; TEMP 36.3; O2SAT 93
[2025-10-06] MEDS: DICYCLOMINE HCL 10 MG CAPSULE 20 MG PO (21:42)
[2025-10-07] MEDS: LACTATED RINGERS 1,000 ML 100 ML IV CONT (03:28)
[2025-10-07 05:33] LABS: Hematocrit 43.3 % (42.0-52.0); Hemoglobin 13.6 g/dL (14.0-18.0); Immature Granulocyte Percent A 0.3 % (0-0.5); Lymphocytes Absolute Auto 1.31 K/mm3 (0.9-3.2); Mean Corpuscular HGB Conc 31.4 g/dl (32-36); Mean Corpuscular Hemoglobin 29.7 pg (26-34); Mean Corpuscular Volume 94.5 fl (80-100); Nucleated Red Blood Cells Absolute Auto 0.000 K/mm3 (0.0-0.012); Nucleated Red Blood Cells Perc 0.0 % (0.0-0.2); Platelet Count Result 175 k/mm3 (150-375); Red Blood Count 4.58 M/mm3 (4.6-6.20); White Blood Count 9.7 K/mm3 (4.5-10.0)
[2025-10-07 05:42] VITALS: BP 125/68; PULSE 50; RESP 18; TEMP 36.3; O2SAT 93
[2025-10-07 05:49] LABS: Alanine Aminotransferase 25 U/L (6-50); Albumin Level 4.1 g/dL (3.5-5.1); Alkaline Phosphatase 85 U/L (38-126); Anion Gap 7 mmol/L (4-12); Aspartate Amino Transferase 24 U/L (17-59); Bilirubin,Total 0.8 mg/dL (0.2-1.3); Blood Urea Nitrogen 14 mg/dL (9-20); Calcium 8.9 mg/dL (8.4-10.2); Carbon Dioxide 31 mmol/L (22-30); Chloride 104 mmol/L (98-107); Estimated CRCL calculation 66 ml/min; Estimated Glomerular Filt Rate 56; Glucose 96 mg/dL (65-110); Potassium 3.8 mmol/L (3.4-5.0); Sodium 142 mmol/L (137-145); Total Protein 7.2 g/dL (6.3-8.2)
[2025-10-07] MEDS: ENOXAPARIN 40 MG/0.4 ML SYRINGE SUB-Q (07:59)
[2025-10-07] MEDS: PANTOPRAZOLE SODIUM IV 40 MG VIAL IV PUSH (07:59)
--- NOTE | 2025-10-07 08:25 | P.PNIM_ITS ---
Progress Note: A&P Assessment and Plan (1) Ventral hernia with bowel obstruction: Code(s): K43.6 - Other and unspecified ventral hernia with obstruction, without gangrene Status: Acute Assessment and Plan: - presented with nausea, vomiting, intermittent diarrhea - CT A/P with finding suggestive partial to early small-bowel obstruction with transition point in the ventral hernia - SBFT - no evidence of obstruction - WBC 12 , resolved today - s/p NG, removed 10/07 - general surgery consulted - advance to regular diet as tolerated (2) Hypothyroidism: Qualifiers: Hypothyroidism type: acquired Qualified Code(s): E03.9 - Hypothyroidism, unspecified Code(s): E03.9 - Hypothyroidism, unspecified Status: Acute Assessment and Plan: - resume PO Synthroid Plan DVT prophylaxis: Lovenox Code status: full code Dispo: likely home tomorrow Subjective Date/time seen: 10/07/25 08:25 Interval history: Patient seen and examined up in chair. NG tube removed, doing well. Had multiple bowel movements after the SBFT yesterday. Denied nausea. Review of Systems Review of Systems: All systems reviewed & are unremarkable except as noted in HPI and below Exam Narrative: General: NAD Eyes: EOMI ENT: neck supple Cardiovascular: Regular rate and rhythm Respiratory: Clear to auscultation, respirations even and unlabored on RA Gastrointestinal: Soft, non tender, ventral hernia reduced Genitourinary: no suprapubic tenderness Musculoskeletal: No edema Skin: warm, dry Neuro: Alert. Psych: Mood appropriate Objective Data Vital Signs Vital Signs: Vital Signs - 24 hr 10/06/25 15:48 10/06/25 21:10 10/06/25 21:42 Temperature 97.5 F L 97.4 F L Pulse Rate 75 71 Respiratory Rate 20 20 Blood Pressure 151/82 H 128/71 Pulse Oximetry 94 93 Oxygen Delivery Room Air 10/07/25 05:42 Temperature 97.3 F L Pulse Rate 50 L Respiratory Rate 18 Blood Pressure 125/68 Pulse Oximetry 93 Oxygen Delivery Intake/Output Intake/Output: Intake & Output 10/04/25 10/05/25 10/06/25 10/07/25 23:59 23:59 23:59 23:59 Intake Total 1000 1438.3 1500 Output Total 25 700 Balance 975 738.3 1500 Meds/Results Medications: Active Medications Generic Name Dose Route Start Last Admin Trade Name Freq PRN Reason Stop Dose Admin Acetaminophen 650 mg 10/05/25 23:35 Acetaminophen 650 Mg Suppository RECTAL Q6H PRN Mild Pain (1-3) or Fever Dicyclomine HCl 20 mg 10/06/25 21:31 10/06/25 21:42 Dicyclomine Hcl 10 Mg Capsule PO 20 mg QID PRN Administration Abdominal Cramping Enoxaparin Sodium 40 mg 10/06/25 09:00 10/07/25 07:59 Enoxaparin 40 Mg/0.4 Ml Syringe SUB-Q 40 mg DAILY PRIYAKN Administration Morphine Sulfate 4 mg 10/06/25 07:48 10/06/25 15:52 Morphine Sulfate (*Crx) 4 Mg/Ml Inj IV PUSH 4 mg Q4H PRN Administration Pain Rated 7-10 Ondansetron HCl 4 mg 10/05/25 23:35 10/06/25 15:47 Ondansetron Inj 4 Mg/2 Ml Vial IV PUSH 4 mg Q4H PRN Administration Nausea Pantoprazole Sodium 40 mg 10/06/25 09:00 10/07/25 07:59 Pantoprazole Sodium Iv 40 Mg Vial IV PUSH 40 mg QAM PRIYANK Administration Radiology Results: ITS Impressions Abdomen/Pelvis CT 10/05/25 20:52 IMPRESSION: Findings suggestive of a partial to early small bowel obstruction with transition The ventral wall hernia. Cholelithiasis without evidence of acute cholecystitis. All CT scans at this facility are performed using low dose modulation techniques as appropriate to perform exam including the following: automated exposure control; use of iterative reconstruction technique; adjustment of the mA and/or kV according to patient size (this includes techniques or standardized protocols for targeted exams where dose is matched to indication/reason for exam). Abdomen X-Ray 10/06/25 08:10 IMPRESSION: 1. Nonspecific bowel gas pattern with scattered loops of gas dilated bowel throughout the abdomen and pelvis with mildly distended small bowel in the right hemiabdomen. 2. No large amount of free air. 3. Gastric catheter in the upper body or fundal portion of the stomach. Small Bowel X-Ray 10/06/25 15:46 IMPRESSION: No evidence of obstruction. Contrast extends throughout the large bowel at 1.5 hours. RECOMMENDATION: Correlate with follow-up KUB later this evening or tomorrow morning. Labs Labs: Laboratory Results - last 24 hr 10/07/25 05:04 WBC 9.7 RBC 4.58 L Hgb 13.6 L Hct 43.3 MCV 94.5 MCH 29.7 MCHC 31.4 L RDW 14.6 H Plt Count 175 MPV 11.4 H Immature Gran % (Auto) 0.3 Neut % (Auto) 75.4 H Lymph % (Auto) 13.6 L [place] % (Auto) 9.8 H Eos % (Auto) 0.7 Baso % (Auto) 0.2 Lymph # (Auto) 1.31 [place] # (Auto) 1.0 H Eos # (Auto) 0.1 Baso # (Auto) 0.0 Abs Immat Gran (auto) 0.03 Absolute Neuts (auto) 7.3 H Absolute Nucleated RBC 0.000 Nucleated RBC % 0.0 Sodium 142 Potassium 3.8 Chloride 104 Carbon Dioxide 31 H Anion Gap 7 BUN 14 Creatinine 1.29 Estim Creat Clear Calc 66 Estimated GFR 56 L Glucose 96 Calcium 8.9 Total Bilirubin 0.8 AST 24 ALT 25 Alkaline Phosphatase 85 Total Protein 7.2 Albumin 4.1 Quality VTE Prophylaxis VTE prophylaxis: pharmacologic ordered (Lovenox 40 mg subQ daily.)
--- NOTE | 2025-10-07 11:17 | PM.PNGS ---
Progress Note: A&P Assessment and Plan (1) Ventral hernia with bowel obstruction: Code(s): K43.6 - Other and unspecified ventral hernia with obstruction, without gangrene Status: Acute Assessment and Plan: Small bowel series demonstrated no obstruction. Contrast to large bowel at 1.5 hours. NG tube removed. Patient had multiple bowel movements. Tolerating clears without nausea or vomiting. Will advance diet as tolerated. (2) Hypertension: Code(s): I10 - Essential (primary) hypertension Status: Acute (3) Hyperlipidemia: Code(s): E78.5 - Hyperlipidemia, unspecified Status: Acute (4) Obesity, morbid, BMI 40.0-49.9: Code(s): E66.01 - Morbid (severe) obesity due to excess calories Status: Acute (5) RAJEEV (obstructive sleep apnea): Code(s): G47.33 - Obstructive sleep apnea (adult) (pediatric) Status: Acute (6) History of neuroendocrine cancer: Code(s): Z85.89 - Personal history of malignant neoplasm of other organs and systems Status: Acute Plan Discussed patient's case and plan of care with Dr. Salinas. Subjective Subjective Date/Time Seen: 10/07/25 11:17 Patient reports: no new complaints, feels better, tolerating liquids well, bowel movement and afebrile Interval history: Patient doing well today. Had multiple loose bowel movements after small bowel series yesterday. No nausea or vomiting with clear liquids. Exam Const: General: comfortable and no acute distress GI: Inspection: non-distended GI Palp: Yes Soft to palpation, No Tenderness to palpation present (GI) and No Guarding due to palpation present (GI) Auscultation: normal bowel sounds Objective Data Vital Signs Vital Signs: Vital Signs - 24 hr 10/06/25 15:48 10/06/25 21:10 10/06/25 21:42 Temperature 97.5 F L 97.4 F L Pulse Rate 75 71 Respiratory Rate 20 20 Blood Pressure 151/82 H 128/71 Pulse Oximetry 94 93 Oxygen Delivery Room Air 10/07/25 05:42 10/07/25 08:00 Temperature 97.3 F L Pulse Rate 50 L Respiratory Rate 18 Blood Pressure 125/68 Pulse Oximetry 93 Oxygen Delivery Room Air Intake/Output Intake/Output: Intake & Output 11/10/10/05/25 10/06/25 10/07/25 23:59 23:59 23:59 23:59 Intake Total 1000 1438.3 1618 Output Total 25 700 Balance 975 738.3 1618 Meds/Results Medications: Active Medications Generic Name Dose Route Start Last Admin Trade Name Freq PRN Reason Stop Dose Admin Acetaminophen 650 mg 10/05/25 23:35 Acetaminophen 650 Mg Suppository RECTAL Q6H PRN Mild Pain (1-3) or Fever Dicyclomine HCl 20 mg 10/06/25 21:31 10/06/25 21:42 Dicyclomine Hcl 10 Mg Capsule PO 20 mg QID PRN Administration Abdominal Cramping Enoxaparin Sodium 40 mg 10/06/25 09:00 10/07/25 07:59 Enoxaparin 40 Mg/0.4 Ml Syringe SUB-Q 40 mg DAILY PRIYANK Administration Morphine Sulfate 4 mg 10/06/25 07:48 10/06/25 15:52 Morphine Sulfate (*Crx) 4 Mg/Ml Inj IV PUSH 4 mg Q4H PRN Administration Pain Rated 7-10 Ondansetron HCl 4 mg 10/05/25 23:35 10/06/25 15:47 Ondansetron Inj 4 Mg/2 Ml Vial IV PUSH 4 mg Q4H PRN Administration Nausea Pantoprazole Sodium 40 mg 10/06/25 09:00 10/07/25 07:59 Pantoprazole Sodium Iv 40 Mg Vial IV PUSH 40 mg QAM PRIYANK Administration Radiology Results: ITS Impressions Abdomen/Pelvis CT 10/05/25 20:52 IMPRESSION: Findings suggestive of a partial to early small bowel obstruction with transition The ventral wall hernia. Cholelithiasis without evidence of acute cholecystitis. All CT scans at this facility are performed using low dose modulation techniques as appropriate to perform exam including the following: automated exposure control; use of iterative reconstruction technique; adjustment of the mA and/or kV according to patient size (this includes techniques or standardized protocols for targeted exams where dose is matched to indication/reason for exam). Abdomen X-Ray 10/06/25 08:10 IMPRESSION: 1. Nonspecific bowel gas pattern with scattered loops of gas dilated bowel throughout the abdomen and pelvis with mildly distended small bowel in the right hemiabdomen. 2. No large amount of free air. 3. Gastric catheter in the upper body or fundal portion of the stomach. Small Bowel X-Ray 10/06/25 15:46 IMPRESSION: No evidence of obstruction. Contrast extends throughout the large bowel at 1.5 hours. RECOMMENDATION: Correlate with follow-up KUB later this evening or tomorrow morning. Labs Labs: Laboratory Results - last 24 hr 10/07/25 05:04 WBC 9.7 RBC 4.58 L Hgb 13.6 L Hct 43.3 MCV 94.5 MCH 29.7 MCHC 31.4 L RDW 14.6 H Plt Count 175 MPV 11.4 H Immature Gran % (Auto) 0.3 Neut % (Auto) 75.4 H Lymph % (Auto) 13.6 L [place] % (Auto) 9.8 H Eos % (Auto) 0.7 Baso % (Auto) 0.2 Lymph # (Auto) 1.31 [place] # (Auto) 1.0 H Eos # (Auto) 0.1 Baso # (Auto) 0.0 Abs Immat Gran (auto) 0.03 Absolute Neuts (auto) 7.3 H Absolute Nucleated RBC 0.000 Nucleated RBC % 0.0 Sodium 142 Potassium 3.8 Chloride 104 Carbon Dioxide 31 H Anion Gap 7 BUN 14 Creatinine 1.29 Estim Creat Clear Calc 66 Estimated GFR 56 L Glucose 96 Calcium 8.9 Total Bilirubin 0.8 AST 24 ALT 25 Alkaline Phosphatase 85 Total Protein 7.2 Albumin 4.1
[2025-10-07 13:56] VITALS: BP 144/77; PULSE 66; RESP 16; TEMP 36.3; O2SAT 95
[2025-10-07 20:50] VITALS: BP 147/68; PULSE 57; RESP 20; TEMP 36.7; O2SAT 93
[2025-10-08] MEDS: ONDANSETRON INJ 4 MG/2 ML VIAL IV PUSH ×4 (03:19→21:04)
[2025-10-08] MEDS: DICYCLOMINE HCL 10 MG CAPSULE 20 MG PO ×2 (03:23→23:17)
[2025-10-08 05:34] VITALS: BP 160/76; PULSE 63; RESP 20; TEMP 36.8; O2SAT 92
[2025-10-08] MEDS: LEVOTHYROXINE SODIUM 75 MCG TABLET PO (06:05)
[2025-10-08] MEDS: LEVOTHYROXINE SODIUM 100 MCG TABLET PO (06:06)
[2025-10-08 06:09] LABS: Hematocrit 42.2 % (42.0-52.0); Hemoglobin 13.3 g/dL (14.0-18.0); Immature Granulocyte Percent A 0.3 % (0-0.5); Lymphocytes Absolute Auto 0.84 K/mm3 (0.9-3.2); Mean Corpuscular HGB Conc 31.5 g/dl (32-36); Mean Corpuscular Hemoglobin 29.5 pg (26-34); Mean Corpuscular Volume 93.6 fl (80-100); Nucleated Red Blood Cells Absolute Auto 0.000 K/mm3 (0.0-0.012); Nucleated Red Blood Cells Perc 0.0 % (0.0-0.2); Platelet Count Result 164 k/mm3 (150-375); Red Blood Count 4.51 M/mm3 (4.6-6.20); White Blood Count 9.7 K/mm3 (4.5-10.0)
[2025-10-08 06:35] LABS: Alanine Aminotransferase 23 U/L (6-50); Albumin Level 4.0 g/dL (3.5-5.1); Alkaline Phosphatase 86 U/L (38-126); Anion Gap 5 mmol/L (4-12); Aspartate Amino Transferase 24 U/L (17-59); Bilirubin,Total 0.8 mg/dL (0.2-1.3); Blood Urea Nitrogen 11 mg/dL (9-20); Calcium 8.9 mg/dL (8.4-10.2); Carbon Dioxide 32 mmol/L (22-30); Chloride 100 mmol/L (98-107); Estimated CRCL calculation 69 ml/min; Estimated Glomerular Filt Rate 58; Glucose 115 mg/dL (65-110); Potassium 3.4 mmol/L (3.4-5.0); Sodium 137 mmol/L (137-145); Total Protein 7.0 g/dL (6.3-8.2)
--- NOTE | 2025-10-08 07:04 | PC.NURSE ---
pt complaint of emesis and dry heaves around 06:45. Diet advanced at dinner to soft foods 10/07/25
[2025-10-08] MEDS: ENOXAPARIN 40 MG/0.4 ML SYRINGE SUB-Q (09:19)
[2025-10-08] MEDS: PANTOPRAZOLE SODIUM IV 40 MG VIAL IV PUSH (09:20)
[2025-10-08] MEDS: ATORVASTATIN 10 MG TABLET PO (09:21)
[2025-10-08 09:38] VITALS: PULSE 74
[2025-10-08] MEDS: NEBIVOLOL HCL 5 MG TABLET 10 MG PO (09:38)
--- NOTE | 2025-10-08 13:04 | PCDIET ---
Pt advanced to a low fiber diet, charted intake good but pt c/o nausea and vomiting following eating whole foods, still very nauseous and uncomfortable during visit. Nutrition consult for obesity on 10/07, however not appropriate timing for weight loss education.
--- NOTE | 2025-10-08 13:40 | PM.PNGS ---
Progress Note: A&P Assessment and Plan (1) Ventral hernia with bowel obstruction: Code(s): K43.6 - Other and unspecified ventral hernia with obstruction, without gangrene Status: Acute Assessment and Plan: Patient ahd an episode of emesis last night around 3 am. He has continued to feel nauseous since this time. Ordered KUB which demonstrated numerous loops of distended small bowel, as previously noted on abdominal x-ray from 10/06. Patient denies any abdominal pain. He does mention some mild discomfort. Ventral hernia seems to be reducible on exam. Will back patient down to clear liquid diet and manage conservatively. If patient continues to have nausea and vomiting, consider placement of NG tube. Patient does continue to have bowel movements. (2) Hypertension: Code(s): I10 - Essential (primary) hypertension Status: Acute (3) Hyperlipidemia: Code(s): E78.5 - Hyperlipidemia, unspecified Status: Acute (4) Obesity, morbid, BMI 40.0-49.9: Code(s): E66.01 - Morbid (severe) obesity due to excess calories Status: Acute (5) RAJEEV (obstructive sleep apnea): Code(s): G47.33 - Obstructive sleep apnea (adult) (pediatric) Status: Acute (6) History of neuroendocrine cancer: Code(s): Z85.89 - Personal history of malignant neoplasm of other organs and systems Status: Acute Plan Discussed patient's case and plan of care with Dr. Salinas. Subjective Subjective Date/Time Seen: 10/08/25 13:40 Patient reports: bowel movement, nausea, vomiting and afebrile Interval history: Patient had and episode of nausea and vomiting overnight. He said he ate chicken cordon david for dinner last night and had no immediate issues. BM today. Still feeling nauseous. Hasn't eaten much this morning. Exam Const: General: comfortable and no acute distress GI: GI Palp: Yes Soft to palpation, Yes Tenderness to palpation present (GI) (minimal discomfort with palpation), No Guarding due to palpation present (GI) and Yes Hernia present (midline lower ventral hernia still feels manually reducible) Auscultation: abnormal bowel sounds (slightly hypoactive) Objective Data Vital Signs Vital Signs: Vital Signs - 24 hr 10/07/25 13:56 10/07/25 20:50 10/07/25 20:50 Temperature 97.4 F L 98.0 F Pulse Rate 66 57 L Respiratory Rate 16 20 Blood Pressure 144/77 H 147/68 H Pulse Oximetry 95 93 Oxygen Delivery Room Air 10/08/25 05:34 10/08/25 09:25 10/08/25 09:38 Temperature 98.2 F Pulse Rate 63 74 Respiratory Rate 20 Blood Pressure 160/76 H Pulse Oximetry 92 Oxygen Delivery Room Air Intake/Output Intake/Output: Intake & Output 10/05/25 10/06/25 10/07/25 10/08/25 23:59 23:59 23:59 23:59 Intake Total 1000 1438.3 3076 300 Output Total 25 700 Balance 975 738.3 3076 300 Meds/Results Medications: Active Medications Generic Name Dose Route Start Last Admin Trade Name Freq PRN Reason Stop Dose Admin Acetaminophen 650 mg 10/05/25 23:35 Acetaminophen 650 Mg Suppository RECTAL Q6H PRN Mild Pain (1-3) or Fever Atorvastatin Calcium 10 mg 10/08/25 09:00 10/08/25 09:21 Atorvastatin 10 Mg Tablet PO 10 mg DAILY PRIYANK Administration Dicyclomine HCl 20 mg 10/06/25 21:31 10/08/25 03:23 Dicyclomine Hcl 10 Mg Capsule PO 20 mg QID PRN Administration Abdominal Cramping Enoxaparin Sodium 40 mg 10/06/25 09:00 10/08/25 09:19 Enoxaparin 40 Mg/0.4 Ml Syringe SUB-Q 40 mg DAILY PRIYANK Administration Levothyroxine Sodium 75 mcg 10/08/25 06:30 10/08/25 06:05 Levothyroxine Sodium 75 Mcg Tablet PO 75 mcg DAILY@0630 PRIYANK Administration Levothyroxine Sodium 100 mcg 10/08/25 06:30 10/08/25 06:06 Levothyroxine Sodium 100 Mcg Tablet PO 100 mcg DAILY@0630 PRIYANK Administration Morphine Sulfate 4 mg 10/06/25 07:48 10/06/25 15:52 Morphine Sulfate (*Crx) 4 Mg/Ml Inj IV PUSH 4 mg Q4H PRN Administration Pain Rated 7-10 Nebivolol 10 mg 10/08/25 09:00 10/08/25 09:38 Nebivolol Hcl 5 Mg Tablet PO 10 mg DAILY PRIYANK Administration Ondansetron HCl 4 mg 10/05/25 23:35 10/08/25 12:13 Ondansetron Inj 4 Mg/2 Ml Vial IV PUSH 4 mg Q4H PRN Administration Nausea Pantoprazole Sodium 40 mg 10/06/25 09:00 10/08/25 09:20 Pantoprazole Sodium Iv 40 Mg Vial IV PUSH 40 mg QAM PRIYANK Administration Radiology Results: ITS Impressions Abdomen/Pelvis CT 10/05/25 20:52 IMPRESSION: Findings suggestive of a partial to early small bowel obstruction with transition The ventral wall hernia. Cholelithiasis without evidence of acute cholecystitis. All CT scans at this facility are performed using low dose modulation techniques as appropriate to perform exam including the following: automated exposure control; use of iterative reconstruction technique; adjustment of the mA and/or kV according to patient size (this includes techniques or standardized protocols for targeted exams where dose is matched to indication/reason for exam). Small Bowel X-Ray 10/06/25 15:46 IMPRESSION: No evidence of obstruction. Contrast extends throughout the large bowel at 1.5 hours. RECOMMENDATION: Correlate with follow-up KUB later this evening or tomorrow morning. Abdomen X-Ray 10/08/25 11:47 IMPRESSION: Numerous loops of distended small bowel again noted. Correlate with follow-up CT of the abdomen and pelvis examination as clinically indicated. Labs Labs: Laboratory Results - last 24 hr 10/08/25 05:22 WBC 9.7 RBC 4.51 L Hgb 13.3 L Hct 42.2 MCV 93.6 MCH 29.5 MCHC 31.5 L RDW 14.4 Plt Count 164 MPV 11.4 H Immature Gran % (Auto) 0.3 Neut % (Auto) 82.3 H Lymph % (Auto) 8.7 L [place] % (Auto) 8.1 Eos % (Auto) 0.4 Baso % (Auto) 0.2 Lymph # (Auto) 0.84 L [place] # (Auto) 0.8 H Eos # (Auto) 0.0 Baso # (Auto) 0.0 Abs Immat Gran (auto) 0.03 Absolute Neuts (auto) 8.0 H Absolute Nucleated RBC 0.000 Nucleated RBC % 0.0 Sodium 137 Potassium 3.4 Chloride 100 Carbon Dioxide 32 H Anion Gap 5 BUN 11 Creatinine 1.24 Estim Creat Clear Calc 69 Estimated GFR 58 L Glucose 115 H Calcium 8.9 Total Bilirubin 0.8 AST 24 ALT 23 Alkaline Phosphatase 86 Total Protein 7.0 Albumin 4.0
[2025-10-08 13:46] VITALS: BP 108/57; PULSE 65; RESP 18; TEMP 36.7; O2SAT 98
--- NOTE | 2025-10-08 14:14 | P.PNIM_ITS ---
Progress Note: A&P Assessment and Plan (1) Ventral hernia with bowel obstruction: Code(s): K43.6 - Other and unspecified ventral hernia with obstruction, without gangrene Status: Acute Assessment and Plan: - presented with nausea, vomiting, intermittent diarrhea - CT A/P with finding suggestive partial to early small-bowel obstruction with transition point in the ventral hernia - SBFT - no evidence of obstruction - WBC 12 , resolved today - s/p NG, removed 10/07 - patient with nausea/vomiting after advancing diet. Repeat KUB showed numerous loops of distended small bowel again noted. - general surgery consulted - planning to downgrade to clear liquid diet and monitor. Consider NG tube placement if nausea/vomiting recurs (2) Hypothyroidism: Qualifiers: Hypothyroidism type: acquired Qualified Code(s): E03.9 - Hypothyroidism, unspecified Code(s): E03.9 - Hypothyroidism, unspecified Status: Acute Assessment and Plan: - resume PO Synthroid Plan DVT prophylaxis: Lovenox Code status: full code Dispo: home in 1-2 days pending clinical course Subjective Date/time seen: 10/08/25 14:14 Interval history: Patient seen and examined up in chair. Had some nausea and vomiting overnight. Having some mild abdominal discomfort. Review of Systems Review of Systems: All systems reviewed & are unremarkable except as noted in HPI and below Exam Narrative: General: NAD Eyes: EOMI ENT: neck supple Cardiovascular: Regular rate and rhythm Respiratory: Clear to auscultation, respirations even and unlabored on RA Gastrointestinal: Soft, non tender, ventral hernia reduced, bowel sounds hypoactive Genitourinary: no suprapubic tenderness Musculoskeletal: No edema Skin: warm, dry Neuro: Alert. Psych: Mood appropriate Objective Data Vital Signs Vital Signs: Vital Signs - 24 hr 10/07/25 20:50 10/07/25 20:50 10/08/25 05:34 Temperature 98.0 F 98.2 F Pulse Rate 57 L 63 Respiratory Rate 20 20 Blood Pressure 147/68 H 160/76 H Pulse Oximetry 93 92 Oxygen Delivery Room Air 10/08/25 09:25 10/08/25 09:38 10/08/25 13:46 Temperature 98.1 F Pulse Rate 74 65 Respiratory Rate 18 Blood Pressure 108/57 L Pulse Oximetry 98 Oxygen Delivery Room Air Intake/Output Intake/Output: Intake & Output 10/05/25 10/06/25 10/07/25 10/08/25 23:59 23:59 23:59 23:59 Intake Total 1000 1438.3 3076 300 Output Total 25 700 Balance 975 738.3 3076 300 Meds/Results Medications: Active Medications Generic Name Dose Route Start Last Admin Trade Name Freq PRN Reason Stop Dose Admin Acetaminophen 650 mg 10/05/25 23:35 Acetaminophen 650 Mg Suppository RECTAL Q6H PRN Mild Pain (1-3) or Fever Atorvastatin Calcium 10 mg 10/08/25 09:00 10/08/25 09:21 Atorvastatin 10 Mg Tablet PO 10 mg DAILY PRIYANK Administration Dicyclomine HCl 20 mg 10/06/25 21:31 10/08/25 03:23 Dicyclomine Hcl 10 Mg Capsule PO 20 mg QID PRN Administration Abdominal Cramping Enoxaparin Sodium 40 mg 10/06/25 09:00 10/08/25 09:19 Enoxaparin 40 Mg/0.4 Ml Syringe SUB-Q 40 mg DAILY PRIYANK Administration Levothyroxine Sodium 75 mcg 10/08/25 06:30 10/08/25 06:05 Levothyroxine Sodium 75 Mcg Tablet PO 75 mcg DAILY@0630 PRIYANK Administration Levothyroxine Sodium 100 mcg 10/08/25 06:30 10/08/25 06:06 Levothyroxine Sodium 100 Mcg Tablet PO 100 mcg DAILY@0630 PRIYANK Administration Morphine Sulfate 4 mg 10/06/25 07:48 10/06/25 15:52 Morphine Sulfate (*Crx) 4 Mg/Ml Inj IV PUSH 4 mg Q4H PRN Administration Pain Rated 7-10 Nebivolol 10 mg 10/08/25 09:00 10/08/25 09:38 Nebivolol Hcl 5 Mg Tablet PO 10 mg DAILY PRIYANK Administration Ondansetron HCl 4 mg 10/05/25 23:35 10/08/25 12:13 Ondansetron Inj 4 Mg/2 Ml Vial IV PUSH 4 mg Q4H PRN Administration Nausea Pantoprazole Sodium 40 mg 10/06/25 09:00 10/08/25 09:20 Pantoprazole Sodium Iv 40 Mg Vial IV PUSH 40 mg QAM PRIYANK Administration Radiology Results: ITS Impressions Abdomen/Pelvis CT 10/05/25 20:52 IMPRESSION: Findings suggestive of a partial to early small bowel obstruction with transition The ventral wall hernia. Cholelithiasis without evidence of acute cholecystitis. All CT scans at this facility are performed using low dose modulation techniques as appropriate to perform exam including the following: automated exposure control; use of iterative reconstruction technique; adjustment of the mA and/or kV according to patient size (this includes techniques or standardized protocols for targeted exams where dose is matched to indication/reason for exam). Small Bowel X-Ray 10/06/25 15:46 IMPRESSION: No evidence of obstruction. Contrast extends throughout the large bowel at 1.5 hours. RECOMMENDATION: Correlate with follow-up KUB later this evening or tomorrow morning. Abdomen X-Ray 10/08/25 11:47 IMPRESSION: Numerous loops of distended small bowel again noted. Correlate with follow-up CT of the abdomen and pelvis examination as clinically indicated. Labs Labs: Laboratory Results - last 24 hr 10/08/25 05:22 WBC 9.7 RBC 4.51 L Hgb 13.3 L Hct 42.2 MCV 93.6 MCH 29.5 MCHC 31.5 L RDW 14.4 Plt Count 164 MPV 11.4 H Immature Gran % (Auto) 0.3 Neut % (Auto) 82.3 H Lymph % (Auto) 8.7 L [place] % (Auto) 8.1 Eos % (Auto) 0.4 Baso % (Auto) 0.2 Lymph # (Auto) 0.84 L [place] # (Auto) 0.8 H Eos # (Auto) 0.0 Baso # (Auto) 0.0 Abs Immat Gran (auto) 0.03 Absolute Neuts (auto) 8.0 H Absolute Nucleated RBC 0.000 Nucleated RBC % 0.0 Sodium 137 Potassium 3.4 Chloride 100 Carbon Dioxide 32 H Anion Gap 5 BUN 11 Creatinine 1.24 Estim Creat Clear Calc 69 Estimated GFR 58 L Glucose 115 H Calcium 8.9 Total Bilirubin 0.8 AST 24 ALT 23 Alkaline Phosphatase 86 Total Protein 7.0 Albumin 4.0 Quality VTE Prophylaxis VTE prophylaxis: pharmacologic ordered (Lovenox 40 mg subQ daily.)
[2025-10-08 21:49] VITALS: BP 160/76; PULSE 57; RESP 14; TEMP 36.7; O2SAT 96
--- NOTE | 2025-10-08 23:30 | PC.NURSE ---
Notified Lucy Dobson that pt is having increased nausea. Pt received 4mg Zofran at 2100 and at 2300 stated he was still having nausea. New orders to place NG tube and pt remain NPO. Educated pt on the risks/benefits of the NG tube. Pt stated he was fine and if the nausea continues then he will get the NG tube. [id number] Notified Lucy Dobson that pt stated he feels fine now and does not want NG tube.
[2025-10-09] MEDS: LEVOTHYROXINE SODIUM 100 MCG TABLET PO (05:56)
[2025-10-09] MEDS: LEVOTHYROXINE SODIUM 75 MCG TABLET PO (05:57)
[2025-10-09 06:00] VITALS: BP 158/81; PULSE 61; RESP 14; TEMP 36.6; O2SAT 91
[2025-10-09 06:04] LABS: Hematocrit 41.5 % (42.0-52.0); Hemoglobin 13.1 g/dL (14.0-18.0); Immature Granulocyte Percent A 0.3 % (0-0.5); Lymphocytes Absolute Auto 1.22 K/mm3 (0.9-3.2); Mean Corpuscular HGB Conc 31.6 g/dl (32-36); Mean Corpuscular Hemoglobin 29.4 pg (26-34); Mean Corpuscular Volume 93.3 fl (80-100); Nucleated Red Blood Cells Absolute Auto 0.000 K/mm3 (0.0-0.012); Nucleated Red Blood Cells Perc 0.0 % (0.0-0.2); Platelet Count Result 162 k/mm3 (150-375); Red Blood Count 4.45 M/mm3 (4.6-6.20); White Blood Count 9.6 K/mm3 (4.5-10.0)
[2025-10-09 06:24] LABS: Alanine Aminotransferase 22 U/L (6-50); Albumin Level 3.9 g/dL (3.5-5.1); Alkaline Phosphatase 84 U/L (38-126); Anion Gap 8 mmol/L (4-12); Aspartate Amino Transferase 27 U/L (17-59); Bilirubin,Total 0.8 mg/dL (0.2-1.3); Blood Urea Nitrogen 11 mg/dL (9-20); Calcium 9.1 mg/dL (8.4-10.2); Carbon Dioxide 30 mmol/L (22-30); Chloride 100 mmol/L (98-107); Estimated CRCL calculation 67 ml/min; Estimated Glomerular Filt Rate 56; Glucose 94 mg/dL (65-110); Potassium 3.7 mmol/L (3.4-5.0); Sodium 138 mmol/L (137-145); Total Protein 6.8 g/dL (6.3-8.2)
--- NOTE | 2025-10-09 08:09 | P.PNIM_ITS ---
Progress Note: A&P Assessment and Plan (1) Ventral hernia with bowel obstruction: Code(s): K43.6 - Other and unspecified ventral hernia with obstruction, without gangrene Status: Acute Assessment and Plan: - presented with nausea, vomiting, intermittent diarrhea - CT A/P with finding suggestive partial to early small-bowel obstruction with transition point in the ventral hernia - SBFT - no evidence of obstruction - WBC 12 , resolved today - s/p NG, removed 10/07 - patient with nausea/vomiting after advancing diet. Repeat KUB showed numerous loops of distended small bowel again noted. - general surgery following -advanced back to full liquid diet this AM (2) Hypothyroidism: Qualifiers: Hypothyroidism type: acquired Qualified Code(s): E03.9 - Hypothyroidism, unspecified Code(s): E03.9 - Hypothyroidism, unspecified Status: Acute Assessment and Plan: - resume PO Synthroid Plan DVT prophylaxis: Lovenox Code status: full code Dispo: home in 1-2 days pending clinical course Subjective Date/time seen: 10/09/25 08:09 Interval history: Patient seen and examined at bedside. Feeling better this AM. Was nauseous last night, but didn't require NG placement. + BM yesterday, denied abdominal pain. Review of Systems Review of Systems: All systems reviewed & are unremarkable except as noted in HPI and below Exam Narrative: General: NAD Eyes: EOMI ENT: neck supple Cardiovascular: Regular rate and rhythm Respiratory: Clear to auscultation, respirations even and unlabored on RA Gastrointestinal: Soft, non tender, ventral hernia reduced, bowel sounds hypoactive Genitourinary: no suprapubic tenderness Musculoskeletal: No edema Skin: warm, dry Neuro: Alert. Psych: Mood appropriate Objective Data Vital Signs Vital Signs: Vital Signs - 24 hr 10/08/25 09:25 10/08/25 09:38 10/08/25 13:46 Temperature 98.1 F Pulse Rate 74 65 Respiratory Rate 18 Blood Pressure 108/57 L Pulse Oximetry 98 Oxygen Delivery Room Air 10/08/25 20:00 10/08/25 21:49 10/09/25 06:00 Temperature 98.1 F 97.9 F Pulse Rate 57 L 61 Respiratory Rate 14 14 Blood Pressure 160/76 H 158/81 H Pulse Oximetry 96 91 Oxygen Delivery Room Air Intake/Output Intake/Output: Intake & Output 10/06/25 10/07/25 10/08/25 10/09/25 23:59 23:59 23:59 23:59 Intake Total 1438.3 3076 660 250 Output Total 700 Balance 738.3 3076 660 250 Meds/Results Medications: Active Medications Generic Name Dose Route Start Last Admin Trade Name Freq PRN Reason Stop Dose Admin Acetaminophen 650 mg 10/05/25 23:35 Acetaminophen 650 Mg Suppository RECTAL Q6H PRN Mild Pain (1-3) or Fever Atorvastatin Calcium 10 mg 10/08/25 09:00 10/08/25 09:21 Atorvastatin 10 Mg Tablet PO 10 mg DAILY PRIYANK Administration Dicyclomine HCl 20 mg 10/06/25 21:31 10/08/25 23:17 Dicyclomine Hcl 10 Mg Capsule PO 20 mg QID PRN Administration Abdominal Cramping Enoxaparin Sodium 40 mg 10/06/25 09:00 10/08/25 09:19 Enoxaparin 40 Mg/0.4 Ml Syringe SUB-Q 40 mg DAILY PRIYANK Administration Levothyroxine Sodium 75 mcg 10/08/25 06:30 10/09/25 05:57 Levothyroxine Sodium 75 Mcg Tablet PO 75 mcg DAILY@0630 PRIYANK Administration Levothyroxine Sodium 100 mcg 10/08/25 06:30 10/09/25 05:56 Levothyroxine Sodium 100 Mcg Tablet PO 100 mcg DAILY@0630 PRIYANK Administration Morphine Sulfate 4 mg 10/06/25 07:48 10/06/25 15:52 Morphine Sulfate (*Crx) 4 Mg/Ml Inj IV PUSH 4 mg Q4H PRN Administration Pain Rated 7-10 Nebivolol 10 mg 10/08/25 09:00 10/08/25 09:38 Nebivolol Hcl 5 Mg Tablet PO 10 mg DAILY PRIYANK Administration Ondansetron HCl 4 mg 10/05/25 23:35 10/08/25 21:04 Ondansetron Inj 4 Mg/2 Ml Vial IV PUSH 4 mg Q4H PRN Administration Nausea Pantoprazole Sodium 40 mg 10/06/25 09:00 10/08/25 09:20 Pantoprazole Sodium Iv 40 Mg Vial IV PUSH 40 mg QAM PRIYANK Administration Radiology Results: ITS Impressions Abdomen/Pelvis CT 10/05/25 20:52 IMPRESSION: Findings suggestive of a partial to early small bowel obstruction with transition The ventral wall hernia. Cholelithiasis without evidence of acute cholecystitis. All CT scans at this facility are performed using low dose modulation techniques as appropriate to perform exam including the following: automated exposure control; use of iterative reconstruction technique; adjustment of the mA and/or kV according to patient size (this includes techniques or standardized protocols for targeted exams where dose is matched to indication/reason for exam). Small Bowel X-Ray 10/06/25 15:46 IMPRESSION: No evidence of obstruction. Contrast extends throughout the large bowel at 1.5 hours. RECOMMENDATION: Correlate with follow-up KUB later this evening or tomorrow morning. Abdomen X-Ray 10/08/25 11:47 IMPRESSION: Numerous loops of distended small bowel again noted. Correlate with follow-up CT of the abdomen and pelvis examination as clinically indicated. Labs Labs: Laboratory Results - last 24 hr 10/09/25 05:47 WBC 9.6 RBC 4.45 L Hgb 13.1 L Hct 41.5 L MCV 93.3 MCH 29.4 MCHC 31.6 L RDW 14.2 Plt Count 162 MPV 11.3 H Immature Gran % (Auto) 0.3 Neut % (Auto) 78.2 H Lymph % (Auto) 12.8 L [place] % (Auto) 8.2 Eos % (Auto) 0.3 Baso % (Auto) 0.2 Lymph # (Auto) 1.22 [place] # (Auto) 0.8 H Eos # (Auto) 0.0 Baso # (Auto) 0.0 Abs Immat Gran (auto) 0.03 Absolute Neuts (auto) 7.5 H Absolute Nucleated RBC 0.000 Nucleated RBC % 0.0 Sodium 138 Potassium 3.7 Chloride 100 Carbon Dioxide 30 Anion Gap 8 BUN 11 Creatinine 1.28 Estim Creat Clear Calc 67 Estimated GFR 56 L Glucose 94 Calcium 9.1 Total Bilirubin 0.8 AST 27 ALT 22 Alkaline Phosphatase 84 Total Protein 6.8 Albumin 3.9 Quality VTE Prophylaxis VTE prophylaxis: pharmacologic ordered (Lovenox 40 mg subQ daily.)
[2025-10-09 08:15] VITALS: PULSE 74; RESP 14; O2SAT 91
[2025-10-09 08:16] VITALS: PULSE 74
[2025-10-09] MEDS: PANTOPRAZOLE SODIUM IV 40 MG VIAL IV PUSH (08:16)
[2025-10-09] MEDS: ATORVASTATIN 10 MG TABLET PO (08:16)
[2025-10-09] MEDS: NEBIVOLOL HCL 5 MG TABLET 10 MG PO (08:16)
[2025-10-09] MEDS: ENOXAPARIN 40 MG/0.4 ML SYRINGE SUB-Q (08:16)
--- NOTE | 2025-10-09 11:53 | PM.PNGS ---
Progress Note: A&P Assessment and Plan (1) Incisional hernia with obstruction: Code(s): K43.0 - Incisional hernia with obstruction, without gangrene Status: Acute Assessment and Plan: Feels better this morning. Has active normal bowel sounds. No abdominal tenderness noted. Will try full liquids. 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 Assessment in early 2022 showed no residual disease. (4) RAJEEV (obstructive sleep apnea): Code(s): G47.33 - Obstructive sleep apnea (adult) (pediatric) Status: Chronic Subjective Subjective Date/Time Seen: 10/09/25 11:53 Patient reports: no new complaints, pain is less, bowel movement (Yesterday), nausea (Had some nausea last night and was made NPO. This is gone today and patient is hungry.) and afebrile Review of Systems Review of Systems: All systems reviewed & are unremarkable except as noted in HPI and below (HPI) Exam Const: General: cooperative, comfortable, alert, awake and obese Orientation/consciousness: patient oriented x3 and No confusion GI: Inspection: no abdominal wall ecchymosis, obesity and visible herniation GI Palp: Yes Soft to palpation, No Tenderness to palpation present (GI) and Yes Hernia present (None tender but I could not reduce, patient sitting in chair) Auscultation: normoactive bowel sounds Objective Data Vital Signs Vital Signs: Vital Signs - 24 hr 10/08/25 13:46 10/08/25 20:00 10/08/25 21:49 Temperature 36.7 C 36.7 C Pulse Rate 65 57 L Respiratory Rate 18 14 Blood Pressure 108/57 L 160/76 H Pulse Oximetry 98 96 Oxygen Delivery Room Air 10/09/25 06:00 10/09/25 08:15 10/09/25 08:16 Temperature 36.6 C Pulse Rate 61 74 74 Respiratory Rate 14 14 Blood Pressure 158/81 H Pulse Oximetry 91 91 Oxygen Delivery Room Air Intake/Output Intake/Output: Intake & Output 10/06/25 10/07/25 10/08/25/15/25 23:59 23:59 23:59 23:59 Intake Total 1438.3 3076 660 250 Output Total 700 Balance 738.3 3076 660 250 Meds/Results Medications: Active Medications Generic Name Dose Route Start Last Admin Trade Name Freq PRN Reason Stop Dose Admin Acetaminophen 650 mg 10/05/25 23:35 Acetaminophen 650 Mg Suppository RECTAL Q6H PRN Mild Pain (1-3) or Fever Atorvastatin Calcium 10 mg 10/08/25 09:00 10/09/25 08:16 Atorvastatin 10 Mg Tablet PO 10 mg DAILY PRIYANK Administration Dicyclomine HCl 20 mg 10/06/25 21:31 10/08/25 23:17 Dicyclomine Hcl 10 Mg Capsule PO 20 mg QID PRN Administration Abdominal Cramping Enoxaparin Sodium 40 mg 10/06/25 09:00 10/09/25 08:16 Enoxaparin 40 Mg/0.4 Ml Syringe SUB-Q 40 mg DAILY PRIYANK Administration Levothyroxine Sodium 75 mcg 10/08/25 06:30 10/09/25 05:57 Levothyroxine Sodium 75 Mcg Tablet PO 75 mcg DAILY@0630 PRIYANK Administration Levothyroxine Sodium 100 mcg 10/08/25 06:30 10/09/25 05:56 Levothyroxine Sodium 100 Mcg Tablet PO 100 mcg DAILY@0630 PRIYANK Administration Morphine Sulfate 4 mg 10/06/25 07:48 10/06/25 15:52 Morphine Sulfate (*Crx) 4 Mg/Ml Inj IV PUSH 4 mg Q4H PRN Administration Pain Rated 7-10 Nebivolol 10 mg 10/08/25 09:00 10/09/25 08:16 Nebivolol Hcl 5 Mg Tablet PO 10 mg DAILY PRIYANK Administration Ondansetron HCl 4 mg 10/05/25 23:35 10/08/25 21:04 Ondansetron Inj 4 Mg/2 Ml Vial IV PUSH 4 mg Q4H PRN Administration Nausea Pantoprazole Sodium 40 mg 10/06/25 09:00 10/09/25 08:16 Pantoprazole Sodium Iv 40 Mg Vial IV PUSH 40 mg QAM PRIYANK Administration Radiology Results: ITS Impressions Abdomen/Pelvis CT 10/05/25 20:52 IMPRESSION: Findings suggestive of a partial to early small bowel obstruction with transition The ventral wall hernia. Cholelithiasis without evidence of acute cholecystitis. All CT scans at this facility are performed using low dose modulation techniques as appropriate to perform exam including the following: automated exposure control; use of iterative reconstruction technique; adjustment of the mA and/or kV according to patient size (this includes techniques or standardized protocols for targeted exams where dose is matched to indication/reason for exam). Small Bowel X-Ray 10/06/25 15:46 IMPRESSION: No evidence of obstruction. Contrast extends throughout the large bowel at 1.5 hours. RECOMMENDATION: Correlate with follow-up KUB later this evening or tomorrow morning. Abdomen X-Ray 10/08/25 11:47 IMPRESSION: Numerous loops of distended small bowel again noted. Correlate with follow-up CT of the abdomen and pelvis examination as clinically indicated. Labs Labs: Laboratory Results - last 24 hr 10/09/25 05:47 WBC 9.6 RBC 4.45 L Hgb 13.1 L Hct 41.5 L MCV 93.3 MCH 29.4 MCHC 31.6 L RDW 14.2 Plt Count 162 MPV 11.3 H Immature Gran % (Auto) 0.3 Neut % (Auto) 78.2 H Lymph % (Auto) 12.8 L [place] % (Auto) 8.2 Eos % (Auto) 0.3 Baso % (Auto) 0.2 Lymph # (Auto) 1.22 [place] # (Auto) 0.8 H Eos # (Auto) 0.0 Baso # (Auto) 0.0 Abs Immat Gran (auto) 0.03 Absolute Neuts (auto) 7.5 H Absolute Nucleated RBC 0.000 Nucleated RBC % 0.0 Sodium 138 Potassium 3.7 Chloride 100 Carbon Dioxide 30 Anion Gap 8 BUN 11 Creatinine 1.28 Estim Creat Clear Calc 67 Estimated GFR 56 L Glucose 94 Calcium 9.1 Total Bilirubin 0.8 AST 27 ALT 22 Alkaline Phosphatase 84 Total Protein 6.8 Albumin 3.9
[2025-10-09 14:00] VITALS: BP 138/61; PULSE 60; RESP 20; TEMP 36.7; O2SAT 95
[2025-10-09 21:22] VITALS: BP 158/71; PULSE 64; RESP 20; TEMP 36.3; O2SAT 97
[2025-10-10] MEDS: BACLOFEN 5 MG TABLET PO (00:30)
[2025-10-10] MEDS: LEVOTHYROXINE SODIUM 100 MCG TABLET PO (05:39)
[2025-10-10] MEDS: LEVOTHYROXINE SODIUM 75 MCG TABLET PO (05:39)
[2025-10-10 05:57] VITALS: BP 136/75; PULSE 61; RESP 18; TEMP 36.6; O2SAT 92
[2025-10-10 06:43] LABS: Hematocrit 42.1 % (42.0-52.0); Hemoglobin 13.5 g/dL (14.0-18.0); Immature Granulocyte Percent A 0.5 % (0-0.5); Lymphocytes Absolute Auto 1.57 K/mm3 (0.9-3.2); Mean Corpuscular HGB Conc 32.1 g/dl (32-36); Mean Corpuscular Hemoglobin 29.6 pg (26-34); Mean Corpuscular Volume 92.3 fl (80-100); Nucleated Red Blood Cells Absolute Auto 0.000 K/mm3 (0.0-0.012); Nucleated Red Blood Cells Perc 0.0 % (0.0-0.2); Platelet Count Result 174 k/mm3 (150-375); Red Blood Count 4.56 M/mm3 (4.6-6.20); White Blood Count 11.1 K/mm3 (4.5-10.0)
[2025-10-10 07:00] LABS: Anion Gap 6 mmol/L (4-12); Blood Urea Nitrogen 12 mg/dL (9-20); Calcium 8.8 mg/dL (8.4-10.2); Carbon Dioxide 31 mmol/L (22-30); Chloride 99 mmol/L (98-107); Estimated CRCL calculation 69 ml/min; Estimated Glomerular Filt Rate 58; Glucose 87 mg/dL (65-110); Potassium 3.6 mmol/L (3.4-5.0); Sodium 136 mmol/L (137-145)
[2025-10-10 09:00] VITALS: PULSE 61
[2025-10-10] MEDS: NEBIVOLOL HCL 5 MG TABLET 10 MG PO (09:00)
[2025-10-10] MEDS: PANTOPRAZOLE SODIUM IV 40 MG VIAL IV PUSH (09:00)
[2025-10-10] MEDS: ATORVASTATIN 10 MG TABLET PO (09:00)
[2025-10-10] MEDS: ENOXAPARIN 40 MG/0.4 ML SYRINGE SUB-Q (09:00)
--- NOTE | 2025-10-10 12:21 | P.PNGS_ITS ---
Progress Note: A&P Assessment and Plan (1) Incisional hernia with obstruction: Code(s): K43.0 - Incisional hernia with obstruction, without gangrene Status: Acute Assessment and Plan: Obstruction appears relieved. Patient denies pain. Tolerated full liquids well and has had bowel movements. Abdomen less tender and no peritoneal signs. Advance to regular diet. 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 Assessment in early 2022 showed no residual disease. (4) RAJEEV (obstructive sleep apnea): Code(s): G47.33 - Obstructive sleep apnea (adult) (pediatric) Status: Chronic Subjective Subjective Date/Time Seen: 10/10/25 12:21 Patient reports: feels better, pain is less, tolerating liquids well, bowel movement and afebrile Review of Systems Review of Systems: All systems reviewed & are unremarkable except as noted in HPI and below (HPI) Exam Const: General: cooperative, comfortable, alert, awake and obese Orientation/consciousness: patient oriented x3 and No confusion GI: Inspection: no abdominal wall ecchymosis, non-distended, obesity and visible herniation GI Palp: Yes Soft to palpation, No Tenderness to palpation present (GI) and Yes Hernia present (Nontender but I could not reduce, patient sitting in chair) incisional Auscultation: normal bowel sounds and normoactive bowel sounds Objective Data Vital Signs Vital Signs: Vital Signs - 24 hr 10/09/25 14:00 10/09/25 20:00 10/09/25 21:22 Temperature 36.7 C 36.3 C L Pulse Rate 60 64 Respiratory Rate 20 20 Blood Pressure 138/61 158/71 H Pulse Oximetry 95 97 Oxygen Delivery Room Air 10/10/25 05:57 10/10/25 08:00 10/10/25 09:00 Temperature 36.6 C Pulse Rate 61 61 Respiratory Rate 18 Blood Pressure 136/75 Pulse Oximetry 92 Oxygen Delivery Room Air Intake/Output Intake/Output: Intake & Output 10/07/25 10/08/25 10/09/25 10/10/25 23:59 23:59 23:59 23:59 Intake Total 3076 660 570 600 Balance 3076 660 570 600 Meds/Results Medications: Active Medications Generic Name Dose Route Start Last Admin Trade Name Freq PRN Reason Stop Dose Admin Acetaminophen 650 mg 10/05/25 23:35 Acetaminophen 650 Mg Suppository RECTAL Q6H PRN Mild Pain (1-3) or Fever Atorvastatin Calcium 10 mg 10/08/25 09:00 10/10/25 09:00 Atorvastatin 10 Mg Tablet PO 10 mg DAILY PRIYANK Administration Baclofen 5 mg 10/10/25 00:08 10/10/25 00:30 Baclofen 5 Mg Tablet PO 5 mg Q8HR PRN Administration hiccups Dicyclomine HCl 20 mg 10/06/25 21:31 10/08/25 23:17 Dicyclomine Hcl 10 Mg Capsule PO 20 mg QID PRN Administration Abdominal Cramping Enoxaparin Sodium 40 mg 10/06/25 09:00 10/10/25 09:00 Enoxaparin 40 Mg/0.4 Ml Syringe SUB-Q 40 mg DAILY PRIYANK Administration Levothyroxine Sodium 75 mcg 10/08/25 06:30 10/10/25 05:39 Levothyroxine Sodium 75 Mcg Tablet PO 75 mcg DAILY@0630 PRIYANK Administration Levothyroxine Sodium 100 mcg 10/08/25 06:30 10/10/25 05:39 Levothyroxine Sodium 100 Mcg Tablet PO 100 mcg DAILY@0630 PRIYANK Administration Morphine Sulfate 4 mg 10/06/25 07:48 10/06/25 15:52 Morphine Sulfate (*Crx) 4 Mg/Ml Inj IV PUSH 4 mg Q4H PRN Administration Pain Rated 7-10 Nebivolol 10 mg 10/08/25 09:00 10/10/25 09:00 Nebivolol Hcl 5 Mg Tablet PO 10 mg DAILY PRIYANK Administration Ondansetron HCl 4 mg 10/05/25 23:35 10/08/25 21:04 Ondansetron Inj 4 Mg/2 Ml Vial IV PUSH 4 mg Q4H PRN Administration Nausea Pantoprazole Sodium 40 mg 10/06/25 09:00 10/10/25 09:00 Pantoprazole Sodium Iv 40 Mg Vial IV PUSH 40 mg QAM PRIYANK Administration Radiology Results: ITS Impressions Abdomen/Pelvis CT 10/05/25 20:52 IMPRESSION: Findings suggestive of a partial to early small bowel obstruction with transitio n The ventral wall hernia. Cholelithiasis without evidence of acute cholecystitis. All CT scans at this facility are performed using low dose modulation techniques as appropriate to perform exam including the following: automated exposure control; use of iterative reconstruction technique; adjustment of the mA and/or kV according to patient size (this includes techniques or standardized protocols for targeted exams where dose is matched to indication/reason for exam). Small Bowel X-Ray 10/06/25 15:46 IMPRESSION: No evidence of obstruction. Contrast extends throughout the large bowel at 1.5 hours. RECOMMENDATION: Correlate with follow-up KUB later this evening or tomorrow morning. Abdomen X-Ray 10/08/25 11:47 IMPRESSION: Numerous loops of distended small bowel again noted. Correlate with follow-up CT of the abdomen and pelvis examination as clinically indicated. Labs Labs: Laboratory Results - last 24 hr 10/10/25 06:18 WBC 11.1 H RBC 4.56 L Hgb 13.5 L Hct 42.1 MCV 92.3 MCH 29.6 MCHC 32.1 RDW 13.9 Plt Count 174 MPV 11.4 H Immature Gran % (Auto) 0.5 Neut % (Auto) 76.2 H Lymph % (Auto) 14.1 L [place] % (Auto) 8.6 H Eos % (Auto) 0.4 Baso % (Auto) 0.2 Lymph # (Auto) 1.57 [place] # (Auto) 1.0 H Eos # (Auto) 0.0 Baso # (Auto) 0.0 Abs Immat Gran (auto) 0.05 H Absolute Neuts (auto) 8.5 H Absolute Nucleated RBC 0.000 Nucleated RBC % 0.0 Sodium 136 L Potassium 3.6 Chloride 99 Carbon Dioxide 31 H Anion Gap 6 BUN 12 Creatinine 1.24 Estim Creat Clear Calc 69 Estimated GFR 58 L Glucose 87 Calcium 8.8
--- NOTE | 2025-10-10 13:14 | P.PNIM_ITS ---
Progress Note: A&P Assessment and Plan (1) Ventral hernia with bowel obstruction: Code(s): K43.6 - Other and unspecified ventral hernia with obstruction, without gangrene Status: Acute Assessment and Plan: - presented with nausea, vomiting, intermittent diarrhea - CT A/P with finding suggestive partial to early small-bowel obstruction with transition point in the ventral hernia - SBFT - no evidence of obstruction - WBC 12 , resolved today - s/p NG, removed 10/07 - patient with nausea/vomiting after advancing diet. Repeat KUB showed numerous loops of distended small bowel again noted. - general surgery following -advanced back to regular with plans to hopefully discharge tomorrow (2) Hypothyroidism: Qualifiers: Hypothyroidism type: acquired Qualified Code(s): E03.9 - Hypothyroidism, unspecified Code(s): E03.9 - Hypothyroidism, unspecified Status: Acute Assessment and Plan: - resume PO Synthroid Plan DVT prophylaxis: Lovenox Code status: full code Dispo: home in 1-2 days pending clinical course Subjective Date/time seen: 10/10/25 13:14 Interval history: Patient seen and examined at bedside. Feeling better this AM. No further nausea with full liquids. Advanced to regular diet. Review of Systems Review of Systems: All systems reviewed & are unremarkable except as noted in HPI and below Exam Narrative: General: NAD Eyes: EOMI ENT: neck supple Cardiovascular: Regular rate and rhythm Respiratory: Clear to auscultation, respirations even and unlabored on RA Gastrointestinal: Soft, non tender, ventral hernia reduced, bowel sounds hypoactive Genitourinary: no suprapubic tenderness Musculoskeletal: No edema Skin: warm, dry Neuro: Alert. Psych: Mood appropriate Objective Data Vital Signs Vital Signs: Vital Signs - 24 hr 10/09/25 14:00 10/09/25 20:00 10/09/25 21:22 Temperature 98.1 F 97.4 F L Pulse Rate 60 64 Respiratory Rate 20 20 Blood Pressure 138/61 158/71 H Pulse Oximetry 95 97 Oxygen Delivery Room Air 10/10/25 05:57 10/10/25 08:00 10/10/25 09:00 Temperature 97.9 F Pulse Rate 61 61 Respiratory Rate 18 Blood Pressure 136/75 Pulse Oximetry 92 Oxygen Delivery Room Air Intake/Output Intake/Output: Intake & Output 10/07/25 10/08/25 10/09/25 10/10/25 23:59 23:59 23:59 23:59 Intake Total 3076 660 570 840 Balance 3076 660 570 840 Meds/Results Medications: Active Medications Generic Name Dose Route Start Last Admin Trade Name Freq PRN Reason Stop Dose Admin Acetaminophen 650 mg 10/05/25 23:35 Acetaminophen 650 Mg Suppository RECTAL Q6H PRN Mild Pain (1-3) or Fever Atorvastatin Calcium 10 mg 10/08/25 09:00 10/10/25 09:00 Atorvastatin 10 Mg Tablet PO 10 mg DAILY PRIYANK Administration Baclofen 5 mg 10/10/25 00:08 10/10/25 00:30 Baclofen 5 Mg Tablet PO 5 mg Q8HR PRN Administration hiccups Dicyclomine HCl 20 mg 10/06/25 21:31 10/08/25 23:17 Dicyclomine Hcl 10 Mg Capsule PO 20 mg QID PRN Administration Abdominal Cramping Enoxaparin Sodium 40 mg 10/06/25 09:00 10/10/25 09:00 Enoxaparin 40 Mg/0.4 Ml Syringe SUB-Q 40 mg DAILY PRIYANK Administration Levothyroxine Sodium 75 mcg 10/08/25 06:30 10/10/25 05:39 Levothyroxine Sodium 75 Mcg Tablet PO 75 mcg DAILY@0630 PRIYANK Administration Levothyroxine Sodium 100 mcg 10/08/25 06:30 10/10/25 05:39 Levothyroxine Sodium 100 Mcg Tablet PO 100 mcg DAILY@0630 PRIYANK Administration Morphine Sulfate 4 mg 10/06/25 07:48 10/06/25 15:52 Morphine Sulfate (*Crx) 4 Mg/Ml Inj IV PUSH 4 mg Q4H PRN Administration Pain Rated 7-10 Nebivolol 10 mg 10/08/25 09:00 10/10/25 09:00 Nebivolol Hcl 5 Mg Tablet PO 10 mg DAILY PRIYANK Administration Ondansetron HCl 4 mg 10/05/25 23:35 10/08/25 21:04 Ondansetron Inj 4 Mg/2 Ml Vial IV PUSH 4 mg Q4H PRN Administration Nausea Pantoprazole Sodium 40 mg 10/06/25 09:00 10/10/25 09:00 Pantoprazole Sodium Iv 40 Mg Vial IV PUSH 40 mg QAM PRIYANK Administration Radiology Results: ITS Impressions Abdomen/Pelvis CT 10/05/25 20:52 IMPRESSION: Findings suggestive of a partial to early small bowel obstruction with transition The ventral wall hernia. Cholelithiasis without evidence of acute cholecystitis. All CT scans at this facility are performed using low dose modulation techniques as appropriate to perform exam including the following: automated exposure control; use of iterative reconstruction technique; adjustment of the mA and/or kV according to patient size (this includes techniques or standardized protocols for targeted exams where dose is matched to indication/reason for exam). Small Bowel X-Ray 10/06/25 15:46 IMPRESSION: No evidence of obstruction. Contrast extends throughout the large bowel at 1.5 hours. RECOMMENDATION: Correlate with follow-up KUB later this evening or tomorrow morning. Abdomen X-Ray 10/08/25 11:47 IMPRESSION: Numerous loops of distended small bowel again noted. Correlate with follow-up CT of the abdomen and pelvis examination as clinically indicated. Labs Labs: Laboratory Results - last 24 hr 10/10/25 06:18 WBC 11.1 H RBC 4.56 L Hgb 13.5 L Hct 42.1 MCV 92.3 MCH 29.6 MCHC 32.1 RDW 13.9 Plt Count 174 MPV 11.4 H Immature Gran % (Auto) 0.5 Neut % (Auto) 76.2 H Lymph % (Auto) 14.1 L [place] % (Auto) 8.6 H Eos % (Auto) 0.4 Baso % (Auto) 0.2 Lymph # (Auto) 1.57 [place] # (Auto) 1.0 H Eos # (Auto) 0.0 Baso # (Auto) 0.0 Abs Immat Gran (auto) 0.05 H Absolute Neuts (auto) 8.5 H Absolute Nucleated RBC 0.000 Nucleated RBC % 0.0 Sodium 136 L Potassium 3.6 Chloride 99 Carbon Dioxide 31 H Anion Gap 6 BUN 12 Creatinine 1.24 Estim Creat Clear Calc 69 Estimated GFR 58 L Glucose 87 Calcium 8.8 Quality VTE Prophylaxis VTE prophylaxis: pharmacologic ordered (Lovenox 40 mg subQ daily.)
[2025-10-10 14:00] VITALS: BP 147/68; PULSE 61; RESP 15; TEMP 36.4; O2SAT 97
[2025-10-10 20:38] VITALS: BP 160/78; PULSE 54; RESP 17; TEMP 37; O2SAT 95
[2025-10-11 05:20] VITALS: BP 145/86; PULSE 65; RESP 17; TEMP 36.8; O2SAT 93
[2025-10-11 05:47] LABS: Hematocrit 41.1 % (42.0-52.0); Hemoglobin 13.7 g/dL (14.0-18.0); Immature Granulocyte Percent A 0.4 % (0-0.5); Lymphocytes Absolute Auto 1.29 K/mm3 (0.9-3.2); Mean Corpuscular HGB Conc 33.3 g/dl (32-36); Mean Corpuscular Hemoglobin 30.1 pg (26-34); Mean Corpuscular Volume 90.3 fl (80-100); Nucleated Red Blood Cells Absolute Auto 0.000 K/mm3 (0.0-0.012); Nucleated Red Blood Cells Perc 0.0 % (0.0-0.2); Platelet Count Result 171 k/mm3 (150-375); Red Blood Count 4.55 M/mm3 (4.6-6.20); White Blood Count 10.5 K/mm3 (4.5-10.0)
[2025-10-11] MEDS: LEVOTHYROXINE SODIUM 75 MCG TABLET PO (05:53)
[2025-10-11] MEDS: LEVOTHYROXINE SODIUM 100 MCG TABLET PO (05:53)
[2025-10-11 09:10] VITALS: PULSE 72
[2025-10-11] MEDS: ATORVASTATIN 10 MG TABLET PO (09:10)
[2025-10-11] MEDS: NEBIVOLOL HCL 5 MG TABLET 10 MG PO (09:10)
[2025-10-11] MEDS: PANTOPRAZOLE SODIUM IV 40 MG VIAL IV PUSH (09:10)
[2025-10-11] MEDS: ENOXAPARIN 40 MG/0.4 ML SYRINGE SUB-Q (09:10)
--- NOTE | 2025-10-11 11:21 | P.PNGS_ITS ---
Progress Note: A&P Assessment and Plan (1) Incisional hernia with obstruction: Code(s): K43.0 - Incisional hernia with obstruction, without gangrene Status: Acute Assessment and Plan: * Obstruction resolved. Tolerated a solid diet well and having bowel movements. * Surgically stable for discharge. Will order an abdominal binder for him to take home. Educated the patient on how to use. Avoid heavy lifting or strenuous activity. We recommended continued weight loss to plan for eventual elective surgical repair. F/u with Dr. Salinas in 2 weeks. (2) Obesity, morbid, BMI 40.0-49.9: Code(s): E66.01 - Morbid (severe) obesity due to excess calories Status: Chronic (3) History of neuroendocrine cancer: Code(s): Z85.89 - Personal history of malignant neoplasm of other organs and systems Status: Chronic (4) RAJEEV (obstructive sleep apnea): Code(s): G47.33 - Obstructive sleep apnea (adult) (pediatric) Status: Chronic Plan I have discussed the patient's case and plan of care with Dr. Salinas. Subjective Subjective Date/Time Seen: 10/11/25 11:21 Patient reports: no new complaints, tolerating a regular diet, flatus and bowel movement Interval history: Patient doing well. Diet has been advanced through the weekend. No more nausea or vomiting, but still doesn't have much of an appetite. He is tolerating regular food. No abdominal pain. Exam Const: General: comfortable and no acute distress GI: Inspection: non-distended, [place] present and obesity GI Palp: Yes Soft to palpation, No Tenderness to palpation present (GI), No Guarding due to palpation present (GI) and No Rebound tenderness present Auscultation: normal bowel sounds Other: large incisional hernia that is soft and nontender and only able to partially reduce the hernia with him sitting in the chair Objective Data Vital Signs Vital Signs: Vital Signs - 24 hr 10/10/25 14:00 10/10/25 20:00 10/10/25 20:38 Temperature 97.5 F L 98.6 F Pulse Rate 61 54 L Respiratory Rate 15 17 Blood Pressure 147/68 H 160/78 H Pulse Oximetry 97 95 Oxygen Delivery Room Air 10/11/25 05:20 10/11/25 09:10 Temperature 98.2 F Pulse Rate 65 72 Respiratory Rate 17 Blood Pressure 145/86 H Pulse Oximetry 93 Oxygen Delivery Intake/Output Intake/Output: Intake & Output 10/08/25 10/09/25 10/10/25 10/11/25 23:59 23:59 23:59 23:59 Intake Total 983 521 5293 587 Balance 650 992 3094 587 Meds/Results Medications: Active Medications Generic Name Dose Route Start Last Admin Trade Name Freq PRN Reason Stop Dose Admin Acetaminophen 650 mg 10/05/25 23:35 Acetaminophen 650 Mg Suppository RECTAL Q6H PRN Mild Pain (1-3) or Fever Atorvastatin Calcium 10 mg 10/08/25 09:00 10/11/25 09:10 Atorvastatin 10 Mg Tablet PO 10 mg DAILY PRIYANK Administration Baclofen 5 mg 10/10/25 00:08 10/10/25 00:30 Baclofen 5 Mg Tablet PO 5 mg Q8HR PRN Administration hiccups Dicyclomine HCl 20 mg 10/06/25 21:31 10/08/25 23:17 Dicyclomine Hcl 10 Mg Capsule PO 20 mg QID PRN Administration Abdominal Cramping Enoxaparin Sodium 40 mg 10/06/25 09:00 10/11/25 09:10 Enoxaparin 40 Mg/0.4 Ml Syringe SUB-Q 40 mg DAILY PRIYANK Administration Levothyroxine Sodium 75 mcg 10/08/25 06:30 10/11/25 05:53 Levothyroxine Sodium 75 Mcg Tablet PO 75 mcg DAILY@0630 PRIYANK Administration Levothyroxine Sodium 100 mcg 10/08/25 06:30 10/11/25 05:53 Levothyroxine Sodium 100 Mcg Tablet PO 100 mcg DAILY@0630 PRIYANK Administration Nebivolol 10 mg 10/08/25 09:00 10/11/25 09:10 Nebivolol Hcl 5 Mg Tablet PO 10 mg DAILY PRIYANK Administration Ondansetron HCl 4 mg 10/05/25 23:35 10/08/25 21:04 Ondansetron Inj 4 Mg/2 Ml Vial IV PUSH 4 mg Q4H PRN Administration Nausea Pantoprazole Sodium 40 mg 10/06/25 09:00 10/11/25 09:10 Pantoprazole Sodium Iv 40 Mg Vial IV PUSH 40 mg QAM PRIYANK Administration Radiology Results: ITS Impressions Abdomen/Pelvis CT 10/05/25 20:52 IMPRESSION: Findings suggestive of a partial to early small bowel obstruction with transition The ventral wall hernia. Cholelithiasis without evidence of acute cholecystitis. All CT scans at this facility are performed using low dose modulation techniques as appropriate to perform exam including the following: automated exposure control; use of iterative reconstruction technique; adjustment of the mA and/or kV according to patient size (this includes techniques or standardized protocols for targeted exams where dose is matched to indication/reason for exam). Small Bowel X-Ray 10/06/25 15:46 IMPRESSION: No evidence of obstruction. Contrast extends throughout the large bowel at 1.5 hours. RECOMMENDATION: Correlate with follow-up KUB later this evening or tomorrow morning. Abdomen X-Ray 10/08/25 11:47 IMPRESSION: Numerous loops of distended small bowel again noted. Correlate with follow-up CT of the abdomen and pelvis examination as clinically indicated. Labs Labs: Laboratory Results - last 24 hr 10/11/25 05:06 WBC 10.5 H RBC 4.55 L Hgb 13.7 L Hct 41.1 L MCV 90.3 MCH 30.1 MCHC 33.3 RDW 14.2 Plt Count 171 MPV 11.7 H Immature Gran % (Auto) 0.4 Neut % (Auto) 77.9 H Lymph % (Auto) 12.3 L [place] % (Auto) 9.0 H Eos % (Auto) 0.2 Baso % (Auto) 0.2 Lymph # (Auto) 1.29 [place] # (Auto) 0.9 H Eos # (Auto) 0.0 Baso # (Auto) 0.0 Abs Immat Gran (auto) 0.04 H Absolute Neuts (auto) 8.1 H Absolute Nucleated RBC 0.000 Nucleated RBC % 0.0
--- NOTE | 2025-10-11 11:43 | P.DS_ITS ---
DS: Admitting Diagnosis Discharge Date 10/11/25 Admitting Diagnosis - ventral hernia with bowel obstruction -hypothyroidism DS: Discharge Diagnosis Discharge Diagnosis (1) Ventral hernia with bowel obstruction: Code(s): K43.6 - Other and unspecified ventral hernia with obstruction, without gangrene Status: Acute (2) Hypothyroidism: Qualifiers: Hypothyroidism type: acquired Qualified Code(s): E03.9 - Hypothyroidism, unspecified Code(s): E03.9 - Hypothyroidism, unspecified Status: Acute DS: Summary Hospital Course Reason for hospitalization: - ventral hernia with bowel obstruction - hypothyroidism Hospital Course: Mr. Mayur Higgins, a 65-year-old male with a history of morbid obesity, RAJEEV, hypertension, hypothyroidism, and prior small bowel resection for carcinoid tumor, was admitted on 10/05/25 with acute onset of vomiting, abdominal pain, and profuse diarrhea. On presentation, he was found to have a distended abdomen with a large ventral/incisional hernia and laboratory evidence of mild leukocytosis and dehydration. CT imaging demonstrated a partial small bowel obstruction with a transition point at the hernia. He was managed non- operatively with nasogastric decompression, bowel rest, and IV fluids. General surgery was consulted and serial abdominal exams and imaging were performed. A small bowel follow-through showed resolution of the obstruction, and the NG tube was removed. His diet was initially advanced and he developed mild nausea so he was made NPO again. His diet was gradually advanced from clear liquids to regular as tolerated, with no recurrence of nausea, vomiting, or abdominal pain. He remained hemodynamically stable throughout his stay, with normalization of his leukocytosis and improvement in laboratory parameters. His home medications were resumed as appropriate, including levothyroxine, atorvastatin, and nebivolol. He was educated on hernia precautions, including use of an abdominal binder and avoidance of heavy lifting, and was advised to continue weight loss in preparation for possible elective hernia repair. He was deemed medically and surgically stable for discharge with outpatient follow-up arranged. Status at Discharge Functional status at discharge: independent ambulation Time Spent with Patient Time attestation: Total time spent providing and/or coordinating discharge services: Time spent: Greater than 30 minutes Exam Narrative: General: NAD Eyes: EOMI ENT: neck supple Cardiovascular: Regular rate and rhythm Respiratory: Clear to auscultation, respirations even and unlabored on RA Gastrointestinal: Soft, non tender, ventral hernia reduced, bowel sounds active Genitourinary: no suprapubic tenderness Musculoskeletal: No edema Skin: warm, dry Neuro: Alert. Psych: Mood appropriate DS: Data Data Completed and Pending Completed studies during hospitalization: ITS Impressions Abdomen/Pelvis CT 10/05/25 20:52 IMPRESSION: Findings suggestive of a partial to early small bowel obstruction with transition The ventral wall hernia. Cholelithiasis without evidence of acute cholecystitis. All CT scans at this facility are performed using low dose modulation techniques as appropriate to perform exam including the following: automated exposure control; use of iterative reconstruction technique; adjustment of the mA and/or kV according to patient size (this includes techniques or standardized protocols for targeted exams where dose is matched to indication/reason for exam). Abdomen X-Ray 10/06/25 08:10 IMPRESSION: 1. Nonspecific bowel gas pattern with scattered loops of gas dilated bowel thro ughout the abdomen and pelvis with mildly distended small bowel in the right hemiabdomen. 2. No large amount of free air. 3. Gastric catheter in the upper body or fundal portion of the stomach. Small Bowel X-Ray 10/06/25 15:46 IMPRESSION: No evidence of obstruction. Contrast extends throughout the large bowel at 1.5 hours. RECOMMENDATION: Correlate with follow-up KUB later this evening or tomorrow morning. Abdomen X-Ray 10/08/25 11:47 IMPRESSION: Numerous loops of distended small bowel again noted. Correlate with follow-up CT of the abdomen and pelvis examination as clinically indicated. Labs on day of discharge: Labs from last 24 hours 10/11/25 05:06 WBC 10.5 H RBC 4.55 L Hgb 13.7 L Hct 41.1 L MCV 90.3 MCH 30.1 MCHC 33.3 RDW 14.2 Plt Count 171 MPV 11.7 H Immature Gran % (Auto) 0.4 Neut % (Auto) 77.9 H Lymph % (Auto) 12.3 L [place] % (Auto) 9.0 H Eos % (Auto) 0.2 Baso % (Auto) 0.2 Lymph # (Auto) 1.29 [place] # (Auto) 0.9 H Eos # (Auto) 0.0 Baso # (Auto) 0.0 Abs Immat Gran (auto) 0.04 H Absolute Neuts (auto) 8.1 H Absolute Nucleated RBC 0.000 Nucleated RBC % 0.0 Discharge Plan Discharge Attending physician on discharge: Guanako Lopez Consulting providers: Torres Salinas; Karen Gabriel Discharging Clinician: Karen Gabriel Anticipated Discharge Date/Time: 10/11/25 11:34 Patient Disposition: Home Activity: no straining and other - see discharge instructions Diet: regular Discharge Instructions: Discharge Instructions: Small Bowel Obstruction (SBO) ? Ventral Hernia Diagnosis: You were admitted with symptoms of nausea, vomiting, and intermittent diarrhea. Imaging showed a partial or early small bowel obstruction at the site of your ventral hernia. A small bowel follow-through did not show ongoing obstruction. You were monitored by the general surgery team, tolerated a regular diet, and had normal bowel movements before discharge. At Home: * Diet: * Continue with a regular diet as tolerated. * Eat small, frequent meals and chew food thoroughly. * Avoid foods that are hard to digest or may cause bloating (e.g., raw vegetables, popcorn, nuts, seeds) if you notice symptoms return. * Activity: * Resume normal activities as tolerated. * Avoid heavy lifting or straining, as this can worsen your hernia. * Medications: * Take all prescribed medications as directed. * Use stool softeners if needed to avoid constipation. * Weight Management: * Continue working on weight loss as discussed. * Follow up with your primary care provider or a mud tank operator for support if needed. * Follow-Up: * Schedule an outpatient appointment with general surgery in 2 weeks to discuss possible hernia repair. * Utilize an abdominal binder when upright Return Precautions: Seek immediate medical attention if you experience any of the following: * Severe or worsening abdominal pain, or vomiting * Persistent vomiting or inability to keep food/fluids down * Abdominal swelling or bloating that does not improve * No bowel movements or inability to pass gas for more than 24 hours * Fever or chills * Redness, swelling, or pain at the site of your hernia Contact Information: If you have questions or concerns before your follow-up, contact your primary care provider or the surgical clinic. Summary: You are being discharged after treatment for a partial small bowel obstruction related to your ventral hernia. You are currently stable, eating, and having bowel movements. Please follow the instructions above and keep your follow-up appointment to discuss further management of your hernia. Patient Instructions: Bowel Obstruction (DC), Ventral Hernia (DC) Patient Language: Tajik Stand Alone Forms: General Discharge Information Follow-up/Referrals: ShengYe MD [Primary Care Provider] - Call for Appointment Referral Note: follow-up in 1 week Torres Salinas DO [Physician, General Surgery] - Call for Appointment Referral Note: follow-up in 2 weeks Discharge Medications: Continued levothyroxine 175 mcg tablet 175 mcg PO DAILY atorvastatin 10 mg tablet 10 mg PO DAILY nebivolol 5 mg tablet 5 mg PO DAILY Date of admission: 10/06/25 08:10 Primary Care Provider: Ye Yang Admitting Provider: Anushka Givens Attending physician on admission: Anushka Givens Condition: Stable
== END 2025-10-11 13:20 | disposition home or self-care (01) | DRG 394 ==
LOC: ANHED 20:16 → ANH3MEDSUR 10-06 00:17
PROVIDERS: Admitting Provider Internal Medicine; Emergency Provider Physician Assistant; PCP Internal Medicine; Visit Provider Physician Assistant
DX: K43.0 Incisional hernia with obstruction, without gangrene (principal); Z68.42 Body mass index [BMI] 45.0-49.9, adult; D72.823 Leukemoid reaction; E66.01 Morbid (severe) obesity due to excess calories; E03.9 Hypothyroidism, unspecified; E78.5 Hyperlipidemia, unspecified; E86.0 Dehydration; G47.33 Obstructive sleep apnea (adult) (pediatric); I10 Essential (primary) hypertension; I73.9 Peripheral vascular disease, unspecified; Z85.068 Personal history of other malignant neoplasm of small intestine; Z87.442 Personal history of urinary calculi; Z98.890 Other specified postprocedural states
CPT/HCPCS: 36415; 74018; 74177; 74250; 80048; 80053; 81001; 83605; 83690; 85025; 96361; 96374; 99199; 99285; A9270; G0378; J0650; J1650; J2270; J2405; J2470; J7030; J7120; Q9967